=== PATIENT | male | born 1965 | race Caucasian/White ===

== ENCOUNTER 2022-02-26 09:33 | Outpatient (CLI) | payer OTHER, SELFPAY ==
--- NOTE | 2022-02-26 09:52 | CT_ITS ---
WS: [id number] CT ABDOMEN PELVIS TECHNIQUE: Contrast-enhanced CT of the abdomen and pelvis with coronal and sagittal reformatted image s. CLINICAL INFORMATION: STOOL INCONTINENCE COMPARISON: Ultrasound February 17, 2022 DLP: 1433.[address] scans at [facility] use at least one of these dose optimization techniques: automated e xposure control; mA and/or kV adjustment per patient size (includes targeted exams where dose is matc hed to clinical indication); or iterative reconstruction. FINDINGS: Innumerable heterogeneously enhancing liver lesions likely metastasis throughout both hepatic lobes. Hepatomegaly. Lobulated liver metastasis with mild mass effect on the portal veins. Portal veins onesimo in patent. Splenic vein is patent. Largest metastatic lesions measure 7-8 cm. Mass effect on the midd le hepatic vein. IVC is patent. Normal GE junction. Stomach appears normal. Adrenal glands are normal . Normal renal parenchymal enhancement. No hydronephrosis. Periportal lymphadenopathy. Normal caliber abdominal aorta. Celiac and SMA are patent. Additional per iaortic and Prominent aortocaval lymph nodes. Enlarged RIGHT iliac lymph nodes. RIGHT greater than LE FT. Enlarged pelvic sidewall lymph nodes. Prominent LEFT greater than RIGHT inguinal lymph nodes. Not able enlarged presacral lymph node measuring 15 mm Lung bases are well aerated. Mild diffuse bladder wall thickening. Prostate calcification. Slightly p rominent prostate measuring 4.2 CM. Mild rectosigmoid constipation. Mild lumbar curve. Hypertrophic changes lumbar spine. Disc space narrowing L5-S1. CT/CT abdomen pelvis w con* [id number] IMPRESSION: 1. Innumerable lobulated complex masses throughout both hepatic lobes most lik kalli due to metastatic disease. Largest lesions measure 7 to 8 cm. 2. Mass effect with narrowing of the portal veins and middle hepatic vein. 3. Splenic vein is patent. 4. Periportal lymphadenopathy. Enlarged aortocaval and periaortic lymph nodes. Enlarged RIGHT greater than LEFT common iliac lymph nodes. Enlarged RIGHT grea ter than LEFT pelvic sidewall lymph nodes. Prominent LEFT inguinal lymph node. 5. Notable enlarged presacral lymph node measuring 15 mm. 6. Mild prominence of the prostate measuring 4.2 CM. 7. No other remarkable findings.
[2022-02-26] MEDS: iohexol 350 mg/mL 500 mL Btl (per mL) IV (10:00)
[2022-02-26] MEDS: iohexol 350 mg/mL 500 mL Btl (per mL) PO (10:01)
== END 2022-02-26 09:34 | disposition home or self-care (01) ==
PROVIDERS: Visit Provider Family Medicine
DX: R15.9 Full incontinence of feces (principal); N40.0 Benign prostatic hyperplasia without lower urinary tract symptoms; R59.0 Localized enlarged lymph nodes
CPT/HCPCS: 74177; Q9967

== ENCOUNTER 2022-03-20 13:23 | Outpatient (CLI) | payer OTHER, SELFPAY ==
--- NOTE | 2022-03-20 13:39 | CT_ITS ---
WS: [id number] CT HEAD TECHNIQUE: Noncontrast and contrast-enhanced CT of the head. CLINICAL INFORMATION: MALIGNANT NEOPLASM OF LIVER COMPARISON: None. DLP: 3408.[address] scans at [facility] use at least one of these dose optimization techniques: automated e xposure control; mA and/or kV adjustment per patient size (includes targeted exams where dose is matc hed to clinical indication); or iterative reconstruction. FINDINGS: No evidence of intracranial hemorrhage or mass effect. Ventricular system and basal cisterns are benjamin nt. No abnormal intracranial enhancement. No evidence of enhancing intracranial metastatic disease. P aranasal sinuses and mastoid air cells are well aerated. Mild parenchymal volume loss. Mild intracran ial vascular calcification. Normal posterior nasopharynx. No other suspicious findings. CT/CT head wo/w con [id number] IMPRESSION: 1. No evidence of intracranial hemorrhage or mass effect. 2. Mild small vessel changes. Moderate parenchymal volume loss. 3. No abnormal intracranial enhancement. 4. No evidence of enhancing metastatic disease. 5. No other acute findings.
--- NOTE | 2022-03-20 13:39 | CT_ITS ---
WS: [id number] CT CHEST TECHNIQUE: Contrast enhanced CT of the chest with coronal and sagittal reformatted images. CLINICAL INFORMATION: MALIGNANT NEOPLASM OF LIVER COMPARISON: None. DLP: 3408.[address] scans at [facility] use at least one of these dose optimization techniques: automated e xposure control; mA and/or kV adjustment per patient size (includes targeted exams where dose is matc hed to clinical indication); or iterative reconstruction. FINDINGS: Normal variant azygos fissure. No acute pulmonary infiltrates. No focal pneumonia or pleural fluid. N o suspicious pulmonary parenchymal opacities. No evidence of metastatic disease in the chest. Normal caliber thoracic aorta. Normal caliber descending thoracic aorta. Upper abdominal aorta is nor mal. No mediastinal or hilar lymphadenopathy. No axillary lymphadenopathy. Diffuse metastatic disease partially visualized in the liver with hepatomegaly. Hypertrophic changes mid and lower thoracic spine. CT/CT chest w con* [id number] IMPRESSION: 1. No evidence of metastatic disease in the chest. 2. Normal variant azygos fissure. 3. No acute pulmonary infiltrates. 4. Partially visualized diffuse metastatic disease in the liver.
[2022-03-20] MEDS: iohexol 350 mg/mL 500 mL Btl (per mL) IV (13:51)
== END 2022-03-20 13:24 | disposition home or self-care (01) ==
PROVIDERS: Visit Provider Electrodiagnostic Medicine
DX: C22.9 Malignant neoplasm of liver, not specified as primary or secondary (principal)
CPT/HCPCS: 70470; 71260; Q9967

== ENCOUNTER 2022-04-21 18:12 | Inpatient (IN) | payer OTHER, SELFPAY ==
[2022-04-21 18:14] VITALS: BMI 21.2
[2022-04-21 20:00] VITALS: BP 158/95; PULSE 61; RESP 17; TEMP 37.6; O2SAT 98
[2022-04-21 20:11] LABS: Basophils # 0.1 10^3/uL (0.0-0.1); Basophils % 0.4 %; Eosinophils # 0.2 10^3/uL (0.0-0.8); Eosinophils % 1.3 %; Hemoglobin 11.5 g/dL (11.7-16.6); Lymphocytes % 12.9 %; Mean Corpuscular HGB Conc 31.9 g/dL (30.0-36.0); Mean Corpuscular Volume 81.4 fl (80-94); Mean Platelet Volume 11.6 fL (7.4-10.4); Monocytes # 1.3 10^3/uL (0.2-0.9); Monocytes % 8.5 %; Neutrophils # 11.61 10^3/uL (1.8-7.7); Neutrophils % 76.7 %; Nucleated Red Blood Cells % 0 %; Platelet Count 358 10^3/cmm (130-400); Red Blood Count 4.42 10^6/uL (4.1-5.3); Red Cell Distribution Width 18.7 % (12.1-15.1); White Blood Count 15.1 10^3/uL (4.0-10.0)
[2022-04-21 20:27] LABS: INR 0.96 (0.8-1.2)
[2022-04-21 20:54] LABS: Folate Level 13.7 ng/mL (4.5-32.2)
[2022-04-21 20:55] LABS: Thyroid Stimulating Hormone 3.02 uIU/mL (0.27-4.20); Vitamin B12 603 pg/mL (232-1245)
[2022-04-21 21:06] LABS: Alanine Aminotransferase 27 U/L (0-41); Albumin Level 3.5 g/dL (3.5-5.2); Alkaline Phosphatase 439 U/L (40-130); Aspartate Amino Transferase 32 U/L (0-40); Blood Urea Nitrogen 10 mg/dL (6-20); Carbon Dioxide 28 mmol/L (22-29); Chloride 97 mmol/L (98-107); Globulin 3.2 g/dL (1.3-4.6); Glomerular Filtration Rate 171.4 mL/min (90-130); Glucose 80 mg/dL (65-115); Iron 21 ug/dL (59-158); Osmolality Calculated 278 mOsm/kg (285-295); Percent Saturation 8.5 % (20-50); Sodium 135 mmol/L (136-145); Total Bilirubin 0.3 mg/dL (0.15-1.2); Total Iron Binding Capacity 245 mcg/dl; Total Protein 6.7 g/dL (6.6-8.7); Unsaturated Iron Binding 224 ug/dL (112-347)
--- NOTE | 2022-04-21 21:25 | CT_ITS ---
WS: [id number] CT ABDOMEN AND PELVIS WITH CONTRAST HISTORY: rectal cancer with constipation and difficulty to pass urine TECHNIQUE: Imaging performed of the abdomen and pelvis with IV contrast. Single phase imaging of the abdomen. Coronal and sagittal reformats are submitted. All CT scans at [facility] use at [address] one of these dose optimization techniques: automated exposure control; mA and/or kV adjustment per patient size (includes targeted exams where dose is matched to clinical indication); or iterative re construction. IV CONTRAST: Omnipaque 350; 95 mL IV. Oral contrast: Minimal just prior to the scan to distend the stomach. DLP: 422.73 mGy.cm COMPARISON: 02/26/2022 Lower thorax: Lung bases are clear. Heart is normal size. Small hiatal hernia. Liver/biliary system: Enlarged heterogeneous liver with multiple masses scattered throughout the live r. Some of these masses are confluent. Significant involvement of the liver. Largest confluent mass i n the RIGHT lobe measures 12.5 x 9.9 cm. There does appear to been a progression of the metastatic le sions throughout the liver. Encasement of the main portal vein and RIGHT portal vein. No definite occ lusions. Gallbladder: Normal. No gallstones or wall thickening. No pericholecystic fluid. Pancreas: Low-attenuation mass inseparable from the pancreatic neck measures 1.9 x 2.0 cm. May be a l ymph node or lesion associated with the pancreas. No pancreatic duct dilatation. Spleen: Normal size spleen. No mass or infarct. Adrenal glands: Normal. Right kidney: Normal. Left kidney: Normal. Aorta: Mild atherosclerosis with no aneurysm. Lymphadenopathy: Numerous retroperitoneal and mesenteric lymph nodes are identified. Numerous lymph n odes in the region of the monie hepatis and adjacent to the portal vein with the largest measuring 2. 0 x 1.9 cm. This is a lymph node or mass effect is inseparable from the pancreas. Retroperitoneal lym ph nodes with the largest in the LEFT periaortic location measuring 1.0 x 2.3 cm. Additional smaller aortocaval and iliac chain lymph nodes. RIGHT iliac chain lymph node measures 2.4 x 1.1 cm. Small ing uinal lymph nodes. Free fluid: None. GI tract: Minimally distended stomach. No small bowel obstruction. There is extensive fecal retention and air throughout the colon. There are numerous foci of air within the wall of the rectum. These ch anges have progressed since the prior study. This wall thickening and foci of air are greatest along the RIGHT lateral rectum. Possibility of ischemia or perforation should be considered. There are shane ral foci of air that or not definitely contained within the lumen. No soft tissue stranding. Asymmetric thickening and increased soft tissue at the rectum. There are sm all lymph nodes which are enhancing posterior to the rectum. The largest measures 1.9 cm. Abdominal wall: Unremarkable abdominal wall. No hernia. Pelvis: No free fluid. Urinary bladder is well distended. Mild prostate enlargement with central calc ifications. Bones: Unremarkable. CT/CT abdomen pelvis w con* [id number] IMPRESSION: 1. Known hepatic metastatic disease has progressed since 02/26/2022. 2. Mesenteric and retroperitoneal and pelvic lymphadenopathy very similar in a ppearance to 02/26/2022. 3. Marked diffuse constipation and fecal retention with abnormal soft tissue t hickening near the rectum with perirectal soft tissue stranding and a few small lymph nodes. Suspect site of tumor involvement. 4. Several foci of air near the rectum appear within the wall or just external to the lumen. Possibility of perforation or phlegmon should be considered. The re is no focal collection. There has been a significant change in appearance of the rectum since the prior study.
[2022-04-21] MEDS: magnesium hydroxide 30 mL UDC PO (22:26)
[2022-04-21] MEDS: sennosides 8.6 mg Tablet 17.2 MG PO (22:26)
[2022-04-21] MEDS: dextrose 5%-sod chloride 0.45% 1,000 ML 75 ML IV (22:27)
[2022-04-21] MEDS: famotidine 20 mg/2 mL INJ IVP (23:07)
[2022-04-21 23:08] VITALS: RESP 18
[2022-04-21] MEDS: morphine 4 mg/mL SDV 1 mL 2 MG IVP (23:08)
[2022-04-21] MEDS: barium sulfate 450 mL Oral Susp PO (23:32)
[2022-04-22] VITALS (29 sets, daily range): BP systolic 103–163; BP diastolic 61–96; PULSE 58–97; RESP 16–20; TEMP 36.3–38.9; O2SAT 92–100; BMI 21.2
[2022-04-22] MEDS: iohexol 350 mg/mL 500 mL Btl (per mL) IV (00:07)
[2022-04-22] MEDS: morphine 4 mg/mL SDV 1 mL 2 MG IVP ×3 (01:26→08:54)
--- NOTE | 2022-04-22 02:03 | PM.HP ---
Providers/Chief Complaint Admitting Physician: Teodoro Rizo MD Primary Care Provider: Sylvain Tenorio MD Chief Complaint: colorectal cancer History of Present Illness Morgan Cruz is a 56 year old male who was diagnosed to have rectal cancer about 2 months ago. Patient visited with his primary care provider for a routine exam, on abdominal palpation was noted to have a firm liver. Further work-up with an ultrasound revealed metastatic disease to the liver. Colonoscopy was subsequently performed as outpatient by his PCP Dr. Schuster which showed rectal mass, moderately differentiated adenocarcinoma on biopsy. Patient has had constipation, feeling of incomplete evacuation for over 2 months now. He also has complaints of frequent bloating, inability to pass gas satisfactorily, abdominal pain after eating which he attributes to gas pain. He has noticed narrow caliber stools. Reportedly he had a one-time bleeding in his stools which he attributed to excessive ibuprofen use, reports taking up to 10 to 12 pills a day because of abdominal pain. States that the bleeding stopped once he quit taking ibuprofen. Last use was over 2 weeks ago. No nausea vomiting or hematemesis. States that he additionally has difficulty urinating when he gets bloated. Denies any fever or chills. Patient presented to the oncology office today as a new patient to establish care, was noted to be in extreme discomfort [place] was sent over to to the hospital for a direct admit. Labs today are reflective of leukocytosis, mild hyponatremia and elevated alk phos at 439. T. bili AST ALT currently normal. CT of the abdomen and pelvis obtained this evening shows progressed metastatic disease, mesenteric and retroperitoneal lymphadenopathy, marked diffuse constipation and fecal retention with soft tissue thickening near the rectum which is likely the site of his tumor involvement. Additionally noted are several foci of air near the rectum within the wall or just external to the lumen. Possibility of perforation or phlegmon could not be excluded. There was no noted focal collection. There has been a significant change in the appearance of rectum since the last CAT scan in February 2022. Review of Systems General: Reports: 10 or more systems reviewed and unremarkable except in HPI and below Const: Denies: fever(s), chills or body aches Eyes: Denies: change in vision, blurry vision or photophobia ENMT: Reports: hoarseness; Denies: throat pain, enlarged tonsils, odynophagia or nasal congestion Card: Denies: chest pain, palpitations, irregular heart rhythm, edema, swelling of feet/ankles, lightheadedness, pre-syncope, dyspnea on exertion or orthopnea Resp: Denies: dyspnea, productive cough, non-productive cough, wheezing, stridor, pain on inspiration, change in phlegm color, hemoptysis or chest congestion GI: Denies: abdominal pain, nausea, vomiting, hematemesis, coffee ground emesis, dysphagia, heartburn, diarrhea, constipation, GI cramping, change in stool character, hematochezia or melena : Denies: flank pain, dysuria, urinary frequency, urinary urgency, urinary hesitancy or hematuria Musc: Denies: neck pain, back pain, extremity pain, joint swelling, joint warmth or deformity Neuro: Denies: headache(s), numbness in extremities, weakness in extremities, sensory changes, difficulty walking, frequent falls, dizziness, vertigo, behavioral changes, Slurred speech present or seizure-like activity Psych: Denies: anxiety, depression, suicidal ideation or homicidal ideation Endo: Denies: polyuria, polydipsia, tired all the time, cold intolerance or hot flashes Jamar/Lymph: Denies: easy bruising or easy bleeding Medications/Allergies Home Medications Medication Instructions Recorded Confirmed Last Taken Type dicyclomine 20 mg tablet 20 mg PO QID 04/21/22 04/21/22 Unknown History levofloxacin 500 mg tablet 500 mg PO DAILY 04/21/22 04/21/22 Unknown History loperamide 2 mg capsule 4 mg PO .COMPLEX PRN 04/21/22 04/21/22 Unknown History oxycodone-acetaminophen 5 mg-325 1 tab PO Q8H PRN 04/21/22 04/21/22 Unknown History mg tablet Allergies Allergy/AdvReac Type Severity Reaction Status Date / Time No Known Allergies Allergy Verified 04/21/22 15:55 PFSH Acute PFSH: Medical History (Updated 04/22/22 @ 02:12 by Eva Peters MD) Colon cancer Family History (Updated 04/21/22 @ 16:04 by Ema Krueger LPN) Other CAD (coronary artery disease) Hypertension Denies family history of Diabetes Clotting disorder Dementia Hyperlipidemia Psychiatric illness Chronic kidney disease (CKD) Suicide Anesthesia complication Bleeding disorder Lung disease Cancer Stroke Social History (Updated 04/21/22 @ 16:03 by Ema Krueger LPN) Smoking and tobacco status: former smoker Quit status (tobacco): has quit using tobacco Former quit date comment: smoked x 5 years in his twenty's. Alcohol intake: former Vitals/I&O/Wt Last Vital Signs Temp 97.6 F 04/22/22 00:00 Pulse 96 04/22/22 00:00 Resp 20 H 04/22/22 01:26 BP 155/80 04/22/22 00:00 Pulse Ox 95 04/22/22 01:33 O2 Del Method 04/22/22 01:33 Weight last 48 hrs Weight 65.431 kg Physical Exam Narrative: General: Patient is currently in discomfort from being bloated with gas. He is pacing the room trying to find some relief. HEENT: PERRLA, pupils bilaterally equal and reactive, pallors not present Chest: Normal vesicular breath sounds, no added sounds, equal good air entry bilaterally CVS: S1-S2 regular, no murmurs, no tachycardia, no gallops, no rubs Abdomen: Soft, mildly distended no organomegaly, bowel sounds present Neuro: No focal deficits, no facial deformity, AO x3, power 5/5 in all limbs Data 04/21/22 19:50 04/21/22 19:50 Other Labs: Radiology Impressions Abdomen/Pelvis CT 04/21/22 21:25 IMPRESSION: 1. Known hepatic metastatic disease has progressed since 02/26/2022. 2. Mesenteric and retroperitoneal and pelvic lymphadenopathy very similar in appearance to 02/26/2022. 3. Marked diffuse constipation and fecal retention with abnormal soft tissue thickening near the rectum with perirectal soft tissue stranding and a few small lymph nodes. Suspect site of tumor involvement. 4. Several foci of air near the rectum appear within the wall or just external to the lumen. Possibility of perforation or phlegmon should be considered. There is no focal collection. There has been a significant change in appearance of the rectum since the prior study. Laboratory Results WBC 15.1 10^3/uL (4.0-10.0) H 04/21/22 19:50 RBC 4.42 10^6/uL (4.1-5.3) 04/21/22 19:50 Hgb 11.5 g/dL (11.7-16.6) L 04/21/22 19:50 Hct 36.0 % (42.0-52.0) L 04/21/22 19:50 MCV 81.4 fl (80-94) 04/21/22 19:50 MCH 26.0 pg (28.0-34.0) L 04/21/22 19:50 MCHC 31.9 g/dL (30.0-36.0) 04/21/22 19:50 RDW 18.7 % (12.1-15.1) H 04/21/22 19:50 Plt Count 358 10^3/cmm (130-400) 04/21/22 19:50 MPV 11.6 fL (7.4-10.4) H 04/21/22 19:50 Neut % (Auto) 76.7 % 04/21/22 19:50 Lymph % (Auto) 12.9 % 04/21/22 19:50 [place] % (Auto) 8.5 % 04/21/22 19:50 Eos % (Auto) 1.3 % 04/21/22 19:50 Baso % (Auto) 0.4 % 04/21/22 19:50 Neut # (Auto) 11.61 10^3/uL (1.8-7.7) H 04/21/22 19:50 Lymph # (Auto) 2.0 10^3/uL (0.8-4.8) 04/21/22 19:50 [place] # (Auto) 1.3 10^3/uL (0.2-0.9) H 04/21/22 19:50 Eos # (Auto) 0.2 10^3/uL (0.0-0.8) 04/21/22 19:50 Baso # (Auto) 0.1 10^3/uL (0.0-0.1) 04/21/22 19:50 Nucleated RBC % (auto) 0 % 04/21/22 19:50 Nucleated RBCs # 0.0 /100WBC 04/21/22 19:50 PT 13.00 SECONDS (12.1-14.9) 04/21/22 19:50 INR 0.96 (0.8-1.2) 04/21/22 19:50 Sodium 135 mmol/L (136-145) L 04/21/22 19:50 Potassium 4.0 mmol/L (3.5-5.1) 04/21/22 19:50 Chloride 97 mmol/L (98-107) L 04/21/22 19:50 Carbon Dioxide 28 mmol/L (22-29) 04/21/22 19:50 Anion Gap 14.0 (5-19) 04/21/22 19:50 BUN 10 mg/dL (6-20) 04/21/22 19:50 Creatinine 0.5 mg/dL (0.7-1.2) L 04/21/22 19:50 GFR Calculation 171.4 mL/min (90-130) H 04/21/22 19:50 Glucose 80 mg/dL (65-115) 04/21/22 19:50 Calculated Osmolality 278 mOsm/kg (285-295) L 04/21/22 19:50 Lactic Acid 1.0 mmol/L (0.5-2.2) 04/21/22 19:50 Calcium 10.0 mg/dL (8.5-10.5) 04/21/22 19:50 Iron 21 ug/dL (59-158) L 04/21/22 19:50 TIBC 245 mcg/dl 04/21/22 19:50 % Saturation 8.5 % (20-50) L 04/21/22 19:50 Unsat Iron Binding 224 ug/dL (112-347) 04/21/22 19:50 Total Bilirubin 0.3 mg/dL (0.15-1.2) 04/21/22 19:50 AST 32 U/L (0-40) 04/21/22 19:50 ALT 27 U/L (0-41) 04/21/22 19:50 Alkaline Phosphatase 439 U/L (40-130) H 04/21/22 19:50 Total Protein 6.7 g/dL (6.6-8.7) 04/21/22 19:50 Albumin 3.5 g/dL (3.5-5.2) 04/21/22 19:50 Globulin 3.2 g/dL (1.3-4.6) 04/21/22 19:50 Vitamin B12 603 pg/mL (232-1245) 04/21/22 19:50 Folate 13.7 ng/mL (4.5-32.2) 04/21/22 19:50 Procalcitonin 0.20 ng/mL (0-0.5) 04/21/22 19:50 TSH 3.02 uIU/mL (0.27-4.20) 04/21/22 19:50 Micro: Microbiology 04/21/22 19:50 Blood Culture - Preliminary Blood SPECIMEN COLLECTED 04/21/22 19:55 Blood Culture - Preliminary Blood SPECIMEN COLLECTED A&P Assessment and plan (1) Rectal cancer metastasized to liver: (2) Colon perforation: Plan Admitted to [facility]. Patient noted to have metastatic rectal cancer, establish care with oncology today. Currently complaining of abdominal pain, bloating, difficulty passing feces and gas. CT of the abdomen shows progression of the cancer, possible perforation and phlegmonous changes. N.p.o. We will start patient on piperacillin/tazobactam Surgery consult to assess for diverting colostomy As needed morphine for pain control. Inability to pass urine, will bladder scan and Place Baeza catheter, add Flomax when p.o. intake is resumed. IV fluid D5 normal saline at 75 cc an hour Attestations Medical Necessity Statement*: Greater than 2 midnight admission is anticipated for above defined care Coding Level of Care Code Acute Code for Chg Fwd Diagnoses Rectal cancer metastasized to liver C20; C78.7 Colon perforation K63.1
[2022-04-22] MEDS: pantoprazole 40 mg SDV IVP ×2 (02:34→14:59)
[2022-04-22] MEDS: piperacillin-tazobactam 3.375 GM in sodium chloride 0.9% (plus) 50 ML IV ×2 (02:34→10:15)
[2022-04-22 03:37] LABS: Add Urine Microscopic? NO; Charge for UA Resulting for Rev
[2022-04-22 03:51] LABS: Urine Appearance Clear (CLEAR); Urine Color Yellow (Yellow); pH Urine 7 (5-7)
[2022-04-22 03:52] LABS: Bilirubin Urine Neg (Negative); Blood Urine Neg (Negative); Glucose Urine UA Norm (Normal); Ketones Urine Negative (Negative); Leukocyte Esterase Urine Negative (Negative); Nitrate Urine Negative (Negative); Protein Urine Neg (Negative); Urobilinogen Urine Norm (Negative)
[2022-04-22 06:20] LABS: Basophils % 0.2 %; Eosinophils % 0.1 %; Hemoglobin 11.6 g/dL (11.7-16.6); Lymphocytes # 1.1 10^3/uL (0.8-4.8); Mean Corpuscular HGB Conc 32.2 g/dL (30.0-36.0); Mean Corpuscular Hemoglobin 25.5 pg (28.0-34.0); Mean Corpuscular Volume 79.1 fl (80-94); Mean Platelet Volume 11.7 fL (7.4-10.4); Monocytes # 1.8 10^3/uL (0.2-0.9); Monocytes % 9.7 %; Neutrophils # 15.14 10^3/uL (1.8-7.7); Neutrophils % 83.7 %; Nucleated Red Blood Cells % 0 %; Platelet Count 367 10^3/cmm (130-400); Red Blood Count 4.55 10^6/uL (4.1-5.3); Red Cell Distribution Width 18.6 % (12.1-15.1); White Blood Count 18.1 10^3/uL (4.0-10.0)
[2022-04-22 06:32] LABS: Estmated Average Glucose 97
[2022-04-22 06:46] LABS: Alanine Aminotransferase 25 U/L (0-41); Albumin Level 3.7 g/dL (3.5-5.2); Alkaline Phosphatase 399 U/L (40-130); Aspartate Amino Transferase 34 U/L (0-40); Blood Urea Nitrogen 9 mg/dL (6-20); Calcium 9.2 mg/dL (8.5-10.5); Carbon Dioxide 27 mmol/L (22-29); Chloride 100 mmol/L (98-107); Chol HDL Ratio 3.24 mg/dL (1.0-5.00); Cholesterol 178 mg/dL (0-200); Globulin 3.2 g/dL (1.3-4.6); Glomerular Filtration Rate 116.2 mL/min (90-130); Glucose 109 mg/dL (65-115); HDL Cholesterol 55 mg/dL (60-100); LDL Cholesterol Calculated 105 mg/dL (50-129); Magnesium 1.8 mg/dL (1.7-2.3); Osmolality Calculated 287 mOsm/kg (285-295); Phosphorus 3.6 mg/dL (2.5-4.5); Sodium 139 mmol/L (136-145); Total Bilirubin 0.5 mg/dL (0.15-1.2); Total Protein 6.9 g/dL (6.6-8.7); Triglycerides 91 mg/dL (0-150); VLDL Cholestrol Calculation 18 mg/dL (0-30)
[2022-04-22] MEDS: dextrose 5%-sod chloride 0.45% 1,000 ML 75 ML IV (08:35)
[2022-04-22] MEDS: docusate sodium 100 mg Capsule PO (08:36)
[2022-04-22] MEDS: magnesium hydroxide 30 mL UDC PO (08:36)
[2022-04-22] MEDS: iron sucrose 200 MG in sodium chloride 0.9% (100 ml) 100 ML 220 MG IV (11:45)
[2022-04-22] MEDS: HYDROmorphone 1 mg/mL INJ 1 mL 0.5 MG IVP ×2 (14:58→16:55)
--- NOTE | 2022-04-22 15:18 | PM.PN ---
Subjective Subjective: No acute events overnight. Patient has remained hemodynamic stable and afebrile on room air. Complaining of abdominal pain. States morphine is not helping him enough. Did have few bowel movements after bowel regimen yesterday. States he thinks that the Baeza catheter is not working and he is not able to pass urine. We discussed urine S coming from the Baeza catheter and the irritation is likely sensation of the Baeza going in. We discussed the initiation of Flomax. Patient is agreeable. Family at bedside. Plan for OR later in the day today. Discussed CT results in detail. Vitals/I&O/Wt Last Vital Signs Temp 98.2 F 04/22/22 11:52 Pulse 80 04/22/22 11:52 Resp 18 04/22/22 14:58 BP 147/80 04/22/22 11:52 Pulse Ox 95 04/22/22 11:52 O2 Del Method 04/22/22 11:52 04/22/22 04/22/22 04/22/22 06:59 14:59 22:59 Intake Total 50 / 50 920 / 920 Output Total 950 / 950 500 / 500 Balance -900 / -900 420 / 420 Weight last 48 hrs Weight 65.431 kg Weight 65.431 kg Physical Exam Narrative: General: In mild distress because of abdominal pain, AOx3, on room air, cachectic HEENT: PERRLA, pupils bilaterally equal and reactive, pallors not present Chest: Normal vesicular breath sounds, no added sounds, equal good air entry bilaterally CVS: S1-S2 regular, no murmurs, no tachycardia, no gallops, no rubs Abdomen: Soft, mildly distended no organomegaly, bowel sounds present but sluggish Neuro: No focal deficits, no facial deformity, AO x3, power 5/5 in all limbs Urinary Catheter Management: Baeza: Cath Placed During This Visit: yes Reason for Continuing Indwelling Catheter: Acute Urinary Retention or Obstruction Urinary Catheter Date of Insertion: 04/22/22 Urinary Catheter Time of Insertion: 01:50 Data 04/22/22 05:55 04/22/22 05:55 Micro: Microbiology 04/21/22 19:50 Blood Culture - Preliminary Blood SPECIMEN COLLECTED 04/21/22 19:55 Blood Culture - Preliminary Blood SPECIMEN COLLECTED A&P Assessment and plan (1) Colon perforation: Surgery consulted. Continue with empiric Zosyn. Follow-up blood cultures. Plan for the OR today. Continue with aggressive bowel regimen with senna, Colace, milk of magnesium. Continue NPO. Postoperative anticoagulation, diet advancement as per surgical team. Continue with D5 half NS at 75 cc/h. Dilaudid 0.5 every 6 hours as needed for pain. (2) Rectal cancer metastasized to liver: Follows up with Dr. Hughes as an outpatient. Plan for chemotherapy as an outpatient. Plan for port placement during hospitalization. Plan Iron deficiency anemia: Started on IV iron supplementation. Appreciate vitamin B12 folate results. NPO. Protonix for PUD prophylaxis Heparin for DVT prophylaxis Attestations Medical Necessity Statement*: Requires further hospitalization for management of colonic perforation in setting of rectal cancer metastatic to liver Coding Level of Care Code 84639 High MDM includes risk/complexity, reviewing previous or external records, reviewing test results, ordering lab/other test(s), speaking with independent historian (other than patient), independently interpretating test(s) (not separately recorded) and discussion of management or test(s) w/ other healthcare professional and High Time for a total of 50 minutes, includes reviewing past or interval history, examining/interviewing patient, placing orders, counseling patient/family/other support, updating patient/family/other support, discussing plan of care with staff, communicating with other healthcare providers, documenting encounter and coordinating care Diagnoses Colon perforation K63.1 Rectal cancer metastasized to liver C20; C78.7
--- NOTE | 2022-04-22 15:52 | P.ANESASSM_ITS ---
Pre-Anesthetic Assessment Height/Weight: Height 1.75 m Weight 65.431 kg Temp Pulse Resp BP Pulse Ox O2 Del Method 98.2 F 80 18 147/80 95 04/22/22 11:52 04/22/22 11:52 04/22/22 14:58 04/22/22 11:52 04/22/22 11:52 04/22/22 11:52 Operation Date: 04/22/22 17:15 Proposed Procedures p Exploratory Laparotomy(Not Applicable) - Morgan Huston DO s Colostomy(Not Applicable) - Morgan Huston DO Familial anesthetic complications: None Was Beta Javi taken within 24 hours: N/A Was Clonidine taken within 24 hours: N/A Last intake: Intake Last Liquid Date 04/21/22 Last Liquid Time 21:00 Last Solid Date 04/21/22 Last Solid Time 08:00 Social No alcohol and No tobacco former smoker Exam alert, oriented x 3, clear to auscultation bilaterally and regular rate & rhythm Airway Mallampati: Class III Dentition: other (no teeth) GI colon cancer Anesthetic Plan ASA status: 3E Anesthesia: General Risk of > 500 ml blood loss (7ml/kg in children): No Medications/Allergies Home Medications Medication Instructions Recorded Confirmed Last Taken Type dicyclomine 20 mg tablet 20 mg PO QID 04/21/22 04/22/22 Unknown History levofloxacin 500 mg tablet 500 mg PO DAILY 04/21/22 04/22/22 Unknown History loperamide 2 mg capsule 4 mg PO .COMPLEX 04/21/22 04/22/22 Unknown History oxycodone-acetaminophen 10 mg-325 1 tab PO Q8H PRN Pain 04/22/22 04/22/22 Unknown History mg tablet saw palm 160 mg-vit E 100 2 tab PO DAILY 04/22/22 04/22/22 Unknown History unit-selen 100 rlf-vbgd-ehsomz-pygeum tablet (Prostate Health) Allergies Allergy/AdvReac Type Severity Reaction Status Date / Time No Known Allergies Allergy Verified 04/22/22 08:10 Current Medications Generic Name Dose Route Start Last Admin Trade Name Freq PRN Reason Stop Dose Admin Docusate Sodium 100 mg 04/22/22 09:00 04/22/22 08:36 Docusate Sodium 100 Mg Capsule PO 100 mg BID ZEFERINO Administration Hydromorphone HCl 0.5 mg 04/22/22 09:21 04/22/22 14:58 Hydromorphone 1 Mg/Ml Inj 1 Ml IVP 0.5 mg Q6H PRN Administration SEVERE PAIN Dextrose/Sodium Chloride 1,000 mls @ 75 mls/hr 04/21/22 19:15 04/22/22 08:35 Dextrose 5%-Sod Chloride 0.45% IV 75 mls/hr .[id number] ZEFERINO Administration Piperacillin Sod/Tazobactam 50 mls @ 12.5 mls/hr 04/22/22 02:00 04/22/22 14:16 Sod 3.375 gm/ Sodium Chloride IV Infused Q8H ZEFERINO Infusion Protocol Iron Sucrose 200 mg/ Sodium 110 mls @ 220 mls/hr 04/22/22 11:00 04/22/22 12:46 Chloride IV 04/26/22 11:29 Infused Q24H ZEFERINO Infusion Magnesium Hydroxide 30 ml 04/21/22 19:10 04/22/22 08:36 Magnesium Hydroxide 30 Ml Udc PO 30 ml DAILY ZEFERINO Administration Morphine Sulfate 2 mg 04/21/22 19:09 04/22/22 08:54 Morphine 4 Mg/Ml Sdv 1 Ml IVP 2 mg Q4H PRN Administration SEVERE PAIN Pantoprazole Sodium 40 mg 04/22/22 02:15 04/22/22 14:59 Pantoprazole 40 Mg Sdv IVP 40 mg Q12H ZEFERINO Administration Senna 17.2 mg 04/21/22 21:00 04/21/22 22:26 Sennosides 8.6 Mg Tablet PO 17.2 mg BEDTIME ZEFERINO Administration PFSH Anesthesia Medical History (Updated 04/22/22 @ 15:20 by Teodoro Rizo MD) Colon cancer Hypertension Liver mass Family History (Updated 04/21/22 @ 16:04 by Ema Krueger LPN) Other CAD (coronary artery disease) Hypertension Denies family history of Diabetes Clotting disorder Dementia Hyperlipidemia Psychiatric illness Chronic kidney disease (CKD) Suicide Anesthesia complication Bleeding disorder Lung disease Cancer Stroke Social History (Updated 04/21/22 @ 16:03 by Ema Krueger LPN) Smoking and tobacco status: former smoker Quit status (tobacco): has quit using tobacco Former quit date comment: smoked x 5 years in his twenty's. Alcohol intake: former Data Anesthesia 04/22/22 05:55 04/22/22 05:55 Short CBC 04/21/22 04/22/22 Range/Units 19:50 05:55 WBC 15.1 H 18.1 H (4.0-10.0) 10^3/uL Hgb 11.5 L 11.6 L (11.7-16.6) g/dL Hct 36.0 L 36.0 L (42.0-52.0) % MCV 81.4 79.1 L (80-94) fl Plt Count 358 367 (130-400) 10^3/cmm Neut % (Auto) 76.7 83.7 % Neut # (Auto) 11.61 H 15.14 H (1.8-7.7) 10^3/uL BMP 04/21/22 04/22/22 19:50 05:55 Sodium 135 L 139 Potassium 4.0 4.0 Chloride 97 L 100 Carbon Dioxide 28 27 BUN 10 9 Creatinine 0.5 L 0.7 Glucose 80 109 Calcium 10.0 9.2 Liver Function 04/21/22 04/22/22 Range/Units 19:50 05:55 Total Bilirubin 0.3 0.5 (0.15-1.2) mg/dL AST 32 34 (0-40) U/L ALT 27 25 (0-41) U/L Alkaline Phosphatase 439 H 399 H (40-130) U/L Albumin 3.5 3.7 (3.5-5.2) g/dL Urine 04/21/22 Range/Units 03:00 Urine Color Yellow (Yellow) Urine Appearance Clear (CLEAR) Urine pH 7 (5-7) Ur Specific [place] 1.000 L (1.005-1.030) Urine Protein Neg (Negative) Urine Glucose (UA) Norm (Normal) Urine Ketones Negative (Negative) Urine Nitrate Negative (Negative) Urine Bilirubin Neg (Negative) Ur Leukocyte Esterase Negative (Negative) Coags 04/21/22 19:50 PT 13.00 INR 0.96 Microbiology 04/21/22 19:50 Blood Culture - Preliminary Blood SPECIMEN COLLECTED 04/21/22 19:55 Blood Culture - Preliminary Blood SPECIMEN COLLECTED Cardiac Studies: No Data to Display
[2022-04-22] MEDS: sodium chloride 0.9% 1,000 ML 30 ML IV (16:23)
--- NOTE | 2022-04-22 16:35 | SC_ITS ---
WS: [id number] C-ARM RADIOGRAPHS NO ANATOMIC IMAGING SUBMITTED; HISTORY: port COMPARISON: None available. Intraoperative imaging during Port-A-Cath placement. No film was obtained to document this exam. SC/C-arm FL for CVA [id number] IMPRESSION: Intraoperative imaging during Port-A-Cath placement with no imaging documentati on submitted.
--- NOTE | 2022-04-22 16:38 | P.CONIM_ITS ---
Providers/Reason For Consult Consulting Physician/Specialty*: Dr. Morgan Huston, DO/General surgery Reason for Consult*: Stage IV rectal cancer with partial obstruction and likely perforation of the rectum Attending Physician: Teodoro Rizo MD Primary Care Provider: Sylvain Tenorio MD History of Present Illness History of Present Illness Morgan Cruz is a 56 year old male who has advanced rectal cancer metastatic to the liver. He was admitted last night and a CT showed likely perforation of the rectum along with constipation. He denies any abdominal pain. He was given laxatives yesterday and had 2 bowel movements this morning. Oncology asked for me to do a diverting colostomy and Mediport placement. Review of Systems General: Reports: 10 or more systems reviewed and unremarkable except in HPI and below Medications/Allergies Home Medications Medication Instructions Recorded Confirmed Last Taken Type dicyclomine 20 mg tablet 20 mg PO QID 04/21/22 04/22/22 Unknown History levofloxacin 500 mg tablet 500 mg PO DAILY 04/21/22 04/22/22 Unknown History loperamide 2 mg capsule 4 mg PO .COMPLEX 04/21/22 04/22/22 Unknown History oxycodone-acetaminophen 10 mg-325 1 tab PO Q8H PRN Pain 04/22/22 04/22/22 Un known History mg tablet saw palm 160 mg-vit E 100 2 tab PO DAILY 04/22/22 04/22/22 Unknown History unit-selen 100 lcs-evbg-bmcjrv-pygeum tablet (Prostate Health) Allergies Allergy/AdvReac Type Severity Reaction Status Date / Time No Known Allergies Allergy Verified 04/22/22 08:10 Current Medications Generic Name Dose Route Start Last Admin Trade Name Freq PRN Reason Stop Dose Admin Docusate Sodium 100 mg 04/22/22 09:00 04/22/22 08:36 Docusate Sodium 100 Mg Capsule PO 100 mg BID ZEFERINO Administration Hydromorphone HCl 0.5 mg 04/22/22 09:21 04/22/22 14:58 Hydromorphone 1 Mg/Ml Inj 1 Ml IVP 0.5 mg Q6H PRN Administration SEVERE PAIN Dextrose/Sodium Chloride 1,000 mls @ 75 mls/hr 04/21/22 19:15 04/22/22 08:35 Dextrose 5%-Sod Chloride 0.45% IV 75 mls/hr .[id number] ZEFERINO Administration Piperacillin Sod/Tazobactam 50 mls @ 12.5 mls/hr 04/22/22 02:00 04/22/22 14:16 Sod 3.375 gm/ Sodium Chloride IV Infused Q8H ZEFERINO Infusion Protocol Iron Sucrose 200 mg/ Sodium 110 mls @ 220 mls/hr 04/22/22 11:00 04/22/22 12:46 Chloride IV Infused Q24H ZEFERINO Infusion Sodium Chloride 1,000 mls @ 30 mls/hr 04/22/22 16:15 04/22/22 16:23 Sodium Chloride 0.9% IV 04/23/22 16:14 30 mls/hr .Q24H ZEFERINO Administration Magnesium Hydroxide 30 ml 04/21/22 19:10 04/22/22 08:36 Magnesium Hydroxide 30 Ml Udc PO 30 ml DAILY ZEFERINO Administration Morphine Sulfate 2 mg 04/21/22 19:09 04/22/22 08:54 Morphine 4 Mg/Ml Sdv 1 Ml IVP 2 mg Q4H PRN Administration SEVERE PAIN Pantoprazole Sodium 40 mg 04/22/22 02:15 04/22/22 14:59 Pantoprazole 40 Mg Sdv IVP 40 mg Q12H ZEFERINO Administration Senna 17.2 mg 04/21/22 21:00 04/21/22 22:26 Sennosides 8.6 Mg Tablet PO 17.2 mg BEDTIME ZEFERINO Administration PFSH Acute PFSH: Medical History Colon cancer Hypertension Liver mass Family History Other CAD (coronary artery disease) Hypertension Denies family history of Diabetes Clotting disorder Dementia Hyperlipidemia Psychiatric illness Chronic kidney disease (CKD) Suicide Anesthesia complication Bleeding disorder Lung disease Cancer Stroke Social History Smoking and tobacco status: former smoker Quit status (tobacco): has quit using tobacco Former quit date comment: smoked x 5 years in his twenty's. Alcohol intake: former Vitals/I&O/Wt Last Vital Signs Temp 102.1 F H 04/22/22 16:12 Pulse 89 04/22/22 16:12 Resp 16 04/22/22 16:12 BP 149/82 04/22/22 16:12 Pulse Ox 96 04/22/22 16:12 O2 Del Method 04/22/22 16:12 04/22/22 04/22/22 04/22/22 06:59 14:59 22:59 Intake Total 50 / 50 920 / 920 Output Total 950 / 950 500 / 500 Balance -900 / -900 420 / 420 Weight last 48 hrs Weight 144 lb 4 oz Weight 144 lb 4 oz Physical Exam Narrative: General : Patient is well developed , no acute distress, oriented x3 Head : Normal cephalic, a-traumatic. Ears : Pinnae and external canal are normal. Hearing is normal. Eyes : PERRLA, Sclera and injection are normal. No conjunctival discharge. Nose : Mucous membranes are without erythema. Throat : buccal mucosa is normal, gums are without significant recession or hy pertrophy. Lungs : Equal chest rise bilaterally, no use of accessory muscles, trachea is midline. Cor : Rate and rhythm are normal. Abdomen : Soft, ND, NT, no g/r/m Extremities : No edema, no cyanosis or clubbing, dorsalis pedis pulses are present bilaterally, non-tender to palpation of calves. Upper extremities are normal bilaterally. Back : non-tender to palpation, no CVA tenderness. Neuro : CN II - XII intact, Upper and lower extremities have equal and full strength Urinary Catheter Management: Baeza: Cath Placed During This Visit: yes Reason for Continuing Indwelling Catheter: Acute Urinary Retention or Obstruction Urinary Catheter Date of Insertion: 04/22/22 Urinary Catheter Time of Insertion: 01:50 Data 04/22/22 05:55 04/22/22 05:55 Micro: Microbiology 04/21/22 19:50 Blood Culture - Preliminary Blood SPECIMEN COLLECTED 04/21/22 19:55 Blood Culture - Preliminary Blood SPECIMEN COLLECTED A&P Assessment and plan (1) Rectal cancer metastasized to liver: (2) Rectal perforation: Plan Perforation is isolated to the rectum. This is often treated conservatively with antibiotics. I will perform: Exploratory laparotomy with colostomy formation Mediport insertion The risks and benefits of the procedures including but not limited to, bleeding, infection, infection requiring Mediport removal antibiotic therapy and repeat surgery, damage to surrounding structures, scar, numbness, pain, pneumothorax requiring thoracostomy tube, colostomy malfunction, were explained to the pat ient. He/He is understanding of the risks and wishes to proceed. Coding Level of Care Code Acute Code for Chg Fwd Diagnoses Rectal cancer metastasized to liver C20; C78.7 Rectal perforation K63.1
[2022-04-22] MEDS: lidocaine 2% INJ 20 mL INJECTION (17:35)
[2022-04-22] MEDS: heparin, porcine 1,000 unit/mL INJ 10 mL 6000 UNIT IRRIGATION (18:17)
[2022-04-22] MEDS: tranexamic acid 1,000 mg/10mL SDV 1000 MG IV ×2 (18:22→18:57)
--- NOTE | 2022-04-22 18:40 | PC.NURSE ---
spoke with nirmala, patient's and gave update
--- NOTE | 2022-04-22 18:57 | P.OP_ITS ---
Operative Report Date of procedure: April 22, 2022 Pre-op diagnosis: Preop Diagnosis Rectal Cancer Post-op diagnosis: other (Obstructing rectal cancer) Procedure done: Mediport placement Exploratory laparotomy End colostomy formation Implants: 19 [place] Miguel drain perirectally Specimens removed/disposition: None Surgeon: Dr. Morgan Huston DO Anesthesia: General Estimated blood loss (mL): 30 Complications: None apparent Brief History: This is a very pleasant 56-year-old gentleman with rectal cancer. The cancer grew to be obstructing his stool and then perforated his rectal wall. Mediport placement, exploratory laparotomy and end colostomy formation was indicated. The risks and benefits were explained and documented Procedure: The patient was taken to the operating room and placed supine on the operating room table. All bony prominences were padded. She was given IV sedation and monitored throughout the case by the anesthesia personnel. SCDs were placed and turned on. The arms were tucked to the side. Patient received Ancef 2 g preoperatively IV. The bilateral chest wall was prepped and draped in usual sterile fashion using chlorhexidine base prep. Sterile drapes were applied. We did procedure pause prior to beginning. An 18 gauge needle was placed in the right subclavian vein. Dark, nonpulsatile blood was aspirated. A guidewire was placed through the needle centrally toward the atrial/vena caval junction. Fluoroscopy visualized good placement. The needle was removed and the guidewire was clipped to the drape with a hemostat. Further local anesthetic was infiltrated in the soft tissues of the right chest wall and a #15 blade was used to make a horizontal skin incision. A subcutaneous Mediport pocket was created using Bovie cautery, dissecting down through the skin and subcutaneous tissues. Meticulous hemostasis was achieved. The Mediport was sutured in position using 3-0 vicryl suture x2 stitches. A #15 blade was used to make a small skin jimmie around the guidewire insertion area. The Mediport tubing was tunneled through the subcutaneous tissues up to the needle insertion location. A dilator with a peel-away sheath was placed over the guidewire and placed centrally. After measuring the Mediport tubing was cut to length so that the tip would end at the atrial/vena caval junction. The inner cannula and the guidewire were removed, leaving the dilator sheath in place. The Mediport was flushed. The tip of the catheter was inserted through the peel-away sheath and the peel-away sheath removed in the standard fashion. The Mediport was accessed with a straight Snyder needle and dark, nonpulsatile blood was aspirated and flushed using heparinized saline to hep-lock the Mediport. Final fluoroscopy visualization showed no kink in the catheter and the tip of the Mediport tubing near the atrial/vena caval junction. Both skin incisions were thoroughly irrigated and suctioned dry. Meticulous hemostasis noted. The dermis was approximated with 3-0 Vicryl in an interrupted fashion. Skin was closed with Dermabond. Next the drapes were taken down. His abdomen was then inspected prepped and draped in the usual sterile fashion. A 10 blade scalpel was used to make a laparotomy incision from suprapubically to superior to the umbilicus. Bovie cautery was used to dissect down through the fascia. The peritoneum was entered bluntly and Bovie cautery was used to extend the celiotomy caudad and cephalad. Stool was milked from the proximal rectum proximally. A window was made in the mesentery of the rectosigmoid using Bovie cautery. The contour stapler with a blue load was used to transect the sigmoid from the rectum. A Bharathi was used to grasp the planned area for colostomy formation inferior and left of the umbilicus, within the rectus muscle. Bovie cautery was used to carve out a core of skin and subcutaneous tissue. The anterior rectus sheath was opened in a c ruciate fashion with electrocautery. The rectus muscle was split and the posterior rectus sheath was opened linearly. The incisions were dilated until 2 finger breaths width. The sigmoid colon was then brought up through the colostomy site. I digitally probed the mesorectum on the right of the rectus, where CT shows perforation. I had some bleeding in this area. A Surgicel was placed in the area and a lap pad was left for 5 minutes. Lap pad and Surgicel were removed and there is no longer any bleeding. A 19 [place] Miguel drain was then placed perirectally on the right. The drain came out of the right side of the abdomen. The drain was sewn in with 3-0 nylon in interrupted fashion. The laparotomy incision was then closed with #1 PDS in a running fashion x2. Skin was closed with perry. The colostomy was then matured in the typical fashion. Sterile dressings were applied. Colostomy bag was applied. Patient tolerated procedure well.
--- NOTE | 2022-04-22 19:37 | XRR_ITS ---
PROCEDURE INFORMATION: Exam: XR Chest Exam date and time: 04/22/2022 7:41 PM Age: 56 years old Clinical indication: Condition or disease; Other: Portachath placement; Additional info: S/P portacath placement TECHNIQUE: Imaging protocol: Radiologic exam of the chest. Views: 1 view. COMPARISON: CT abdomen pelvis w con* [id number] 04/22/2022 12:06 AM FINDINGS: Tubes, catheters and devices: A left subclavian Port-A-Cath is seen, appearing in good position with tip at the expected level of the cavoatrial junction. 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 No focal infiltrate or consolidation. Pleural spaces: Unremarkable. No pleural effusion. No pneumothorax. Heart/Mediastinum: Unremarkable. No cardiomegaly. Bones/joints: Small linear lucency question small amount of free air below the right diaphragm. XR/XR chest 1V portable [id number] IMPRESSION: 1. Left subclavian Port-A-Cath appears in good position without pneumothorax. 2. Small linear lucency question small amount of free air beneath the right diaphragm. Discussion with Yessi France, TRAINING AND DEVELOPMENT ASSISTANT was performed at 8:50 p.m. central standard time April 22, 2022.. Patient had abdominal surgery with ostomy today. Small amount of free air is attributed to postop change, therefore.
--- NOTE | 2022-04-22 19:50 | ANE.PACU2 ---
Inpatient post-anesthesia follow up: Airway intact: Yes Vital signs: Temperature 98.0 F Pulse Rate 85 Respiratory Rate 17 Blood Pressure 118/80 Pulse Oximetry 98 Oxygen Delivery Me thod Room Air Oxygen Flow Rate 4 Fraction of Inspir ed Oxygen Hydration adequate: Yes Nausea and vomiting: No Pain level: 1 Mental status: Baseline
--- NOTE | 2022-04-22 19:56 | SUR.PHASEI ---
Pt was ready to transfer to [facility], xray wasn't avalible to do the xray before the transport, then there were complications with the xray equipment
[2022-04-22] MEDS: HYDROmorphone 1 mg/mL INJ 1 mL IVP (21:10)
[2022-04-22] MEDS: sodium chloride 0.9% 1,000 ML 125 ML IV (21:37)
[2022-04-23] VITALS (11 sets, daily range): BP systolic 116–145; BP diastolic 72–84; PULSE 70–90; RESP 16–20; TEMP 36.6–36.8; O2SAT 95–98; BMI 21.0
[2022-04-23] MEDS: ondansetron 2 mg/ML SDV 2 mL 4 MG IVP
[2022-04-23] MEDS: piperacillin-tazobactam 3.375 GM in sodium chloride 0.9% (plus) 50 ML IV ×4 (00:07→23:50)
[2022-04-23] MEDS: HYDROmorphone 1 mg/mL INJ 1 mL IVP ×4 (04:31→20:36)
[2022-04-23 05:14] LABS: Basophils % 0.1 %; Hematocrit 32.3 % (42.0-52.0); Hemoglobin 10.2 g/dL (11.7-16.6); Lymphocytes # 0.7 10^3/uL (0.8-4.8); Mean Corpuscular HGB Conc 31.6 g/dL (30.0-36.0); Mean Corpuscular Hemoglobin 25.4 pg (28.0-34.0); Mean Corpuscular Volume 80.5 fl (80-94); Mean Platelet Volume 11.5 fL (7.4-10.4); Monocytes # 0.6 10^3/uL (0.2-0.9); Monocytes % 3.7 %; Neutrophils # 15.11 10^3/uL (1.8-7.7); Nucleated Red Blood Cells % 0 %; Platelet Count 314 10^3/cmm (130-400); Red Blood Count 4.01 10^6/uL (4.1-5.3); Red Cell Distribution Width 19.1 % (12.1-15.1); White Blood Count 16.4 10^3/uL (4.0-10.0)
[2022-04-23 05:35] LABS: Alanine Aminotransferase 18 U/L (0-41); Albumin Level 3.4 g/dL (3.5-5.2); Alkaline Phosphatase 327 U/L (40-130); Aspartate Amino Transferase 28 U/L (0-40); Blood Urea Nitrogen 13 mg/dL (6-20); Calcium 8.6 mg/dL (8.5-10.5); Carbon Dioxide 23 mmol/L (22-29); Chloride 103 mmol/L (98-107); Globulin 2.9 g/dL (1.3-4.6); Glomerular Filtration Rate 116.2 mL/min (90-130); Glucose 114 mg/dL (65-115); Osmolality Calculated 287 mOsm/kg (285-295); Sodium 138 mmol/L (136-145); Total Bilirubin 0.5 mg/dL (0.15-1.2); Total Protein 6.3 g/dL (6.6-8.7)
[2022-04-23] MEDS: tamsulosin 0.4 mg Capsule PO (08:40)
[2022-04-23] MEDS: sodium chloride 0.9% 1,000 ML 125 ML IV (08:41)
[2022-04-23] MEDS: iron sucrose 200 MG in sodium chloride 0.9% (100 ml) 100 ML 220 MG IV (13:24)
[2022-04-23] MEDS: pantoprazole 40 mg SDV IVP (13:48)
--- NOTE | 2022-04-23 14:46 | PM.PN ---
Subjective Subjective: No acute events overnight. Patient underwent exploratory laparotomy, end colostomy formation and port placement yesterday. Patient tolerated the procedure well. Tmax in last 24 hours 102 Fahrenheit. Today morning on examination patient states he is hungry and wants to eat. Passing urine. Passing flatus and bowel movements through ostomy. Denies any nausea, vomiting, headache. States pain is well controlled. Vitals/I&O/Wt Last Vital Signs Temp 98.1 F 04/23/22 08:00 Pulse 87 04/23/22 12:00 Resp 18 04/23/22 13:41 BP 135/81 04/23/22 12:00 Pulse Ox 97 04/23/22 12:00 O2 Del Method 04/23/22 09:22 O2 Flow Rate 4 04/22/22 19:20 04/22/22 04/23/22 04/23/22 22:59 06:59 14:59 Intake Total 550 / 1470 1090 / 2560 2160 / 2160 Output Total 250 / 750 650 / 1400 Balance 300 / 720 440 / 1160 2160 / 2160 Weight last 48 hrs Weight 64.682 kg Weight 64.682 kg Weight 65.431 kg Weight 65.431 kg Physical Exam Narrative: General: In mild distress because of abdominal pain, AOx3, on room air, cachectic HEENT: PERRLA, pupils bilaterally equal and reactive, pallors not present Chest: Normal vesicular breath sounds, no added sounds, equal good air entry bilaterally CVS: S1-S2 regular, no murmurs, no tachycardia, no gallops, no rubs Abdomen: Soft, mildly distended no organomegaly, bowel sounds present but sluggish Neuro: No focal deficits, no facial deformity, AO x3, power 5/5 in all limbs Urinary Catheter Management: Baeza: Cath Placed During This Visit: yes Reason for Continuing Indwelling Catheter: Required Immobilization for Trauma or Surgery or Anesthesia Urinary Catheter Date of Insertion: 04/22/22 Urinary Catheter Time of Insertion: 01:50 Data 04/23/22 04:59 04/23/22 04:59 Micro: Microbiology 04/23/22 05:02 Blood Culture - Preliminary Blood SPECIMEN COLLECTED 04/23/22 04:58 Blood Culture - Preliminary Blood SPECIMEN COLLECTED 04/21/22 19:55 Blood Culture - Preliminary Blood NEGATIVE TO DATE 04/21/22 19:50 Blood Culture - Preliminary Blood NEGATIVE TO DATE A&P Assessment and plan (1) Colon perforation: Postop with expiratory laparotomy and end colostomy formation day 1. Follow-up blood cultures. Continue with empiric Zosyn. Continue D5 half NS at 70 cc/h. Anticoagulation, bowel regimen, diet as per surgical team. (2) Rectal cancer metastasized to liver: Follows up with Dr. Hughes as an outpatient. Plan for chemotherapy as an outpatient. Plan for port placement during hospitalization. (3) Rectal perforation: (4) Fever: (5) Post-operative state: Plan Iron deficiency anemia: Started on IV iron supplementation. Appreciate vitamin B12 folate results. NPO. Protonix for PUD prophylaxis Heparin for DVT prophylaxis Attestations Medical Necessity Statement*: Requires further hospitalization for postoperative care for colostomy formation in a patient with rectal cancer with colon perforation Coding Level of Care Code 22146 Moderate MDM includes risk/complexity, reviewing test results, ordering lab/other test(s), speaking with independent historian (other than patient), independently interpretating test(s) (not separately recorded) and discussion of management or test(s) w/ other healthcare professional and Moderate Time for a total of 40 minutes, includes reviewing past or interval history, examining/interviewing patient, placing orders, counseling patient/family/other support, updating patient/family/other support, discussing plan of care with staff, communicating with other healthcare providers, documenting encounter and coordinating care Diagnoses Colon perforation K63.1 Rectal cancer metastasized to liver C20; C78.7 Rectal perforation K63.1 Fever R50.9 Post-operative state Z98.890
[2022-04-23] MEDS: dextrose 5%-sod chloride 0.9% 1,000 ML 75 ML IV (15:18)
[2022-04-23] MEDS: heparin 5,000 unit/mL INJ 1 mL 5000 UNIT SUBCUT (15:19)
--- NOTE | 2022-04-23 18:02 | P.PN_ITS ---
Subjective Subjective: Patient seen and examined. Denies nausea or emesis. Ostomy is outputting Vitals/I&O/Wt Last Vital Signs Temp 97.9 F 04/23/22 16:00 Pulse 75 04/23/22 16:00 Resp 16 04/23/22 16:00 BP 134/78 04/23/22 16:00 Pulse Ox 96 04/23/22 16:00 O2 Del Method 04/23/22 09:22 O2 Flow Rate 4 04/22/22 19:20 04/23/22 04/23/22 04/23/22 06:59 14:59 22:59 Intake Total 1090 / 2560 2160 / 2160 1000 / 3160 Output Total 650 / 1400 Balance 440 / 1160 2160 / 2160 1000 / 3160 Weight last 48 hrs Weight 142 lb 9.6 oz Weight 142 lb 9.6 oz Weight 144 lb 4 oz Weight 144 lb 4 oz Physical Exam Narrative: General: No acute distress, awake alert and oriented x3 Abdomen: Soft, nondistended, appropriately tender, no guarding or rebound Dressings clean dry and intact Ostomy pink patent and producing Urinary Catheter Management: Baeza: Cath Placed During This Visit: yes Reason for Continuing Indwelling Catheter: Required Immobilization for Trauma or Surgery or Anesthesia Urinary Catheter Date of Insertion: 04/22/22 Urinary Catheter Time of Insertion: 01:50 Data 04/23/22 04:59 04/23/22 04:59 Micro: Microbiology 04/23/22 05:02 Blood Culture - Preliminary Blood SPECIMEN COLLECTED 04/23/22 04:58 Blood Culture - Preliminary Blood SPECIMEN COLLECTED 04/21/22 19:55 Blood Culture - Preliminary Blood NEGATIVE TO DATE 04/21/22 19:50 Blood Culture - Preliminary Blood NEGATIVE TO DATE A&P Assessment and plan (1) Rectal cancer metastasized to liver: (2) Rectal perforation: Plan Postoperative day #1 status post exploratory laparotomy with end colostomy formation and perirectal drain placement and Mediport placement. Drain is not putting out anything purulent. We will manage perforation cons ervatively with antibiotics Clear liquid diet Incentive spirometer Ambulate Medical management per primary Attestations Medical Necessity Statement*: Patient requires multiple more nights in the IV antibiotics for rectal perforation Coding Level of Care Code Acute Code for Chg Fwd Diagnoses Rectal cancer metastasized to liver C20; C78.7 Rectal perforation K63.1
[2022-04-24] VITALS (15 sets, daily range): BP systolic 131–147; BP diastolic 84–93; PULSE 61–107; RESP 16–22; TEMP 36.6–36.9; O2SAT 95–97; BMI 20.6
[2022-04-24] MEDS: pantoprazole 40 mg SDV IVP ×2 (01:37→14:40)
[2022-04-24] MEDS: heparin 5,000 unit/mL INJ 1 mL 5000 UNIT SUBCUT ×2 (04:13→16:27)
[2022-04-24] MEDS: HYDROmorphone 1 mg/mL INJ 1 mL IVP ×4 (04:13→22:47)
[2022-04-24 07:05] LABS: Basophils % 0.2 %; Eosinophils % 0.3 %; Hematocrit 27.4 % (42.0-52.0); Hemoglobin 8.7 g/dL (11.7-16.6); Lymphocytes # 1.4 10^3/uL (0.8-4.8); Lymphocytes % 11.5 %; Mean Corpuscular HGB Conc 31.8 g/dL (30.0-36.0); Mean Corpuscular Hemoglobin 25.5 pg (28.0-34.0); Mean Corpuscular Volume 80.4 fl (80-94); Mean Platelet Volume 12.2 fL (7.4-10.4); Monocytes # 1.4 10^3/uL (0.2-0.9); Monocytes % 12.1 %; Neutrophils # 8.85 10^3/uL (1.8-7.7); Neutrophils % 75.6 %; Nucleated Red Blood Cells % 0 %; Platelet Count 266 10^3/cmm (130-400); Red Blood Count 3.41 10^6/uL (4.1-5.3); Red Cell Distribution Width 19.1 % (12.1-15.1); White Blood Count 11.7 10^3/uL (4.0-10.0)
[2022-04-24 07:24] LABS: Alanine Aminotransferase 15 U/L (0-41); Albumin Level 2.9 g/dL (3.5-5.2); Alkaline Phosphatase 315 U/L (40-130); Anion Gap 11.6 (5-19); Aspartate Amino Transferase 25 U/L (0-40); Blood Urea Nitrogen 14 mg/dL (6-20); Calcium 8.7 mg/dL (8.5-10.5); Carbon Dioxide 26 mmol/L (22-29); Chloride 104 mmol/L (98-107); Globulin 2.5 g/dL (1.3-4.6); Glomerular Filtration Rate 138.9 mL/min (90-130); Glucose 96 mg/dL (65-115); Osmolality Calculated 286 mOsm/kg (285-295); Potassium 3.6 mmol/L (3.5-5.1); Sodium 138 mmol/L (136-145); Total Bilirubin 0.4 mg/dL (0.15-1.2); Total Protein 5.4 g/dL (6.6-8.7)
[2022-04-24] MEDS: tamsulosin 0.4 mg Capsule PO (08:56)
[2022-04-24] MEDS: piperacillin-tazobactam 3.375 GM in sodium chloride 0.9% (plus) 50 ML IV ×2 (08:57→16:28)
[2022-04-24] MEDS: iron sucrose 200 MG in sodium chloride 0.9% (100 ml) 100 ML 220 MG IV (10:49)
--- NOTE | 2022-04-24 13:35 | PM.PN ---
Subjective Subjective: Patient seen and examined. Denies nausea or emesis. Ostomy is outputting. Tolerating clear liquids Vitals/I&O/Wt Last Vital Signs Temp 97.9 F 04/24/22 11:26 Pulse 99 04/24/22 11:26 Resp 18 04/24/22 10:25 BP 144/93 04/24/22 11:26 Pulse Ox 97 04/24/22 11:26 O2 Del Method 04/24/22 08:00 O2 Flow Rate 4 04/22/22 19:20 04/23/22 04/24/22 04/24/22 22:59 06:59 14:59 Intake Total 1250 / 3410 1530 / 4940 560 / 560 Output Total 60 / 60 875 / 935 Balance 1190 / 3350 655 / 4005 560 / 560 Weight last 48 hrs Weight 139 lb 9.6 oz Weight 139 lb 9.6 oz Weight 142 lb 9.6 oz Weight 142 lb 9.6 oz Physical Exam Narrative: General: No acute distress, awake alert and oriented x3 Abdomen: Soft, nondistended, appropriately tender, no guarding or rebound Incision without erythema or exudate Ostomy pink patent and producing Drain mostly sanguinous Urinary Catheter Management: Baeza: Cath Placed During This Visit: yes, but has since been removed by the nurse Reason for Continuing Indwelling Catheter: Other Urinary Catheter Date of Insertion: 04/22/22 Urinary Catheter Time of Insertion: 01:50 Date Urinary Catheter Removed: 04/24/22 Time Urinary Catheter Discontinued: 10:32 Data 04/24/22 05:38 04/24/22 05:38 Micro: Microbiology 04/23/22 05:02 Blood Culture - Preliminary Blood NEGATIVE TO DATE 04/23/22 04:58 Blood Culture - Preliminary Blood NEGATIVE TO DATE A&P Assessment and plan (1) Rectal cancer metastasized to liver: (2) Rectal perforation: Plan Postoperative day #2 status post exploratory laparotomy with end colostomy formation and perirectal drain placement and Mediport placement. Drain is not putting out anything purulent. We will manage perforation conservatively with antibiotics Full liquid diet Incentive spirometer Add lactulose Ambulate Medical management per primary Attestations Medical Necessity Statement*: Patient requires multiple more nights in the IV antibiotics for rectal perforation Coding Level of Care Code Acute Code for Chg Fwd Diagnoses Rectal cancer metastasized to liver C20; C78.7 Rectal perforation K63.1
--- NOTE | 2022-04-24 14:06 | P.PN_ITS ---
Subjective Subjective: Patient denies any nausea, vomiting, headache. States pain is well-controlled. Seen sitting in recliner awake. Rectal drain in place. Started on clear liquid diet as per surgery team. Tolerating well. Otherwise has remained hemodynamically stable and afebrile 24 hours. Continues to remain on room air. Vitals/I&O/Wt Last Vital Signs Temp 97.9 F 04/24/22 11:26 Pulse 83 04/24/22 13:42 Resp 18 04/24/22 13:42 BP 144/93 04/24/22 11:26 Pulse Ox 97 04/24/22 13:42 O2 Del Method 04/24/22 13:42 O2 Flow Rate 4 04/22/22 19:20 04/23/22 04/24/22 04/24/22 22:59 06:59 14:59 Intake Total 1250 / 3410 1530 / 4940 560 / 560 Output Total 60 / 60 875 / 935 Balance 1190 / 3350 655 / 4005 560 / 560 Weight last 48 hrs Weight 63.321 kg Weight 63.321 kg Weight 64.682 kg Weight 64.682 kg Physical Exam Narrative: General: In mild distress because of abdominal pain, AOx3, on room air, cachectic HEENT: PERRLA, pupils bilaterally equal and reactive, pallors not present Chest: Normal vesicular breath sounds, no added sounds, equal good air entry bilaterally CVS: S1-S2 regular, no murmurs, no tachycardia, no gallops, no rubs Abdomen: Soft, mildly distended no organomegaly, bowel sounds present but sluggish Neuro: No focal deficits, no facial deformity, AO x3, power 5/5 in all limbs Urinary Catheter Management: Baeza: Cath Placed During This Visit: yes, but has since been removed by the nurse Reason for Continuing Indwelling Catheter: Other Urinary Catheter Date of Insertion: 04/22/22 Urinary Catheter Time of Insertion: 01:50 Date Urinary Catheter Removed: 04/24/22 Time Urinary Catheter Discontinued: 10:32 Data 04/24/22 05:38 04/24/22 05:38 Micro: Microbiology 04/23/22 05:02 Blood Culture - Preliminary Blood NEGATIVE TO DATE 04/23/22 04:58 Blood Culture - Preliminary Blood NEGATIVE TO DATE A&P Assessment and plan (1) Colon perforation: Postop with expiratory laparotomy and end colostomy formation day 1. Follow-up blood cultures. Continue with empiric Zosyn. Continue D5 half NS at 70 cc/h. Anticoagulation, bowel regimen, diet as per surgical team. (2) Rectal cancer metastasized to liver: Follows up with Dr. Hughes as an outpatient. Plan for chemotherapy as an outpatient. Plan for port placement during hos pitalization. (3) Rectal perforation: (4) Fever: (5) Post-operative state: Plan Iron deficiency anemia: Started on IV iron supplementation. Appreciate vitamin B12 folate results. Plan for today: Stop IV fluids. Rectal drain management as per surgical team. Diet as per surgical team. Out of bed to chair. Incentive spirometry. For now continue with Zosyn. Hemoglobin trending down to 8.7 today. Most likely a combination of hemo di lution and postoperative status. Continue with IV iron. No active bleeding. Monitor hemoglobin daily for now. DC Baeza. Protonix for PUD prophylaxis Heparin for DVT prophylaxis Attestations Medical Necessity Statement*: Requires further hospitalization for management of rectal perforation in setting of rectal cancer metastatic to liver, postoperative status for diverting colostomy while we await colostomy functions. and Moderate Time for a total of 40 minutes, includes reviewing past or interval history, examining/interviewing patient, placing orders, counseling patient/family/other support, updating patient/family/other support, discussing plan of care with staff, communicating with other healthcare providers, documenting encounter and coordinating care Diagnoses Colon perforation K63.1 Rectal cancer metastasized to liver C20; C78.7 Rectal perforation K63.1 Fever R50.9 Post-operative state Z98.890
[2022-04-24] MEDS: lactulose oral liq 20 gm/30 mL UDC 30 GM PO (14:44)
[2022-04-24] MEDS: ondansetron 2 mg/ML SDV 2 mL 4 MG IVP (20:17)
[2022-04-25] VITALS (13 sets, daily range): BP systolic 136–161; BP diastolic 73–88; PULSE 62–90; RESP 16–18; TEMP 36.1–37.1; O2SAT 97–99; BMI 20.5
[2022-04-25] MEDS: piperacillin-tazobactam 3.375 GM in sodium chloride 0.9% (plus) 50 ML IV ×4 (00:23→23:56)
[2022-04-25] MEDS: pantoprazole 40 mg SDV IVP ×2 (03:06→14:40)
[2022-04-25] MEDS: heparin 5,000 unit/mL INJ 1 mL 5000 UNIT SUBCUT ×2 (03:06→16:54)
[2022-04-25] MEDS: HYDROmorphone 1 mg/mL INJ 1 mL IVP ×3 (04:58→23:57)
[2022-04-25 05:17] LABS: Basophils % 0.2 %; Eosinophils % 0.1 %; Hemoglobin 9.1 g/dL (11.7-16.6); Lymphocytes # 1.4 10^3/uL (0.8-4.8); Lymphocytes % 11.4 %; Mean Corpuscular HGB Conc 32.5 g/dL (30.0-36.0); Mean Corpuscular Hemoglobin 25.9 pg (28.0-34.0); Mean Corpuscular Volume 79.8 fl (80-94); Mean Platelet Volume 11.4 fL (7.4-10.4); Monocytes # 1.3 10^3/uL (0.2-0.9); Monocytes % 9.9 %; Neutrophils # 9.81 10^3/uL (1.8-7.7); Neutrophils % 77.9 %; Nucleated Red Blood Cells % 0 %; Platelet Count 292 10^3/cmm (130-400); Red Blood Count 3.51 10^6/uL (4.1-5.3); Red Cell Distribution Width 19.1 % (12.1-15.1); White Blood Count 12.6 10^3/uL (4.0-10.0)
[2022-04-25 05:37] LABS: Alanine Aminotransferase 14 U/L (0-41); Albumin Level 3.1 g/dL (3.5-5.2); Alkaline Phosphatase 383 U/L (40-130); Anion Gap 14.5 (5-19); Aspartate Amino Transferase 28 U/L (0-40); Blood Urea Nitrogen 10 mg/dL (6-20); Calcium 8.6 mg/dL (8.5-10.5); Carbon Dioxide 25 mmol/L (22-29); Chloride 104 mmol/L (98-107); Globulin 2.8 g/dL (1.3-4.6); Glomerular Filtration Rate 138.9 mL/min (90-130); Glucose 118 mg/dL (65-115); Osmolality Calculated 290 mOsm/kg (285-295); Potassium 3.5 mmol/L (3.5-5.1); Sodium 140 mmol/L (136-145); Total Bilirubin 0.3 mg/dL (0.15-1.2); Total Protein 5.9 g/dL (6.6-8.7)
[2022-04-25] MEDS: tamsulosin 0.4 mg Capsule PO (08:50)
--- NOTE | 2022-04-25 09:39 | PM.PN ---
Subjective Subjective: Patient seen and examined. Denies nausea or emesis. Ostomy is outputting. Tolerating full liquids Vitals/I&O/Wt Last Vital Signs Temp 98.1 F 04/25/22 08:00 Pulse 73 04/25/22 08:00 Resp 17 04/25/22 08:00 BP 161/82 04/25/22 08:00 Pulse Ox 99 04/25/22 08:00 O2 Del Method 04/25/22 08:00 O2 Flow Rate 4 04/22/22 19:20 04/24/22 04/25/22 04/25/22 22:59 06:59 14:59 Intake Total 410 / 1270 250 / 1520 Output Total 80 / 80 140 / 220 Balance 330 / 1190 110 / 1300 Weight last 48 hrs Weight 139 lb Weight 139 lb 9.6 oz Weight 139 lb 9.6 oz Weight 142 lb 9.6 oz Physical Exam Narrative: General: No acute distress, awake alert and oriented x3 Abdomen: Soft, nondistended, appropriately tender, no guarding or rebound Incision without erythema or exudate Ostomy pink patent and producing Drain mostly sanguinous Urinary Catheter Management: Baeza: Cath Placed During This Visit: yes, but has since been removed by the nurse Reason for Continuing Indwelling Catheter: Other Urinary Catheter Date of Insertion: 04/22/22 Urinary Catheter Time of Insertion: 01:50 Date Urinary Catheter Removed: 04/24/22 Time Urinary Catheter Discontinued: 10:32 Data 04/25/22 04:38 04/25/22 04:38 Micro: Microbiology 04/23/22 05:02 Blood Culture - Preliminary Blood NEGATIVE TO DATE 04/23/22 04:58 Blood Culture - Preliminary Blood NEGATIVE TO DATE A&P Assessment and plan (1) Rectal cancer metastasized to liver: (2) Rectal perforation: Plan Postoperative day #3 status post exploratory laparotomy with end colostomy formation and perirectal drain placement and Mediport placement. Drain is not putting out anything purulent. We will manage perforation conservatively with antibiotics ID consulted Regular diet Incentive spirometer lactulose Ambulate Medical management per primary Surgically stable for discharge. Please f/u with me in 2 weeks Attestations Medical Necessity Statement*: per primary Coding Level of Care Code Acute Code for Chg Fwd Diagnoses Rectal cancer metastasized to liver C20; C78.7 Rectal perforation K63.1
[2022-04-25] MEDS: lactulose oral liq 20 gm/30 mL UDC PO ×2 (11:08→22:25)
[2022-04-25] MEDS: iron sucrose 200 MG in sodium chloride 0.9% (100 ml) 100 ML 220 MG IV (11:08)
[2022-04-25] MEDS: lidocaine 4% cream 5 gm 1 APPLIC TOPICAL (15:59)
--- NOTE | 2022-04-25 16:05 | P.PN_ITS ---
Subjective Subjective: No acute events overnight. Patient stated yesterday evening after starting on full liquid diet he did have bloating and a lot of flatus through the ostomy associated with abdominal pain which was relieved after walking around. Today morning denies any further complaints. Has been advanced to full liquid diet. Seen with multiple family members at bedside. As per the patient nurse tried to access the port today morning without any success. Otherwise has remained hemodynamically stable and afebrile on room air. Vitals/I&O/Wt Last Vital Signs Temp 97.6 F 04/25/22 12:00 Pulse 83 04/25/22 14:00 Resp 16 04/25/22 12:00 BP 148/83 04/25/22 12:00 Pulse Ox 97 04/25/22 12:00 O2 Del Method 04/25/22 12:00 O2 Flow Rate 4 04/22/22 19:20 04/25/22 04/25/22 04/25/22 06:59 14:59 22:59 Intake Total 250 / 1520 760 / 760 Output Total 140 / 220 Balance 110 / 1300 760 / 760 Weight last 48 hrs Weight 63.049 kg Weight 63.049 kg Weight 63.321 kg Weight 63.321 kg Physical Exam Narrative: General: In mild distress because of abdominal pain, AOx3, on room air, cachectic HEENT: PERRLA, pupils bilaterally equal and reactive, pallors not present Chest: Normal vesicular breath sounds, no added sounds, equal good air entry bilaterally CVS: S1-S2 regular, no murmurs, no tachycardia, no gallops, no rubs Abdomen: Soft, mildly distended no organomegaly, bowel sounds present but sl uggish Neuro: No focal deficits, no facial deformity, AO x3, power 5/5 in all limbs Urinary Catheter Management: Baeza: Cath Placed During This Visit: yes, but has since been removed by the nurse Reason for Continuing Indwelling Catheter: Other Urinary Catheter Date of Insertion: 04/22/22 Urinary Catheter Time of Insertion: 01:50 Date Urinary Catheter Removed: 04/24/22 Time Urinary Catheter Discontinued: 10:32 Data 04/25/22 04:38 04/25/22 04:38 A&P Assessment and plan (1) Colon perforation: Postop with expiratory laparotomy and end colostomy formation day 2. Blood cultures so far negative. Continue with empiric Zosyn. Diet advance as per surgical team. Continue with heparin for DVT prophylaxis Drain management as per surgical team. (2) Rectal cancer metastasized to liver: Follows up with Dr. Hughes as an outpatient. Plan for chemotherapy as an outpatient. Port placed during hospitalization. (3) Rectal perforation: ID consulted by surgical team for further evaluation and management. Most likely follow-up with ID as an outpatient in 2 weeks. Plan to discharge on oral antibiotics Cipro and Flagyl versus daily ertapenem. We will follow further recommendations. (4) Fever: (5) Post-operative state: Plan Iron deficiency anemia: Started on IV iron supplementation. Appreciate vitamin B12 folate results. Protonix for PUD prophylaxis Heparin for DVT prophylaxis Attestations Medical Necessity Statement*: Requires further hospitalization for pos toperative care for the patient with rectal perforation in setting of rectal cancer metastatic to liver and Moderate Time for a total of 35 minutes, includes reviewing past or interval history, examining/interviewing patient, placing orders, counseling patient/family/other support, updating patient/family/other support, discussing plan of care with staff, communicating with other healthcare providers, documenting encounter and coordinating care Diagnoses Colon perforation K63.1 Rectal cancer metastasized to liver C20; C78.7 Rectal perforation K63.1 Fever R50.9 Post-operative state Z98.890
[2022-04-26] VITALS (7 sets, daily range): BP systolic 157–160; BP diastolic 88–98; PULSE 64–78; RESP 15–18; TEMP 36.4; O2SAT 96–100
[2022-04-26] MEDS: pantoprazole 40 mg SDV IVP (03:17)
[2022-04-26] MEDS: heparin 5,000 unit/mL INJ 1 mL 5000 UNIT SUBCUT (03:17)
--- NOTE | 2022-04-26 06:23 | PM.CONSULT ---
Providers/Reason For Consult Consulting Physician/Specialty*: Eva Peters MD/ Infectious Disease Reason for Consult*: rectal perforation with phlegmon/ abscess Requesting Physician: Teodoro Rizo MD Attending Physician: Teodoro Rizo MD Primary Care Provider: Sylvain Tenorio MD History of Present Illness History of Present Illness Morgan Cruz is a 56 year old male who was diagnosed to have rectal cancer about 2 months ago. He is currently admitted to the hospital since April 22, 2022 after being sent over from the oncology office where he presented for a first-time consult. He was noted to have significant constipation, feeling of incomplete evacuation, excessive bloating and inability to pass gas. He was also complaining of abdominal pain. Labs on arrival showed leukocytosis, hyponatremia, elevated alkaline phosphatase. Other liver enzymes were normal. CT of the abdomen and pelvis showed progressive metastatic disease, mesenteric and retroperitoneal lymphadenopathy, marked diffuse constipation, and thickening near the rectum with several foci of air near the rectum within the wall or just external to the lumen. Possibility of perforation or phlegmon could not be excluded radiologically. Patient underwent exploratory laparotomy and end colostomy formation on April 22, 2022. He also underwent Mediport placement on the same day. He is planned to start chemotherapy over the next 6 to 8 weeks. He tolerated the surgery well. Ostomy has output currently. He has both gas and stools from the stoma. He denies any nausea or emesis. He has his appetite currently on a full liquid diet, expected to advance his diet this morning. He is currently receiving antibiotic treatment with piperacillin/tazobactam. He had a fever of 102 Fahrenheit on April 22, 2022, has otherwise remained afebrile. Leukocytosis has trended down from 18-12.6. He states that he still has occasional bleeding, however abdominal pain and discomfort are significantly improved since the day of admission. Review of Systems General: Reports: 10 or more systems reviewed and unremarkable except in HPI and below Const: Denies: fever(s), chills or body aches Eyes: Denies: change in vision, blurry vision or photophobia ENMT: Reports: hoarseness; Denies: throat pain, enlarged tonsils, odynophagia or nasal congestion Card: Denies: chest pain, palpitations, irregular heart rhythm, edema, swelling of feet/ankles, lightheadedness, pre-syncope, dyspnea on exertion or orthopnea Resp: Denies: dyspnea, productive cough, non-productive cough, wheezing, stridor, pain on inspiration, change in phlegm color, hemoptysis or chest congestion GI: Denies: abdominal pain, nausea, vomiting, hematemesis, coffee ground emesis, dysphagia, heartburn, diarrhea, constipation, GI cramping, change in stool character, hematochezia or melena : Denies: flank pain, dysuria, urinary frequency, urinary urgency, urinary hesitancy or hematuria Musc: Denies: neck pain, back pain, extremity pain, joint swelling, joint warmth or deformity Neuro: Denies: headache(s), numbness in extremities, weakness in extremities, sensory changes, difficulty walking, frequent falls, dizziness, vertigo, behavioral changes, Slurred speech present or seizure-like activity Psych: Denies: anxiety, depression, suicidal ideation or homicidal ideation Endo: Denies: polyuria, polydipsia, tired all the time, cold intolerance or hot flashes Jamar/Lymph: Denies: easy bruising or easy bleeding Medications/Allergies Home Medications Medication Instructions Recorded Confirmed Last Taken Type dicyclomine 20 mg tablet 20 mg PO QID 04/21/22 04/22/22 Unknown History loperamide 2 mg capsule 4 mg PO .COMPLEX 04/21/22 04/22/22 Unknown History oxycodone-acetaminophen 10 mg-325 1 tab PO Q8H PRN Pain 04/22/22 04/22/22 Unknown History mg tablet saw palm 160 mg-vit E 100 2 tab PO DAILY 04/22/22 04/22/22 Unknown History unit-selen 100 [id number]-[id number] tablet (Prostate Health) ciprofloxacin HCl 500 mg tablet 500 mg PO Q12H 10 days #20 tabs 04/26/22 Unknown Rx famotidine 20 mg tablet (Acid 20 mg PO BID #60 tabs 04/26/22 Unknown Rx Controller) ferrous gluconate 324 mg (37.5 mg 324 mg PO BID #60 tabs 04/26/22 Unknown Rx iron) tablet lactulose 20 gram/30 mL oral 20 g (30 mL) PO Q12H #300 mL 04/26/22 Unknown Rx solution metronidazole 375 mg capsule 375 mg PO BID 10 days #20 caps 04/26/22 Unknown Rx (Flagyl) tamsulosin 0.4 mg capsule 0.4 mg PO DAILY #30 caps 04/26/22 Unknown Rx Allergies Allergy/AdvReac Type Severity Reaction Status Date / Time No Known Allergies Allergy Verified 04/22/22 08:10 Current Medications Generic Name Dose Route Start Last Admin Trade Name Freq PRN Reason Stop Dose Admin Heparin Sodium (Porcine) 5,000 unit 04/23/22 16:00 04/26/22 03:17 Heparin 5,000 Unit/Ml Inj 1 Ml SUBCUT 5,000 unit Q12H ZEFERINO Administration Hydromorphone HCl 1 mg 04/23/22 14:42 04/25/22 23:57 Hydromorphone 1 Mg/Ml Inj 1 Ml IVP 1 mg Q6H PRN Administration PAIN Iron Sucrose 200 mg/ Sodium 110 mls @ 220 mls/hr 04/22/22 11:00 04/25/22 11:44 Chloride IV 04/26/22 11:29 Infused Q24H ZEFERINO Infusion Piperacillin Sod/Tazobactam 50 mls @ 12.5 mls/hr 04/23/22 00:00 04/26/22 04:19 Sod 3.375 gm/ Sodium Chloride IV Infused Q8H ZEFERINO Infusion Protocol Lactulose 20 gm 04/25/22 10:00 04/25/22 22:25 Lactulose Oral Liq 20 Gm/30 Ml Udc PO 20 gm Q12H ZEFERINO Administration Ondansetron HCl 4 mg 04/21/22 19:09 04/24/22 20:17 Ondansetron 2 Mg/Ml Sdv 2 Ml IVP 4 mg Q8H PRN Administration vomiting, or N/V if npo Pantoprazole Sodium 40 mg 04/22/22 02:15 04/26/22 03:17 Pantoprazole 40 Mg Sdv IVP 40 mg Q12H ZEFERINO Administration Tamsulosin HCl 0.4 mg 04/24/22 09:00 04/25/22 08:50 Tamsulosin 0.4 Mg Capsule PO 0.4 mg DAILY ZEFERINO Administration PFSH Acute PFSH: Medical History Colon cancer Hypertension Liver mass Family History Other CAD (coronary artery disease) Hypertension Denies family history of Diabetes Clotting disorder Dementia Hyperlipidemia Psychiatric illness Chronic kidney disease (CKD) Suicide Anesthesia complication Bleeding disorder Lung disease Cancer Stroke Social History Smoking and tobacco status: former smoker Quit status (tobacco): has quit using tobacco Former quit date comment: smoked x 5 years in his twenty's. Alcohol intake: former Vitals/I&O/Wt Last Vital Signs Temp 97.5 F L 04/26/22 00:00 Pulse 69 04/26/22 00:00 Resp 16 04/26/22 00:00 BP 157/88 04/26/22 00:00 Pulse Ox 96 04/26/22 00:00 O2 Del Method 04/26/22 00:00 O2 Flow Rate 4 04/22/22 19:20 04/25/22 04/25/22 04/26/22 14:59 22:59 06:59 Intake Total 760 / 760 50 / 810 50 / 860 Output Total 380 / 380 60 / 440 Balance 760 / 760 -330 / 430 -10 / 420 Weight last 48 hrs Weight 63.049 kg Weight 63.049 kg Weight 63.321 kg Weight 63.321 kg Physical Exam Narrative: General: No acute distress, AO x3 HEENT: PERRLA, pupils bilaterally equal and reactive, pallors not present Chest: Normal vesicular breath sounds, no added sounds, equal good air entry bilaterally CVS: S1-S2 regular, no murmurs, no tachycardia, no gallops, no rubs Abdomen: Soft, nontender, colostomy noted over left abdomen. Neuro: No focal deficits, no facial deformity, AO x3, power 5/5 in all limbs Urinary Catheter Management: Baeza: Cath Placed During This Visit: yes, but has since been removed by the nurse Reason for Continuing Indwelling Catheter: Other Urinary Catheter Date of Insertion: 04/22/22 Urinary Catheter Time of Insertion: 01:50 Date Urinary Catheter Removed: 04/24/22 Time Urinary Catheter Discontinued: 10:32 Data 04/25/22 04:38 04/25/22 04:38 Other Labs: Radiology Impressions Abdomen/Pelvis CT 04/21/22 21:25 IMPRESSION: 1. Known hepatic metastatic disease has progressed since 02/26/2022. 2. Mesenteric and retroperitoneal and pelvic lymphadenopathy very similar in appearance to 02/26/2022. 3. Marked diffuse constipation and fecal retention with abnormal soft tissue thickening near the rectum with perirectal soft tissue stranding and a few small lymph nodes. Suspect site of tumor involvement. 4. Several foci of air near the rectum appear within the wall or just external to the lumen. Possibility of perforation or phlegmon should be considered. There is no focal collection. There has been a significant change in appearance of the rectum since the prior study. C-Arm Fluoroscopy 04/22/22 16:35 IMPRESSION: Intraoperative imaging during Port-A-Cath placement with no imaging documentation submitted. Chest X-Ray 04/22/22 19:37 IMPRESSION: 1. Left subclavian Port-A-Cath appears in good position without pneumothorax. 2. Small linear lucency question small amount of free air beneath the right diaphragm. Discussion with Yessi France, CUSTOMER CONTACT REPRESENTATIVE was performed at 8:50 p.m. central standard time April 22, 2022.. Patient had abdominal surgery with ostomy today. Small amount of free air is attributed to postop change, therefore. Laboratory Results WBC 12.6 10^3/uL (4.0-10.0) H 04/25/22 04:38 RBC 3.51 10^6/uL (4.1-5.3) L 04/25/22 04:38 Hgb 9.1 g/dL (11.7-16.6) L 04/25/22 04:38 Hct 28.0 % (42.0-52.0) L 04/25/22 04:38 MCV 79.8 fl (80-94) L 04/25/22 04:38 MCH 25.9 pg (28.0-34.0) L 04/25/22 04:38 MCHC 32.5 g/dL (30.0-36.0) 04/25/22 04:38 RDW 19.1 % (12.1-15.1) H 04/25/22 04:38 Plt Count 292 10^3/cmm (130-400) 04/25/22 04:38 MPV 11.4 fL (7.4-10.4) H 04/25/22 04:38 Neut % (Auto) 77.9 % 04/25/22 04:38 Lymph % (Auto) 11.4 % 04/25/22 04:38 [place] % (Auto) 9.9 % 04/25/22 04:38 Eos % (Auto) 0.1 % 04/25/22 04:38 Baso % (Auto) 0.2 % 04/25/22 04:38 Neut # (Auto) 9.81 10^3/uL (1.8-7.7) H 04/25/22 04:38 Lymph # (Auto) 1.4 10^3/uL (0.8-4.8) 04/25/22 04:38 [place] # (Auto) 1.3 10^3/uL (0.2-0.9) H 04/25/22 04:38 Eos # (Auto) 0.0 10^3/uL (0.0-0.8) 04/25/22 04:38 Baso # (Auto) 0.0 10^3/uL (0.0-0.1) 04/25/22 04:38 Nucleated RBC % (auto) 0 % 04/25/22 04:38 Nucleated RBCs # 0.0 /100WBC 04/25/22 04:38 PT 13.00 SECONDS (12.1-14.9) 04/21/22 19:50 INR 0.96 (0.8-1.2) 04/21/22 19:50 Sodium 140 mmol/L (136-145) 04/25/22 04:38 Potassium 3.5 mmol/L (3.5-5.1) 04/25/22 04:38 Chloride 104 mmol/L (98-107) 04/25/22 04:38 Carbon Dioxide 25 mmol/L (22-29) 04/25/22 04:38 Anion Gap 14.5 (5-19) 04/25/22 04:38 BUN 10 mg/dL (6-20) 04/25/22 04:38 Creatinine 0.6 mg/dL (0.7-1.2) L 04/25/22 04:38 GFR Calculation 138.9 mL/min (90-130) H 04/25/22 04:38 Glucose 118 mg/dL (65-115) H 04/25/22 04:38 Estimat Average Glucose 97 04/22/22 05:55 Hemoglobin A1c 5.0 % (4.0-6.0) 04/22/22 05:55 Calculated Osmolality 290 mOsm/kg (285-295) 04/25/22 04:38 Lactic Acid 1.0 mmol/L (0.5-2.2) 04/21/22 19:50 Calcium 8.6 mg/dL (8.5-10.5) 04/25/22 04:38 Phosphorus 3.6 mg/dL (2.5-4.5) 04/22/22 05:55 Magnesium 1.8 mg/dL (1.7-2.3) 04/22/22 05:55 Iron 21 ug/dL (59-158) L 04/21/22 19:50 TIBC 245 mcg/dl 04/21/22 19:50 % Saturation 8.5 % (20-50) L 04/21/22 19:50 Unsat Iron Binding 224 ug/dL (112-347) 04/21/22 19:50 Total Bilirubin 0.3 mg/dL (0.15-1.2) 04/25/22 04:38 AST 28 U/L (0-40) 04/25/22 04:38 ALT 14 U/L (0-41) 04/25/22 04:38 Alkaline Phosphatase 383 U/L (40-130) H 04/25/22 04:38 Total Protein 5.9 g/dL (6.6-8.7) L 04/25/22 04:38 Albumin 3.1 g/dL (3.5-5.2) L 04/25/22 04:38 Globulin 2.8 g/dL (1.3-4.6) 04/25/22 04:38 Triglycerides 91 mg/dL (0-150) 04/22/22 05:55 Cholesterol 178 mg/dL (0-200) 04/22/22 05:55 LDL Cholesterol, Calc 105 mg/dL (50-129) 04/22/22 05:55 Total VLDL Cholesterol 18 mg/dL (0-30) 04/22/22 05:55 HDL Cholesterol 55 mg/dL (60-100) L 04/22/22 05:55 Cholesterol/HDL Ratio 3.24 mg/dL (1.0-5.00) 04/22/22 05:55 Vitamin B12 603 pg/mL (232-1245) 04/21/22 19:50 Folate 13.7 ng/mL (4.5-32.2) 04/21/22 19:50 Procalcitonin 0.20 ng/mL (0-0.5) 04/21/22 19:50 TSH 3.02 uIU/mL (0.27-4.20) 04/21/22 19:50 Urine Color Yellow (Yellow) 04/21/22 03:00 Urine Appearance Clear (CLEAR) 04/21/22 03:00 Urine pH 7 (5-7) 04/21/22 03:00 Ur Specific Ryan 1.000 (1.005-1.030) L 04/21/22 03:00 Urine Protein Neg (Negative) 04/21/22 03:00 Urine Glucose (UA) Norm (Normal) 04/21/22 03:00 Urine Ketones Negative (Negative) 04/21/22 03:00 Urine Blood Neg (Negative) 04/21/22 03:00 Urine Nitrate Negative (Negative) 04/21/22 03:00 Urine Bilirubin Neg (Negative) 04/21/22 03:00 Urine Urobilinogen Norm mg/dL (Negative) 04/21/22 03:00 Ur Leukocyte Esterase Negative (Negative) 04/21/22 03:00 Micro: Blood culture April 21, 2022. No growth to date. Blood culture April 23, 2022. No growth to date A&P Assessment and plan (1) Rectal perforation: (2) Rectal cancer metastasized to liver: Plan Patient admitted to the hospital on April 21, 2021 with a 2-month history of having been diagnosed with rectal cancer. Upon presentation patient had significant abdominal pain, abdominal bloating, fecal impaction, leukocytosis and fever. CT of the abdomen and pelvis showed progression of his known malignancy, however also with new changes of several foci of air near the rectum within the wall and just external to the lumen. Possibility of perforation with phlegmon is changes could not be ruled out. Patient is now status post ex lap and diverting colostomy. He also has a rectal pouch. He is expected to start chemotherapy over the next 6 to 8 weeks. At this present time his abdominal symptoms are improved, leukocytosis is trending down, he has remained afebrile since April 23, 2022. Blood cultures are all negative. He is currently tolerating p.o. intake. Recommend that patient continue on p.o. antibiotics ciprofloxacin 500 mg twice daily and Flagyl 500mg po BID at discharge to complete 2 weeks of treatment (04/22-05/06). Thereafter we will repeat abdominal imaging to ensure no further progression of phlegmonous changes or interval development of any abscesses. Follow-up in ID clinic with repeat imaging to determine further course of treatment. Counseled extensively that should he have any worsening abdominal pain, fever, to return to the emergency room. Consult Attestations Medical Necessity Statement: per admitting note Coding Level of Care Code Acute Code for g Fwd Diagnoses Rectal perforation K63.1 Rectal cancer metastasized to liver C20; C78.7
[2022-04-26] MEDS: piperacillin-tazobactam 3.375 GM in sodium chloride 0.9% (plus) 50 ML IV (08:17)
[2022-04-26] MEDS: tamsulosin 0.4 mg Capsule PO (08:18)
[2022-04-26] MEDS: HYDROmorphone 1 mg/mL INJ 1 mL IVP (08:24)
--- NOTE | 2022-04-26 09:41 | PM.DCS ---
Discharge Providers Date of Admission: 04/21/22 18:12 Date of Discharge: April 26, 2022 Attending Provider at Admission: Teodoro Rizo MD Attending Provider at Discharge: Teodoro Rizo MD Consults: Surgery: Dr. Huston ID: Dr. Peters Primary Care Provider: Sylvain Tenorio MD Diagnoses at Discharge Discharge Diagnosis (1) Colon perforation: Status: Acute (2) Rectal cancer metastasized to liver: Status: Acute (3) Rectal perforation: Status: Acute (4) Fever: Status: Acute (5) Post-operative state: Status: Acute Reason for Visit Reason for Visit: colorectal cancer Hospital Course Hospital Course Morgan Cruz is a 56 year old male who was diagnosed to have rectal cancer about 2 months ago.? Patient visited with his primary care provider for a routine exam, on abdominal palpation was noted to have a firm liver.? Further work-up with an ultrasound revealed metastatic disease to the liver.? Colonoscopy was subsequently performed as outpatient by his PCP Dr. Schuster which showed rectal mass, moderately differentiated adenocarcinoma on biopsy. Patient has had constipation, feeling of incomplete evacuation for over 2 months now.? He also has complaints of frequent bloating, inability to pass gas satisfactorily, abdominal pain after eating which he attributes to gas pain.? He has noticed narrow caliber stools.? Reportedly he had a one-time bleeding in his stools which he attributed to excessive ibuprofen use, reports taking up to 10 to 12 pills a day because of abdominal pain.? States that the bleeding stopped once he quit taking ibuprofen.? Last use was over 2 weeks ago. No nausea vomiting or hematemesis.? States that he additionally has difficulty urinating when he gets bloated. Denies any fever or chills. Patient presented to the oncology office today as a new patient to establish care, was noted to be in extreme discomfort [place] was sent over to to the hospital for a direct admit. Labs today are reflective of leukocytosis, mild hyponatremia and elevated alk phos at 439.? T. bili AST ALT currently normal.? CT of the abdomen and pelvis obtained this evening shows progressed metastatic disease, mesenteric and retroperitoneal lymphadenopathy, marked diffuse constipation and fecal retention with soft tissue thickening near the rectum which is likely the site of his tumor involvement.? Additionally noted are several foci of air near the rectum within the wall or just external to the lumen.? Possibility of perforation or phlegmon could not be excluded.? There was no noted focal collection.? There has been a significant change in the appearance of rectum since the last CAT scan in February 2022. Patient was admitted for further evaluation and management of rectal perforation in setting of rectal cancer. Surgery was consulted and he underwent exploratory laparotomy with end colostomy formation on 04/22. He tolerated procedure well. Perioperatively he did spike high-grade fever. His blood cultures remained stable. Diet was advanced as per surgical team. Given concerns for rectal perforation ID was consulted. He has been discharged hemodynamically stable condition after he has been tolerating oral diet well for the last 24 to 36 hours, has remained afebrile on oral antibiotics for next 10 days with advised to follow-up with ID in 2 weeks, surgery in 2 weeks. He is to have repeat CT abdomen pelvis done in 2 weeks as well. He is to follow with his primary care provider within next 1 week. Physical Exam Narrative: General: In mild distress because of abdominal pain, AOx3, on room air, cachectic HEENT: PERRLA, pupils bilaterally equal and reactive, pallors not present Chest: Normal vesicular breath sounds, no added sounds, equal good air entry bilaterally CVS: S1-S2 regular, no murmurs, no tachycardia, no gallops, no rubs Abdomen: Soft, mildly distended no organomegaly, bowel sounds present but sluggish Neuro: No focal deficits, no facial deformity, AO x3, power 5/5 in all limbs Urinary Catheter Management: Baeza: Cath Placed During This Visit: yes, but has since been removed by the nurse Reason for Continuing Indwelling Catheter: Other Urinary Catheter Date of Insertion: 04/22/22 Urinary Catheter Time of Insertion: 01:50 Date Urinary Catheter Removed: 04/24/22 Time Urinary Catheter Discontinued: 10:32 Discharge Data Studies Completed and Pending Completed Studies During Hospitalization Category Date Time Status CT abdomen pelvis w con* [id number] Urgent Cat Scan 04/21/22 21:25 Completed XR chest 1V portable [id number] Routine Exams 04/22/22 19:37 Completed Pending at discharge Category Date Time Status Blood Culture AM LABS Lab 04/23/22 05:02 Results Blood Culture Stat Lab 04/21/22 19:50 Results Radiology Impressions Abdomen/Pelvis CT 04/21/22 21:25 IMPRESSION: 1. Known hepatic metastatic disease has progressed since 02/26/2022. 2. Mesenteric and retroperitoneal and pelvic lymphadenopathy very similar in appearance to 02/26/2022. 3. Marked diffuse constipation and fecal retention with abnormal soft tissue thickening near the rectum with perirectal soft tissue stranding and a few small lymph nodes. Suspect site of tumor involvement. 4. Several foci of air near the rectum appear within the wall or just external to the lumen. Possibility of perforation or phlegmon should be considered. There is no focal collection. There has been a significant change in appearance of the rectum since the prior study. C-Arm Fluoroscopy 04/22/22 16:35 IMPRESSION: Intraoperative imaging during Port-A-Cath placement with no imaging documentation submitted. Chest X-Ray 04/22/22 19:37 IMPRESSION: 1. Left subclavian Port-A-Cath appears in good position without pneumothorax. 2. Small linear lucency question small amount of free air beneath the right diaphragm. Discussion with Yessi France, [employer] was performed at 8:50 p.m. central standard time April 22, 2022.. Patient had abdominal surgery with ostomy today. Small amount of free air is attributed to postop change, therefore. Laboratory Results WBC 12.6 10^3/uL (4.0-10.0) H 04/25/22 04:38 RBC 3.51 10^6/uL (4.1-5.3) L 04/25/22 04:38 Hgb 9.1 g/dL (11.7-16.6) L 04/25/22 04:38 Hct 28.0 % (42.0-52.0) L 04/25/22 04:38 MCV 79.8 fl (80-94) L 04/25/22 04:38 MCH 25.9 pg (28.0-34.0) L 04/25/22 04:38 MCHC 32.5 g/dL (30.0-36.0) 04/25/22 04:38 RDW 19.1 % (12.1-15.1) H 04/25/22 04:38 Plt Count 292 10^3/cmm (130-400) 04/25/22 04:38 MPV 11.4 fL (7.4-10.4) H 04/25/22 04:38 Neut % (Auto) 77.9 % 04/25/22 04:38 Lymph % (Auto) 11.4 % 04/25/22 04:38 Caldwell % (Auto) 9.9 % 04/25/22 04:38 Eos % (Auto) 0.1 % 04/25/22 04:38 Baso % (Auto) 0.2 % 04/25/22 04:38 Neut # (Auto) 9.81 10^3/uL (1.8-7.7) H 04/25/22 04:38 Lymph # (Auto) 1.4 10^3/uL (0.8-4.8) 04/25/22 04:38 Caldwell # (Auto) 1.3 10^3/uL (0.2-0.9) H 04/25/22 04:38 Eos # (Auto) 0.0 10^3/uL (0.0-0.8) 04/25/22 04:38 Baso # (Auto) 0.0 10^3/uL (0.0-0.1) 04/25/22 04:38 Nucleated RBC % (auto) 0 % 04/25/22 04:38 Nucleated RBCs # 0.0 /100WBC 04/25/22 04:38 PT 13.00 SECONDS (12.1-14.9) 04/21/22 19:50 INR 0.96 (0.8-1.2) 04/21/22 19:50 Sodium 140 mmol/L (136-145) 04/25/22 04:38 Potassium 3.5 mmol/L (3.5-5.1) 04/25/22 04:38 Chloride 104 mmol/L (98-107) 04/25/22 04:38 Carbon Dioxide 25 mmol/L (22-29) 04/25/22 04:38 Anion Gap 14.5 (5-19) 04/25/22 04:38 BUN 10 mg/dL (6-20) 04/25/22 04:38 Creatinine 0.6 mg/dL (0.7-1.2) L 04/25/22 04:38 GFR Calculation 138.9 mL/min (90-130) H 04/25/22 04:38 Glucose 118 mg/dL (65-115) H 04/25/22 04:38 Estimat Average Glucose 97 04/22/22 05:55 Hemoglobin A1c 5.0 % (4.0-6.0) 04/22/22 05:55 Calculated Osmolality 290 mOsm/kg (285-295) 04/25/22 04:38 Lactic Acid 1.0 mmol/L (0.5-2.2) 04/21/22 19:50 Calcium 8.6 mg/dL (8.5-10.5) 04/25/22 04:38 Phosphorus 3.6 mg/dL (2.5-4.5) 04/22/22 05:55 Magnesium 1.8 mg/dL (1.7-2.3) 04/22/22 05:55 Iron 21 ug/dL (59-158) L 04/21/22 19:50 TIBC 245 mcg/dl 04/21/22 19:50 % Saturation 8.5 % (20-50) L 04/21/22 19:50 Unsat Iron Binding 224 ug/dL (112-347) 04/21/22 19:50 Total Bilirubin 0.3 mg/dL (0.15-1.2) 04/25/22 04:38 AST 28 U/L (0-40) 04/25/22 04:38 ALT 14 U/L (0-41) 04/25/22 04:38 Alkaline Phosphatase 383 U/L (40-130) H 04/25/22 04:38 Total Protein 5.9 g/dL (6.6-8.7) L 04/25/22 04:38 Albumin 3.1 g/dL (3.5-5.2) L 04/25/22 04:38 Globulin 2.8 g/dL (1.3-4.6) 04/25/22 04:38 Triglycerides 91 mg/dL (0-150) 04/22/22 05:55 Cholesterol 178 mg/dL (0-200) 04/22/22 05:55 LDL Cholesterol, Calc 105 mg/dL (50-129) 04/22/22 05:55 Total VLDL Cholesterol 18 mg/dL (0-30) 04/22/22 05:55 HDL Cholesterol 55 mg/dL (60-100) L 04/22/22 05:55 Cholesterol/HDL Ratio 3.24 mg/dL (1.0-5.00) 04/22/22 05:55 Vitamin B12 603 pg/mL (232-1245) 04/21/22 19:50 Folate 13.7 ng/mL (4.5-32.2) 04/21/22 19:50 Procalcitonin 0.20 ng/mL (0-0.5) 04/21/22 19:50 TSH 3.02 uIU/mL (0.27-4.20) 04/21/22 19:50 Urine Color Yellow (Yellow) 04/21/22 03:00 Urine Appearance Clear (CLEAR) 04/21/22 03:00 Urine pH 7 (5-7) 04/21/22 03:00 Ur Specific Stickney 1.000 (1.005-1.030) L 04/21/22 03:00 Urine Protein Neg (Negative) 04/21/22 03:00 Urine Glucose (UA) Norm (Normal) 04/21/22 03:00 Urine Ketones Negative (Negative) 04/21/22 03:00 Urine Blood Neg (Negative) 04/21/22 03:00 Urine Nitrate Negative (Negative) 04/21/22 03:00 Urine Bilirubin Neg (Negative) 04/21/22 03:00 Urine Urobilinogen Norm mg/dL (Negative) 04/21/22 03:00 Ur Leukocyte Esterase Negative (Negative) 04/21/22 03:00 Vitals Last Vital Signs Temp 97.5 F L 04/26/22 04:00 Pulse 78 04/26/22 08:00 Resp 18 04/26/22 08:24 BP 160/96 04/26/22 08:00 Pulse Ox 99 04/26/22 08:00 O2 Del Method 04/26/22 07:36 O2 Flow Rate 4 04/22/22 19:20 Discharge Plan Discharge Patient Disposition: Home Condition: Stable Prescriptions: New tamsulosin 0.4 mg Capsule 0.4 mg PO DAILY Qty: 30 0RF lactulose 20 gram/30 mL Solution 20 g PO Q12H Qty: 300 0RF Acid Controller 20 mg tablet 20 mg PO BID Qty: 60 0RF ciprofloxacin HCl 500 mg tablet 500 mg PO Q12H 10 Days Qty: 20 0RF Flagyl 375 mg capsule 375 mg PO BID 10 Days Qty: 20 0RF ferrous gluconate 324 mg (37.5 mg iron) tablet 324 mg PO BID Qty: 60 0RF Continued dicyclomine 20 mg tablet 20 mg PO QID loperamide 2 mg capsule 4 mg PO .COMPLEX Rx Instructions: 4 mg orally Single dose, then take one capsule after each stool, max of 8/day PRN oxycodone-acetaminophen 10-325 mg tablet 1 tab PO Q8H PRN (Reason: Pain) Prostate Health 160-100-100 mg-unit-mcg Tablet 2 tab PO DAILY Discontinued levofloxacin 500 mg tablet 500 mg PO DAILY Rx Instructions: rx filled 03/13/22 28d/s Discharge Orders: Discharge Order (Routine); Ordered 04/26/22 Ordered By: Teodoro Rizo Other Ambulatory Orders: CT abdomen pelvis w con* [id number] (Routine) Timeframe: 2 Weeks Facility: [facility] - Location: [facility] Ordered By: Teodoro Rizo Referrals: Morgan Huston DO [Physician] - 2 weeks Sylvain Tenorio MD [Primary Care Provider] - 7-10 days Eva Peters MD [Hospitalist] - 05/14/22 12:30 pm Discharge Diet: Regular Discharge Activity: Resume usual activity and Increase activity as tolerated Patient Instructions: Ciprofloxacin (By mouth), Famotidine (By mouth), Metronidazole (By mouth), Lactulose (By mouth), Tamsulosin (By mouth), Ascorbic Acid/Cyanocobalamin/Ferrous Fumarate (By mouth), Colostomy Care (DC), Colectomy Diet (DC), Colostomy Creation (DC), Colectomy (DC), Opioid Safety Activity Restrictions/Additional Instructions: Regular high-fiber diet. Please follow-up with ID onset appointment on May 14. Please follow-up with surgery?Dr. Huston in 2 weeks and a primary care provider within next 1 week to 10 days. You will be on 2 antibiotics ciprofloxacin and Flagyl for next 10 days. Continue ostomy care have discussed in detail. Discharge Attestations Time Spent in Discharge Care*: greater than 30 min Specific Discharge Activities: educating patient, educating and/or supporting family/caregiver, discussing with pcp/other providers, discussing with social work case manager/social workers/dc planners, documenting/other paperwork and evaluating patient/reviewing data Status at Discharge: Cognitive status at discharge: cognitively intact, Behavioral status at discharge: cooperative, Functional status at discharge: independent ambulation, Overall status at discharge: patient has a new baseline Quality Metrics Clinical Quality Measures [ No reported AMI, CVA or VTE this stay] Coding Level of Care Code 79235 Total time (in minutes) for Discharge: 50 Diagnoses Colon perforation K63.1 Rectal cancer metastasized to liver C20; C78.7 Rectal perforation K63.1 Fever R50.9 Post-operative state Z98.890
== END 2022-04-26 15:25 | disposition home health service (06) | DRG 329 ==
PROVIDERS: Surgery; Admitting Provider Student in an Organized Health Care Education/Training Program; PCP Family Medicine; Visit Provider Student in an Organized Health Care Education/Training Program
PROC: 02HV33Z Insertion of Infusion Device into Superior Vena Cava, Percutaneous Approach (ICD-10-PCS; CPT 49000; principal; 2022-04-22 17:15)
PROC: 02HV33Z Insertion of Infusion Device into Superior Vena Cava, Percutaneous Approach (ICD-10-PCS; CPT 44320; 2022-04-22 17:15)
PROC: 02HV33Z Insertion of Infusion Device into Superior Vena Cava, Percutaneous Approach (ICD-10-PCS; 2022-04-22 17:15)
DX: C20 Malignant neoplasm of rectum (principal); K63.1 Perforation of intestine (nontraumatic); C78.7 Secondary malignant neoplasm of liver and intrahepatic bile duct; E87.1 Hypo-osmolality and hyponatremia; K59.09 Other constipation; D50.9 Iron deficiency anemia, unspecified; D72.829 Elevated white blood cell count, unspecified; R39.198 Other difficulties with micturition; I10 Essential (primary) hypertension; R59.0 Localized enlarged lymph nodes; Z87.891 Personal history of nicotine dependence; Z79.891 Long term (current) use of opiate analgesic
CPT/HCPCS: 36415; 51702; 71045; 74177; 76000; 77001; 80053; 80061; 81003; 82607; 82746; 83036; 83540; 83550; 83605; 83735; 84100; 84145; 84443; 85025; 85610; 87040; 94664; 96372; C1788; C9113; J0131; J1100; J1170; J1642; J1644; J1756; J2270; J2405; J2543; J2704; J3010; J3490; J7030; J7042; J7799; P9045; Q9967

== ENCOUNTER 2022-05-08 14:25 | Outpatient (CLI) | payer OTHER, SELFPAY ==
--- NOTE | 2022-05-08 15:01 | CTR_ITS ---
PROCEDURE INFORMATION: Exam: CT Abdomen And Pelvis With Contrast Exam date and time: 05/08/2022 4:01 PM Age: 56 years old Clinical indication: Condition or disease; Cancer; Other: Rectal CA; Additional info: History of rectal cancer with rectal perforation TECHNIQUE: Imaging protocol: Computed tomography of the abdomen and pelvis with contrast. Radiation optimization: All CT scans at this facility use at least one of these dose optimization techniques: automated exposure control; mA and/or kV adjustment per patient size (includes targeted exams where dose is matched to clinical indication); or iterative reconstruction. Contrast material: OMNI 350; Contrast volume: 100 ml; Contrast route: INTRAVENOUS (IV); Other contrast: Oral, omni 350, 50ml w/32oz water; REPORTING DATA: Count of CT and Cardiac NM exams in prior 12 months: This patient has received 4 known CTs and 0 known cardiac nuclear medicine studies in the 12 months prior to the current study. COMPARISON: CT abdomen pelvis w con* [id number] 04/22/2022 12:06 AM RADIATION DOSE METRICS: Total DLP (mGy-cm): 440.9 FINDINGS: Lungs: Right lower lobe atelectasis. Liver: Multifocal probable metastatic lesions throughout the liver again seen measuring up to at least 8 cm. Gallbladder and bile ducts: Normal. No calcified stones. No ductal dilation. Pancreas: Normal. No ductal dilation. Spleen: Normal. No splenomegaly. Adrenal glands: Normal. No mass. Kidneys and ureters: Normal. No hydronephrosis. Stomach and bowel: Left-sided ostomy. Diverticulosis without diverticulitis. Appendix: No evidence of appendicitis. Intraperitoneal space: Unremarkable. No free air. No significant fluid collection. Vasculature: Unremarkable. No abdominal aortic aneurysm. Lymph nodes: Scattered periaortic adenopathy with lymph nodes measuring up to 13 mm. Poorly defined suspected rectal mass measuring up to at least 2.6 cm, series 3, image 69 with some surrounding subcentimeter lymph nodes perhaps reflecting metastatic disease. Urinary bladder: Unremarkable as visualized. Reproductive: Unremarkable as visualized. Bones/joints: Unremarkable. No acute fracture. Soft tissues: Unremarkable. CT/CT abdomen pelvis w con* [id number] IMPRESSION: 1. Negative for focal acute inflammatory process in the abdomen or pelvis. 2. Right lower lobe atelectasis. 3. Multifocal probable metastatic lesions throughout the liver again seen measuring up to at least 8 cm. 4. Scattered periaortic adenopathy with lymph nodes measuring up to 13 mm. 5. Left-sided ostomy. 6. Diverticulosis without diverticulitis. 7. Poorly defined suspected rectal mass measuring up to at least 2.6 cm, series 3, image 69 with some surrounding subcentimeter lymph nodes perhaps reflecting metastatic disease.
[2022-05-08] MEDS: iohexol 350 mg/mL 500 mL Btl (per mL) PO (15:53)
[2022-05-08] MEDS: iohexol 350 mg/mL 500 mL Btl (per mL) IV (15:53)
== END 2022-05-08 14:26 | disposition home or self-care (01) ==
LOC: RAD 14:28
PROVIDERS: PCP Family Medicine; Visit Provider Student in an Organized Health Care Education/Training Program
DX: K63.1 Perforation of intestine (nontraumatic) (principal); Z98.890 Other specified postprocedural states; K57.90 Diverticulosis of intestine, part unspecified, without perforation or abscess without bleeding
CPT/HCPCS: 74177; Q9967

== ENCOUNTER 2022-05-11 07:23 | Oncology outpatient (recurring) (ONCR) | payer OTHER, SELFPAY ==
[2022-05-11 07:40] LABS: Basophils # 0.1 10^3/uL (0.0-0.1); Basophils % 0.6 %; Eosinophils # 0.2 10^3/uL (0.0-0.8); Eosinophils % 1.5 %; Hematocrit 36.2 % (42.0-52.0); Hemoglobin 11.7 g/dL (11.7-16.6); Lymphocytes # 1.7 10^3/uL (0.8-4.8); Lymphocytes % 16.1 %; Mean Corpuscular HGB Conc 32.3 g/dL (30.0-36.0); Mean Corpuscular Hemoglobin 27.6 pg (28.0-34.0); Mean Corpuscular Volume 85.4 fl (80-94); Mean Platelet Volume 11.4 fL (7.4-10.4); Monocytes % 9.6 %; Neutrophils # 7.53 10^3/uL (1.8-7.7); Neutrophils % 71.9 %; Nucleated Red Blood Cells % 0 %; Platelet Count 459 10^3/cmm (130-400); Red Blood Count 4.24 10^6/uL (4.1-5.3); Red Cell Distribution Width 22.4 % (12.1-15.1); White Blood Count 10.5 10^3/uL (4.0-10.0)
[2022-05-11 07:57] LABS: Alanine Aminotransferase 78 U/L (0-41); Albumin Level 3.9 g/dL (3.5-5.2); Alkaline Phosphatase 730 U/L (40-130); Aspartate Amino Transferase 64 U/L (0-40); Blood Urea Nitrogen 16 mg/dL (6-20); Calcium 9.8 mg/dL (8.5-10.5); Carbon Dioxide 26 mmol/L (22-29); Chloride 98 mmol/L (98-107); Globulin 3.9 g/dL (1.3-4.6); Glomerular Filtration Rate 138.9 mL/min (90-130); Glucose 116 mg/dL (65-115); Osmolality Calculated 284 mOsm/kg (285-295); Sodium 136 mmol/L (136-145); Total Bilirubin 0.5 mg/dL (0.15-1.2); Total Protein 7.8 g/dL (6.6-8.7)
[2022-05-11 08:01] LABS: Anion Gap 16.6 (5-19); Potassium 4.6 mmol/L (3.5-5.1)
== END 2022-05-12 23:59 | disposition home or self-care (01) ==
PROVIDERS: PCP Family Medicine; Visit Provider Internal Medicine Hematology & Oncology
DX: C20 Malignant neoplasm of rectum (principal); C78.7 Secondary malignant neoplasm of liver and intrahepatic bile duct
CPT/HCPCS: 36415; 80053; 85025

== ENCOUNTER 2022-05-21 08:59 | Outpatient (CLI) | payer OTHER, SELFPAY ==
--- NOTE | 2022-05-21 09:30 | US_ITS ---
WS: [id number] RIGHT UPPER QUADRANT ULTRASOUND HISTORY: Abnormal labs COMPARISON: CT 05/08/2022 and ultrasound 02/17/2022 Liver: 18.7 cm in length. Liver is enlarged. Markedly heterogeneous liver with multiple contiguous di ffuse hyperechoic metastatic lesions. The largest confluent lesion in the RIGHT lobe extends towards the LEFT lobe measures 9.6 x 6.8 x 7.9 cm. There are additional large masses. Bulging of the normal h epatic capsule. As compared to 02/17/2022 there does appear to been a progression of metastatic diseas e. No bile duct dilatation evident. Portal Vein: Normal hepatopetal flow with monophasic waveform. Gallbladder: Well distended gallbladder. Marked diffuse thickening of the gallbladder wall. There are a few small cystic areas with gallbladder wall thickening. No stones. CBD: 0.4 cm Pancreas: Poorly visualized. Right kidney: 10.3 cm in length. Normal size and echogenicity. No hydronephrosis or mass. Aorta and IVC: Negative aorta. IVC not visualized well. No ascites. US/US abdomen limited [id number] IMPRESSION: 1. Diffuse hyperechoic metastatic masses throughout the liver. As compared to 02/17/2022 ultrasound there has been a progression of metastasis. 2. Abnormal gallbladder wall. Diffuse gallbladder wall thickening. In part thi s is due to adjacent metastatic lesions within the liver extending to the gallb ladder. The wall thickening may also be related to hepatocellular disease. No e vidence for acute cholecystitis and no cholelithiasis.
== END 2022-05-21 09:00 | disposition home or self-care (01) ==
PROVIDERS: PCP Family Medicine; Visit Provider Internal Medicine Hematology & Oncology
DX: R79.89 Other specified abnormal findings of blood chemistry (principal)
CPT/HCPCS: 76705

== ENCOUNTER 2022-06-12 11:30 | Oncology outpatient (recurring) (ONCR) | payer OTHER, SELFPAY ==
[2022-05-19 08:48] LABS: Basophils % 0.2 %; Eosinophils % 0.2 %; Hemoglobin 10.9 g/dL (11.7-16.6); Lymphocytes # 1.2 10^3/uL (0.8-4.8); Lymphocytes % 10.5 %; Mean Corpuscular HGB Conc 32.1 g/dL (30.0-36.0); Mean Corpuscular Hemoglobin 27.9 pg (28.0-34.0); Mean Corpuscular Volume 87.2 fl (80-94); Mean Platelet Volume 12.3 fL (7.4-10.4); Monocytes # 1.4 10^3/uL (0.2-0.9); Monocytes % 12.3 %; Neutrophils # 8.43 10^3/uL (1.8-7.7); Neutrophils % 76.5 %; Nucleated Red Blood Cells % 0 %; Platelet Count 278 10^3/cmm (130-400); Red Cell Distribution Width 21.8 % (12.1-15.1)
[2022-05-19 09:05] LABS: Alanine Aminotransferase 94 U/L (0-41); Albumin Level 3.6 g/dL (3.5-5.2); Alkaline Phosphatase 713 U/L (40-130); Aspartate Amino Transferase 72 U/L (0-40); Blood Urea Nitrogen 17 mg/dL (6-20); Calcium 9.8 mg/dL (8.5-10.5); Carbon Dioxide 28 mmol/L (22-29); Globulin 3.5 g/dL (1.3-4.6); Glomerular Filtration Rate 171.4 mL/min (90-130); Glucose 142 mg/dL (65-115); Osmolality Calculated 274 mOsm/kg (285-295); Total Bilirubin 1.5 mg/dL (0.15-1.2); Total Protein 7.1 g/dL (6.6-8.7)
[2022-05-19 09:19] LABS: Chloride 97 mmol/L (98-107); Sodium 134 mmol/L (136-145)
[2022-05-19 09:35] VITALS: BP 120/78; PULSE 92; RESP 16; TEMP 37.2; O2SAT 92
[2022-05-26 08:37] LABS: Basophils # 0.1 10^3/uL (0.0-0.1); Basophils % 0.7 %; Eosinophils # 0.2 10^3/uL (0.0-0.8); Eosinophils % 1.7 %; Hematocrit 36.4 % (42.0-52.0); Hemoglobin 11.6 g/dL (11.7-16.6); Lymphocytes # 2.1 10^3/uL (0.8-4.8); Lymphocytes % 19.5 %; Mean Corpuscular HGB Conc 31.9 g/dL (30.0-36.0); Mean Corpuscular Volume 87.7 fl (80-94); Mean Platelet Volume 11.4 fL (7.4-10.4); Monocytes # 1.3 10^3/uL (0.2-0.9); Monocytes % 12.3 %; Neutrophils # 7.01 10^3/uL (1.8-7.7); Neutrophils % 65.5 %; Nucleated Red Blood Cells % 0 %; Platelet Count 458 10^3/cmm (130-400); Red Blood Count 4.15 10^6/uL (4.1-5.3); Red Cell Distribution Width 20.7 % (12.1-15.1); White Blood Count 10.7 10^3/uL (4.0-10.0)
[2022-05-26 08:53] LABS: Alanine Aminotransferase 93 U/L (0-41); Albumin Level 3.6 g/dL (3.5-5.2); Alkaline Phosphatase 958 U/L (40-130); Anion Gap 15.5 (5-19); Aspartate Amino Transferase 81 U/L (0-40); Blood Urea Nitrogen 9 mg/dL (6-20); Calcium 9.7 mg/dL (8.5-10.5); Carbon Dioxide 28 mmol/L (22-29); Chloride 100 mmol/L (98-107); Globulin 3.8 g/dL (1.3-4.6); Glomerular Filtration Rate 171.4 mL/min (90-130); Glucose 104 mg/dL (65-115); Osmolality Calculated 287 mOsm/kg (285-295); Potassium 4.5 mmol/L (3.5-5.1); Sodium 139 mmol/L (136-145); Total Bilirubin 0.5 mg/dL (0.15-1.2); Total Protein 7.4 g/dL (6.6-8.7)
[2022-05-26] MEDS: palonosetron 0.25 mg/5 mL SDV IVP (09:54)
[2022-05-26] MEDS: dextrose 5% 250 ML 100 ML IV (09:54)
[2022-05-26] MEDS: leucovorin 710 MG in dextrose 5% 250 ML 62.5 MG IV (10:26)
[2022-05-26 13:30] VITALS: BP 134/84; PULSE 72; TEMP 36.6; O2SAT 99
[2022-05-26] MEDS: fluorouraciL 4,250 MG, elastomeric pump 1 PUMP in sodium chloride 0.9% (100 ml) 7 ML IV (13:31)
[2022-05-28 15:13] VITALS: BP 122/77; PULSE 91; TEMP 36.9; O2SAT 99
[2022-06-02 10:11] LABS: Basophils # 0.1 10^3/uL (0.0-0.1); Basophils % 0.4 %; Eosinophils # 0.1 10^3/uL (0.0-0.8); Eosinophils % 0.9 %; Hematocrit 36.4 % (42.0-52.0); Lymphocytes # 1.8 10^3/uL (0.8-4.8); Lymphocytes % 15.5 %; Mean Corpuscular Hemoglobin 28.7 pg (28.0-34.0); Mean Corpuscular Volume 87.1 fl (80-94); Mean Platelet Volume 11.1 fL (7.4-10.4); Monocytes # 1.2 10^3/uL (0.2-0.9); Monocytes % 10.5 %; Neutrophils # 8.18 10^3/uL (1.8-7.7); Neutrophils % 72.4 %; Nucleated Red Blood Cells % 0 %; Platelet Count 390 10^3/cmm (130-400); Red Blood Count 4.18 10^6/uL (4.1-5.3); Red Cell Distribution Width 19.8 % (12.1-15.1); White Blood Count 11.3 10^3/uL (4.0-10.0)
[2022-06-02 10:34] LABS: Alanine Aminotransferase 89 U/L (0-41); Albumin Level 3.9 g/dL (3.5-5.2); Alkaline Phosphatase 785 U/L (40-130); Anion Gap 15.9 (5-19); Aspartate Amino Transferase 76 U/L (0-40); Blood Urea Nitrogen 8 mg/dL (6-20); Calcium 9.2 mg/dL (8.5-10.5); Carbon Dioxide 25 mmol/L (22-29); Chloride 96 mmol/L (98-107); Globulin 3.8 g/dL (1.3-4.6); Glomerular Filtration Rate 138.9 mL/min (90-130); Glucose 100 mg/dL (65-115); Osmolality Calculated 274 mOsm/kg (285-295); Potassium 3.9 mmol/L (3.5-5.1); Sodium 133 mmol/L (136-145); Total Bilirubin 0.7 mg/dL (0.15-1.2); Total Protein 7.7 g/dL (6.6-8.7)
[2022-06-09 08:34] LABS: Basophils % 0.3 %; Eosinophils # 0.2 10^3/uL (0.0-0.8); Eosinophils % 1.7 %; Hematocrit 36.2 % (42.0-52.0); Hemoglobin 11.9 g/dL (11.7-16.6); Lymphocytes # 1.7 10^3/uL (0.8-4.8); Lymphocytes % 14.6 %; Mean Corpuscular HGB Conc 32.9 g/dL (30.0-36.0); Mean Corpuscular Hemoglobin 28.7 pg (28.0-34.0); Mean Corpuscular Volume 87.2 fl (80-94); Mean Platelet Volume 12.4 fL (7.4-10.4); Monocytes # 1.4 10^3/uL (0.2-0.9); Monocytes % 12.4 %; Neutrophils # 8.14 10^3/uL (1.8-7.7); Neutrophils % 70.8 %; Nucleated Red Blood Cells % 0 %; Platelet Count 265 10^3/cmm (130-400); Red Blood Count 4.15 10^6/uL (4.1-5.3); Red Cell Distribution Width 19.2 % (12.1-15.1); White Blood Count 11.5 10^3/uL (4.0-10.0)
[2022-06-09 08:57] LABS: Alanine Aminotransferase 68 U/L (0-41); Albumin Level 3.8 g/dL (3.5-5.2); Alkaline Phosphatase 705 U/L (40-130); Aspartate Amino Transferase 71 U/L (0-40); Blood Urea Nitrogen 11 mg/dL (6-20); Calcium 9.3 mg/dL (8.5-10.5); Carbon Dioxide 26 mmol/L (22-29); Chloride 99 mmol/L (98-107); Globulin 3.3 g/dL (1.3-4.6); Glomerular Filtration Rate 171.4 mL/min (90-130); Glucose 83 mg/dL (65-115); Osmolality Calculated 283 mOsm/kg (285-295); Sodium 137 mmol/L (136-145); Total Bilirubin 0.5 mg/dL (0.15-1.2); Total Protein 7.1 g/dL (6.6-8.7)
[2022-06-10] MEDS: dextrose 5% 250 ML 75 ML IV (10:35)
[2022-06-10] MEDS: palonosetron 0.25 mg/5 mL SDV IVP (11:16)
[2022-06-10] MEDS: leucovorin 710 MG in dextrose 5% 250 ML 62.5 MG IV (11:37)
[2022-06-10] MEDS: fluorouraciL 4,250 MG, elastomeric pump 1 PUMP in sodium chloride 0.9% (100 ml) 7 ML IV (14:07)
[2022-06-10 14:20] VITALS: BP 157/95; PULSE 76; RESP 18; TEMP 37.4; O2SAT 99
[2022-06-12 11:27] VITALS: BP 144/91; PULSE 85; RESP 18; TEMP 37.3; O2SAT 98
== END 2022-06-12 23:59 | disposition home or self-care (01) ==
PROVIDERS: PCP Family Medicine; Visit Provider Internal Medicine Hematology & Oncology
DX: C20 Malignant neoplasm of rectum (principal); C78.7 Secondary malignant neoplasm of liver and intrahepatic bile duct
CPT/HCPCS: 36591; 80053; 85025; 96366; 96367; 96368; 96375; 96413; 96415; 96416; 96417; 96523; J0640; J1100; J2469; J7060; J9190; J9263

== ENCOUNTER 2022-07-10 11:00 | Oncology outpatient (recurring) (ONCR) | payer OTHER, SELFPAY ==
[2022-06-24 08:21] VITALS: BP 157/83; PULSE 68; RESP 18; TEMP 36.3; O2SAT 100
[2022-06-24 08:30] LABS: Basophils % 0.4 %; Eosinophils # 0.2 10^3/uL (0.0-0.8); Eosinophils % 1.4 %; Hematocrit 38.1 % (42.0-52.0); Hemoglobin 12.6 g/dL (11.7-16.6); Lymphocytes # 1.7 10^3/uL (0.8-4.8); Lymphocytes % 16.3 %; Mean Corpuscular HGB Conc 33.1 g/dL (30.0-36.0); Mean Corpuscular Hemoglobin 28.8 pg (28.0-34.0); Mean Corpuscular Volume 87.2 fl (80-94); Mean Platelet Volume 10.8 fL (7.4-10.4); Monocytes # 1.5 10^3/uL (0.2-0.9); Monocytes % 14.1 %; Neutrophils % 67.6 %; Nucleated Red Blood Cells % 0 %; Platelet Count 202 10^3/cmm (130-400); Red Blood Count 4.37 10^6/uL (4.1-5.3); Red Cell Distribution Width 19.3 % (12.1-15.1); White Blood Count 10.4 10^3/uL (4.0-10.0)
[2022-06-24 08:51] LABS: Alanine Aminotransferase 56 U/L (0-41); Albumin Level 3.8 g/dL (3.5-5.2); Alkaline Phosphatase 527 U/L (40-130); Aspartate Amino Transferase 51 U/L (0-40); Blood Urea Nitrogen 10 mg/dL (6-20); Carbon Dioxide 25 mmol/L (22-29); Chloride 99 mmol/L (98-107); Globulin 3.5 g/dL (1.3-4.6); Glomerular Filtration Rate 138.9 mL/min (90-130); Glucose 104 mg/dL (65-115); Osmolality Calculated 281 mOsm/kg (285-295); Sodium 136 mmol/L (136-145); Total Bilirubin 0.6 mg/dL (0.15-1.2); Total Protein 7.3 g/dL (6.6-8.7)
[2022-06-24] MEDS: dextrose 5% 250 ML 75 ML IV (10:47)
[2022-06-24] MEDS: palonosetron 0.25 mg/5 mL SDV IVP (10:48)
[2022-06-24] MEDS: leucovorin 710 MG in dextrose 5% 250 ML 62.5 MG IV (11:26)
[2022-06-24] MEDS: fluorouraciL 4,250 MG, elastomeric pump 1 PUMP in sodium chloride 0.9% (100 ml) 7 ML IV (14:52)
[2022-06-24 14:56] VITALS: BP 143/92; PULSE 73; RESP 18; TEMP 36.4; O2SAT 98
[2022-06-26 10:22] VITALS: BP 139/89; PULSE 72; RESP 18; TEMP 36.3; O2SAT 99
[2022-07-08 08:13] VITALS: BMI 20.4
[2022-07-08 08:25] LABS: Basophils # 0.1 10^3/uL (0.0-0.1); Basophils % 0.5 %; Eosinophils # 0.2 10^3/uL (0.0-0.8); Eosinophils % 2.3 %; Hematocrit 41.3 % (42.0-52.0); Lymphocytes # 1.9 10^3/uL (0.8-4.8); Lymphocytes % 18.8 %; Mean Corpuscular HGB Conc 33.9 g/dL (30.0-36.0); Mean Corpuscular Hemoglobin 29.6 pg (28.0-34.0); Mean Corpuscular Volume 87.3 fl (80-94); Mean Platelet Volume 11.3 fL (7.4-10.4); Monocytes # 1.1 10^3/uL (0.2-0.9); Neutrophils # 6.78 10^3/uL (1.8-7.7); Neutrophils % 67.1 %; Nucleated Red Blood Cells % 0 %; Platelet Count 206 10^3/cmm (130-400); Red Blood Count 4.73 10^6/uL (4.1-5.3); White Blood Count 10.1 10^3/uL (4.0-10.0)
[2022-07-08 08:56] LABS: Alanine Aminotransferase 61 U/L (0-41); Alkaline Phosphatase 443 U/L (40-130); Anion Gap 15.9 (5-19); Aspartate Amino Transferase 61 U/L (0-40); Blood Urea Nitrogen 8 mg/dL (6-20); Carbon Dioxide 26 mmol/L (22-29); Chloride 101 mmol/L (98-107); Globulin 3.4 g/dL (1.3-4.6); Glomerular Filtration Rate 221.7 mL/min (90-130); Glucose 82 mg/dL (65-115); Osmolality Calculated 285 mOsm/kg (285-295); Potassium 3.9 mmol/L (3.5-5.1); Sodium 139 mmol/L (136-145); Total Bilirubin 0.5 mg/dL (0.15-1.2); Total Protein 7.4 g/dL (6.6-8.7)
[2022-07-08 09:13] VITALS: BP 154/95; PULSE 67; RESP 18; TEMP 36.6; O2SAT 99
[2022-07-08 10:59] LABS: Carcinoembryonic Antigen 217.3 ng/mL (0.0-4.7)
[2022-07-08] MEDS: dextrose 5% 250 ML 75 ML IV (11:21)
[2022-07-08] MEDS: palonosetron 0.25 mg/5 mL SDV IVP (11:22)
[2022-07-08] MEDS: oxaliplatin 100 MG, oxaliplatin 34 MG in dextrose 5% 250 ML 69.2 MG IV (11:44)
[2022-07-08] MEDS: leucovorin 710 MG in dextrose 5% 250 ML 62.5 MG IV (11:45)
[2022-07-08] MEDS: fluorouraciL 4,250 MG, elastomeric pump 1 PUMP in sodium chloride 0.9% (100 ml) 7 ML IV (14:48)
[2022-07-08 14:55] VITALS: BP 143/93; PULSE 78; RESP 18; TEMP 36.6; O2SAT 98
== END 2022-07-12 23:59 | disposition home or self-care (01) ==
PROVIDERS: Nurse Practitioner Family; PCP Family Medicine; Visit Provider Internal Medicine Hematology & Oncology
DX: C20 Malignant neoplasm of rectum (principal); C78.7 Secondary malignant neoplasm of liver and intrahepatic bile duct
CPT/HCPCS: 80053; 82378; 85025; 96367; 96368; 96375; 96413; 96415; 96416; 96523; J0640; J1100; J2469; J7060; J9190; J9263

== ENCOUNTER 2022-08-07 11:00 | Oncology outpatient (recurring) (ONCR) | payer OTHER, SELFPAY ==
--- NOTE | 2022-07-14 09:55 | PC.NURSE ---
07/10/22 pump discontinued, infused all medications. Flushed port per protocol. Maida Vang RN
[2022-07-22 08:00] VITALS: BP 134/92; PULSE 102; RESP 18; TEMP 36.9; O2SAT 99
[2022-07-22 08:19] LABS: Basophils % 0.4 %; Eosinophils # 0.1 10^3/uL (0.0-0.8); Eosinophils % 0.6 %; Hematocrit 39.3 % (42.0-52.0); Hemoglobin 13.2 g/dL (11.7-16.6); Lymphocytes # 1.2 10^3/uL (0.8-4.8); Lymphocytes % 12.9 %; Mean Corpuscular HGB Conc 33.6 g/dL (30.0-36.0); Mean Corpuscular Hemoglobin 29.5 pg (28.0-34.0); Mean Corpuscular Volume 87.9 fl (80-94); Mean Platelet Volume 11.3 fL (7.4-10.4); Monocytes # 1.4 10^3/uL (0.2-0.9); Neutrophils # 6.68 10^3/uL (1.8-7.7); Neutrophils % 70.9 %; Nucleated Red Blood Cells % 0 %; Platelet Count 171 10^3/cmm (130-400); Red Blood Count 4.47 10^6/uL (4.1-5.3); Red Cell Distribution Width 17.2 % (12.1-15.1); White Blood Count 9.4 10^3/uL (4.0-10.0)
[2022-07-22 08:44] LABS: Carcinoembryonic Antigen 198.2 ng/mL (0.0-4.7)
[2022-07-22 08:56] LABS: Alanine Aminotransferase 55 U/L (0-41); Albumin Level 3.7 g/dL (3.5-5.2); Alkaline Phosphatase 451 U/L (40-130); Anion Gap 15.9 (5-19); Aspartate Amino Transferase 57 U/L (0-40); Blood Urea Nitrogen 6 mg/dL (6-20); Calcium 9.6 mg/dL (8.5-10.5); Carbon Dioxide 26 mmol/L (22-29); Chloride 96 mmol/L (98-107); Globulin 3.3 g/dL (1.3-4.6); Glomerular Filtration Rate 171.4 mL/min (90-130); Glucose 84 mg/dL (65-115); Osmolality Calculated 275 mOsm/kg (285-295); Potassium 3.9 mmol/L (3.5-5.1); Sodium 134 mmol/L (136-145); Total Bilirubin 0.6 mg/dL (0.15-1.2)
[2022-07-22] MEDS: palonosetron 0.25 mg/5 mL SDV IVP (11:11)
[2022-07-22] MEDS: sodium chloride 0.9% (100 ml) 100 ML 25 ML (11:20)
[2022-07-22] MEDS: BEVACIZUMAB AWWB IV (11:40)
[2022-07-22] MEDS: SODIUM CHLORIDE 0.9% IV (11:40)
[2022-07-22] MEDS: oxaliplatin 100 MG, oxaliplatin 30 MG in dextrose 5% 250 ML 125 MG IV (13:09)
[2022-07-22] MEDS: dextrose 5% 250 ML 75 ML IV (13:10)
[2022-07-22] MEDS: leucovorin 710 MG in dextrose 5% 250 ML 125 MG IV (13:10)
[2022-07-22] MEDS: fluorouraciL 4,250 MG, elastomeric pump 1 PUMP in sodium chloride 0.9% (100 ml) 7 ML IV (15:15)
[2022-07-22 15:24] VITALS: BP 136/88; PULSE 101; RESP 18; TEMP 36.8; O2SAT 99
[2022-07-24 11:19] VITALS: BP 153/100; PULSE 62; O2SAT 99
[2022-08-04 09:54] VITALS: BP 141/95; PULSE 80; RESP 16; TEMP 36.3; O2SAT 99
[2022-08-04 10:13] LABS: Add Urine Microscopic? NO; Charge for UA Resulting for Rev
[2022-08-04 10:22] LABS: Urine Appearance Clear (CLEAR); Urine Color Yellow (Yellow); pH Urine 7 (5-7)
[2022-08-04 10:23] LABS: Bilirubin Urine Neg (Negative); Blood Urine Neg (Negative); Glucose Urine UA Norm (Normal); Ketones Urine Negative (Negative); Leukocyte Esterase Urine Negative (Negative); Nitrate Urine Negative (Negative); Protein Urine Neg (Negative); Urobilinogen Urine Norm (Negative)
[2022-08-04 10:24] LABS: Basophils # 0.1 10^3/uL (0.0-0.1); Basophils % 0.6 %; Eosinophils # 0.1 10^3/uL (0.0-0.8); Hematocrit 39.9 % (42.0-52.0); Hemoglobin 13.4 g/dL (11.7-16.6); Lymphocytes # 1.6 10^3/uL (0.8-4.8); Lymphocytes % 20.4 %; Mean Corpuscular HGB Conc 33.6 g/dL (30.0-36.0); Mean Corpuscular Hemoglobin 29.7 pg (28.0-34.0); Mean Corpuscular Volume 88.5 fl (80-94); Mean Platelet Volume 10.5 fL (7.4-10.4); Monocytes # 1.3 10^3/uL (0.2-0.9); Monocytes % 16.3 %; Neutrophils # 4.86 10^3/uL (1.8-7.7); Neutrophils % 61.4 %; Nucleated Red Blood Cells % 0 %; Platelet Count 181 10^3/cmm (130-400); Red Blood Count 4.51 10^6/uL (4.1-5.3); Red Cell Distribution Width 17.6 % (12.1-15.1); White Blood Count 7.9 10^3/uL (4.0-10.0)
[2022-08-04 10:42] LABS: Alanine Aminotransferase 56 U/L (0-41); Albumin Level 3.9 g/dL (3.5-5.2); Alkaline Phosphatase 421 U/L (40-130); Aspartate Amino Transferase 60 U/L (0-40); Blood Urea Nitrogen 8 mg/dL (6-20); Calcium 9.2 mg/dL (8.5-10.5); Carbon Dioxide 25 mmol/L (22-29); Chloride 101 mmol/L (98-107); Globulin 3.3 g/dL (1.3-4.6); Glomerular Filtration Rate 171.4 mL/min (90-130); Glucose 87 mg/dL (65-115); Osmolality Calculated 282 mOsm/kg (285-295); Sodium 137 mmol/L (136-145); Total Bilirubin 0.3 mg/dL (0.15-1.2); Total Protein 7.2 g/dL (6.6-8.7)
[2022-08-05 08:41] VITALS: BP 128/86; PULSE 84; RESP 16; TEMP 36.5; O2SAT 97
[2022-08-05] MEDS: sodium chloride 0.9% 250 ML 75 ML IV (08:55)
[2022-08-05] MEDS: palonosetron 0.25 mg/5 mL SDV IVP (08:55)
[2022-08-05] MEDS: BEVACIZUMAB AWWB IV (09:33)
[2022-08-05] MEDS: SODIUM CHLORIDE 0.9% IV (09:33)
[2022-08-05] MEDS: oxaliplatin 100 MG, oxaliplatin 30 MG in dextrose 5% 250 ML 69 MG IV (10:10)
[2022-08-05] MEDS: leucovorin 710 MG in dextrose 5% 250 ML 62.5 MG IV (10:11)
[2022-08-05 14:00] VITALS: BP 131/90; PULSE 70; RESP 16; TEMP 36.7; O2SAT 98
[2022-08-05] MEDS: fluorouraciL 4,250 MG, elastomeric pump 1 PUMP in sodium chloride 0.9% (100 ml) 7 ML IV (14:00)
[2022-08-07 11:05] VITALS: BP 139/88; PULSE 70; RESP 16; TEMP 36.6; O2SAT 99
== END 2022-08-12 23:59 | disposition home or self-care (01) ==
PROVIDERS: Nurse Practitioner Family; PCP Family Medicine; Visit Provider Internal Medicine Hematology & Oncology
DX: Z45.1 Encounter for adjustment and management of infusion pump (principal); C20 Malignant neoplasm of rectum
CPT/HCPCS: 80053; 81003; 82378; 85025; 96367; 96368; 96375; 96413; 96415; 96416; 96417; 96523; J0640; J1100; J1642; J2469; J7050; J7060; J9190; J9263; Q5107

== ENCOUNTER 2022-08-22 05:49 | Outpatient (CLI) | payer OTHER, SELFPAY ==
--- NOTE | 2022-08-22 10:30 | PETR_ITS ---
PROCEDURE INFORMATION: Exam: PET/CT Skull Base to Mid-thigh Exam date and time: 08/22/2022 11:48 AM Age: 56 years old Clinical indication: Condition or disease; Primary cancer: Colorectal cancer; Follow-up oncological assessment; Additional info: Restaging, pet prior to 08/19/22 LABS AND CLINICAL REPORTS: Glucose: 110 mg/dl Treatment strategy for malignancy (PET staging): Restaging (PS) TECHNIQUE: Imaging protocol: Following at least four-hour fasting and following the injection of radiopharmaceutical, low dose CT images were obtained. Then, PET images were obtained. Attenuation corrected images were constructed using the CT scan. Fused images of PET and CT were reviewed. The standardized uptake values (SUV) reported below are maximum values within a region of interest, expressed in gm/ml. Exam includes orbital meatal line to mid-thigh. Radiopharmaceutical: 11.77 mCi F-18 FDG (Fluorodeoxyglucose), IV. Time of imaging post radiopharmaceutical administration: 1 hour Injection site: Right antecubital vein COMPARISON: CT abdomen pelvis w con* [id number] 05/08/2022 and 04/22/2022, CT chest 03/20/2022 FINDINGS: Catheters, tubes and devices: Port catheter placed via the left subclavian vein terminates in the superior vena cava. Brain: Visualized brain has normal physiologic uptake. Pharynx: No abnormal uptake. Larynx: No abnormal uptake. Lungs, pleura and trachea: No abnormal uptake. 3 mm subpleural nodule in the right lung on image 60 of series 3 is stable since prior exam and nonspecific. No new or progressive lung nodules. No pleural effusion. Heart: Normal physiologic uptake.There is no cardiomegaly. No coronary artery calcification is visualized. There is no pericardial effusion. Mediastinal space: No abnormal uptake. Liver: Bulky partially calcified bilobar metastasis measure up to 9.9 SUV in the highest peripheral activity with central hypometabolic area suggestive of necrotic changes. Calcifications within metastatic disease are new since prior exams. Gallbladder and bile ducts: No abnormal uptake. No calcified gallstones Pancreas: No abnormal uptake. Spleen: No abnormal uptake. No splenomegaly. Adrenal glands: No abnormal uptake. No nodules. Kidneys and ureters: Normal physiologic uptake. No hydronephrosis. Stomach and bowel: No abnormal uptake. Specifically, there is normal activity in the rectum in the location of previously noted primary tumor documented on 04/22/2022. No abnormal dilatation of the bowel. Status post Ashley pouch surgery with colostomy from descending colon in the left mid abdomen. Diverticulosis in the transverse colon with no signs of acute diverticulitis. Intraperitoneal and retroperitoneal spaces: No abnormal uptake. There is trace amount of free intraperitoneal fluid. Bladder: Normal physiologic uptake. Reproductive: No abnormal uptake. Vasculature: No abnormal uptake. Lymph nodes: No abnormal uptake. No lymphadenopathy in the head, neck, chest, abdomen, pelvis, and extremities. Bones/joints: Increased uptake of 4.6 SUV in the posterior column of the right acetabulum associated with increased sclerosis and linear periosteal reaction is morphologically unchanged since prior exam. Soft tissues: No abnormal uptake in the visualized head, neck, chest, abdomen, pelvis, and extremities. [facility] [id number] IMPRESSION: 1. Bulky bilobar liver metastases with the highest uptake of 9.9 SUV probably with no significant change in size since April 2022 with new amorphous calcifications. 2. Increased uptake of 4.6 SUV within ill-defined sclerotic area in the right posterior acetabulum suspicious for bone metastasis. 3. No abnormal uptake in the rectum in the place of primary known malignancy documented on prior exam on 04/22/2022.
== END 2022-08-22 05:50 | disposition home or self-care (01) ==
LOC: RAD 08-24 05:50
PROVIDERS: PCP Family Medicine; Visit Provider Nurse Practitioner Family
DX: C20 Malignant neoplasm of rectum (principal); C78.7 Secondary malignant neoplasm of liver and intrahepatic bile duct
CPT/HCPCS: 78815; A9552

== ENCOUNTER 2022-09-04 10:30 | Oncology outpatient (recurring) (ONCR) | payer OTHER, SELFPAY ==
[2022-08-18 13:49] VITALS: BP 133/87; PULSE 103; RESP 18; TEMP 36.8; O2SAT 98
[2022-08-18 14:14] LABS: Add Urine Microscopic? NO; Charge for UA Resulting for Rev
[2022-08-18 14:17] LABS: Basophils % 0.3 %; Eosinophils % 0.3 %; Hematocrit 39.6 % (42.0-52.0); Hemoglobin 13.4 g/dL (11.7-16.6); Lymphocytes # 1.6 10^3/uL (0.8-4.8); Lymphocytes % 18.2 %; Mean Corpuscular HGB Conc 33.8 g/dL (30.0-36.0); Mean Corpuscular Hemoglobin 30.1 pg (28.0-34.0); Mean Platelet Volume 10.7 fL (7.4-10.4); Monocytes # 1.5 10^3/uL (0.2-0.9); Monocytes % 17.2 %; Neutrophils # 5.46 10^3/uL (1.8-7.7); Neutrophils % 63.8 %; Nucleated Red Blood Cells % 0 %; Platelet Count 192 10^3/cmm (130-400); Red Blood Count 4.45 10^6/uL (4.1-5.3); White Blood Count 8.6 10^3/uL (4.0-10.0)
[2022-08-18 14:26] LABS: Bilirubin Urine Neg (Negative); Blood Urine Neg (Negative); Glucose Urine UA Norm (Normal); Ketones Urine Negative (Negative); Leukocyte Esterase Urine Negative (Negative); Nitrate Urine Negative (Negative); Protein Urine Neg (Negative); Urine Appearance Clear (CLEAR); Urine Color Yellow (Yellow); Urobilinogen Urine 1 mg/dL (Negative); pH Urine 6 (5-7)
[2022-08-18 14:46] LABS: Alanine Aminotransferase 40 U/L (0-41); Albumin Level 3.7 g/dL (3.5-5.2); Alkaline Phosphatase 355 U/L (40-130); Anion Gap 15.8 (5-19); Aspartate Amino Transferase 52 U/L (0-40); Blood Urea Nitrogen 8 mg/dL (6-20); Calcium 9.1 mg/dL (8.5-10.5); Carbon Dioxide 25 mmol/L (22-29); Chloride 101 mmol/L (98-107); Globulin 3.5 g/dL (1.3-4.6); Glomerular Filtration Rate 171.4 mL/min (90-130); Glucose 111 mg/dL (65-115); Osmolality Calculated 285 mOsm/kg (285-295); Potassium 3.8 mmol/L (3.5-5.1); Sodium 138 mmol/L (136-145); Total Bilirubin 0.4 mg/dL (0.15-1.2); Total Protein 7.2 g/dL (6.6-8.7)
[2022-08-19] MEDS: sodium chloride 0.9% 250 ML 100 ML IV (09:34)
[2022-08-19] MEDS: palonosetron 0.25 mg/5 mL SDV IVP (09:34)
[2022-08-19] MEDS: SODIUM CHLORIDE 0.9% IV (10:08)
[2022-08-19] MEDS: BEVACIZUMAB AWWB IV (10:08)
[2022-08-19] MEDS: leucovorin 710 MG in dextrose 5% 250 ML 62.5 MG IV (10:45)
[2022-08-19] MEDS: dextrose 5% 250 ML 100 ML IV (10:45)
[2022-08-19] MEDS: oxaliplatin 100 MG, oxaliplatin 30 MG in dextrose 5% 250 ML 69 MG IV (10:45)
[2022-08-19 13:20] VITALS: BP 137/88; PULSE 74; TEMP 36.3; O2SAT 98
[2022-08-19] MEDS: fluorouraciL 4,250 MG, elastomeric pump 1 PUMP in sodium chloride 0.9% (100 ml) 7 ML IV (13:28)
[2022-08-21 11:32] VITALS: BP 122/79; PULSE 89; RESP 16; TEMP 36.7; O2SAT 98
[2022-09-01 10:26] VITALS: BP 127/89; PULSE 88; RESP 18; TEMP 36.9; O2SAT 99
[2022-09-01 10:43] LABS: Add Urine Microscopic? NO; Charge for UA Resulting for Rev
[2022-09-01 10:55] LABS: Basophils % 0.4 %; Eosinophils # 0.1 10^3/uL (0.0-0.8); Eosinophils % 0.7 %; Hematocrit 40.7 % (42.0-52.0); Hemoglobin 13.7 g/dL (11.7-16.6); Lymphocytes # 2.1 10^3/uL (0.8-4.8); Lymphocytes % 22.4 %; Mean Corpuscular HGB Conc 33.7 g/dL (30.0-36.0); Mean Corpuscular Hemoglobin 30.3 pg (28.0-34.0); Mean Platelet Volume 10.3 fL (7.4-10.4); Monocytes # 1.9 10^3/uL (0.2-0.9); Monocytes % 20.1 %; Neutrophils # 5.27 10^3/uL (1.8-7.7); Neutrophils % 56.3 %; Nucleated Red Blood Cells % 0 %; Platelet Count 172 10^3/cmm (130-400); Red Blood Count 4.52 10^6/uL (4.1-5.3); Red Cell Distribution Width 17.1 % (12.1-15.1); White Blood Count 9.4 10^3/uL (4.0-10.0)
[2022-09-01 11:07] LABS: Bilirubin Urine Neg (Negative); Blood Urine Neg (Negative); Glucose Urine UA Norm (Normal); Ketones Urine 1+ (Negative); Leukocyte Esterase Urine Negative (Negative); Nitrate Urine Negative (Negative); Protein Urine Neg (Negative); Urine Appearance Clear (CLEAR); Urine Color Yellow (Yellow); Urobilinogen Urine Norm (Negative); pH Urine 6 (5-7)
[2022-09-01 11:11] LABS: Alanine Aminotransferase 53 U/L (0-41); Albumin Level 3.6 g/dL (3.5-5.2); Alkaline Phosphatase 357 U/L (40-130); Anion Gap 16.7 (5-19); Aspartate Amino Transferase 53 U/L (0-40); Blood Urea Nitrogen 5 mg/dL (6-20); Calcium 9.6 mg/dL (8.5-10.5); Carbon Dioxide 27 mmol/L (22-29); Chloride 102 mmol/L (98-107); Globulin 3.6 g/dL (1.3-4.6); Glomerular Filtration Rate 171.4 mL/min (90-130); Glucose 82 mg/dL (65-115); Osmolality Calculated 288 mOsm/kg (285-295); Potassium 4.7 mmol/L (3.5-5.1); Sodium 141 mmol/L (136-145); Total Bilirubin 0.5 mg/dL (0.15-1.2); Total Protein 7.2 g/dL (6.6-8.7)
[2022-09-02 08:50] VITALS: BMI 20.3
[2022-09-02 09:33] VITALS: BP 132/93; PULSE 100; RESP 18; TEMP 37.1; O2SAT 99
[2022-09-02] MEDS: sodium chloride 0.9% 250 ML 100 ML IV (09:54)
[2022-09-02] MEDS: palonosetron 0.25 mg/5 mL SDV IVP (09:57)
[2022-09-02] MEDS: BEVACIZUMAB AWWB IV (10:21)
[2022-09-02] MEDS: SODIUM CHLORIDE 0.9% IV (10:21)
[2022-09-02] MEDS: dextrose 5% 250 ML 100 ML IV (11:05)
[2022-09-02] MEDS: leucovorin 710 MG in dextrose 5% 250 ML 62.5 MG IV (11:07)
[2022-09-02] MEDS: oxaliplatin 100 MG, oxaliplatin 30 MG in dextrose 5% 250 ML 69 MG IV (11:07)
[2022-09-02] MEDS: fluorouraciL 4,250 MG, elastomeric pump 1 PUMP in sodium chloride 0.9% (100 ml) 7 ML IV (13:41)
[2022-09-02 13:45] VITALS: BP 131/81; PULSE 73; TEMP 36.3; O2SAT 98
[2022-09-04 10:42] VITALS: BP 132/84; PULSE 78; RESP 16; TEMP 35.8; O2SAT 99
== END 2022-09-11 23:59 | disposition home or self-care (01) ==
PROVIDERS: Nurse Practitioner Family; PCP Family Medicine; Visit Provider Internal Medicine Hematology & Oncology
DX: Z45.1 Encounter for adjustment and management of infusion pump (principal); Z45.2 Encounter for adjustment and management of vascular access device
CPT/HCPCS: 36591; 80053; 81003; 85025; 96367; 96368; 96375; 96413; 96415; 96416; 96417; 96523; J0640; J1100; J1642; J2469; J7050; J7060; J9190; J9263; Q5107

== ENCOUNTER 2022-10-02 11:30 | Oncology outpatient (recurring) (ONCR) | payer OTHER, SELFPAY ==
[2022-09-14 13:35] VITALS: BP 121/79; PULSE 103; RESP 18; TEMP 37.4; O2SAT 98
[2022-09-14 13:48] LABS: Add Urine Microscopic? NO; Charge for UA Resulting for Rev
[2022-09-14 13:51] LABS: Basophils % 0.1 %; Eosinophils % 0.1 %; Hematocrit 35.9 % (42.0-52.0); Hemoglobin 12.4 g/dL (11.7-16.6); Lymphocytes # 1.2 10^3/uL (0.8-4.8); Lymphocytes % 13.4 %; Mean Corpuscular HGB Conc 34.5 g/dL (30.0-36.0); Mean Corpuscular Volume 89.8 fl (80-94); Mean Platelet Volume 10.1 fL (7.4-10.4); Monocytes # 1.8 10^3/uL (0.2-0.9); Monocytes % 20.6 %; Neutrophils # 5.68 10^3/uL (1.8-7.7); Neutrophils % 65.6 %; Nucleated Red Blood Cells % 0 %; Platelet Count 143 10^3/cmm (130-400); Red Cell Distribution Width 17.2 % (12.1-15.1); White Blood Count 8.7 10^3/uL (4.0-10.0)
[2022-09-14 14:11] LABS: Alanine Aminotransferase 48 U/L (0-41); Albumin Level 3.6 g/dL (3.5-5.2); Alkaline Phosphatase 392 U/L (40-130); Anion Gap 11.8 (5-19); Aspartate Amino Transferase 73 U/L (0-40); Blood Urea Nitrogen 6 mg/dL (6-20); Calcium 9.1 mg/dL (8.5-10.5); Carbon Dioxide 25 mmol/L (22-29); Chloride 100 mmol/L (98-107); Globulin 3.1 g/dL (1.3-4.6); Glomerular Filtration Rate 138.9 mL/min (90-130); Glucose 114 mg/dL (65-115); Osmolality Calculated 274 mOsm/kg (285-295); Potassium 3.8 mmol/L (3.5-5.1); Sodium 133 mmol/L (136-145); Total Bilirubin 0.7 mg/dL (0.15-1.2); Total Protein 6.7 g/dL (6.6-8.7)
[2022-09-14 14:23] LABS: Urine Appearance Clear (CLEAR); Urine Color Yellow (Yellow)
[2022-09-14 14:24] LABS: Bilirubin Urine Neg (Negative); Blood Urine Neg (Negative); Glucose Urine UA Norm (Normal); Ketones Urine Negative (Negative); Leukocyte Esterase Urine Negative (Negative); Nitrate Urine Negative (Negative); Protein Urine Neg (Negative); Urobilinogen Urine Norm (Negative); pH Urine 6 (5-7)
[2022-09-16] MEDS: sodium chloride 0.9% 250 ML 200 ML IV (09:37)
[2022-09-16] MEDS: palonosetron 0.25 mg/5 mL SDV IVP (09:59)
[2022-09-16] MEDS: BEVACIZUMAB AWWB IV (10:06)
[2022-09-16] MEDS: SODIUM CHLORIDE 0.9% IV (10:06)
[2022-09-16] MEDS: leucovorin 710 MG in dextrose 5% 250 ML 62.5 MG IV (10:47)
[2022-09-16] MEDS: dextrose 5% 250 ML 75 ML IV (10:47)
[2022-09-16] MEDS: oxaliplatin 100 MG, oxaliplatin 30 MG in dextrose 5% 250 ML 69 MG IV (10:47)
[2022-09-16 14:12] VITALS: BP 121/89; BP 142/74; PULSE 78; PULSE 82; RESP 18; TEMP 36.6; O2SAT 98
[2022-09-16] MEDS: fluorouraciL 4,250 MG, elastomeric pump 1 PUMP in sodium chloride 0.9% (100 ml) 7 ML IV (14:13)
[2022-09-18 11:03] VITALS: BP 116/76; PULSE 67; RESP 16; TEMP 36.9; O2SAT 97
[2022-09-29 12:46] VITALS: BP 140/91; PULSE 110; RESP 118; TEMP 36.8; O2SAT 99
[2022-09-29 13:16] LABS: Add Urine Microscopic? NO; Charge for UA Resulting for Rev
[2022-09-29 13:24] LABS: Specific Gravity, Urine 1.015 (1.005-1.030); Urine Appearance Clear (CLEAR); Urine Color Yellow (Yellow); pH Urine 7 (5-7)
[2022-09-29 13:25] LABS: Bilirubin Urine Neg (Negative); Blood Urine Neg (Negative); Glucose Urine UA Norm (Normal); Ketones Urine Negative (Negative); Leukocyte Esterase Urine Negative (Negative); Nitrate Urine Negative (Negative); Protein Urine Neg (Negative); Urobilinogen Urine Norm (Negative)
[2022-09-29 13:31] LABS: Basophils % 0.3 %; Eosinophils % 0.4 %; Hematocrit 39.6 % (42.0-52.0); Hemoglobin 13.4 g/dL (11.7-16.6); Lymphocytes # 1.5 10^3/uL (0.8-4.8); Lymphocytes % 19.8 %; Mean Corpuscular HGB Conc 33.8 g/dL (30.0-36.0); Mean Corpuscular Hemoglobin 30.9 pg (28.0-34.0); Mean Corpuscular Volume 91.5 fl (80-94); Mean Platelet Volume 10.8 fL (7.4-10.4); Monocytes # 1.3 10^3/uL (0.2-0.9); Monocytes % 17.5 %; Neutrophils # 4.62 10^3/uL (1.8-7.7); Neutrophils % 61.9 %; Nucleated Red Blood Cells % 0 %; Platelet Count 180 10^3/cmm (130-400); Red Blood Count 4.33 10^6/uL (4.1-5.3); Red Cell Distribution Width 17.2 % (12.1-15.1); White Blood Count 7.5 10^3/uL (4.0-10.0)
[2022-09-29 13:36] LABS: Alanine Aminotransferase 55 U/L (0-41); Alkaline Phosphatase 413 U/L (40-130); Anion Gap 16.3 (5-19); Aspartate Amino Transferase 65 U/L (0-40); Blood Urea Nitrogen 7 mg/dL (6-20); Calcium 9.5 mg/dL (8.5-10.5); Carbon Dioxide 24 mmol/L (22-29); Chloride 103 mmol/L (98-107); Globulin 3.3 g/dL (1.3-4.6); Glomerular Filtration Rate 171.4 mL/min (90-130); Glucose 88 mg/dL (65-115); Osmolality Calculated 285 mOsm/kg (285-295); Potassium 4.3 mmol/L (3.5-5.1); Sodium 139 mmol/L (136-145); Total Bilirubin 0.7 mg/dL (0.15-1.2); Total Protein 7.3 g/dL (6.6-8.7)
[2022-09-30] MEDS: sodium chloride 0.9% 250 ML 75 ML IV (09:06)
[2022-09-30] MEDS: palonosetron 0.25 mg/5 mL SDV IVP (09:07)
[2022-09-30] MEDS: BEVACIZUMAB AWWB IV (09:38)
[2022-09-30] MEDS: SODIUM CHLORIDE 0.9% IV (09:38)
[2022-09-30] MEDS: leucovorin 710 MG in dextrose 5% 250 ML 62.5 MG IV (10:23)
[2022-09-30] MEDS: oxaliplatin 100 MG, oxaliplatin 30 MG in dextrose 5% 250 ML 69 MG IV (10:24)
[2022-09-30] MEDS: dextrose 5% 250 ML 75 ML IV (10:27)
[2022-09-30] MEDS: fluorouraciL 4,250 MG, elastomeric pump 1 PUMP in sodium chloride 0.9% (100 ml) 7 ML IV (13:26)
[2022-09-30 13:30] VITALS: BP 143/88; PULSE 73; TEMP 36.4; O2SAT 97
== END 2022-10-12 23:59 | disposition home or self-care (01) ==
PROVIDERS: PCP Family Medicine; Visit Provider Internal Medicine Hematology & Oncology
DX: Z45.1 Encounter for adjustment and management of infusion pump (principal)
CPT/HCPCS: 36591; 80053; 81003; 85025; 96367; 96368; 96375; 96413; 96415; 96416; 96417; 96523; J0640; J1100; J1642; J2469; J7050; J7060; J9190; J9263; Q5107

== ENCOUNTER 2022-11-10 14:30 | Oncology outpatient (recurring) (ONCR) | payer OTHER, SELFPAY ==
[2022-10-13 13:22] VITALS: BMI 20.8
[2022-10-13 13:23] VITALS: BP 136/89; PULSE 78; RESP 18; TEMP 36.8; O2SAT 100
[2022-10-13 13:42] LABS: Add Urine Microscopic? NO; Charge for UA Resulting for Rev
[2022-10-13 13:45] LABS: Basophils % 0.4 %; Eosinophils # 0.1 10^3/uL (0.0-0.8); Eosinophils % 0.9 %; Hematocrit 38.9 % (42.0-52.0); Hemoglobin 13.2 g/dL (11.7-16.6); Lymphocytes # 1.4 10^3/uL (0.8-4.8); Lymphocytes % 25.3 %; Mean Corpuscular HGB Conc 33.9 g/dL (30.0-36.0); Mean Corpuscular Hemoglobin 31.7 pg (28.0-34.0); Mean Corpuscular Volume 93.3 fl (80-94); Mean Platelet Volume 10.9 fL (7.4-10.4); Monocytes # 1.1 10^3/uL (0.2-0.9); Monocytes % 19.2 %; Neutrophils # 3.01 10^3/uL (1.8-7.7); Nucleated Red Blood Cells % 0 %; Platelet Count 148 10^3/cmm (130-400); Red Blood Count 4.17 10^6/uL (4.1-5.3); Red Cell Distribution Width 16.7 % (12.1-15.1); White Blood Count 5.6 10^3/uL (4.0-10.0)
[2022-10-13 13:49] LABS: Bilirubin Urine Neg (Negative); Blood Urine Neg (Negative); Glucose Urine UA Norm (Normal); Ketones Urine Negative (Negative); Leukocyte Esterase Urine Negative (Negative); Nitrate Urine Negative (Negative); Protein Urine Neg (Negative); Urine Appearance Clear (CLEAR); Urine Color Yellow (Yellow); Urobilinogen Urine Norm (Negative); pH Urine 7 (5-7)
[2022-10-13 14:02] LABS: Alanine Aminotransferase 54 U/L (0-41); Albumin Level 3.9 g/dL (3.5-5.2); Alkaline Phosphatase 345 U/L (40-130); Aspartate Amino Transferase 71 U/L (0-40); Blood Urea Nitrogen 6 mg/dL (6-20); Calcium 9.3 mg/dL (8.5-10.5); Carbon Dioxide 25 mmol/L (22-29); Chloride 103 mmol/L (98-107); Globulin 3.3 g/dL (1.3-4.6); Glomerular Filtration Rate 221.7 mL/min (90-130); Glucose 107 mg/dL (65-115); Osmolality Calculated 286 mOsm/kg (285-295); Sodium 139 mmol/L (136-145); Total Bilirubin 0.5 mg/dL (0.15-1.2); Total Protein 7.2 g/dL (6.6-8.7)
[2022-10-13 14:06] LABS: Anion Gap 14.8 (5-19); Potassium 3.8 mmol/L (3.5-5.1)
[2022-10-14] MEDS: sodium chloride 0.9% 250 ML 100 ML IV (09:12)
[2022-10-14] MEDS: palonosetron 0.25 mg/5 mL SDV IVP (09:13)
[2022-10-14] MEDS: SODIUM CHLORIDE 0.9% IV (09:44)
[2022-10-14] MEDS: BEVACIZUMAB AWWB IV (09:44)
[2022-10-14] MEDS: dextrose 5% 250 ML 75 ML IV (10:24)
[2022-10-14] MEDS: leucovorin 710 MG in dextrose 5% 250 ML 80.25 MG IV (10:26)
[2022-10-14] MEDS: oxaliplatin 100 MG, oxaliplatin 30 MG in dextrose 5% 250 ML 69 MG IV (10:27)
[2022-10-14] MEDS: fluorouraciL 4,250 MG, elastomeric pump 1 PUMP in sodium chloride 0.9% (100 ml) 7 ML IV (13:47)
[2022-10-14 13:49] VITALS: BP 128/86; PULSE 65; RESP 16; TEMP 36.1; O2SAT 64
[2022-10-16 11:20] VITALS: BMI 21.4
[2022-10-16 11:22] VITALS: BP 132/83; PULSE 84; RESP 18; TEMP 36.1; O2SAT 98
[2022-10-27 14:13] VITALS: BMI 21.2
[2022-10-27 14:14] VITALS: BP 136/87; PULSE 75; RESP 18; TEMP 37.4; O2SAT 99
[2022-10-27 14:31] LABS: Add Urine Microscopic? NO; Charge for UA Resulting for Rev
[2022-10-27 14:36] LABS: Basophils % 0.4 %; Eosinophils % 0.4 %; Hematocrit 39.9 % (42.0-52.0); Hemoglobin 13.7 g/dL (11.7-16.6); Lymphocytes # 1.3 10^3/uL (0.8-4.8); Lymphocytes % 17.7 %; Mean Corpuscular HGB Conc 34.3 g/dL (30.0-36.0); Mean Corpuscular Hemoglobin 31.6 pg (28.0-34.0); Mean Corpuscular Volume 91.9 fl (80-94); Mean Platelet Volume 10.9 fL (7.4-10.4); Monocytes # 1.5 10^3/uL (0.2-0.9); Monocytes % 19.9 %; Neutrophils # 4.66 10^3/uL (1.8-7.7); Neutrophils % 61.5 %; Nucleated Red Blood Cells % 0 %; Platelet Count 123 10^3/cmm (130-400); Red Blood Count 4.34 10^6/uL (4.1-5.3); Red Cell Distribution Width 15.8 % (12.1-15.1); White Blood Count 7.6 10^3/uL (4.0-10.0)
[2022-10-27 14:53] LABS: Bilirubin Urine Neg (Negative); Blood Urine Neg (Negative); Glucose Urine UA Norm (Normal); Ketones Urine Negative (Negative); Nitrate Urine Negative (Negative); Protein Urine Neg (Negative); Urine Appearance Clear (CLEAR); Urine Color Dark yellow (Yellow); pH Urine 7 (5-7)
[2022-10-27 14:54] LABS: Leukocyte Esterase Urine Negative (Negative); Urobilinogen Urine 1 mg/dL (Negative)
[2022-10-27 14:57] LABS: Alanine Aminotransferase 49 U/L (0-41); Albumin Level 3.7 g/dL (3.5-5.2); Alkaline Phosphatase 400 U/L (40-130); Anion Gap 14.9 (5-19); Aspartate Amino Transferase 50 U/L (0-40); Blood Urea Nitrogen 5 mg/dL (6-20); Calcium 9.3 mg/dL (8.5-10.5); Carbon Dioxide 25 mmol/L (22-29); Chloride 101 mmol/L (98-107); Globulin 3.7 g/dL (1.3-4.6); Glomerular Filtration Rate 171.4 mL/min (90-130); Glucose 79 mg/dL (65-115); Osmolality Calculated 280 mOsm/kg (285-295); Potassium 3.9 mmol/L (3.5-5.1); Sodium 137 mmol/L (136-145); Total Bilirubin 0.8 mg/dL (0.15-1.2); Total Protein 7.4 g/dL (6.6-8.7)
[2022-10-28] MEDS: sodium chloride 0.9% 250 ML 75 ML IV (09:53)
[2022-10-28] MEDS: palonosetron 0.25 mg/5 mL SDV IVP (09:54)
[2022-10-28] MEDS: BEVACIZUMAB AWWB IV (10:23)
[2022-10-28] MEDS: SODIUM CHLORIDE 0.9% IV (10:23)
[2022-10-28] MEDS: dextrose 5% 250 ML 75 ML IV (11:06)
[2022-10-28] MEDS: leucovorin 710 MG in dextrose 5% 250 ML 62.5 MG IV (11:07)
[2022-10-28] MEDS: oxaliplatin 100 MG, oxaliplatin 30 MG in dextrose 5% 250 ML 69 MG IV (11:07)
[2022-10-28] MEDS: fluorouraciL 4,250 MG, elastomeric pump 1 PUMP in sodium chloride 0.9% (100 ml) 7 ML IV (13:34)
[2022-10-28 13:45] VITALS: BP 133/85; PULSE 67; RESP 16; TEMP 36.4; O2SAT 97
[2022-10-30 11:03] VITALS: BP 141/94; PULSE 85; RESP 16; TEMP 36.7; O2SAT 99
[2022-11-10 14:47] LABS: Add Urine Microscopic? NO; Charge for UA Resulting for Rev
[2022-11-10 14:49] LABS: Basophils % 0.5 %; Eosinophils % 0.9 %; Hematocrit 37.2 % (37-53); Lymphocytes # 1.3 10^3/uL (0.8-4.8); Lymphocytes % 29.1 %; Mean Corpuscular HGB Conc 34.1 g/dL (30-55); Mean Corpuscular Hemoglobin 31.8 pg (27-33); Mean Platelet Volume 10.2 fL (7.4-10.4); Monocytes # 0.8 10^3/uL (0.2-0.9); Monocytes % 17.8 %; Neutrophils # 2.24 10^3/uL (1.8-7.7); Neutrophils % 51.7 %; Nucleated Red Blood Cells % 0 %; Platelet Count 134 10^3/cmm (157-399); Red Cell Distribution Width 15.2 % (12.1-15.1); White Blood Count 4.33 10^3/uL (3.29-11.43)
[2022-11-10 14:53] LABS: Bilirubin Urine Neg (Negative); Blood Urine Neg (Negative); Glucose Urine UA Norm (Normal); Ketones Urine Negative (Negative); Leukocyte Esterase Urine Negative (Negative); Nitrate Urine Negative (Negative); Protein Urine Neg (Negative); Urine Appearance Clear (CLEAR); Urine Color Yellow (Yellow); Urobilinogen Urine Norm (Negative); pH Urine 6 (5-7)
[2022-11-10 15:04] LABS: Alanine Aminotransferase 25 U/L (0-41); Albumin Level 3.6 g/dL (3.5-5.2); Alkaline Phosphatase 323 U/L (40-130); Anion Gap 11.7 (5-19); Aspartate Amino Transferase 33 U/L (0-40); Blood Urea Nitrogen 5 mg/dL (6-20); Carbon Dioxide 27 mmol/L (22-29); Chloride 103 mmol/L (98-107); Globulin 3.5 g/dL (1.3-4.6); Glomerular Filtration Rate 171.4 mL/min (90-130); Glucose 83 mg/dL (65-115); Osmolality Calculated 282 mOsm/kg (285-295); Potassium 3.7 mmol/L (3.5-5.1); Sodium 138 mmol/L (136-145); Total Bilirubin 0.4 mg/dL (0.15-1.2); Total Protein 7.1 g/dL (6.6-8.7)
[2022-11-11 08:33] LABS: Carcinoembryonic Antigen 137.1 ng/mL (0.0-4.7)
== END 2022-11-10 23:59 | disposition home or self-care (01) ==
PROVIDERS: Nurse Practitioner Family; PCP Family Medicine; Visit Provider Internal Medicine Medical Oncology
DX: C20 Malignant neoplasm of rectum (principal); C78.7 Secondary malignant neoplasm of liver and intrahepatic bile duct
CPT/HCPCS: 36591; 80053; 81003; 82378; 85025; 96367; 96368; 96375; 96413; 96415; 96416; 96417; 96523; J0640; J1100; J1642; J2469; J7050; J7060; J9190; J9263; Q5107

== ENCOUNTER 2022-11-11 07:48 | Oncology outpatient (recurring) (ONCR) | payer OTHER, SELFPAY ==
[2022-11-11 08:45] VITALS: BP 130/85; PULSE 68; RESP 16; TEMP 36.9; O2SAT 99; BMI 21.5
[2022-11-11] MEDS: sodium chloride 0.9% 250 ML 75 ML IV (09:14)
[2022-11-11] MEDS: palonosetron 0.25 mg/5 mL SDV IVP (09:18)
[2022-11-11] MEDS: BEVACIZUMAB AWWB IV (09:46)
[2022-11-11] MEDS: SODIUM CHLORIDE 0.9% IV (09:46)
[2022-11-11] MEDS: dextrose 5% 250 ML 75 ML IV (10:43)
[2022-11-11] MEDS: oxaliplatin 100 MG, oxaliplatin 30 MG in dextrose 5% 250 ML 69 MG IV (10:45)
[2022-11-11] MEDS: leucovorin 710 MG in dextrose 5% 250 ML 62.5 MG IV (10:46)
[2022-11-11] MEDS: fluorouraciL 4,250 MG, elastomeric pump 1 PUMP in sodium chloride 0.9% (100 ml) 7 ML IV (13:17)
[2022-11-11 13:30] VITALS: BP 129/84; PULSE 61; RESP 16; TEMP 36.4; O2SAT 98
== END 2022-11-12 23:59 | disposition home or self-care (01) ==
PROVIDERS: PCP Family Medicine; Visit Provider Internal Medicine Medical Oncology
DX: Z51.11 Encounter for antineoplastic chemotherapy; C20 Malignant neoplasm of rectum; C78.7 Secondary malignant neoplasm of liver and intrahepatic bile duct; Z79.899 Other long term (current) drug therapy
CPT/HCPCS: 96367; 96368; 96375; 96413; 96415; 96416; 96417; J0640; J1100; J2469; J7050; J7060; J9190; J9263; Q5107

== ENCOUNTER 2022-12-09 09:00 | Oncology outpatient (recurring) (ONCR) | payer OTHER, SELFPAY ==
[2022-11-13 11:24] VITALS: BP 128/81; PULSE 62; RESP 16; TEMP 36.2; O2SAT 99
[2022-11-24 13:30] VITALS: BMI 20.5
[2022-11-24 13:31] VITALS: BP 131/82; PULSE 90; RESP 18; TEMP 36.3; O2SAT 98
[2022-11-24 13:49] LABS: Add Urine Microscopic? NO; Charge for UA Resulting for Rev
[2022-11-24 13:56] LABS: Basophils % 0.4 %; Bilirubin Urine Neg (Negative); Blood Urine Neg (Negative); Eosinophils # 0.1 10^3/uL (0.0-0.8); Eosinophils % 0.9 %; Glucose Urine UA Norm (Normal); Hematocrit 40.1 % (37-53); Ketones Urine Negative (Negative); Leukocyte Esterase Urine Negative (Negative); Lymphocytes # 1.2 10^3/uL (0.8-4.8); Lymphocytes % 21.5 %; Mean Corpuscular HGB Conc 34.2 g/dL (30-55); Mean Corpuscular Hemoglobin 31.3 pg (27-33); Mean Corpuscular Volume 91.6 fl (82-101); Mean Platelet Volume 10.4 fL (7.4-10.4); Monocytes % 17.5 %; Neutrophils # 3.38 10^3/uL (1.8-7.7); Neutrophils % 59.5 %; Nitrate Urine Negative (Negative); Nucleated Red Blood Cells % 0 %; Platelet Count 101 10^3/cmm (157-399); Protein Urine Neg (Negative); Red Blood Count 4.38 10^6/uL (3.85-5.65); Red Cell Distribution Width 15.2 % (12.1-15.1); Specific Gravity, Urine 1.015 (1.005-1.030); Urine Appearance Clear (CLEAR); Urine Color Yellow (Yellow); Urobilinogen Urine Norm (Negative); White Blood Count 5.67 10^3/uL (3.29-11.43); pH Urine 6 (5-7)
[2022-11-24 14:23] LABS: Alanine Aminotransferase 40 U/L (0-41); Albumin Level 4.3 g/dL (3.5-5.2); Alkaline Phosphatase 358 U/L (40-130); Aspartate Amino Transferase 47 U/L (0-40); Blood Urea Nitrogen 6 mg/dL (6-20); Calcium 9.3 mg/dL (8.5-10.5); Carbon Dioxide 27 mmol/L (22-29); Chloride 103 mmol/L (98-107); Globulin 3.3 g/dL (1.3-4.6); Glomerular Filtration Rate 138.9 mL/min (90-130); Glucose 112 mg/dL (65-115); Osmolality Calculated 286 mOsm/kg (285-295); Sodium 139 mmol/L (136-145); Total Bilirubin 0.6 mg/dL (0.15-1.2); Total Protein 7.6 g/dL (6.6-8.7)
[2022-11-25] MEDS: palonosetron 0.25 mg/5 mL SDV IVP (08:50)
[2022-11-25] MEDS: sodium chloride 0.9% 250 ML 75 ML IV (08:51)
[2022-11-25 09:01] VITALS: BMI 20.5
[2022-11-25] MEDS: BEVACIZUMAB AWWB IV (09:23)
[2022-11-25] MEDS: SODIUM CHLORIDE 0.9% IV (09:23)
[2022-11-25] MEDS: dextrose 5% 250 ML 75 ML IV (10:04)
[2022-11-25] MEDS: leucovorin 710 MG in dextrose 5% 250 ML 62.5 MG IV (10:07)
[2022-11-25] MEDS: fluorouraciL 4,250 MG, elastomeric pump 1 PUMP in sodium chloride 0.9% (100 ml) 7 ML IV (10:51)
[2022-11-25 11:00] VITALS: BP 138/80; PULSE 77; RESP 16; TEMP 35.9; O2SAT 98
[2022-11-27 11:29] VITALS: BP 134/77; PULSE 73; TEMP 36.4; O2SAT 98
[2022-12-08 14:05] VITALS: BP 117/78; PULSE 103; RESP 16; TEMP 36.9; O2SAT 99
[2022-12-08 14:32] LABS: Basophils % 0.2 %; Eosinophils % 0.3 %; Hematocrit 38.4 % (37-53); Lymphocytes % 16.4 %; Mean Corpuscular HGB Conc 34.6 g/dL (30-55); Mean Corpuscular Hemoglobin 31.4 pg (27-33); Mean Corpuscular Volume 90.8 fl (82-101); Mean Platelet Volume 9.9 fL (7.4-10.4); Monocytes # 0.9 10^3/uL (0.2-0.9); Monocytes % 14.2 %; Neutrophils % 68.7 %; Nucleated Red Blood Cells % 0 %; Platelet Count 145 10^3/cmm (157-399); Red Blood Count 4.23 10^6/uL (3.85-5.65); Red Cell Distribution Width 14.7 % (12.1-15.1); White Blood Count 5.97 10^3/uL (3.29-11.43)
[2022-12-08 14:39] LABS: Glucose Urine UA Norm (Normal); Protein Urine Trace (Negative); Urine Color Yellow (Yellow); pH Urine 6 (5-7)
[2022-12-08 14:40] LABS: Add Urine Microscopic? YES; Bacteria Urine TRACE /hpf; Bilirubin Urine 1+ (Negative); Blood Urine Neg (Negative); Ketones Urine 1+ (Negative); Leukocyte Esterase Urine Negative (Negative); Mucus Urine 3+ /hpf; Nitrate Urine Negative (Negative); Squamous Epithelial Cell Urine 0-4 /hpf (0-5); Urine Appearance SL Hazy (CLEAR); Urobilinogen Urine 1 mg/dL (Negative); WBC Urine 0-4 /hpf (0-5)
[2022-12-08 14:41] LABS: Add Urine Culture? No
[2022-12-08 14:58] LABS: Carcinoembryonic Antigen 153.8 ng/mL (0.0-4.7)
[2022-12-08 15:09] LABS: Alanine Aminotransferase 30 U/L (0-41); Albumin Level 3.8 g/dL (3.5-5.2); Alkaline Phosphatase 372 U/L (40-130); Anion Gap 14.4 (5-19); Aspartate Amino Transferase 32 U/L (0-40); Blood Urea Nitrogen 8 mg/dL (6-20); Calcium 9.5 mg/dL (8.5-10.5); Carbon Dioxide 27 mmol/L (22-29); Chloride 101 mmol/L (98-107); Globulin 3.8 g/dL (1.3-4.6); Glomerular Filtration Rate 138.4 mL/min (90-130); Glucose 165 mg/dL (65-115); Osmolality Calculated 290 mOsm/kg (285-295); Potassium 3.4 mmol/L (3.5-5.1); Sodium 139 mmol/L (136-145); Total Bilirubin 0.7 mg/dL (0.15-1.2); Total Protein 7.6 g/dL (6.6-8.7)
== END 2022-12-12 23:59 | disposition home or self-care (01) ==
PROVIDERS: PCP Family Medicine; Visit Provider Internal Medicine Medical Oncology
DX: Z53.9 Procedure and treatment not carried out, unspecified reason
CPT/HCPCS: 36591; 80053; 81001; 81003; 82378; 85025; 96365; 96375; 96413; 96417; 96523; J0640; J1100; J1642; J2469; J7050; J7060; J9190; Q5107

== ENCOUNTER 2022-12-18 14:04 | Outpatient (CLI) | payer OTHER, SELFPAY ==
--- NOTE | 2022-12-18 14:30 | CT_ITS ---
WS: [id number] CT CHEST, ABDOMEN AND PELVIS WITH AND WITHOUT CONTRAST HISTORY: rectal cancer metastasized to liver TECHNIQUE: Contiguous 5 mm axial imaging performed through the chest, abdomen and pelvis with IV cont rast, oral contrast has been provided. Coronal and sagittal reformats chest. Coronal and sagittal ref ormats through the abdomen and pelvis. All CT scans at [facility] use at least one of these d ose optimization techniques: automated exposure control; mA and/or kV adjustment per patient size (in cludes targeted exams where dose is matched to clinical indication); or iterative reconstruction. CONTRAST: Omnipaque 350; 100 mL IV. DLP: 1301.98 mGy.cm COMPARISON: 05/08/2022, chest CT 03/20/[address]: Numerous bilateral, multilobar pulmonary nodules are identified. These nodules are all less than a centimeter. The largest measuring approximately 6 mm. These were not definitely seen on 023. No pericardial or pleural effusions. There has been a very slight increase within the lymph node s in the mediastinum and hilar regions and increased lymphoid type tissue at the tomeka. Largest lymph node is 8 mm at the LEFT hilum. Enlarging RIGHT paraesophageal lymph node near the IVC measures 13 mm . There is also mild circumferential esophageal wall thickening. LEFT subclavian Mediport. Heart is normal size. Mild atherosclerosis aorta. Abdomen CT: Enlarged liver. There is diffuse metastatic disease throughout the liver. Confluent hepat ic masses are identified. Some of these masses contain calcification which may be from prior treatmen t. I do believe there is been greater involvement of the liver with necrotic metastasis since 05/08/19 23. Gallbladder is present. No bile duct dilatation. Spleen is top normal size at 13.1 cm. No splenic mass. Normal pancreas. No pancreatic duct dilatation. No adrenal mass. Normal size kidneys. There ar e few too small to characterize hypodensities within each kidney. No renal obstruction. Mild atherosc lerosis aorta. Small lymph nodes at the region of the GE junction and around the celiac axis. These lymph nodes were not positive on the PET/CT of 08/22/2022. Small retroperitoneal lymph nodes are reidentified. These l ymph nodes are less than a centimeter. There are also aortocaval lymph nodes. These lymph nodes are s imilar size to 05/08/2022 and more negative on the PET/CT. There is a small amount of ascites within the abdomen and pelvis. There is a small amount of fluid ad jacent to the liver. There is also small amount of fluid in the pelvis. The ascites has increased sin ce the prior exam. Stomach is unremarkable. No small bowel obstruction. LEFT lower quadrant colostomy. There is a Hartma n's pouch. There is mild soft tissue thickening involving the hepatic flexure but this could be due t o under distention. Distal colon diverticular disease without acute diverticulitis. There is mild cir cumferential wall thickening of the Diaz's pouch. Pelvic CT: Small amount of free fluid in the pelvis. No enlarging inguinal lymph nodes. No obturator or iliac lymph nodes. Diffuse circumferential wall thickening of the urinary bladder. Prostate gland is enlarged. No definite metastatic changes are noted within the bones. There is very minimal change in architectu re in the posterior RIGHT acetabulum as indicated on the prior PET/CT suspicious for metastatic site. By CT there is no obvious change. There is no sclerosis. IMPRESSION: 1. New, pulmonary nodules. Suspicious for metastatic disease. These nodules are less than a centimete r. 2. Although not enlarged the mediastinal and hilar lymph nodes are more prominent than on prior studi es. Indeterminate but suspicious for metastatic disease. 3. Extensive hepatic metastasis. Some of these metastatic sites contain calcification and are necroti c. Suspect progression of disease. 4. Enlarging RIGHT paraesophageal lymph node adjacent to the IVC at 13 mm. 5. Upper abdomen and retroperitoneal lymph nodes. These lymph nodes appear very similar in size to e prior CT of 05/08/2022 and the PET/CT. These were not positive on the recent PET/CT. 6. Small amount of ascites. New since the prior exam. 7. Status post LEFT lower quadrant colostomy and Diaz pouch. There is mild diffuse thickening of t he Diaz's pouch. No discrete mass. 8. Cannot identify metastatic osseous disease by CT. Very minimal change in trabecular pattern at the RIGHT acetabular. This is the site of possible metastatic bone disease seen by PET/CT. 9. Consider reevaluation by PET/CT imaging.
[2022-12-18] MEDS: iohexol 350 mg/mL 500 mL Btl (per mL) IV (15:17)
[2022-12-18] MEDS: iohexol 350 mg/mL 500 mL Btl (per mL) PO (15:18)
== END 2022-12-18 14:05 | disposition home or self-care (01) ==
LOC: RAD 14:05
PROVIDERS: PCP Family Medicine; Visit Provider Internal Medicine Medical Oncology
DX: C20 Malignant neoplasm of rectum (principal); C78.7 Secondary malignant neoplasm of liver and intrahepatic bile duct; R91.8 Other nonspecific abnormal finding of lung field; I89.0 Lymphedema, not elsewhere classified; R18.8 Other ascites
CPT/HCPCS: 71260; 74178; Q9967

== ENCOUNTER 2023-01-11 13:45 | Oncology outpatient (recurring) (ONCR) | payer OTHER, SELFPAY ==
[2022-12-22 13:28] VITALS: BP 120/77; PULSE 102; RESP 16; TEMP 37.1; O2SAT 97
[2022-12-22 13:46] LABS: Basophils % 0.4 %; Eosinophils # 0.1 10^3/uL (0.0-0.8); Eosinophils % 1.1 %; Hematocrit 38.5 % (37-53); Lymphocytes % 21.2 %; Mean Corpuscular HGB Conc 34.3 g/dL (30-55); Mean Corpuscular Volume 90.4 fl (82-101); Mean Platelet Volume 10.1 fL (7.4-10.4); Monocytes # 0.6 10^3/uL (0.2-0.9); Monocytes % 13.2 %; Neutrophils # 2.99 10^3/uL (1.8-7.7); Neutrophils % 63.9 %; Nucleated Red Blood Cells % 0 %; Platelet Count 145 10^3/cmm (157-399); Red Blood Count 4.26 10^6/uL (3.85-5.65); Red Cell Distribution Width 14.6 % (12.1-15.1); White Blood Count 4.68 10^3/uL (3.29-11.43)
[2022-12-22 14:30] LABS: Carcinoembryonic Antigen 175.2 ng/mL (0.0-4.7)
[2022-12-22 14:41] LABS: Alanine Aminotransferase 43 U/L (0-41); Albumin Level 3.9 g/dL (3.5-5.2); Alkaline Phosphatase 406 U/L (40-130); Anion Gap 12.7 (5-19); Aspartate Amino Transferase 53 U/L (0-40); Blood Urea Nitrogen 6 mg/dL (6-20); Calcium 9.6 mg/dL (8.5-10.5); Carbon Dioxide 28 mmol/L (22-29); Chloride 102 mmol/L (98-107); Globulin 3.6 g/dL (1.3-4.6); Glomerular Filtration Rate 138.4 mL/min (90-130); Glucose 108 mg/dL (65-115); Osmolality Calculated 286 mOsm/kg (285-295); Potassium 3.7 mmol/L (3.5-5.1); Sodium 139 mmol/L (136-145); Total Bilirubin 0.6 mg/dL (0.15-1.2); Total Protein 7.5 g/dL (6.6-8.7)
[2023-01-04 07:30] VITALS: BP 129/77; PULSE 90; RESP 16; TEMP 37; O2SAT 98
[2023-01-04 07:44] LABS: Basophils % 0.3 %; Eosinophils # 0.1 10^3/uL (0.0-0.8); Hematocrit 39.9 % (37-53); Lymphocytes # 1.1 10^3/uL (0.8-4.8); Lymphocytes % 19.1 %; Mean Corpuscular HGB Conc 34.8 g/dL (30-55); Mean Corpuscular Hemoglobin 31.6 pg (27-33); Mean Corpuscular Volume 90.7 fl (82-101); Mean Platelet Volume 10.2 fL (7.4-10.4); Monocytes % 16.7 %; Neutrophils # 3.75 10^3/uL (1.8-7.7); Neutrophils % 62.7 %; Nucleated Red Blood Cells % 0 %; Platelet Count 141 10^3/cmm (157-399); Red Cell Distribution Width 14.4 % (12.1-15.1); White Blood Count 5.98 10^3/uL (3.29-11.43)
[2023-01-04 08:10] LABS: Alanine Aminotransferase 35 U/L (0-41); Albumin Level 3.8 g/dL (3.5-5.2); Alkaline Phosphatase 413 U/L (40-130); Anion Gap 11.2 (5-19); Aspartate Amino Transferase 47 U/L (0-40); Blood Urea Nitrogen 11 mg/dL (6-20); Calcium 9.6 mg/dL (8.5-10.5); Carbon Dioxide 28 mmol/L (22-29); Chloride 100 mmol/L (98-107); Globulin 3.7 g/dL (1.3-4.6); Glomerular Filtration Rate 170.8 mL/min (90-130); Glucose 83 mg/dL (65-115); Osmolality Calculated 279 mOsm/kg (285-295); Potassium 4.2 mmol/L (3.5-5.1); Sodium 135 mmol/L (136-145); Total Bilirubin 0.7 mg/dL (0.15-1.2); Total Protein 7.5 g/dL (6.6-8.7)
[2023-01-04] MEDS: dextrose 5% 250 ML 75 ML IV (10:36)
[2023-01-04] MEDS: palonosetron 0.25 mg/5 mL SDV IVP (10:36)
[2023-01-04] MEDS: sodium chloride 0.9% 250 ML IV (11:26)
[2023-01-04] MEDS: atropine 1 mg/mL SDV 1 mL 0.4 MG IV (12:33)
[2023-01-04] MEDS: irinotecan 300 MG, irinotecan 20 MG in dextrose 5% 250 ML 177.33 MG IV (12:40)
[2023-01-04] MEDS: leucovorin 720 MG in dextrose 5% 250 ML 166.67 MG IV (12:40)
[2023-01-04] MEDS: fluorouraciL 4,300 MG, elastomeric pump 1 PUMP in sodium chloride 0.9% (100 ml) 6 ML IV (14:21)
[2023-01-04] MEDS: fluorouraciL 50 mg/ml MDV 100 mL 716 MG IVP (14:21)
[2023-01-06 12:31] VITALS: BP 106/72; PULSE 84; RESP 16; TEMP 37.2; O2SAT 98
[2023-01-11 13:46] VITALS: BP 117/78; PULSE 91; RESP 17; TEMP 36.6; O2SAT 96
[2023-01-11 14:03] LABS: Basophils % 0.3 %; Eosinophils # 0.1 10^3/uL (0.0-0.8); Eosinophils % 1.7 %; Hematocrit 37.8 % (37-53); Lymphocytes # 0.9 10^3/uL (0.8-4.8); Lymphocytes % 31.2 %; Mean Corpuscular HGB Conc 33.9 g/dL (30-55); Mean Corpuscular Hemoglobin 30.8 pg (27-33); Mean Corpuscular Volume 90.9 fl (82-101); Mean Platelet Volume 9.4 fL (7.4-10.4); Monocytes # 0.3 10^3/uL (0.2-0.9); Monocytes % 8.8 %; Neutrophils % 57.7 %; Nucleated Red Blood Cells % 0 %; Platelet Count 159 10^3/cmm (157-399); Red Blood Count 4.16 10^6/uL (3.85-5.65); Red Cell Distribution Width 13.7 % (12.1-15.1); White Blood Count 2.95 10^3/uL (3.29-11.43)
[2023-01-11 14:23] LABS: Alanine Aminotransferase 45 U/L (0-41); Albumin Level 3.8 g/dL (3.5-5.2); Alkaline Phosphatase 401 U/L (40-130); Aspartate Amino Transferase 57 U/L (0-40); Blood Urea Nitrogen 9 mg/dL (6-20); Calcium 9.8 mg/dL (8.5-10.5); Carbon Dioxide 29 mmol/L (22-29); Chloride 99 mmol/L (98-107); Globulin 3.4 g/dL (1.3-4.6); Glomerular Filtration Rate 170.8 mL/min (90-130); Glucose 129 mg/dL (65-115); Osmolality Calculated 284 mOsm/kg (285-295); Sodium 137 mmol/L (136-145); Total Bilirubin 0.7 mg/dL (0.15-1.2); Total Protein 7.2 g/dL (6.6-8.7)
== END 2023-01-12 23:59 | disposition home or self-care (01) ==
PROVIDERS: Nurse Practitioner Family; PCP Family Medicine; Visit Provider Internal Medicine Medical Oncology
DX: C20 Malignant neoplasm of rectum (principal); C78.7 Secondary malignant neoplasm of liver and intrahepatic bile duct
CPT/HCPCS: 36591; 80053; 82378; 85025; 96367; 96375; 96411; 96413; 96415; 96416; 96417; 96523; J0461; J0640; J1100; J1642; J2469; J7050; J7060; J9190; J9206; Q5107

== ENCOUNTER 2023-01-28 08:48 | Oncology outpatient (recurring) (ONCR) | payer OTHER, SELFPAY ==
[2023-01-18 07:50] VITALS: BP 127/80; PULSE 67; RESP 16; TEMP 36.7; O2SAT 99
[2023-01-18 08:05] LABS: Add Urine Microscopic? NO; Charge for UA Resulting for Rev
[2023-01-18 08:10] LABS: Basophils % 0.3 %; Eosinophils # 0.1 10^3/uL (0.0-0.8); Eosinophils % 1.3 %; Lymphocytes # 1.2 10^3/uL (0.8-4.8); Lymphocytes % 32.9 %; Mean Corpuscular HGB Conc 33.8 g/dL (30-55); Mean Corpuscular Hemoglobin 30.7 pg (27-33); Mean Corpuscular Volume 90.9 fl (82-101); Mean Platelet Volume 9.5 fL (7.4-10.4); Monocytes # 0.5 10^3/uL (0.2-0.9); Monocytes % 14.3 %; Neutrophils # 1.89 10^3/uL (1.8-7.7); Neutrophils % 50.9 %; Nucleated Red Blood Cells % 0 %; Platelet Count 118 10^3/cmm (157-399); Red Blood Count 4.07 10^6/uL (3.85-5.65); Red Cell Distribution Width 14.1 % (12.1-15.1); White Blood Count 3.71 10^3/uL (3.29-11.43)
[2023-01-18 08:26] LABS: Alanine Aminotransferase 48 U/L (0-41); Albumin Level 3.7 g/dL (3.5-5.2); Alkaline Phosphatase 342 U/L (40-130); Anion Gap 13.1 (5-19); Aspartate Amino Transferase 55 U/L (0-40); Blood Urea Nitrogen 8 mg/dL (6-20); Calcium 9.7 mg/dL (8.5-10.5); Carbon Dioxide 28 mmol/L (22-29); Chloride 102 mmol/L (98-107); Globulin 3.3 g/dL (1.3-4.6); Glomerular Filtration Rate 170.8 mL/min (90-130); Glucose 93 mg/dL (65-115); Osmolality Calculated 286 mOsm/kg (285-295); Potassium 4.1 mmol/L (3.5-5.1); Sodium 139 mmol/L (136-145); Total Bilirubin 0.5 mg/dL (0.15-1.2)
[2023-01-18 08:36] LABS: Bilirubin Urine Neg (Negative); Blood Urine Neg (Negative); Glucose Urine UA Norm (Normal); Ketones Urine Negative (Negative); Leukocyte Esterase Urine Negative (Negative); Nitrate Urine Negative (Negative); Protein Urine Neg (Negative); Urine Appearance Clear (CLEAR); Urine Color Yellow (Yellow); Urobilinogen Urine Norm (Negative); pH Urine 7 (5-7)
[2023-01-18] MEDS: sodium chloride 0.9% 250 ML 75 ML IV (09:51)
[2023-01-18] MEDS: palonosetron 0.25 mg/5 mL SDV IVP (09:52)
[2023-01-18] MEDS: atropine 1 mg/mL SDV 1 mL 0.4 MG IV (11:22)
[2023-01-18] MEDS: dextrose 5% 250 ML 75 ML IV (11:22)
[2023-01-18] MEDS: leucovorin 720 MG in dextrose 5% 250 ML 166.67 MG IV (11:23)
[2023-01-18] MEDS: irinotecan 300 MG, irinotecan 20 MG in dextrose 5% 250 ML 177.33 MG IV (11:23)
[2023-01-18] MEDS: fluorouraciL 50 mg/ml MDV 100 mL 716 MG IVP (13:08)
[2023-01-18] MEDS: fluorouraciL 4,300 MG, elastomeric pump 1 PUMP in sodium chloride 0.9% (100 ml) 6 ML IV (13:09)
[2023-01-18 14:16] VITALS: BP 129/82; PULSE 66; TEMP 36.9; O2SAT 99
[2023-01-20 12:58] VITALS: BP 112/73; PULSE 71; TEMP 36.4; O2SAT 99
--- NOTE | 2023-01-21 09:42 | N.ONRAD NP_ITS ---
Radiation Oncology New Patient Visit Patient: Morgan Cruz MR#: [id number] : 1965> Age: 57> Sex: Male> Dictated by: Dr. Maribell Heath Date of Service: 01/21/2023 Referring Physician(s) : Yahaira Bailey Diagnosis: Rectal cancer metastasized to liver C20; C78.7 Radiotherapy to date: Summary > No prior radiation therapy. Chief Complaint / History of Present Illness: Patient is a 57-year-old gentleman who was diagnosed in February 2022 when he presented to the emergency room with uncontrollable diarrhea and progressive lower abdominal pain. In February he had scans done which showed he had liver metastasis. He subsequently underwent a colonoscopy and was found to have a moderately differentiated adenocarcinoma of the rectum with extensive adenopathy and liver metastasis. He began treatment in May 2022 with FOLFOX every 2 weeks. By July Avastin was added to this. He also underwent an emergency colostomy placement when his rectum actually perforated. Scans in August showed he had developed a sclerotic lesion in the right hip posterior to the acetabulum. He has since that time continued on with his FOLFOX chemotherapy. After each treatment he has severe uncontrolled pain in the right hip which extends down his leg. He is here today to discuss radiation to the sclerotic bone mets in his right hip. Current Medications: Adult One Daily Gummies, allergy Relief (Loratadine), anti-Diarrheal, diphenoxylate-Atropine, escitalopram Oxalate, finasteride, lORazepam, oxyCODONE-Acetaminophen, prochlorperazine Maleate, senna, sildenafil Citrate, tamsulosin HCl. Allergies: ragweed pollen Allergy ALGY-Sneezing Medical History: No previous radiation therapy. BPH (benign prostatic hyperplasia), Diverticulosis, Liver mass, Rectal cancer metastasized to liver, Rectal perforation Surgical History: History of ankle surgery, History of colostomy left sided diverting colostomy for metastatic rectal cancer, History of insertion of tunneled central venous catheter (CVC) with port, Status post colostomy Family History: Hypertension Social History: Current Complaints / Review of Systems: . Fatigue, right hip pain Vital Signs: Performed on 01/21/2023 9:09 AM BMI - 20.822 kg/m2, Height - 69 in, Weight - 141.0 lbs, Temperature - 97.1 f, Pulse - 81 /min, Respiration - 16 /min, O2 Sat - 98 %, Pain - 0, Fatigue - 0 and BP - 105/ 74 mm(hg). Physical exam HEENT: Normocephalic atraumatic. Pupils are equal, sclera clear, extraocular muscles intact Respiratory: Respiratory rate is regular nonlabored Cardiovascular: Regular rate and rhythm Abdomen: Flat and nontender Extremities/thorax: He has no palpable areas of tenderness. No obvious lymphedema in the upper or lower extremities Neurological: Alert and oriented x3. Gait speech within normal limits Psychological: Affect is good, patient is positive. 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 Cruz the use of radiation and bony metastasis. We talked about how it is an excellent tool to decrease pain. I reviewed the simulation process, the daily treatment regiment. The risks and side effects both acute and long-term. He verbalized understanding of this. He would like to proceed with treatments. He has agreed to undergo simulation. At this point we will proceed and get him started as soon as possible. He is due for chemotherapy on Wednesday. I reviewed with him if we can start treatments sometime next week perhaps by the next round of chemotherapy he would have some improvement. I reminded him that the skin reaction may develop the week after he has completed his treatments and the effects of the radiation continued continue to work for 1 to 2 months. Signed by: 01/21/2023 9:40:51 AM <<Signature on File>> Time spent with patient:45 CPT Code: CPT Code:
== END 2023-01-28 23:59 | disposition home or self-care (01) ==
PROVIDERS: Nurse Practitioner Family; PCP Family Medicine; Visit Provider Radiology Radiation Oncology
DX: Z45.1 Encounter for adjustment and management of infusion pump (principal); Z51.11 Encounter for antineoplastic chemotherapy; C20 Malignant neoplasm of rectum; C78.7 Secondary malignant neoplasm of liver and intrahepatic bile duct; Z53.9 Procedure and treatment not carried out, unspecified reason
CPT/HCPCS: 77290; 77295; 77300; 77334; 77412; 77417; 77470; 80053; 81003; 85025; 96367; 96368; 96375; 96411; 96413; 96415; 96416; 96417; 96523; J0461; J0640; J1100; J1642; J2469; J7050; J7060; J9190; J9206; Q5107

== ENCOUNTER 2023-02-11 09:00 | Oncology outpatient (recurring) (ONCR) | payer OTHER, SELFPAY ==
[2023-02-01 08:02] VITALS: BP 119/65; PULSE 82; RESP 16; TEMP 36.8; O2SAT 97
[2023-02-01 08:17] LABS: Add Urine Microscopic? NO; Charge for UA Resulting for Rev
[2023-02-01 08:19] LABS: Basophils % 0.3 %; Eosinophils % 1.2 %; Hematocrit 37.3 % (37-53); Lymphocytes % 29.3 %; Mean Corpuscular HGB Conc 33.8 g/dL (30-55); Mean Corpuscular Hemoglobin 30.5 pg (27-33); Mean Corpuscular Volume 90.3 fl (82-101); Mean Platelet Volume 9.1 fL (7.4-10.4); Monocytes # 0.5 10^3/uL (0.2-0.9); Monocytes % 13.8 %; Neutrophils # 1.88 10^3/uL (1.8-7.7); Neutrophils % 55.1 %; Nucleated Red Blood Cells % 0 %; Platelet Count 81 10^3/cmm (157-399); Red Blood Count 4.13 10^6/uL (3.85-5.65); Red Cell Distribution Width 14.7 % (12.1-15.1); White Blood Count 3.41 10^3/uL (3.29-11.43)
[2023-02-01 08:35] LABS: Urine Color Yellow (Yellow)
[2023-02-01 08:36] LABS: Bilirubin Urine Neg (Negative); Blood Urine Neg (Negative); Glucose Urine UA Norm (Normal); Ketones Urine Negative (Negative); Leukocyte Esterase Urine Negative (Negative); Nitrate Urine Negative (Negative); Protein Urine Neg (Negative); Specific Gravity, Urine 1.025 (1.005-1.030); Urine Appearance Clear (CLEAR); Urobilinogen Urine Norm (Negative); pH Urine 6 (5-7)
[2023-02-01 08:36] LABS: Alanine Aminotransferase 37 U/L (0-41); Albumin Level 3.7 g/dL (3.5-5.2); Alkaline Phosphatase 242 U/L (40-130); Aspartate Amino Transferase 42 U/L (0-40); Blood Urea Nitrogen 12 mg/dL (6-20); Calcium 9.3 mg/dL (8.5-10.5); Carbon Dioxide 26 mmol/L (22-29); Chloride 103 mmol/L (98-107); Glomerular Filtration Rate 170.8 mL/min (90-130); Glucose 91 mg/dL (65-115); Osmolality Calculated 285 mOsm/kg (285-295); Sodium 138 mmol/L (136-145); Total Bilirubin 0.4 mg/dL (0.15-1.2); Total Protein 6.7 g/dL (6.6-8.7)
[2023-02-01] MEDS: palonosetron 0.25 mg/5 mL SDV IVP (11:10)
[2023-02-01] MEDS: sodium chloride 0.9% 250 ML 75 ML IV (11:10)
[2023-02-01] MEDS: atropine 1 mg/mL SDV 1 mL 0.4 MG IV (12:05)
[2023-02-01] MEDS: leucovorin 720 MG in dextrose 5% 250 ML 166.67 MG IV (12:06)
[2023-02-01] MEDS: dextrose 5% 250 ML 75 ML IV (12:06)
[2023-02-01] MEDS: irinotecan 300 MG, irinotecan 20 MG in dextrose 5% 250 ML 177.33 MG IV (12:06)
[2023-02-01] MEDS: fluorouraciL 4,300 MG, elastomeric pump 1 PUMP in sodium chloride 0.9% (100 ml) 6 ML IV (13:53)
[2023-02-01 14:05] VITALS: BP 114/78; PULSE 84; RESP 18; TEMP 36.6; O2SAT 98
--- NOTE | 2023-02-02 09:57 | ONCRAD TMN_ITS ---
Radiation Oncology Weekly Treatment Management/ Treatment Summary Patient: Nancy Mora> MR#: [id number] : 1965> Attending Physician: Price Georges Date of Service: 02/02/2023 Referring Physician(s) : Yahaira Bailey Diagnosis: Metastatic rectal cancer Radiotherapy to date: Course: RT Hip 2022, Treatment Site: RT Hip, Ref. ID: [id number], Energy: 15X, Dose/Fx (cGy): 400, #Fx: 5 / 5, Dose Correction (cGy): 0, Total Dose (cGy): 2,000, Start Date: 01/27/2023, End Date: 02/02/2023, Elapsed Days: 6 Reason for visit: The patient is being seen today as part of their regularly scheduled weekly on treatment visits to assess for acute toxicities from radiotherapy. Review of Systems: Mr. Cruz completes treatment today. He received 2000 cGy in 5 fractions utilizing 3D conformal therapy. His pain improved after the first treatment. He seems considerably more comfortable. He has had no side effects from treatment. He questioned delivering treatment to the area without a biopsy. I explained that diagnostic imaging is usually adequate to make a diagnosis of a bone metastasis in a patient who already has metastatic disease. I discussed that a bone biopsy could result in weakening of the bone and increase the risk of a pathologic fracture. He also asked about having his colostomy reversed. He has had a good response in the area of the primary cancer, but I explained that if he were reconnected in the presence of even microscopic disease that he might not have adequate healing, which would possibly result in a prolonged interruption of his systemic therapy. Vital Signs: Performed on 02/02/2023 8:54 AM BMI - 21.826 kg/m2, Height - 69 in, Weight - 147.8 lbs, Temperature - 97.7 f, Pulse - 85 /min, Respiration - 18 /min, O2 Sat - 97 %, Pain - 0, Fatigue - 0 and BP - 135/ 84 mm(hg). Physical Exam: Alert, oriented, no acute distress. He still walks with a slight limp giving to the right. His gait is steady. Imaging: Radiation therapy imaging related to accurate target localization (i.e. KV, MV and CBCT) was reviewed. Appropriate changes, if any, were made to ensure treatment accuracy. Plan: Continue systemic therapy. Return to the radiation center on an as-needed basis. Signed by: Price Georges 02/02/2023 9:56:27 AM
[2023-02-09 13:13] VITALS: BP 100/74; PULSE 87; RESP 16; TEMP 36.9; O2SAT 99
[2023-02-09 13:29] LABS: Eosinophils % 2.1 %; Lymphocytes # 0.9 10^3/uL (0.8-4.8); Lymphocytes % 48.2 %; Mean Corpuscular Hemoglobin 30.7 pg (27-33); Mean Corpuscular Volume 90.2 fl (82-101); Mean Platelet Volume 9.5 fL (7.4-10.4); Monocytes # 0.4 10^3/uL (0.2-0.9); Monocytes % 19.2 %; Neutrophils % 28.5 %; Nucleated Red Blood Cells % 0 %; Platelet Count 99 10^3/cmm (157-399); Red Blood Count 3.88 10^6/uL (3.85-5.65); Red Cell Distribution Width 14.5 % (12.1-15.1); White Blood Count 1.93 10^3/uL (3.29-11.43)
[2023-02-09 14:07] LABS: Alanine Aminotransferase 37 U/L (0-41); Albumin Level 3.6 g/dL (3.5-5.2); Alkaline Phosphatase 214 U/L (40-130); Anion Gap 12.6 (5-19); Aspartate Amino Transferase 38 U/L (0-40); Blood Urea Nitrogen 10 mg/dL (6-20); Calcium 9.5 mg/dL (8.5-10.5); Carbon Dioxide 30 mmol/L (22-29); Chloride 102 mmol/L (98-107); Globulin 2.9 g/dL (1.3-4.6); Glomerular Filtration Rate 170.8 mL/min (90-130); Glucose 115 mg/dL (65-115); Osmolality Calculated 292 mOsm/kg (285-295); Potassium 3.6 mmol/L (3.5-5.1); Sodium 141 mmol/L (136-145); Total Bilirubin 0.4 mg/dL (0.15-1.2); Total Protein 6.5 g/dL (6.6-8.7)
[2023-02-09 14:10] LABS: Neutrophils # 0.55 10^3/uL (1.8-7.7)
[2023-02-10] MEDS: filgrastim-sndz 300 mcg/0.5 mL Syringe SUBCUT (09:13)
[2023-02-10 09:15] VITALS: BP 121/86; PULSE 105; RESP 16; O2SAT 98
[2023-02-11 09:49] VITALS: BP 115/77; PULSE 71; TEMP 37.1; O2SAT 96
[2023-02-11] MEDS: filgrastim-sndz 300 mcg/0.5 mL Syringe SUBCUT (09:50)
== END 2023-02-11 23:59 | disposition home or self-care (01) ==
PROVIDERS: Nurse Practitioner Family; PCP Family Medicine; Visit Provider Radiology Radiation Oncology
DX: D70.1 Agranulocytosis secondary to cancer chemotherapy
CPT/HCPCS: 36591; 77336; 77412; 77417; 80053; 81003; 85025; 96367; 96368; 96372; 96375; 96413; 96415; 96416; 96417; 96523; 99024; J0461; J0640; J1100; J1642; J2469; J7050; J7060; J9190; J9206; Q5101; Q5107

== ENCOUNTER 2023-03-09 08:15 | Oncology outpatient (recurring) (ONCR) | payer OTHER, SELFPAY ==
[2023-02-15 08:26] VITALS: BP 120/80; PULSE 76; RESP 16; TEMP 36.8; O2SAT 99
[2023-02-15 08:40] LABS: Add Urine Microscopic? NO; Charge for UA Resulting for Rev
[2023-02-15 08:43] LABS: Basophils % 0.5 %; Eosinophils # 0.1 10^3/uL (0.0-0.8); Eosinophils % 1.3 %; Hematocrit 36.3 % (37-53); Mean Corpuscular HGB Conc 34.2 g/dL (30-55); Mean Corpuscular Hemoglobin 30.6 pg (27-33); Mean Corpuscular Volume 89.6 fl (82-101); Mean Platelet Volume 9.4 fL (7.4-10.4); Monocytes # 0.8 10^3/uL (0.2-0.9); Monocytes % 20.6 %; Neutrophils # 1.99 10^3/uL (1.8-7.7); Neutrophils % 51.1 %; Nucleated Red Blood Cells % 0 %; Platelet Count 67 10^3/cmm (157-399); Red Blood Count 4.05 10^6/uL (3.85-5.65); Red Cell Distribution Width 15.8 % (12.1-15.1); White Blood Count 3.89 10^3/uL (3.29-11.43)
[2023-02-15 09:02] LABS: Alanine Aminotransferase 27 U/L (0-41); Albumin Level 3.7 g/dL (3.5-5.2); Alkaline Phosphatase 225 U/L (40-130); Anion Gap 11.7 (5-19); Aspartate Amino Transferase 34 U/L (0-40); Blood Urea Nitrogen 9 mg/dL (6-20); Calcium 9.3 mg/dL (8.5-10.5); Carbon Dioxide 27 mmol/L (22-29); Chloride 105 mmol/L (98-107); Globulin 2.9 g/dL (1.3-4.6); Glomerular Filtration Rate 170.8 mL/min (90-130); Glucose 96 mg/dL (65-115); Osmolality Calculated 289 mOsm/kg (285-295); Potassium 3.7 mmol/L (3.5-5.1); Sodium 140 mmol/L (136-145); Total Bilirubin 0.5 mg/dL (0.15-1.2); Total Protein 6.6 g/dL (6.6-8.7)
[2023-02-15 09:09] LABS: Bilirubin Urine Neg (Negative); Blood Urine Neg (Negative); Glucose Urine UA Norm (Normal); Ketones Urine Negative (Negative); Leukocyte Esterase Urine Negative (Negative); Nitrate Urine Negative (Negative); Protein Urine Neg (Negative); Urine Appearance Clear (CLEAR); Urine Color Yellow (Yellow); Urobilinogen Urine Norm (Negative); pH Urine 6.5 (5-7)
[2023-02-15 10:11] LABS: Carcinoembryonic Antigen 142.9 ng/mL (0.0-4.7)
[2023-02-22 07:33] VITALS: BP 118/75; PULSE 80; RESP 16; TEMP 37.2; O2SAT 99
[2023-02-22 07:53] LABS: Basophils % 0.3 %; Eosinophils # 0.1 10^3/uL (0.0-0.8); Eosinophils % 1.7 %; Hematocrit 37.4 % (37-53); Lymphocytes # 1.1 10^3/uL (0.8-4.8); Lymphocytes % 17.3 %; Mean Corpuscular HGB Conc 33.4 g/dL (30-55); Mean Corpuscular Hemoglobin 30.6 pg (27-33); Mean Corpuscular Volume 91.7 fl (82-101); Mean Platelet Volume 9.7 fL (7.4-10.4); Monocytes # 0.7 10^3/uL (0.2-0.9); Monocytes % 10.9 %; Neutrophils # 4.59 10^3/uL (1.8-7.7); Neutrophils % 69.5 %; Nucleated Red Blood Cells % 0 %; Platelet Count 137 10^3/cmm (157-399); Red Blood Count 4.08 10^6/uL (3.85-5.65); Red Cell Distribution Width 16.5 % (12.1-15.1)
[2023-02-22 08:35] LABS: Alanine Aminotransferase 28 U/L (0-41); Albumin Level 3.6 g/dL (3.5-5.2); Alkaline Phosphatase 222 U/L (40-130); Aspartate Amino Transferase 40 U/L (0-40); Blood Urea Nitrogen 9 mg/dL (6-20); Calcium 9.1 mg/dL (8.5-10.5); Carbon Dioxide 28 mmol/L (22-29); Chloride 101 mmol/L (98-107); Globulin 3.2 g/dL (1.3-4.6); Glomerular Filtration Rate 138.4 mL/min (90-130); Glucose 103 mg/dL (65-115); Osmolality Calculated 285 mOsm/kg (285-295); Sodium 138 mmol/L (136-145); Total Bilirubin 0.6 mg/dL (0.15-1.2); Total Protein 6.8 g/dL (6.6-8.7)
[2023-02-22] MEDS: sodium chloride 0.9% (100 ml) 100 ML 50 ML (09:30)
[2023-02-22] MEDS: palonosetron 0.25 mg/5 mL SDV IVP (10:10)
[2023-02-22] MEDS: BEVACIZUMAB AWWB IV (10:38)
[2023-02-22] MEDS: SODIUM CHLORIDE 0.9% IV (10:38)
[2023-02-22] MEDS: atropine 1 mg/mL SDV 1 mL 0.4 MG IV (11:15)
[2023-02-22] MEDS: dextrose 5% 250 ML 75 ML IV (11:20)
[2023-02-22] MEDS: irinotecan 300 MG, irinotecan 30 MG in dextrose 5% 250 ML 177.67 MG IV (11:22)
[2023-02-22] MEDS: leucovorin 740 MG in dextrose 5% 250 ML 166.67 MG IV (11:23)
[2023-02-22] MEDS: diphenhydrAMINE 25 mg Capsule 50 MG PO (13:04)
[2023-02-22 13:07] VITALS: BP 119/78; PULSE 73; RESP 16; O2SAT 98
[2023-02-22] MEDS: fluorouraciL 4,400 MG, elastomeric pump 1 PUMP in sodium chloride 0.9% (100 ml) 4 ML IV (13:09)
[2023-02-24 11:04] VITALS: BP 119/79; PULSE 84; RESP 16; TEMP 36.6; O2SAT 97
[2023-03-09 07:42] VITALS: BP 120/83; PULSE 90; RESP 16; TEMP 37.1; O2SAT 100
[2023-03-09 08:03] LABS: Basophils % 0.4 %; Eosinophils # 0.1 10^3/uL (0.0-0.8); Eosinophils % 1.6 %; Hematocrit 36.2 % (37-53); Lymphocytes # 0.9 10^3/uL (0.8-4.8); Lymphocytes % 15.8 %; Mean Corpuscular HGB Conc 33.7 g/dL (30-55); Mean Corpuscular Hemoglobin 30.9 pg (27-33); Mean Corpuscular Volume 91.6 fl (82-101); Mean Platelet Volume 10.5 fL (7.4-10.4); Monocytes # 0.9 10^3/uL (0.2-0.9); Monocytes % 15.3 %; Neutrophils # 3.75 10^3/uL (1.8-7.7); Neutrophils % 66.7 %; Nucleated Red Blood Cells % 0 %; Platelet Count 100 10^3/cmm (157-399); Red Blood Count 3.95 10^6/uL (3.85-5.65); Red Cell Distribution Width 15.5 % (12.1-15.1); White Blood Count 5.62 10^3/uL (3.29-11.43)
[2023-03-09 08:25] LABS: Carcinoembryonic Antigen 72.2 ng/mL (0.0-4.7)
[2023-03-09 08:36] LABS: Alanine Aminotransferase 22 U/L (0-41); Albumin Level 3.7 g/dL (3.5-5.2); Alkaline Phosphatase 219 U/L (40-130); Anion Gap 12.9 (5-19); Aspartate Amino Transferase 22 U/L (0-40); Blood Urea Nitrogen 8 mg/dL (6-20); Calcium 9.3 mg/dL (8.5-10.5); Carbon Dioxide 27 mmol/L (22-29); Chloride 101 mmol/L (98-107); Globulin 3.2 g/dL (1.3-4.6); Glomerular Filtration Rate 170.8 mL/min (90-130); Glucose 121 mg/dL (65-115); Osmolality Calculated 284 mOsm/kg (285-295); Potassium 3.9 mmol/L (3.5-5.1); Sodium 137 mmol/L (136-145); Total Bilirubin 1.1 mg/dL (0.15-1.2); Total Protein 6.9 g/dL (6.6-8.7)
[2023-03-09] MEDS: palonosetron 0.25 mg/5 mL SDV IVP (10:30)
[2023-03-09] MEDS: dextrose 5% 250 ML 75 ML IV (10:30)
[2023-03-09] MEDS: diphenhydrAMINE 50 mg/mL SDV 1mL 25 MG IVP (10:41)
[2023-03-09] MEDS: irinotecan 300 MG, irinotecan 20 MG in dextrose 5% 250 ML 177.33 MG IV (12:10)
[2023-03-09] MEDS: leucovorin 720 MG in dextrose 5% 250 ML 214.67 MG IV (12:11)
[2023-03-09] MEDS: atropine 1 mg/mL SDV 1 mL 0.4 MG IV (12:14)
[2023-03-09] MEDS: fluorouraciL 4,300 MG, elastomeric pump 1 PUMP in sodium chloride 0.9% (100 ml) 6 ML IV (14:01)
== END 2023-03-09 23:59 | disposition home or self-care (01) ==
PROVIDERS: Internal Medicine; Nurse Practitioner Family; PCP Family Medicine; Visit Provider Specialist
DX: Z53.9 Procedure and treatment not carried out, unspecified reason (principal); Z51.11 Encounter for antineoplastic chemotherapy; C20 Malignant neoplasm of rectum; C78.7 Secondary malignant neoplasm of liver and intrahepatic bile duct; C79.51 Secondary malignant neoplasm of bone
CPT/HCPCS: 80053; 81003; 82378; 85025; 96365; 96367; 96368; 96374; 96375; 96413; 96415; 96416; 96417; 96523; J0461; J0640; J1100; J1200; J1642; J2469; J7060; J9190; J9206; Q5107

== ENCOUNTER 2023-03-11 10:46 | Oncology outpatient (recurring) (ONCR) | payer OTHER, SELFPAY | END 2023-03-14 23:59 | disposition home or self-care (01) | PROVIDERS: PCP Family Medicine; Visit Provider Specialist | DX: Z45.1 Encounter for adjustment and management of infusion pump (principal); Z51.11 Encounter for antineoplastic chemotherapy; C20 Malignant neoplasm of rectum; C78.7 Secondary malignant neoplasm of liver and intrahepatic bile duct; Z53.9 Procedure and treatment not carried out, unspecified reason; C79.51 Secondary malignant neoplasm of bone; Z79.899 Other long term (current) drug therapy; D22.9 Melanocytic nevi, unspecified | CPT/HCPCS: 96523; J1642 ==

== ENCOUNTER 2023-03-19 10:48 | Outpatient (CLI) | payer OTHER, SELFPAY ==
[2023-03-19] MEDS: iohexol 350 mg/mL 500 mL Btl (per mL) PO (12:00)
--- NOTE | 2023-03-19 12:00 | CT_ITS ---
WS: [id number] CT CHEST, ABDOMEN AND PELVIS WITH CONTRAST HISTORY: rectal cancer TECHNIQUE: Contiguous 5 mm axial imaging performed through the chest, abdomen and pelvis with IV cont rast, oral contrast has without been provided. Coronal and sagittal reformats chest. Coronal and sagi ttal reformats through the abdomen and pelvis. All CT scans at [facility] use at least one of these dose optimization techniques: automated exposure control; mA and/or kV adjustment per patient size (includes targeted exams where dose is matched to clinical indication); or iterative reconstruct ion. CONTRAST: Omnipaque 350; 100 mL IV. DLP: 703.64 mGy.cm COMPARISON: 12/18/2022, 04/22/2022, PET/CT 08/22/[address]: There are numerous, bilateral, multilobar noncalcified pulmonary nodules as identified also on the study of 12/18/2022. These nodules have not improved and may be very slightly larger in size a nd number. This is very subjective. The largest is 5 mm at the LEFT lung base. These nodules were not present on that examination of 03/20/2022. No pericardial effusions or pleural effusion. Heart is norm al size. Small mediastinal and hilar lymph nodes have not progressed. The distal RIGHT paraesophageal lymph node is unchanged. There is mild circumferential wall thickening of the distal esophagus. Left -sided Mediport. Abdomen CT: Reidentified is extensive, confluent metastatic disease throughout the liver. There is pa rtial retraction of the liver capsule. There are numerous dystrophic calcifications throughout the li neo which may be secondary to the treatment. The overall tumor burden has not improved. There is no b ile duct dilatation. Main portal vein is well opacified. Normal spleen. Negative gallbladder and adre nal glands. Normal pancreas. No renal obstruction. Minimal atherosclerosis aorta. No central mesenteric or monie hepatis lymph nodes are identified. Normally distended stomach. No small bowel obstruction. LEFT lower quadrant colostomy. There is a Wilfred tman's pouch. The distal colon demonstrates less wall thickening. Pelvic CT: There is a small amount of free fluid along the RIGHT paracolic gutter which was also pres ent on the prior examination. The extent of the fluid has slightly improved. No pelvic adenopathy. No inguinal lymph nodes. Inguinal canals are patent bilaterally containing fat. No osteoblastic or osteolytic bone disease is identified. Very mild sclerosis and thickening of the t rabecular pattern involving the RIGHT acetabulum has been identified by PET/CT imaging is a metastati c site. IMPRESSION: 1. Reidentified are subcentimeter pulmonary nodules also noted on the study of 12/18/2022. Suspect th jose alfredo are very small metastatic nodules that were not positive on the PET/CT. Questionable increase in size and number of the pulmonary nodules. May not be of any significance and due to slice selection. 2. No hilar or mediastinal lymphadenopathy. The lymph node adjacent to the distal RIGHT esophagus is stable. 3. Extensive, confluent hepatic metastatic disease. 4. LEFT lower quadrant colostomy site. No recurrent mass and no obstruction. 5. There is a small amount of ascites along the RIGHT paracolic gutter with slight improvement since 12/18/2022. 6. Thickening of the trabecular pattern in the RIGHT acetabulum corresponds to an osseous metastatic site. No new or additional bone metastasis identified by CT.
[2023-03-19] MEDS: iohexol 350 mg/mL 500 mL Btl (per mL) IV (12:02)
== END 2023-03-19 10:49 | disposition home or self-care (01) ==
LOC: RAD 10:49
PROVIDERS: PCP Family Medicine; Visit Provider Internal Medicine Medical Oncology
DX: C20 Malignant neoplasm of rectum (principal); C79.51 Secondary malignant neoplasm of bone; C78.7 Secondary malignant neoplasm of liver and intrahepatic bile duct; R91.8 Other nonspecific abnormal finding of lung field; R18.8 Other ascites
CPT/HCPCS: 71260; 74177; Q9967

== ENCOUNTER 2023-04-12 08:00 | Oncology outpatient (recurring) (ONCR) | payer OTHER, SELFPAY ==
[2023-03-22 08:20] LABS: Add Urine Microscopic? NO; Charge for UA Resulting for Rev
[2023-03-22 08:35] LABS: Basophils % 0.2 %; Eosinophils % 0.4 %; Hematocrit 32.8 % (37-53); Lymphocytes # 0.7 10^3/uL (0.8-4.8); Lymphocytes % 12.7 %; Mean Corpuscular HGB Conc 34.1 g/dL (30-55); Mean Corpuscular Hemoglobin 30.4 pg (27-33); Mean Corpuscular Volume 88.9 fl (82-101); Mean Platelet Volume 9.8 fL (7.4-10.4); Monocytes # 0.8 10^3/uL (0.2-0.9); Monocytes % 15.4 %; Neutrophils % 70.9 %; Nucleated Red Blood Cells % 0 %; Platelet Count 120 10^3/cmm (157-399); Red Blood Count 3.69 10^6/uL (3.85-5.65); White Blood Count 5.21 10^3/uL (3.29-11.43)
[2023-03-22 09:01] LABS: Urine Appearance Clear (CLEAR); Urine Color Yellow (Yellow)
[2023-03-22 09:02] LABS: Bilirubin Urine Neg (Negative); Blood Urine Neg (Negative); Glucose Urine UA Norm (Normal); Ketones Urine Negative (Negative); Leukocyte Esterase Urine Negative (Negative); Nitrate Urine Negative (Negative); Protein Urine Neg (Negative); Urobilinogen Urine 4 mg/dL (Negative); pH Urine 6 (5-7)
[2023-03-22 09:03] LABS: Carcinoembryonic Antigen 64.3 ng/mL (0.0-4.7)
[2023-03-22 09:14] LABS: Alanine Aminotransferase 18 U/L (0-41); Albumin Level 3.3 g/dL (3.5-5.2); Alkaline Phosphatase 220 U/L (40-130); Anion Gap 12.9 (5-19); Aspartate Amino Transferase 22 U/L (0-40); Blood Urea Nitrogen 9 mg/dL (6-20); Calcium 8.7 mg/dL (8.5-10.5); Carbon Dioxide 27 mmol/L (22-29); Chloride 97 mmol/L (98-107); Globulin 3.2 g/dL (1.3-4.6); Glomerular Filtration Rate 170.8 mL/min (90-130); Glucose 116 mg/dL (65-115); Osmolality Calculated 276 mOsm/kg (285-295); Potassium 3.9 mmol/L (3.5-5.1); Sodium 133 mmol/L (136-145); Total Bilirubin 0.8 mg/dL (0.15-1.2); Total Protein 6.5 g/dL (6.6-8.7)
[2023-03-23] MEDS: dextrose 5% 250 ML 75 ML IV (08:39)
[2023-03-23] MEDS: palonosetron 0.25 mg/5 mL SDV IVP (08:40)
[2023-03-23] MEDS: sodium chloride 0.9% (100 ml) 100 ML 75 ML (09:25)
[2023-03-23] MEDS: atropine 1 mg/mL SDV 1 mL 0.4 MG IV (10:04)
[2023-03-23] MEDS: leucovorin 720 MG in dextrose 5% 250 ML 214.67 MG IV (10:20)
[2023-03-23] MEDS: irinotecan 300 MG, irinotecan 20 MG in dextrose 5% 250 ML 177.33 MG IV (10:20)
[2023-03-23] MEDS: fluorouraciL 4,300 MG, elastomeric pump 1 PUMP in sodium chloride 0.9% (100 ml) 6 ML IV (12:08)
[2023-03-23 12:14] VITALS: BP 105/69; PULSE 82; RESP 17; TEMP 36.2; O2SAT 96
[2023-03-25 14:26] VITALS: BP 123/81; PULSE 71; TEMP 36.7; O2SAT 98
[2023-04-06 08:04] VITALS: BP 106/72; PULSE 67; RESP 16; TEMP 35.6; O2SAT 99
[2023-04-06 08:18] LABS: Basophils % 0.4 %; Eosinophils # 0.1 10^3/uL (0.0-0.8); Eosinophils % 1.8 %; Hematocrit 33.8 % (37-53); Lymphocytes # 1.1 10^3/uL (0.8-4.8); Lymphocytes % 23.5 %; Mean Corpuscular HGB Conc 33.1 g/dL (30-55); Mean Corpuscular Hemoglobin 29.8 pg (27-33); Mean Corpuscular Volume 89.9 fl (82-101); Mean Platelet Volume 9.5 fL (7.4-10.4); Monocytes # 0.9 10^3/uL (0.2-0.9); Monocytes % 20.4 %; Neutrophils # 2.42 10^3/uL (1.8-7.7); Neutrophils % 53.7 %; Nucleated Red Blood Cells % 0 %; Platelet Count 129 10^3/cmm (157-399); Red Blood Count 3.76 10^6/uL (3.85-5.65); Red Cell Distribution Width 15.1 % (12.1-15.1); White Blood Count 4.51 10^3/uL (3.29-11.43)
[2023-04-06 08:44] LABS: Carcinoembryonic Antigen 40.9 ng/mL (0.0-4.7)
[2023-04-06 08:57] LABS: Alanine Aminotransferase 17 U/L (0-41); Albumin Level 3.5 g/dL (3.5-5.2); Alkaline Phosphatase 194 U/L (40-130); Anion Gap 13.1 (5-19); Aspartate Amino Transferase 17 U/L (0-40); Blood Urea Nitrogen 10 mg/dL (6-20); Calcium 9.3 mg/dL (8.5-10.5); Carbon Dioxide 27 mmol/L (22-29); Chloride 99 mmol/L (98-107); Globulin 3.5 g/dL (1.3-4.6); Glomerular Filtration Rate 138.4 mL/min (90-130); Glucose 90 mg/dL (65-115); Osmolality Calculated 279 mOsm/kg (285-295); Potassium 4.1 mmol/L (3.5-5.1); Sodium 135 mmol/L (136-145)
[2023-04-12 08:07] LABS: Eosinophils # 0.1 10^3/uL (0.0-0.8); Eosinophils % 4.1 %; Mean Corpuscular HGB Conc 33.8 g/dL (30-55); Mean Corpuscular Hemoglobin 30.4 pg (27-33); Mean Corpuscular Volume 89.9 fl (82-101); Mean Platelet Volume 9.7 fL (7.4-10.4); Monocytes # 0.6 10^3/uL (0.2-0.9); Neutrophils # 1.13 10^3/uL (1.8-7.7); Neutrophils % 38.9 %; Nucleated Red Blood Cells % 0 %; Platelet Count 151 10^3/cmm (157-399); Red Blood Count 3.78 10^6/uL (3.85-5.65); Red Cell Distribution Width 15.7 % (12.1-15.1); White Blood Count 2.91 10^3/uL (3.29-11.43)
[2023-04-12 08:24] LABS: Alanine Aminotransferase 19 U/L (0-41); Albumin Level 3.5 g/dL (3.5-5.2); Alkaline Phosphatase 203 U/L (40-130); Anion Gap 14.2 (5-19); Aspartate Amino Transferase 33 U/L (0-40); Blood Urea Nitrogen 6 mg/dL (6-20); Calcium 9.8 mg/dL (8.5-10.5); Carbon Dioxide 28 mmol/L (22-29); Chloride 102 mmol/L (98-107); Globulin 3.3 g/dL (1.3-4.6); Glomerular Filtration Rate 170.8 mL/min (90-130); Glucose 109 mg/dL (65-115); Osmolality Calculated 288 mOsm/kg (285-295); Potassium 4.2 mmol/L (3.5-5.1); Sodium 140 mmol/L (136-145); Total Bilirubin 0.3 mg/dL (0.15-1.2); Total Protein 6.8 g/dL (6.6-8.7)
[2023-04-12 08:57] LABS: Add Urine Microscopic? NO; Charge for UA Resulting for Rev
[2023-04-12 09:13] LABS: Bilirubin Urine Neg (Negative); Blood Urine Neg (Negative); Glucose Urine UA Norm (Normal); Ketones Urine Negative (Negative); Leukocyte Esterase Urine Negative (Negative); Nitrate Urine Negative (Negative); Protein Urine Neg (Negative); Urine Appearance Clear (CLEAR); Urine Color Straw (Yellow); Urobilinogen Urine Neg (Negative); pH Urine 7 (5-7)
[2023-04-12 10:30] VITALS: BP 117/75; PULSE 84; RESP 17; TEMP 36.5; O2SAT 98
== END 2023-04-14 23:59 | disposition home or self-care (01) ==
PROVIDERS: Internal Medicine Medical Oncology; Nurse Practitioner Family; PCP Family Medicine; Visit Provider Radiology Radiation Oncology
DX: Z53.9 Procedure and treatment not carried out, unspecified reason (principal); C20 Malignant neoplasm of rectum
CPT/HCPCS: 36591; 80053; 81003; 82378; 85025; 96365; 96366; 96367; 96375; 96413; 96415; 96416; 96417; 96523; J0461; J0640; J1100; J1642; J2469; J7060; J9190; J9206; Q5107

== ENCOUNTER 2023-05-05 13:00 | Oncology outpatient (recurring) (ONCR) | payer OTHER, SELFPAY ==
[2023-04-19 08:02] LABS: Basophils % 0.5 %; Eosinophils # 0.1 10^3/uL (0.0-0.8); Eosinophils % 1.4 %; Hematocrit 39.5 % (37-53); Lymphocytes # 1.5 10^3/uL (0.8-4.8); Lymphocytes % 17.2 %; Mean Corpuscular HGB Conc 33.2 g/dL (30-55); Mean Corpuscular Hemoglobin 29.8 pg (27-33); Mean Platelet Volume 10.3 fL (7.4-10.4); Monocytes # 1.7 10^3/uL (0.2-0.9); Monocytes % 19.7 %; Neutrophils # 5.13 10^3/uL (1.8-7.7); Nucleated Red Blood Cells % 0 %; Platelet Count 133 10^3/cmm (157-399); Red Blood Count 4.39 10^6/uL (3.85-5.65); Red Cell Distribution Width 16.4 % (12.1-15.1); White Blood Count 8.42 10^3/uL (3.29-11.43)
[2023-04-19 08:28] LABS: Carcinoembryonic Antigen 34.4 ng/mL (0.0-4.7)
[2023-04-19 08:39] LABS: Alanine Aminotransferase 17 U/L (0-41); Albumin Level 3.8 g/dL (3.5-5.2); Alkaline Phosphatase 199 U/L (40-130); Anion Gap 15.3 (5-19); Aspartate Amino Transferase 25 U/L (0-40); Blood Urea Nitrogen 6 mg/dL (6-20); Calcium 9.6 mg/dL (8.5-10.5); Carbon Dioxide 26 mmol/L (22-29); Chloride 102 mmol/L (98-107); Globulin 3.4 g/dL (1.3-4.6); Glomerular Filtration Rate 138.4 mL/min (90-130); Glucose 107 mg/dL (65-115); Osmolality Calculated 286 mOsm/kg (285-295); Potassium 4.3 mmol/L (3.5-5.1); Sodium 139 mmol/L (136-145); Total Bilirubin 0.7 mg/dL (0.15-1.2); Total Protein 7.2 g/dL (6.6-8.7)
[2023-04-19] MEDS: sodium chloride 0.9% 250 ML 75 ML IV (09:28)
[2023-04-19] MEDS: palonosetron 0.25 mg/5 mL SDV IVP (09:29)
[2023-04-19] MEDS: SODIUM CHLORIDE 0.9% IV (09:58)
[2023-04-19] MEDS: BEVACIZUMAB AWWB IV (09:58)
[2023-04-19] MEDS: leucovorin 740 MG in dextrose 5% 250 ML 166.669999999999987 MG IV (10:28)
[2023-04-19] MEDS: irinotecan 300 MG, irinotecan 30 MG in dextrose 5% 250 ML 177.669999999999987 MG IV (10:29)
[2023-04-19] MEDS: atropine 1 mg/mL SDV 1 mL 0.400000000000000022 MG IV (10:32)
[2023-04-19 12:25] VITALS: BP 120/80; PULSE 80; RESP 16; TEMP 36.2; O2SAT 98
[2023-04-19] MEDS: fluorouraciL 4,400 MG, elastomeric pump 1 PUMP in sodium chloride 0.9% (100 ml) 4 ML IV (12:25)
[2023-04-21 12:43] VITALS: BP 117/76; PULSE 66; RESP 18; TEMP 36.4; O2SAT 98
[2023-05-03 07:54] LABS: Add Urine Microscopic? NO; Charge for UA Resulting for Rev
[2023-05-03 07:56] LABS: Basophils % 0.2 %; Eosinophils # 0.1 10^3/uL (0.0-0.8); Eosinophils % 1.3 %; Hematocrit 31.4 % (37-53); Lymphocytes # 0.8 10^3/uL (0.8-4.8); Lymphocytes % 15.3 %; Mean Corpuscular HGB Conc 32.8 g/dL (30-55); Mean Corpuscular Hemoglobin 29.2 pg (27-33); Mean Platelet Volume 10.3 fL (7.4-10.4); Monocytes # 0.9 10^3/uL (0.2-0.9); Monocytes % 17.5 %; Neutrophils # 3.47 10^3/uL (1.8-7.7); Neutrophils % 65.5 %; Nucleated Red Blood Cells % 0 %; Platelet Count 169 10^3/cmm (157-399); Red Blood Count 3.53 10^6/uL (3.85-5.65); Red Cell Distribution Width 15.8 % (12.1-15.1)
[2023-05-03 08:19] LABS: Alanine Aminotransferase 12 U/L (0-41); Albumin Level 3.3 g/dL (3.5-5.2); Alkaline Phosphatase 199 U/L (40-130); Anion Gap 14.7 (5-19); Aspartate Amino Transferase 17 U/L (0-40); Blood Urea Nitrogen 7 mg/dL (6-20); Calcium 8.4 mg/dL (8.5-10.5); Carbon Dioxide 26 mmol/L (22-29); Chloride 97 mmol/L (98-107); Creatinine Clr Calc Pharmacy 161.6102; Globulin 3.2 g/dL (1.3-4.6); Glomerular Filtration Rate 170.8 mL/min (90-130); Glucose 111 mg/dL (65-115); Osmolality Calculated 277 mOsm/kg (285-295); Potassium 3.7 mmol/L (3.5-5.1); Sodium 134 mmol/L (136-145); Total Bilirubin 0.6 mg/dL (0.15-1.2); Total Protein 6.5 g/dL (6.6-8.7)
[2023-05-03 08:33] LABS: Bilirubin Urine 1+ (Negative); Blood Urine Neg (Negative); Glucose Urine UA Norm (Normal); Ketones Urine Negative (Negative); Leukocyte Esterase Urine Negative (Negative); Nitrate Urine Negative (Negative); Protein Urine Neg (Negative); Urine Appearance Clear (CLEAR); Urine Color Yellow (Yellow); Urobilinogen Urine 4 mg/dL (Negative); pH Urine 6 (5-7)
[2023-05-03] MEDS: sodium chloride 0.9% 250 ML 75 ML IV (10:16)
[2023-05-03] MEDS: palonosetron 0.25 mg/5 mL SDV IVP (10:19)
[2023-05-03 10:47] LABS: Magnesium 1.8 mg/dL (1.7-2.3)
[2023-05-03] MEDS: SODIUM CHLORIDE 0.9% IV (10:47)
[2023-05-03] MEDS: BEVACIZUMAB AWWB IV (10:47)
[2023-05-03] MEDS: atropine 1 mg/mL SDV 1 mL 0.400000000000000022 MG IV (11:26)
[2023-05-03] MEDS: leucovorin 740 MG in dextrose 5% 250 ML 166.669999999999987 MG IV (11:50)
[2023-05-03] MEDS: irinotecan 300 MG, irinotecan 30 MG in dextrose 5% 250 ML 177.669999999999987 MG IV (11:51)
[2023-05-03] MEDS: fluorouraciL 4,400 MG, elastomeric pump 1 PUMP in sodium chloride 0.9% (100 ml) 4 ML IV (13:47)
[2023-05-03 13:50] VITALS: BP 118/79; PULSE 75; RESP 18; TEMP 35.8; O2SAT 97
[2023-05-05 13:05] VITALS: BP 133/80; PULSE 72; RESP 16; TEMP 36.4; O2SAT 99
== END 2023-05-13 23:59 | disposition home or self-care (01) ==
PROVIDERS: Internal Medicine Medical Oncology; Nurse Practitioner Family; PCP Family Medicine; Visit Provider Radiology Radiation Oncology
DX: Z53.9 Procedure and treatment not carried out, unspecified reason (principal); Z45.1 Encounter for adjustment and management of infusion pump
CPT/HCPCS: 80053; 81003; 82378; 83735; 85025; 96367; 96368; 96375; 96413; 96415; 96416; 96417; 96523; J0461; J0640; J1100; J1642; J2469; J7050; J7060; J9190; J9206; Q5107

== ENCOUNTER 2023-05-24 08:00 | Oncology outpatient (recurring) (ONCR) | payer OTHER, SELFPAY ==
[2023-05-17 08:21] LABS: Basophils % 0.6 %; Eosinophils # 0.1 10^3/uL (0.0-0.8); Hematocrit 34.8 % (37-53); Lymphocytes # 1.4 10^3/uL (0.8-4.8); Lymphocytes % 37.7 %; Mean Corpuscular HGB Conc 32.2 g/dL (30-55); Mean Corpuscular Hemoglobin 28.9 pg (27-33); Mean Corpuscular Volume 89.9 fl (82-101); Mean Platelet Volume 9.4 fL (7.4-10.4); Monocytes # 0.7 10^3/uL (0.2-0.9); Neutrophils # 1.45 10^3/uL (1.8-7.7); Neutrophils % 40.4 %; Nucleated Red Blood Cells % 0 %; Platelet Count 96 10^3/cmm (157-399); Red Blood Count 3.87 10^6/uL (3.85-5.65); Red Cell Distribution Width 16.8 % (12.1-15.1); White Blood Count 3.58 10^3/uL (3.29-11.43)
[2023-05-17 08:50] LABS: Carcinoembryonic Antigen 32.3 ng/mL (0.0-4.7)
[2023-05-17 08:59] LABS: Add Urine Culture? No; Bacteria Urine TRACE /hpf; Bilirubin Urine Neg (Negative); Blood Urine Neg (Negative); Glucose Urine UA Norm (Normal); Ketones Urine Negative (Negative); Leukocyte Esterase Urine Negative (Negative); Nitrate Urine Negative (Negative); Protein Urine Neg (Negative); Specific Gravity, Urine 1.015 (1.005-1.030); Urine Appearance Clear (CLEAR); Urine Color Yellow (Yellow); Urobilinogen Urine Norm (Negative); WBC Urine RARE /hpf (0-5); pH Urine 5 (5-7)
[2023-05-17 09:02] LABS: Alanine Aminotransferase 22 U/L (0-41); Albumin Level 3.5 g/dL (3.5-5.2); Alkaline Phosphatase 186 U/L (40-130); Anion Gap 13.3 (5-19); Aspartate Amino Transferase 29 U/L (0-40); Blood Urea Nitrogen 8 mg/dL (6-20); Calcium 8.5 mg/dL (8.5-10.5); Carbon Dioxide 27 mmol/L (22-29); Chloride 103 mmol/L (98-107); Globulin 2.9 g/dL (1.3-4.6); Glomerular Filtration Rate 138.4 mL/min (90-130); Glucose 80 mg/dL (65-115); Osmolality Calculated 285 mOsm/kg (285-295); Potassium 4.3 mmol/L (3.5-5.1); Sodium 139 mmol/L (136-145); Total Bilirubin 0.3 mg/dL (0.15-1.2); Total Protein 6.4 g/dL (6.6-8.7)
[2023-05-24 08:25] LABS: Basophils % 0.3 %; Eosinophils # 0.1 10^3/uL (0.0-0.8); Eosinophils % 1.2 %; Hematocrit 35.3 % (37-53); Lymphocytes # 0.9 10^3/uL (0.8-4.8); Lymphocytes % 15.2 %; Mean Corpuscular HGB Conc 32.9 g/dL (30-55); Mean Corpuscular Hemoglobin 29.5 pg (27-33); Mean Corpuscular Volume 89.8 fl (82-101); Mean Platelet Volume 9.4 fL (7.4-10.4); Monocytes # 1.5 10^3/uL (0.2-0.9); Monocytes % 23.9 %; Neutrophils % 59.4 %; Nucleated Red Blood Cells % 0 %; Platelet Count 104 10^3/cmm (157-399); Red Blood Count 3.93 10^6/uL (3.85-5.65); Red Cell Distribution Width 17.7 % (12.1-15.1); White Blood Count 6.06 10^3/uL (3.29-11.43)
[2023-05-24 08:45] LABS: Alanine Aminotransferase 13 U/L (0-41); Albumin Level 3.6 g/dL (3.5-5.2); Alkaline Phosphatase 197 U/L (40-130); Aspartate Amino Transferase 19 U/L (0-40); Blood Urea Nitrogen 8 mg/dL (6-20); Calcium 8.9 mg/dL (8.5-10.5); Carbon Dioxide 26 mmol/L (22-29); Chloride 96 mmol/L (98-107); Globulin 3.5 g/dL (1.3-4.6); Glomerular Filtration Rate 138.4 mL/min (90-130); Glucose 113 mg/dL (65-115); Osmolality Calculated 275 mOsm/kg (285-295); Sodium 133 mmol/L (136-145); Total Bilirubin 1.1 mg/dL (0.15-1.2); Total Protein 7.1 g/dL (6.6-8.7)
[2023-05-24] MEDS: dextrose 5% 250 ML 75 ML IV (10:09)
[2023-05-24] MEDS: palonosetron 0.25 mg/5 mL SDV IVP (10:09)
[2023-05-24] MEDS: atropine 1 mg/mL SDV 1 mL 0.400000000000000022 MG IV (10:19)
[2023-05-24] MEDS: bevacizumab-awwb 370 MG in sodium chloride 0.9% (100 ml) 100 ML 260 MG IV (10:59)
[2023-05-24] MEDS: sodium chloride 0.9% (100 ml) 100 ML 75 ML (11:32)
[2023-05-24] MEDS: leucovorin 760 MG in dextrose 5% 250 ML 166.669999999999987 MG IV (11:33)
[2023-05-24] MEDS: irinotecan 300 MG, irinotecan 40 MG in dextrose 5% 250 ML 178 MG IV (11:34)
[2023-05-24] MEDS: fluorouraciL 4,550 MG, elastomeric pump 1 PUMP in sodium chloride 0.9% (100 ml) 1 ML IV (13:21)
[2023-05-24] MEDS: pegfilgrastim 6 mg/0.6 mL Kit (onpro) SUBCUT (13:21)
[2023-05-24 13:35] VITALS: BP 119/78; PULSE 80; RESP 16; O2SAT 98
== END 2023-05-24 23:59 | disposition home or self-care (01) ==
PROVIDERS: Internal Medicine Medical Oncology; Nurse Practitioner Family; PCP Family Medicine; Visit Provider Radiology Radiation Oncology
DX: Z53.9 Procedure and treatment not carried out, unspecified reason; Z51.11 Encounter for antineoplastic chemotherapy; C20 Malignant neoplasm of rectum; C78.7 Secondary malignant neoplasm of liver and intrahepatic bile duct
CPT/HCPCS: 80053; 81001; 82378; 85025; 96367; 96375; 96377; 96413; 96416; 96417; J0461; J0640; J1100; J1642; J2469; J2506; J7060; J9190; J9206; Q5107

== ENCOUNTER 2023-06-09 13:00 | Oncology outpatient (recurring) (ONCR) | payer OTHER, SELFPAY ==
[2023-05-26 11:47] VITALS: BP 120/78; PULSE 62; TEMP 36.2; O2SAT 100
[2023-06-07 07:55] LABS: Add Urine Microscopic? NO; Charge for UA Resulting for Rev
[2023-06-07 08:04] LABS: Basophils % 0.5 %; Eosinophils # 0.1 10^3/uL (0.0-0.8); Eosinophils % 1.4 %; Hematocrit 37.3 % (37-53); Lymphocytes # 1.3 10^3/uL (0.8-4.8); Lymphocytes % 19.6 %; Mean Corpuscular HGB Conc 32.7 g/dL (30-55); Mean Corpuscular Hemoglobin 28.9 pg (27-33); Mean Corpuscular Volume 88.4 fl (82-101); Mean Platelet Volume 9.9 fL (7.4-10.4); Monocytes # 0.7 10^3/uL (0.2-0.9); Monocytes % 10.4 %; Neutrophils # 4.43 10^3/uL (1.8-7.7); Neutrophils % 67.8 %; Nucleated Red Blood Cells % 0 %; Platelet Count 126 10^3/cmm (157-399); Red Blood Count 4.22 10^6/uL (3.85-5.65); Red Cell Distribution Width 18.1 % (12.1-15.1); White Blood Count 6.53 10^3/uL (3.29-11.43)
[2023-06-07 08:14] LABS: Alanine Aminotransferase 14 U/L (0-41); Albumin Level 3.6 g/dL (3.5-5.2); Alkaline Phosphatase 224 U/L (40-130); Anion Gap 13.8 (5-19); Aspartate Amino Transferase 25 U/L (0-40); Blood Urea Nitrogen 7 mg/dL (6-20); Carbon Dioxide 24 mmol/L (22-29); Chloride 105 mmol/L (98-107); Globulin 3.1 g/dL (1.3-4.6); Glomerular Filtration Rate 138.4 mL/min (90-130); Glucose 125 mg/dL (65-115); Osmolality Calculated 287 mOsm/kg (285-295); Potassium 3.8 mmol/L (3.5-5.1); Sodium 139 mmol/L (136-145); Total Bilirubin 0.4 mg/dL (0.15-1.2); Total Protein 6.7 g/dL (6.6-8.7)
[2023-06-07 08:23] LABS: Bilirubin Urine Neg (Negative); Blood Urine Neg (Negative); Glucose Urine UA Norm (Normal); Ketones Urine Negative (Negative); Leukocyte Esterase Urine Negative (Negative); Nitrate Urine Negative (Negative); Protein Urine Neg (Negative); Specific Gravity, Urine 1.015 (1.005-1.030); Urine Appearance Clear (CLEAR); Urine Color Yellow (Yellow); Urobilinogen Urine Neg (Negative); pH Urine 6 (5-7)
[2023-06-07] MEDS: sodium chloride 0.9% (100 ml) 100 ML 50 ML (09:58)
[2023-06-07] MEDS: palonosetron 0.25 mg/5 mL SDV IVP (09:58)
[2023-06-07] MEDS: bevacizumab-awwb 370 MG in sodium chloride 0.9% (100 ml) 100 ML 300 MG IV (10:33)
[2023-06-07] MEDS: dextrose 5% 250 ML 75 ML IV (11:12)
[2023-06-07] MEDS: atropine 1 mg/mL SDV 1 mL 0.400000000000000022 MG IV (11:12)
[2023-06-07] MEDS: leucovorin 760 MG in dextrose 5% 250 ML 166.669999999999987 MG IV (11:27)
[2023-06-07] MEDS: irinotecan 300 MG, irinotecan 40 MG in dextrose 5% 250 ML 178 MG IV (11:27)
[2023-06-07] MEDS: SODIUM CHLORIDE IV (13:26)
[2023-06-07] MEDS: FLUOROURACIL IV (13:26)
[2023-06-07] MEDS: ELASTOMERIC PUMP PUMP IV (13:26)
[2023-06-07 13:33] VITALS: BP 149/96; PULSE 65; RESP 16; TEMP 36.8; O2SAT 98
[2023-06-09 12:30] VITALS: BP 135/85; PULSE 76; RESP 16; TEMP 36.8; O2SAT 96
== END 2023-06-13 23:59 | disposition home or self-care (01) ==
PROVIDERS: Nurse Practitioner Family; PCP Family Medicine; Visit Provider Radiology Radiation Oncology
DX: Z53.9 Procedure and treatment not carried out, unspecified reason (principal); Z45.1 Encounter for adjustment and management of infusion pump
CPT/HCPCS: 80053; 81003; 85025; 96367; 96375; 96413; 96416; 96417; 96523; J0461; J0640; J1100; J1642; J2469; J7060; J9190; J9206; Q5107

== ENCOUNTER 2023-07-12 09:00 | Oncology outpatient (recurring) (ONCR) | payer OTHER, SELFPAY ==
[2023-06-21 08:39] LABS: Basophils % 0.4 %; Eosinophils # 0.1 10^3/uL (0.0-0.8); Eosinophils % 2.3 %; Hematocrit 35.2 % (37-53); Lymphocytes # 0.9 10^3/uL (0.8-4.8); Lymphocytes % 18.9 %; Mean Corpuscular HGB Conc 32.4 g/dL (30-55); Mean Corpuscular Volume 89.6 fl (82-101); Mean Platelet Volume 9.9 fL (7.4-10.4); Monocytes # 0.8 10^3/uL (0.2-0.9); Monocytes % 15.8 %; Neutrophils % 62.2 %; Nucleated Red Blood Cells % 0 %; Platelet Count 111 10^3/cmm (157-399); Red Blood Count 3.93 10^6/uL (3.85-5.65); Red Cell Distribution Width 18.4 % (12.1-15.1); White Blood Count 4.82 10^3/uL (3.29-11.43)
[2023-06-21 08:59] LABS: Carcinoembryonic Antigen 31.7 ng/mL (0.0-4.7)
[2023-06-21 09:10] LABS: Alanine Aminotransferase 16 U/L (0-41); Albumin Level 3.6 g/dL (3.5-5.2); Alkaline Phosphatase 191 U/L (40-130); Anion Gap 12.8 (5-19); Aspartate Amino Transferase 20 U/L (0-40); Blood Urea Nitrogen 7 mg/dL (6-20); Calcium 8.9 mg/dL (8.5-10.5); Carbon Dioxide 24 mmol/L (22-29); Chloride 106 mmol/L (98-107); Globulin 2.8 g/dL (1.3-4.6); Glomerular Filtration Rate 170.8 mL/min (90-130); Glucose 116 mg/dL (65-115); Osmolality Calculated 287 mOsm/kg (285-295); Potassium 3.8 mmol/L (3.5-5.1); Sodium 139 mmol/L (136-145); Total Bilirubin 0.4 mg/dL (0.15-1.2); Total Protein 6.4 g/dL (6.6-8.7)
[2023-06-21] MEDS: sodium chloride 0.9% (100 ml) 100 ML 75 ML (10:47)
[2023-06-21] MEDS: palonosetron 0.25 mg/5 mL SDV IVP (10:47)
[2023-06-21] MEDS: bevacizumab-awwb 370 MG in sodium chloride 0.9% (100 ml) 100 ML 230 MG IV (11:19)
[2023-06-21] MEDS: atropine 1 mg/mL SDV 1 mL 0.400000000000000022 MG IV (11:53)
[2023-06-21] MEDS: dextrose 5% 250 ML 75 ML IV (12:11)
[2023-06-21] MEDS: irinotecan 300 MG, irinotecan 40 MG in dextrose 5% 250 ML 178 MG IV (12:12)
[2023-06-21] MEDS: leucovorin 760 MG in dextrose 5% 250 ML 166.669999999999987 MG IV (12:13)
[2023-06-21] MEDS: fluorouraciL 4,550 MG, elastomeric pump 1 PUMP in sodium chloride 0.9% (100 ml) 1 ML IV (13:51)
[2023-06-23 13:52] VITALS: BP 147/80; PULSE 88; RESP 16; TEMP 36.7; O2SAT 98
[2023-07-05 08:08] LABS: Add Urine Microscopic? NO; Charge for UA Resulting for Rev
[2023-07-05 08:13] LABS: Basophils % 0.4 %; Eosinophils # 0.2 10^3/uL (0.0-0.8); Hematocrit 35.7 % (37-53); Lymphocytes % 11.4 %; Mean Corpuscular HGB Conc 32.8 g/dL (30-55); Mean Corpuscular Hemoglobin 28.4 pg (27-33); Mean Corpuscular Volume 86.7 fl (82-101); Monocytes # 0.9 10^3/uL (0.2-0.9); Monocytes % 11.1 %; Neutrophils # 6.29 10^3/uL (1.8-7.7); Neutrophils % 74.9 %; Nucleated Red Blood Cells % 0 %; Platelet Count 123 10^3/cmm (157-399); Red Blood Count 4.12 10^6/uL (3.85-5.65); Red Cell Distribution Width 17.7 % (12.1-15.1)
[2023-07-05 08:42] LABS: Urine Appearance Clear (CLEAR); Urine Color Dark Yellow (Yellow)
[2023-07-05 08:43] LABS: Bilirubin Urine 1+ (Negative); Blood Urine Neg (Negative); Glucose Urine UA Norm (Normal); Ketones Urine Negative (Negative); Leukocyte Esterase Urine Negative (Negative); Nitrate Urine Negative (Negative); Protein Urine Neg (Negative); Urobilinogen Urine 4+ mg/dL (Negative); pH Urine 5 (5-7)
[2023-07-05 08:49] LABS: Alanine Aminotransferase 19 U/L (0-41); Albumin Level 3.7 g/dL (3.5-5.2); Alkaline Phosphatase 222 U/L (40-130); Anion Gap 14.7 (5-19); Aspartate Amino Transferase 28 U/L (0-40); Blood Urea Nitrogen 10 mg/dL (6-20); Calcium 9.2 mg/dL (8.5-10.5); Carbon Dioxide 27 mmol/L (22-29); Chloride 100 mmol/L (98-107); Creatinine Clr Calc Pharmacy 138.0333; Globulin 3.1 g/dL (1.3-4.6); Glomerular Filtration Rate 138.4 mL/min (90-130); Glucose 126 mg/dL (65-115); Osmolality Calculated 287 mOsm/kg (285-295); Potassium 3.7 mmol/L (3.5-5.1); Sodium 138 mmol/L (136-145); Total Bilirubin 0.6 mg/dL (0.15-1.2); Total Protein 6.8 g/dL (6.6-8.7)
[2023-07-12 09:14] LABS: Basophils # 0.1 10^3/uL (0.0-0.1); Basophils % 0.4 %; Eosinophils # 0.3 10^3/uL (0.0-0.8); Hematocrit 37.4 % (37-53); Lymphocytes # 1.5 10^3/uL (0.8-4.8); Lymphocytes % 13.4 %; Mean Corpuscular HGB Conc 32.9 g/dL (30-55); Mean Corpuscular Hemoglobin 28.4 pg (27-33); Mean Corpuscular Volume 86.4 fl (82-101); Mean Platelet Volume 9.8 fL (7.4-10.4); Monocytes # 1.4 10^3/uL (0.2-0.9); Monocytes % 12.8 %; Nucleated Red Blood Cells % 0 %; Platelet Count 218 10^3/cmm (157-399); Red Blood Count 4.33 10^6/uL (3.85-5.65); Red Cell Distribution Width 17.3 % (12.1-15.1); White Blood Count 11.14 10^3/uL (3.29-11.43)
[2023-07-12 09:37] LABS: Alanine Aminotransferase 10 U/L (0-41); Albumin Level 3.4 g/dL (3.5-5.2); Alkaline Phosphatase 195 U/L (40-130); Anion Gap 13.9 (5-19); Aspartate Amino Transferase 19 U/L (0-40); Blood Urea Nitrogen 8 mg/dL (6-20); Calcium 8.4 mg/dL (8.5-10.5); Carbon Dioxide 25 mmol/L (22-29); Chloride 103 mmol/L (98-107); Creatinine Clr Calc Pharmacy 137.6886; Globulin 3.5 g/dL (1.3-4.6); Glomerular Filtration Rate 138.4 mL/min (90-130); Glucose 104 mg/dL (65-115); Osmolality Calculated 285 mOsm/kg (285-295); Potassium 3.9 mmol/L (3.5-5.1); Sodium 138 mmol/L (136-145); Total Bilirubin 0.4 mg/dL (0.15-1.2); Total Protein 6.9 g/dL (6.6-8.7)
[2023-07-12 11:11] VITALS: BP 103/68; PULSE 78; TEMP 36.7; O2SAT 93
[2023-07-12] MEDS: ipratropium-albuterol 3 mL Neb INHALATION (11:19)
--- NOTE | 2023-07-12 11:44 | XR_ITS ---
WS: [id number] XR chest 2V* [id number] REASON FOR EXAM: shortness of breathe FINDINGS: Chemotherapy infusion port over the left chest with trans left subclavian vein catheter, tip in the s uperior vena cava. Compared to the previous examination of 05/12/2022. Previous infusion port and catheter replaced by e current appliance. There are reticular interstitial lung opacities in both lower lung quick, predominating on the right . Moderate degenerative spondylosis in the thoracic spine. XR/XR chest 2V* [id number] IMPRESSION: Interstitial lung opacities of unknown chronicity. Potentially an acute or suba cute pneumonitis.
== END 2023-07-13 23:59 | disposition home or self-care (01) ==
PROVIDERS: Internal Medicine Medical Oncology; Nurse Practitioner Family; PCP Family Medicine; Visit Provider Radiology Radiation Oncology
DX: C20 Malignant neoplasm of rectum (principal); Z53.9 Procedure and treatment not carried out, unspecified reason; C78.7 Secondary malignant neoplasm of liver and intrahepatic bile duct; D70.1 Agranulocytosis secondary to cancer chemotherapy; R91.8 Other nonspecific abnormal finding of lung field
CPT/HCPCS: 71046; 80053; 81003; 82378; 85025; 96367; 96368; 96375; 96413; 96415; 96416; 96417; 96523; J0461; J0640; J1100; J2469; J7060; J9190; J9206; Q5107

== ENCOUNTER 2023-07-13 10:17 | Outpatient (CLI) | payer OTHER, SELFPAY ==
--- NOTE | 2023-07-13 11:00 | PETR_ITS ---
PROCEDURE INFORMATION: Exam: PET/CT Skull Base to Mid-thigh Exam date and time: 07/13/2023 10:50 AM Age: 57 years old Clinical indication: Condition or disease; Primary cancer: Colon and liver CA, currently on chemo, radiation treatments ended 03/19/23 notes; Follow-up oncological assessment; Condition/disease: Neoplasm rectum; Prior surgery; Surgery date: 6+ months; Surgery type: Colostomy; Additional info: Surveillance LABS AND CLINICAL REPORTS: Glucose: 93 mg/dl Treatment strategy for malignancy (PET staging): Restaging (PS) TECHNIQUE: Imaging protocol: Following at least four-hour fasting and following the injection of radiopharmaceutical, low dose CT images were obtained. Then, PET images were obtained. Attenuation corrected images were constructed using the CT scan. Fused images of PET and CT were reviewed. The standardized uptake values (SUV) reported below are maximum values within a region of interest, expressed in gm/ml. Exam includes orbital meatal line to mid-thigh. Radiopharmaceutical: 12.52 mCi F-18 FDG (Fluorodeoxyglucose), IV. Time of imaging post radiopharmaceutical administration: 1 hour Injection site: Left hand COMPARISON: CT chest, abdomen and pelvis 03/19/2023, PT PET skulltothi SUBSEQ [id number] 08/22/2022 11:48 AM FINDINGS: Tubes, catheters and devices: A left subclavian central venous port catheter terminates in the distal SVC. Brain: Visualized brain has normal physiologic uptake. Pharynx: No abnormal uptake. Larynx: There is physiologic appearing uptake in the region of the larynx. Lungs, pleura and trachea: Small bilateral pleural effusions are present. Regions of ill-defined streaky and patchy density throughout the right hemithorax are new compared with 03/19/2023 with elevated uptake, for example in the medial aspect of the right middle lobe on series 3, image 102 without a well-defined nodule or mass, SUV max 3.6 and in the posteroinferior right lower lobe where there is streaky density extending to the pleural surface, SUV max 3.0 on series 3, image 116. Non radiotracer avid bilateral small solid pulmonary nodules are similar in size and number compared with the CT chest of 03/19/2023 without elevated uptake. The majority of these nodules are new since the prior PET-CT. Examples: Lateral left upper lobe on series 3, image 82 measuring 5 mm. Inferior medial right lower lobe measuring 5 mm on series 3, image 115. Heart: Normal physiologic uptake. Mediastinal space: No abnormal uptake. Liver: Heterogeneous regions of abnormal hypodensity throughout the liver are noted with superimposed regions of hyperdensity. These areas demonstrate heterogeneous elevated uptake with the exception a dominant region of calcified masslike ovoid density in the posterior right lower lobe on series 3, image 136 which is without elevated uptake. Overall uptake within the liver has decreased since the prior PET-CT. For example, the region of greatest uptake is within an area of hypodensity between the right left liver lobes measuring approximately 3.9 cm in diameter on series 3, image 121, SUV max 6.1 (previously 8.4). Gallbladder and bile ducts: No abnormal uptake. Pancreas: No abnormal uptake. Spleen: No abnormal uptake. Adrenal glands: No abnormal uptake. Kidneys and ureters: Normal physiologic uptake. Stomach and bowel: Mild physiologic or inflammatory uptake is noted at the ostomy site in the left lower quadrant, without evidence of a correlating lesion on the CT images. No evidence of abnormal uptake in the region of the sigmoid colonic surgical staple line in the mid pelvis. Vasculature: No abnormal uptake. Lymph nodes: A right paratracheal lymph node measuring 1.2 cm (previously 7 mm on the prior PET-CT) on series 3, image 79 is noted, SUV max 2.7 (previously 1.2). Bones/joints: A focus of ovoid abnormal uptake in the posterior right acetabulum is noted on series 3, image 221, SUV max 3.9 (previously 4.6). The size of the region of abnormal uptake in the acetabulum has decreased although assessment of the margins of the lesion is limited as it is not well delineated on the CT images. Degenerative changes in the spine are present. Soft tissues: No abnormal uptake in the visualized head, neck, chest, abdomen, pelvis, and extremities. METRICS: Mediastinal blood pool: SUV max 2.2 PET/PET skulltothi SUBSEQ [id number] IMPRESSION: 1. Interval decrease in abnormal uptake within liver metastases suggesting a partial response to therapy. 2. Interval decrease in abnormal uptake in geographic distribution of abnormal uptake in the posterior right acetabular metastatic lesion consistent with a partial response to therapy. 3. New areas radiotracer avid hazy and streaky density in the right hemithorax are noted, likely related to post treatment inflammatory changes. 4. Non radiotracer avid small solid bilateral pulmonary nodules appears similar compared with 03/19/2023, increased in size and number compared with the prior PET-CT. Assessment of small nodules can be limited by PET-CT. Metastatic nodules cannot be excluded. 5. A small right paratracheal lymph node is increased in size since the prior PET-CT with low-level uptake which may be inflammatory, infectious or malignant in etiology. 6. Additional nonurgent findings as detailed above.
== END 2023-07-13 10:18 | disposition home or self-care (01) ==
LOC: RAD 10:30
PROVIDERS: PCP Family Medicine; Visit Provider Nurse Practitioner Family
DX: C20 Malignant neoplasm of rectum (principal); C78.7 Secondary malignant neoplasm of liver and intrahepatic bile duct
CPT/HCPCS: 78815; A9552

== ENCOUNTER 2023-08-12 09:11 | Oncology outpatient (recurring) (ONCR) | payer OTHER, SELFPAY ==
[2023-07-19 08:18] LABS: Basophils # 0.1 10^3/uL (0.0-0.1); Basophils % 0.3 %; Eosinophils # 0.3 10^3/uL (0.0-0.8); Lymphocytes # 2.2 10^3/uL (0.8-4.8); Lymphocytes % 8.3 %; Mean Corpuscular HGB Conc 32.3 g/dL (30-55); Mean Corpuscular Hemoglobin 28.2 pg (27-33); Mean Corpuscular Volume 87.5 fl (82-101); Mean Platelet Volume 10.1 fL (7.4-10.4); Monocytes # 1.2 10^3/uL (0.2-0.9); Monocytes % 4.3 %; Neutrophils # 22.66 10^3/uL (1.8-7.7); Neutrophils % 84.9 %; Nucleated Red Blood Cells % 0 %; Platelet Count 217 10^3/cmm (157-399); Red Blood Count 4.57 10^6/uL (3.85-5.65); Red Cell Distribution Width 18.7 % (12.1-15.1)
[2023-07-19 08:26] LABS: Alanine Aminotransferase 27 U/L (0-41); Albumin Level 3.2 g/dL (3.5-5.2); Alkaline Phosphatase 186 U/L (40-130); Anion Gap 15.4 (5-19); Aspartate Amino Transferase 41 U/L (0-40); Blood Urea Nitrogen 10 mg/dL (6-20); Calcium 8.4 mg/dL (8.5-10.5); Carbon Dioxide 27 mmol/L (22-29); Chloride 102 mmol/L (98-107); Globulin 3.4 g/dL (1.3-4.6); Glomerular Filtration Rate 138.4 mL/min (90-130); Glucose 83 mg/dL (65-115); Osmolality Calculated 288 mOsm/kg (285-295); Potassium 4.4 mmol/L (3.5-5.1); Sodium 140 mmol/L (136-145); Total Bilirubin 0.6 mg/dL (0.15-1.2); Total Protein 6.6 g/dL (6.6-8.7)
[2023-07-19] MEDS: ipratropium-albuterol 3 mL Neb INHALATION (09:00)
[2023-07-26 07:58] LABS: Basophils % 0.1 %; Hematocrit 36.2 % (37-53); Lymphocytes # 0.6 10^3/uL (0.8-4.8); Lymphocytes % 6.3 %; Mean Corpuscular HGB Conc 31.8 g/dL (30-55); Mean Corpuscular Hemoglobin 28.5 pg (27-33); Mean Corpuscular Volume 89.6 fl (82-101); Monocytes # 0.3 10^3/uL (0.2-0.9); Monocytes % 3.2 %; Neutrophils # 8.77 10^3/uL (1.8-7.7); Neutrophils % 89.1 %; Nucleated Red Blood Cells % 0 %; Platelet Count 105 10^3/cmm (157-399); Red Blood Count 4.04 10^6/uL (3.85-5.65); Red Cell Distribution Width 20.6 % (12.1-15.1); White Blood Count 9.84 10^3/uL (3.29-11.43)
[2023-07-26 08:17] LABS: Alanine Aminotransferase 34 U/L (0-41); Albumin Level 3.4 g/dL (3.5-5.2); Alkaline Phosphatase 157 U/L (40-130); Anion Gap 12.7 (5-19); Aspartate Amino Transferase 34 U/L (0-40); Blood Urea Nitrogen 11 mg/dL (6-20); Calcium 8.6 mg/dL (8.5-10.5); Carbon Dioxide 29 mmol/L (22-29); Chloride 101 mmol/L (98-107); Creatinine Clr Calc Pharmacy 166.4664; Globulin 3.4 g/dL (1.3-4.6); Glomerular Filtration Rate 170.8 mL/min (90-130); Glucose 126 mg/dL (65-115); Osmolality Calculated 287 mOsm/kg (285-295); Potassium 4.7 mmol/L (3.5-5.1); Sodium 138 mmol/L (136-145); Total Bilirubin 0.5 mg/dL (0.15-1.2); Total Protein 6.8 g/dL (6.6-8.7)
[2023-08-10 07:57] LABS: Basophils % 0.3 %; Eosinophils # 0.2 10^3/uL (0.0-0.8); Eosinophils % 3.3 %; Hematocrit 36.7 % (37-53); Lymphocytes # 1.1 10^3/uL (0.8-4.8); Lymphocytes % 15.9 %; Mean Corpuscular HGB Conc 32.4 g/dL (30-55); Mean Corpuscular Volume 89.5 fl (82-101); Mean Platelet Volume 8.8 fL (7.4-10.4); Monocytes # 0.7 10^3/uL (0.2-0.9); Monocytes % 10.4 %; Neutrophils # 4.82 10^3/uL (1.8-7.7); Nucleated Red Blood Cells % 0 %; Platelet Count 135 10^3/cmm (157-399); Red Cell Distribution Width 19.9 % (12.1-15.1)
[2023-08-10 08:20] LABS: Alanine Aminotransferase 26 U/L (0-41); Albumin Level 3.7 g/dL (3.5-5.2); Alkaline Phosphatase 299 U/L (40-130); Anion Gap 15.3 (5-19); Aspartate Amino Transferase 33 U/L (0-40); Blood Urea Nitrogen 7 mg/dL (6-20); Calcium 9.5 mg/dL (8.5-10.5); Carbon Dioxide 24 mmol/L (22-29); Chloride 103 mmol/L (98-107); Creatinine Clr Calc Pharmacy 167.7064; Globulin 3.9 g/dL (1.3-4.6); Glomerular Filtration Rate 170.8 mL/min (90-130); Glucose 106 mg/dL (65-115); Osmolality Calculated 284 mOsm/kg (285-295); Potassium 4.3 mmol/L (3.5-5.1); Sodium 138 mmol/L (136-145); Total Bilirubin 0.8 mg/dL (0.15-1.2); Total Protein 7.6 g/dL (6.6-8.7)
[2023-08-10] MEDS: dextrose 5% 250 ML 75 ML IV (09:15)
[2023-08-10] MEDS: palonosetron 0.25 mg/5 mL SDV IVP (09:19)
[2023-08-10 09:38] LABS: Add Urine Microscopic? NO; Charge for UA Resulting for Rev
[2023-08-10 09:45] LABS: Bilirubin Urine Neg (Negative); Blood Urine Neg (Negative); Glucose Urine UA Norm (Normal); Ketones Urine Negative (Negative); Leukocyte Esterase Urine Negative (Negative); Nitrate Urine Negative (Negative); Protein Urine Neg (Negative); Urine Appearance Clear (CLEAR); Urine Color Yellow (Yellow); Urobilinogen Urine Norm (Negative); pH Urine 6 (5-7)
[2023-08-10] MEDS: sodium chloride 0.9% 250 ML 75 ML IV (09:45)
[2023-08-10] MEDS: bevacizumab-awwb 370 MG in sodium chloride 0.9% (100 ml) 100 ML 300 MG IV (09:46)
[2023-08-10 10:22] LABS: Carcinoembryonic Antigen 61.3 ng/mL (0.0-4.7)
[2023-08-10] MEDS: atropine 1 mg/mL SDV 1 mL 0.400000000000000022 MG IV (10:30)
[2023-08-10] MEDS: leucovorin 760 MG in dextrose 5% 250 ML 166.669999999999987 MG IV (10:31)
[2023-08-10] MEDS: irinotecan 300 MG, irinotecan 40 MG in dextrose 5% 250 ML 178 MG IV (10:31)
[2023-08-10] MEDS: fluorouraciL 4,550 MG, elastomeric pump 1 PUMP in sodium chloride 0.9% (100 ml) 1 ML IV (12:18)
[2023-08-10 12:23] VITALS: BP 117/70; PULSE 78; RESP 17; TEMP 36.3; O2SAT 97
[2023-08-12 09:24] VITALS: BP 151/75; PULSE 81; RESP 16; TEMP 36.6; O2SAT 99
== END 2023-08-13 23:59 | disposition home or self-care (01) ==
PROVIDERS: Internal Medicine; Nurse Practitioner Family; PCP Family Medicine; Visit Provider Radiology Radiation Oncology
DX: Z53.9 Procedure and treatment not carried out, unspecified reason (principal); Z45.1 Encounter for adjustment and management of infusion pump
CPT/HCPCS: 80053; 81003; 82378; 85025; 96367; 96368; 96375; 96413; 96415; 96416; 96417; 96523; J0461; J0640; J1100; J2469; J7050; J7060; J9190; J9206; Q5107

== ENCOUNTER → 2023-09-01 15:25 | Outpatient (CLI) | payer OTHER, SELFPAY ==
--- NOTE | 2023-09-01 16:30 | CTR_ITS ---
PROCEDURE INFORMATION: Exam: CT Chest With Contrast; Diagnostic Exam date and time: 09/01/2023 4:34 PM Age: 57 years old Clinical indication: Abnormal findings; Abnormal lab test; Elevated cea; Abnormal diagnostic tests; Other: Rising cea; Prior surgery; Surgery date: 6+ months; Surgery type: Colon, port; Patient HX: HX of colorectal, liver cancer TECHNIQUE: Imaging protocol: Diagnostic computed tomography of the chest with contrast. Radiation optimization: All CT scans at this facility use at least one of these dose optimization techniques: automated exposure control; mA and/or kV adjustment per patient size (includes targeted exams where dose is matched to clinical indication); or iterative reconstruction. Contrast material: OMNI 350; Contrast volume: 100 ml; Contrast route: INTRAVENOUS (IV); COMPARISON: PT PET skull to thigh SUBS [id number] 07/13/2023 10:50 AM RADIATION DOSE METRICS: Total DLP (mGy-cm): 777.64 FINDINGS: Tubes, catheters and devices: Intravenous chest port noted overlying the left chest. Lungs: Innumerable small nodules again noted throughout the lungs similar to prior exam. Right upper lobe azygous fissure noted. Pleural spaces: Unremarkable. No pneumothorax. No pleural effusion. Heart: The heart is within normal limits for size. There is no evidence of pericardial abnormality. Esophagus: Circumferential wall thickening of the distal esophagus similar to prior exams could be related to GERD. Lymph nodes: Unremarkable. No enlarged lymph nodes. Vasculature: Unremarkable. Bones/joints: Multilevel degenerative changes in the spine. Soft tissues: Unremarkable. PROCEDURE INFORMATION: Exam: CT Abdomen And Pelvis With Contrast Exam date and time: 09/01/2023 4:34 PM Age: 57 years old Clinical indication: Abnormal findings; Abnormal lab test; Elevated cea; Abnormal diagnostic tests; Other: Rising cea; Prior surgery; Surgery date: 6+ months; Surgery type: Colon, port; Patient HX: HX of colorectal, liver cancer TECHNIQUE: Imaging protocol: Computed tomography of the abdomen and pelvis with contrast. Radiation optimization: All CT scans at this facility use at least one of these dose optimization techniques: automated exposure control; mA and/or kV adjustment per patient size (includes targeted exams where dose is matched to clinical indication); or iterative reconstruction. Contrast material: OMNI 350; Contrast volume: 100 ml; Contrast route: INTRAVENOUS (IV); COMPARISON: PT PET skull to thigh SUBS [id number] 07/13/2023 10:50 AM RADIATION DOSE METRICS: Total DLP (mGy-cm): 777.64 FINDINGS: Liver: Multiple masses in the right and left lobes of the liver again noted similar to prior exams, with overall no significant change. Gallbladder and bile ducts: The gallbladder appears unremarkable. No intra- or extra-hepatic biliary ductal dilatation. Pancreas: The pancreas appears normal. Spleen: The spleen appears normal. Adrenal glands: The adrenals appear normal. Kidneys and ureters: The kidneys enhance symmetrically and empty into non-dilated ureters. Stomach and bowel: The stomach appears unremarkable. The small bowel loops are not abnormally dilated. Postsurgical changes at the rectosigmoid junction. Left lower quadrant colostomy noted. Colonic diverticulosis without signs of acute diverticulitis. Appendix: No signs of appendicitis. Intraperitoneal space: Trace right perihepatic ascites again noted. Trace free fluid in the pelvis. Vasculature: Questionable small paraesophageal varices. Prominent mesenteric vein again noted extending to the colostomy site similar to prior exams. Lymph nodes: There are no enlarged lymph nodes. Urinary bladder: Mild circumferential wall thickening of the urinary bladder which is not well distended, similar to prior exam. Reproductive: Unremarkable as visualized. Bones/joints: Unremarkable. Soft tissues: Unremarkable. CT/CT chest abdpel w/*[id number] IMPRESSION: 1. Innumerable small nodules again noted throughout the lungs similar to prior exam. 2. Circumferential wall thickening of the distal esophagus similar to prior exams could be related to GERD. IMPRESSION: 1. Multiple masses in the liver similar to prior exams. No significant interval change. 2. Trace ascites.
[2023-09-01] MEDS: iohexol 350 mg/mL 500 mL Btl (per mL) PO (16:45)
[2023-09-01] MEDS: iohexol 350 mg/mL 500 mL Btl (per mL) IV (16:45)
== END | disposition home or self-care (01) ==
LOC: RAD 15:27
PROVIDERS: PCP Family Medicine; Visit Provider Nurse Practitioner Family
DX: C20 Malignant neoplasm of rectum (principal); R91.8 Other nonspecific abnormal finding of lung field; K22.89 Other specified disease of esophagus; K76.89 Other specified diseases of liver; Z85.038 Personal history of other malignant neoplasm of large intestine; Z85.05 Personal history of malignant neoplasm of liver; Z93.3 Colostomy status; K57.90 Diverticulosis of intestine, part unspecified, without perforation or abscess without bleeding
CPT/HCPCS: 71260; 74177; Q9967

== ENCOUNTER 2023-09-07 07:40 | Oncology outpatient (recurring) (ONCR) | payer OTHER, SELFPAY ==
[2023-08-24 08:09] LABS: Basophils % 0.4 %; Eosinophils # 0.1 10^3/uL (0.0-0.8); Eosinophils % 1.4 %; Hematocrit 36.3 % (37-53); Lymphocytes # 0.9 10^3/uL (0.8-4.8); Lymphocytes % 19.1 %; Mean Corpuscular HGB Conc 31.7 g/dL (30-55); Mean Corpuscular Hemoglobin 27.7 pg (27-33); Mean Corpuscular Volume 87.5 fl (82-101); Mean Platelet Volume 9.3 fL (7.4-10.4); Monocytes # 0.7 10^3/uL (0.2-0.9); Neutrophils # 3.12 10^3/uL (1.8-7.7); Neutrophils % 63.9 %; Nucleated Red Blood Cells % 0 %; Platelet Count 113 10^3/cmm (157-399); Red Blood Count 4.15 10^6/uL (3.85-5.65); Red Cell Distribution Width 18.3 % (12.1-15.1); White Blood Count 4.88 10^3/uL (3.29-11.43)
[2023-08-24 08:37] LABS: Carcinoembryonic Antigen 83.4 ng/mL (0.0-4.7)
[2023-08-24 08:49] LABS: Alanine Aminotransferase 16 U/L (0-41); Albumin Level 3.6 g/dL (3.5-5.2); Alkaline Phosphatase 207 U/L (40-130); Anion Gap 13.2 (5-19); Aspartate Amino Transferase 24 U/L (0-40); Blood Urea Nitrogen 11 mg/dL (6-20); Calcium 8.7 mg/dL (8.5-10.5); Carbon Dioxide 26 mmol/L (22-29); Chloride 104 mmol/L (98-107); Creatinine Clr Calc Pharmacy 136.3113; Globulin 3.2 g/dL (1.3-4.6); Glomerular Filtration Rate 138.4 mL/min (90-130); Glucose 94 mg/dL (65-115); Osmolality Calculated 287 mOsm/kg (285-295); Potassium 4.2 mmol/L (3.5-5.1); Sodium 139 mmol/L (136-145); Total Bilirubin 0.6 mg/dL (0.15-1.2); Total Protein 6.8 g/dL (6.6-8.7)
[2023-08-24] MEDS: palonosetron 0.25 mg/5 mL SDV IVP (09:21)
[2023-08-24] MEDS: sodium chloride 0.9% 250 ML 75 ML IV (09:21)
[2023-08-24] MEDS: bevacizumab-awwb 370 MG in sodium chloride 0.9% (100 ml) 100 ML 228 MG IV (09:54)
[2023-08-24] MEDS: atropine 1 mg/mL SDV 1 mL 0.400000000000000022 MG IV (10:31)
[2023-08-24] MEDS: leucovorin 760 MG in dextrose 5% 250 ML 166.669999999999987 MG IV (10:52)
[2023-08-24] MEDS: irinotecan 300 MG, irinotecan 40 MG in dextrose 5% 250 ML 178 MG IV (10:53)
[2023-08-24] MEDS: fluorouraciL 4,550 MG in elastomeric pump 1 PUMP 1.97999999999999998 MG IV (13:01)
[2023-08-24 13:07] VITALS: BP 133/84; PULSE 58; RESP 16; O2SAT 96
[2023-08-26 12:00] VITALS: BP 149/96; PULSE 82; RESP 16; TEMP 36.7; O2SAT 96
[2023-09-07 08:16] LABS: Basophils % 0.6 %; Eosinophils # 0.1 10^3/uL (0.0-0.8); Eosinophils % 2.6 %; Hematocrit 34.8 % (37-53); Lymphocytes # 1.2 10^3/uL (0.8-4.8); Lymphocytes % 39.9 %; Mean Corpuscular HGB Conc 31.9 g/dL (30-55); Mean Corpuscular Hemoglobin 27.5 pg (27-33); Mean Corpuscular Volume 86.4 fl (82-101); Mean Platelet Volume 10.3 fL (7.4-10.4); Monocytes # 0.4 10^3/uL (0.2-0.9); Monocytes % 14.3 %; Neutrophils % 42.3 %; Nucleated Red Blood Cells % 0 %; Platelet Count 136 10^3/cmm (157-399); Red Blood Count 4.03 10^6/uL (3.85-5.65); Red Cell Distribution Width 17.5 % (12.1-15.1); White Blood Count 3.08 10^3/uL (3.29-11.43)
[2023-09-07 08:45] LABS: Carcinoembryonic Antigen 80.3 ng/mL (0.0-4.7)
[2023-09-07 08:57] LABS: Alanine Aminotransferase 11 U/L (0-41); Albumin Level 3.5 g/dL (3.5-5.2); Alkaline Phosphatase 176 U/L (40-130); Anion Gap 17.1 (5-19); Aspartate Amino Transferase 25 U/L (0-40); Blood Urea Nitrogen 5 mg/dL (6-20); Calcium 8.9 mg/dL (8.5-10.5); Carbon Dioxide 24 mmol/L (22-29); Chloride 107 mmol/L (98-107); Globulin 2.9 g/dL (1.3-4.6); Glomerular Filtration Rate 138.4 mL/min (90-130); Glucose 120 mg/dL (65-115); Osmolality Calculated 296 mOsm/kg (285-295); Potassium 4.1 mmol/L (3.5-5.1); Sodium 144 mmol/L (136-145); Total Bilirubin 0.3 mg/dL (0.15-1.2); Total Protein 6.4 g/dL (6.6-8.7)
== END 2023-09-12 23:59 | disposition home or self-care (01) ==
PROVIDERS: Nurse Practitioner Family; PCP Family Medicine; Visit Provider Radiology Radiation Oncology
DX: Z53.9 Procedure and treatment not carried out, unspecified reason (principal); C20 Malignant neoplasm of rectum
CPT/HCPCS: 80053; 82378; 85025; 96367; 96375; 96413; 96415; 96416; 96417; 96523; J0461; J0640; J1100; J2469; J7050; J7060; J9190; J9206; Q5107

== ENCOUNTER 2023-10-04 11:00 | Oncology outpatient (recurring) (ONCR) | payer OTHER, SELFPAY ==
--- NOTE | 2023-09-14 12:30 | PETR_ITS ---
PROCEDURE INFORMATION: Exam: PET/CT Skull Base to Mid-thigh Exam date and time: 09/14/2023 12:48 PM Age: 57 years old Clinical indication: Abnormal findings; Significant increase in cea; Prior surgery; Surgery date: 6+ months; Surgery type: Colon port; Patient HX: HX of colorectal and liver cancer. There was a previously provided history of chemotherapy and radiation therapy. LABS AND CLINICAL REPORTS: Glucose: 94 mg/dl Treatment strategy for malignancy (PET staging): Restaging (PS) TECHNIQUE: Imaging protocol: Following at least four-hour fasting and following the injection of radiopharmaceutical, low dose CT images were obtained. Then, PET images were obtained. Attenuation corrected images were constructed using the CT scan. Fused images of PET and CT were reviewed. The standardized uptake values (SUV) reported below are maximum values within a region of interest, expressed in gm/ml. Exam includes orbital meatal line to mid-thigh. Radiopharmaceutical: 12.1 mCi F-18 FDG (Fluorodeoxyglucose), IV. Time of imaging post radiopharmaceutical administration: 1 hour Injection site: Right antecubital COMPARISON: CT chest, abdomen and pelvis 09/01/2023, PT PET skull to thigh SUBS [id number] 07/13/2023 10:50 AM FINDINGS: Tubes, catheters and devices: A left subclavian central venous port catheter terminates in the SVC. Brain: Visualized brain has normal physiologic uptake. Pharynx: No abnormal uptake. Larynx: No abnormal uptake. Lungs, pleura and trachea: No abnormal uptake. Small, left greater than right pleural effusions are noted. Numerous scattered solid noncalcified bilateral pulmonary nodules are identified measuring less than 1 cm. None of these nodules are radiotracer avid. Some of these nodules are new while others appear similar or increased in size since the prior PET-CT. Examples: Lateral right lower lobe measuring 6 mm on series 3, image 95, SUV max 0.7; similar in size in the medial left lower lobe measuring 6 mm on series 3, image 96, SUV max 1.0. Heart: Normal physiologic uptake. Mediastinal space: No abnormal uptake. Liver: Regions heterogeneous abnormal uptake in the liver are noted, SUV max 6.5 (previously 6.1) on series 12, image 118 in the superior left lobe corresponding to partially calcified appearing ill-defined regions of low-density on the CT images. Overall these regions demonstrate similar increased uptake, for example along the anterior left lobe of the liver on series 3, image 130, SUV max 5.8 (previously 4.4) and posterior right liver lobe on series 3, image 123, SUV max 4.5 (previously 3.8). Gallbladder and biliary ducts: No abnormal uptake. Pancreas: No abnormal uptake. Spleen: No abnormal uptake. Adrenal glands: No abnormal uptake. Kidneys and ureters: Normal physiologic uptake. Stomach and bowel: There are scattered colonic diverticula. A colostomy site is present. Uptake in the distal rectum is likely inflammatory or physiologic, SUV max 4.7 (previously 3.3). Assessment of the rectal wall is limited by incomplete distension. Urinary bladder: Mild diffuse thickening of the wall of the urinary bladder is noted with mild surrounding fat stranding. Vasculature: No abnormal uptake. Lymph nodes: No abnormal uptake. No lymphadenopathy in the head, neck, chest, abdomen, pelvis, and extremities. Small calcified non radiotracer avid lymph nodes in the region of the monie , portacaval region, retroperitoneal periaortic space and right iliac chain lymph nodes are similar and remain non radiotracer avid. A previously noted right paratracheal lymph node currently measures 9 mm (previously 1.2 cm on the prior PET-CT) and is no longer radiotracer avid, SUV max 0.8 (previously 2.7). Skeleton: Elevated uptake in the medial right acetabulum is noted, SUV max 6.1 (previously 3.9), with mild ill-defined corresponding sclerosis on series 3, image 221. This uptake is greatest inferiorly at the junction with the right inferior pubic ramus. Uptake in the more superior medial aspect of the right acetabulum has increased without a well-defined lesion on the CT images, for example within SUV max 3.5 (previously 2.7) on series 3, image 214. No additional foci of abnormal uptake in the osseous structures are identified. Degenerative changes in the spine are present. Soft tissues: No abnormal uptake in the visualized head, neck, chest, abdomen, pelvis, and extremities. METRICS: Mediastinal blood pool: SUV max 1.7 PET/PET skull to thigh SUBS [id number] IMPRESSION: 1. There has been an overall increase in abnormal uptake within metastatic lesions in the liver concerning for increased malignant metastatic involvement. 2. Uptake within the right acetabulum has increased concerning for increased malignant involvement. No new osseous radiotracer avid lesions are identified. 3. Numerous small non radiotracer avid pulmonary nodules are noted, some of which appear similar in size while others are new or increased in size compared to the prior PET-CT. Although lack of uptake in these nodules can be associated with a benign etiology, assessment of small nodules is limited and metastases cannot be excluded from this examination. 4. Interval decrease in size of a right paratracheal lymph node compared to the prior PET-CT with interval resolution of elevated uptake in this region. 5. Interval increase in uptake in the region of the distal rectum is noted which is likely physiologic or inflammatory. A malignant etiology is less likely. 6. Small bilateral pleural effusions. 7. Additional nonurgent findings as detailed above.
[2023-10-04 11:41] LABS: Basophils # 0.1 10^3/uL (0.0-0.1); Basophils % 1.2 %; Eosinophils # 0.2 10^3/uL (0.0-0.8); Eosinophils % 3.9 %; Hematocrit 39.4 % (37-53); Lymphocytes # 1.4 10^3/uL (0.8-4.8); Lymphocytes % 24.3 %; Mean Corpuscular Hemoglobin 27.2 pg (27-33); Mean Corpuscular Volume 85.1 fl (82-101); Mean Platelet Volume 10.7 fL (7.4-10.4); Monocytes # 0.8 10^3/uL (0.2-0.9); Monocytes % 13.9 %; Neutrophils % 56.5 %; Nucleated Red Blood Cells % 0 %; Platelet Count 178 10^3/cmm (157-399); Red Blood Count 4.63 10^6/uL (3.85-5.65); Red Cell Distribution Width 16.7 % (12.1-15.1); White Blood Count 5.84 10^3/uL (3.29-11.43)
[2023-10-04 12:00] LABS: Alanine Aminotransferase 30 U/L (0-41); Albumin Level 3.8 g/dL (3.5-5.2); Alkaline Phosphatase 313 U/L (40-130); Anion Gap 17.3 (5-19); Aspartate Amino Transferase 48 U/L (0-40); Blood Urea Nitrogen 5 mg/dL (6-20); Carbon Dioxide 25 mmol/L (22-29); Chloride 104 mmol/L (98-107); Globulin 3.5 g/dL (1.3-4.6); Glomerular Filtration Rate 138.4 mL/min (90-130); Glucose 97 mg/dL (65-115); Osmolality Calculated 291 mOsm/kg (285-295); Potassium 4.3 mmol/L (3.5-5.1); Sodium 142 mmol/L (136-145); Total Bilirubin 0.4 mg/dL (0.15-1.2); Total Protein 7.3 g/dL (6.6-8.7)
[2023-10-04 12:16] VITALS: BP 138/88; PULSE 71; O2SAT 99
[2023-10-04] MEDS: sodium chloride 0.9% 250 ML 75 ML IV (12:28)
[2023-10-04] MEDS: famotidine 20 mg/2 mL INJ IVP (12:29)
[2023-10-04] MEDS: acetaminophen 325 mg Tablet 650 MG PO (12:30)
[2023-10-04] MEDS: diphenhydrAMINE 50 mg/mL SDV 1mL IVP (12:35)
[2023-10-04] MEDS: PANITUMUMAB IV (13:08)
[2023-10-04] MEDS: SODIUM CHLORIDE 0.9% IV (13:08)
[2023-10-04 14:30] VITALS: BP 114/77; PULSE 68; RESP 16; O2SAT 99
== END 2023-10-13 23:59 | disposition home or self-care (01) ==
PROVIDERS: Internal Medicine Medical Oncology; PCP Family Medicine; Visit Provider Radiology Radiation Oncology
DX: Z53.8 Procedure and treatment not carried out for other reasons; C20 Malignant neoplasm of rectum; C78.7 Secondary malignant neoplasm of liver and intrahepatic bile duct; Z51.11 Encounter for antineoplastic chemotherapy; Z79.899 Other long term (current) drug therapy
CPT/HCPCS: 78815; 80053; 85025; 96375; 96413; A4222; A9552; J1200; J3490; J7050; J9303

== ENCOUNTER 2023-11-02 13:05 | Oncology outpatient (recurring) (ONCR) | payer OTHER, SELFPAY ==
[2023-10-18 08:58] LABS: Basophils % 0.5 %; Eosinophils # 0.2 10^3/uL (0.0-0.8); Eosinophils % 2.3 %; Hematocrit 39.5 % (37-53); Lymphocytes # 1.5 10^3/uL (0.8-4.8); Lymphocytes % 22.3 %; Mean Corpuscular HGB Conc 31.9 g/dL (30-55); Mean Corpuscular Volume 84.8 fl (82-101); Mean Platelet Volume 10.6 fL (7.4-10.4); Monocytes # 0.9 10^3/uL (0.2-0.9); Monocytes % 13.7 %; Neutrophils # 3.95 10^3/uL (1.8-7.7); Neutrophils % 60.9 %; Nucleated Red Blood Cells % 0 %; Platelet Count 102 10^3/cmm (157-399); Red Blood Count 4.66 10^6/uL (3.85-5.65); Red Cell Distribution Width 16.3 % (12.1-15.1); White Blood Count 6.49 10^3/uL (3.29-11.43)
[2023-10-18 09:28] LABS: Alanine Aminotransferase 27 U/L (0-41); Alkaline Phosphatase 234 U/L (40-130); Anion Gap 14.8 (5-19); Aspartate Amino Transferase 38 U/L (0-40); Blood Urea Nitrogen 7 mg/dL (6-20); Calcium 8.9 mg/dL (8.5-10.5); Carbon Dioxide 26 mmol/L (22-29); Chloride 101 mmol/L (98-107); Creatinine Clr Calc Pharmacy 162.3336; Globulin 2.9 g/dL (1.3-4.6); Glomerular Filtration Rate 170.8 mL/min (90-130); Glucose 92 mg/dL (65-115); Osmolality Calculated 284 mOsm/kg (285-295); Potassium 3.8 mmol/L (3.5-5.1); Sodium 138 mmol/L (136-145); Total Bilirubin 0.5 mg/dL (0.15-1.2); Total Protein 6.9 g/dL (6.6-8.7)
--- NOTE | 2023-10-18 14:37 | ONCRAD EPV_ITS ---
Radiation Oncology Established Patient Visit Patient: Nancy Mora [id number] : 1965> Age: 57> Sex: Male> Dictated by: Dr. 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 ID: [id number], Energy: 15X, Dose/Fx (cGy): 400, #Fx: 5 / 5, Dose Correction (cGy): 0, Total Dose Delivered (cGy): 2,000, Start Date: 01/27/2023, End Date: 02/02/2023, Elapsed Days: 6 Current History: Current Medications: Adult One Daily Gummies, allergy Relief (Loratadine), anti-Diarrheal, diphenoxylate-Atropine, escitalopram Oxalate, finasteride, lORazepam, oxyCODONE-Acetaminophen, prochlorperazine Maleate, senna, sildenafil Citrate, tamsulosin HCl. Allergies: Current Complaints / Review of Systems: . Patient is seen today as he has had new x-rays and new symptoms that have shown he has had progression of disease in the right hip. His last treatment was in January 2023. He had good response to the pain at that time. He said has been hurting for several weeks now. It does not hurt when he sleeps. It really only bothers him when he walks. Vital Signs: Performed on 10/18/2023 9:43 AM BMI - 20.675 kg/m2, Height - 69 in, Weight - 140 lbs, Temperature - 96.5 f, Pulse - 72 /min, Respiration - 18 /min, O2 Sat - 99 %, Pain - 3, Fatigue - 0 and BP - 146/ 88 mm(hg)(high/). Physical Exam: General: Alert and oriented x 3. No acute distress. HEENT: Normocephalic atraumatic. Pupils are equal round reactive to light. Extraocular muscles intact.. LUNGS: Respiratory is regular nonlabored HEART: Regular rate and rhythm ABDOMEN: Mildly protuberant android pattern EXTREMITIES: No peripheral edema is identified. NEUROLOGIC: Alert and orient x 3. Gait and speech within normal limits. Performance Status: Lab: None pending. Pathology: Adenocarcinoma of the rectum Imaging: See HPI Impression: Stage IV adenocarcinoma of the rectum now with recurrent pain in the right acetabulum Plan: At this time we talked about how we could do an additional 5 treatments on this area to get his pain under control. We reviewed how the last time it lasted about 8 months. We reviewed how at this point it more than likely they would last less time. I reviewed with him whether he had any symptoms last time and he did not. We talked about doing the same area and how the risks and side effects would be similar to what he had previously. He verbalized understanding of this and he will return tomorrow to undergo simulation. He is currently in the midst of a 2-week break from his immunotherapy. Signed by: 10/18/2023 2:35:43 PM <<Signature on File>> Time spent with patient:20 CPT Code: CPT Code:
--- NOTE | 2023-11-02 13:27 | N.ONRD TS_ITS ---
Radiation Oncology Treatment Summary Patient: Morgan Cruz MR#: [id number] : 1965 Age: 57 Sex: Male Dictated by: Dr. Maribell Heath Date of Service: 11/02/2023 Referring Physician(s) : Dr. Brar Diagnosis: C20 - Malignant neoplasm of rectum, Diagnosed 10/18/2023 (Active) C79.51 - Secondary malignant neoplasm of bone, Diagnosed 10/18/2023 (Active) Radiotherapy to Date: Course: RT Hip 2022, Treatment Site: RT Hip, Ref. ID: [id number], Energy: 15X, Dose/Fx (cGy): 400, #Fx: 5 / 5, Dose Correction (cGy): 0, Total Dose Delivered (cGy): 2,000, Start Date: 01/27/2023, End Date: 02/02/2023, Elapsed Days: 6 Course: rt hip 2023, Treatment Site: RT Hip 2023, Ref. ID: [id number], Energy: 15X, Dose/Fx (cGy): 400, #Fx: 5 / 5, Dose Correction (cGy): 0, Total Dose Delivered (cGy): 2,000, Start Date: 10/27/2023, End Date: 11/02/2023, Elapsed Days: 6 Vital Signs: Performed on 11/02/2023 12:40 PM BMI - 25.43 kg/m2 (high), Height - 69 in, Weight - 172.2 lbs, Temperature - 97.7 f, Pulse - 97 /min, Respiration - 16 /min, O2 Sat - 97 %, Pain - 0, Fatigue - 0 and BP - 148/ 88 mm(hg)(high/). Clinical Summary: The patient tolerated RT well. He had no toxicity. By the completion of his treatment he had no pain. He is scheduled to start additional chemotherapy on November 15 Plan: End of treatment today. Continue on the above medication until the skin reaction resolves. Follow up as needed Signed by: Dr. Maribell Heath>11/02/2023 1:25:11 PM <<Signature on File>>
[2023-11-16 08:52] LABS: Basophils % 0.2 %; Eosinophils % 0.2 %; Hematocrit 39.5 % (37-53); Lymphocytes # 1.2 10^3/uL (0.8-4.8); Lymphocytes % 11.3 %; Mean Corpuscular HGB Conc 32.4 g/dL (30-55); Mean Corpuscular Hemoglobin 27.6 pg (27-33); Mean Corpuscular Volume 85.3 fl (82-101); Mean Platelet Volume 9.8 fL (7.4-10.4); Monocytes # 1.2 10^3/uL (0.2-0.9); Monocytes % 10.9 %; Neutrophils # 8.34 10^3/uL (1.8-7.7); Nucleated Red Blood Cells % 0 %; Platelet Count 121 10^3/cmm (157-399); Red Blood Count 4.63 10^6/uL (3.85-5.65); Red Cell Distribution Width 19.9 % (12.1-15.1); White Blood Count 10.82 10^3/uL (3.29-11.43)
[2023-11-16 09:16] LABS: Carcinoembryonic Antigen 138.1 ng/mL (0.0-4.7)
[2023-11-16 09:28] LABS: Alanine Aminotransferase 52 U/L (0-41); Albumin Level 3.9 g/dL (3.5-5.2); Alkaline Phosphatase 273 U/L (40-130); Anion Gap 19.2 (5-19); Aspartate Amino Transferase 63 U/L (0-40); Blood Urea Nitrogen 14 mg/dL (6-20); Calcium 8.9 mg/dL (8.5-10.5); Carbon Dioxide 24 mmol/L (22-29); Chloride 99 mmol/L (98-107); Globulin 3.4 g/dL (1.3-4.6); Glomerular Filtration Rate 138.4 mL/min (90-130); Glucose 99 mg/dL (65-115); Osmolality Calculated 287 mOsm/kg (285-295); Potassium 4.2 mmol/L (3.5-5.1); Sodium 138 mmol/L (136-145); Total Bilirubin 1.3 mg/dL (0.15-1.2); Total Protein 7.3 g/dL (6.6-8.7)
== END 2023-11-13 23:59 | disposition home or self-care (01) ==
PROVIDERS: Internal Medicine Medical Oncology; Nurse Practitioner Family; PCP Family Medicine; Visit Provider Radiology Radiation Oncology
DX: C20 Malignant neoplasm of rectum (principal); Z51.0 Encounter for antineoplastic radiation therapy; C79.51 Secondary malignant neoplasm of bone
CPT/HCPCS: 77290; 77295; 77300; 77334; 77336; 77387; 77412; 77470; 80053; 85025

== ENCOUNTER 2023-12-07 09:30 | Oncology outpatient (recurring) (ONCR) | payer OTHER, SELFPAY ==
[2023-11-16 08:52] LABS: Basophils % 0.2 %; Eosinophils % 0.2 %; Hematocrit 39.5 % (37-53); Lymphocytes # 1.2 10^3/uL (0.8-4.8); Lymphocytes % 11.3 %; Mean Corpuscular HGB Conc 32.4 g/dL (30-55); Mean Corpuscular Hemoglobin 27.6 pg (27-33); Mean Corpuscular Volume 85.3 fl (82-101); Mean Platelet Volume 9.8 fL (7.4-10.4); Monocytes # 1.2 10^3/uL (0.2-0.9); Monocytes % 10.9 %; Neutrophils # 8.34 10^3/uL (1.8-7.7); Nucleated Red Blood Cells % 0 %; Platelet Count 121 10^3/cmm (157-399); Red Blood Count 4.63 10^6/uL (3.85-5.65); Red Cell Distribution Width 19.9 % (12.1-15.1); White Blood Count 10.82 10^3/uL (3.29-11.43)
[2023-11-16 09:16] LABS: Carcinoembryonic Antigen 138.1 ng/mL (0.0-4.7)
[2023-11-16 09:28] LABS: Alanine Aminotransferase 52 U/L (0-41); Albumin Level 3.9 g/dL (3.5-5.2); Alkaline Phosphatase 273 U/L (40-130); Anion Gap 19.2 (5-19); Aspartate Amino Transferase 63 U/L (0-40); Blood Urea Nitrogen 14 mg/dL (6-20); Calcium 8.9 mg/dL (8.5-10.5); Carbon Dioxide 24 mmol/L (22-29); Chloride 99 mmol/L (98-107); Globulin 3.4 g/dL (1.3-4.6); Glomerular Filtration Rate 138.4 mL/min (90-130); Glucose 99 mg/dL (65-115); Osmolality Calculated 287 mOsm/kg (285-295); Potassium 4.2 mmol/L (3.5-5.1); Sodium 138 mmol/L (136-145); Total Bilirubin 1.3 mg/dL (0.15-1.2); Total Protein 7.3 g/dL (6.6-8.7)
[2023-11-16] MEDS: sodium chloride 0.9% 250 ML 75 ML IV (11:18)
[2023-11-16] MEDS: dexamethasone 10 mg/mL INJ 6 MG IVP (11:21)
[2023-11-16] MEDS: acetaminophen 325 mg Tablet 650 MG PO (11:21)
[2023-11-16] MEDS: diphenhydrAMINE 50 mg/mL SDV 1mL IVP (11:26)
[2023-11-16] MEDS: famotidine 20 mg/2 mL INJ IVP (11:30)
[2023-11-16] MEDS: SODIUM CHLORIDE 0.9% IV (11:50)
[2023-11-16] MEDS: PANITUMUMAB IV (11:50)
[2023-11-16 12:50] VITALS: BP 153/90; PULSE 76; RESP 16; TEMP 36.6; O2SAT 98
[2023-11-30 08:48] LABS: Basophils % 0.1 %; Eosinophils % 0.1 %; Hematocrit 42.3 % (37-53); Lymphocytes # 1.2 10^3/uL (0.8-4.8); Lymphocytes % 7.8 %; Mean Corpuscular HGB Conc 32.4 g/dL (30-55); Mean Corpuscular Hemoglobin 28.3 pg (27-33); Mean Corpuscular Volume 87.4 fl (82-101); Mean Platelet Volume 10.3 fL (7.4-10.4); Monocytes # 1.2 10^3/uL (0.2-0.9); Monocytes % 7.8 %; Neutrophils # 12.32 10^3/uL (1.8-7.7); Neutrophils % 83.1 %; Nucleated Red Blood Cells % 0 %; Platelet Count 160 10^3/cmm (157-399); Red Blood Count 4.84 10^6/uL (3.85-5.65); Red Cell Distribution Width 20.7 % (12.1-15.1); White Blood Count 14.84 10^3/uL (3.29-11.43)
[2023-11-30 09:13] LABS: Alanine Aminotransferase 62 U/L (0-41); Albumin Level 4.1 g/dL (3.5-5.2); Alkaline Phosphatase 227 U/L (40-130); Anion Gap 16.3 (5-19); Aspartate Amino Transferase 46 U/L (0-40); Blood Urea Nitrogen 17 mg/dL (6-20); Calcium 9.7 mg/dL (8.5-10.5); Carbon Dioxide 28 mmol/L (22-29); Chloride 100 mmol/L (98-107); Globulin 3.1 g/dL (1.3-4.6); Glomerular Filtration Rate 170.8 mL/min (90-130); Glucose 127 mg/dL (65-115); Osmolality Calculated 293 mOsm/kg (285-295); Potassium 4.3 mmol/L (3.5-5.1); Sodium 140 mmol/L (136-145); Total Bilirubin 0.5 mg/dL (0.15-1.2); Total Protein 7.2 g/dL (6.6-8.7)
[2023-11-30 09:17] LABS: Creatinine Clr Calc Pharmacy 168.1191
[2023-12-07 09:19] LABS: Basophils % 0.4 %; Eosinophils # 0.1 10^3/uL (0.0-0.8); Eosinophils % 1.7 %; Hematocrit 37.4 % (37-53); Lymphocytes # 1.7 10^3/uL (0.8-4.8); Lymphocytes % 22.2 %; Mean Corpuscular HGB Conc 32.6 g/dL (30-55); Mean Corpuscular Hemoglobin 28.4 pg (27-33); Mean Platelet Volume 9.8 fL (7.4-10.4); Monocytes # 0.8 10^3/uL (0.2-0.9); Monocytes % 10.4 %; Neutrophils # 4.97 10^3/uL (1.8-7.7); Neutrophils % 64.9 %; Nucleated Red Blood Cells % 0 %; Platelet Count 98 10^3/cmm (157-399); Red Cell Distribution Width 20.5 % (12.1-15.1); White Blood Count 7.66 10^3/uL (3.29-11.43)
[2023-12-07 09:44] LABS: Carcinoembryonic Antigen 59.2 ng/mL (0.0-4.7)
[2023-12-07 09:55] LABS: Alanine Aminotransferase 52 U/L (0-41); Albumin Level 3.5 g/dL (3.5-5.2); Alkaline Phosphatase 185 U/L (40-130); Anion Gap 12.7 (5-19); Aspartate Amino Transferase 51 U/L (0-40); Blood Urea Nitrogen 13 mg/dL (6-20); Calcium 8.6 mg/dL (8.5-10.5); Carbon Dioxide 27 mmol/L (22-29); Chloride 101 mmol/L (98-107); Creatinine Clr Calc Pharmacy 171.5294; Globulin 2.7 g/dL (1.3-4.6); Glomerular Filtration Rate 170.8 mL/min (90-130); Glucose 82 mg/dL (65-115); Osmolality Calculated 283 mOsm/kg (285-295); Potassium 3.7 mmol/L (3.5-5.1); Sodium 137 mmol/L (136-145); Total Bilirubin 0.4 mg/dL (0.15-1.2); Total Protein 6.2 g/dL (6.6-8.7)
== END 2023-12-07 23:59 | disposition home or self-care (01) ==
PROVIDERS: Internal Medicine Medical Oncology; Nurse Practitioner Family; PCP Family Medicine; Visit Provider Radiology Radiation Oncology
DX: Z53.9 Procedure and treatment not carried out, unspecified reason; C20 Malignant neoplasm of rectum; C79.51 Secondary malignant neoplasm of bone
CPT/HCPCS: 80053; 82378; 85025; 96375; 96413; A4222; J1100; J1200; J3490; J7050; J9303

== ENCOUNTER 2024-01-03 09:30 | Oncology outpatient (recurring) (ONCR) | payer OTHER, SELFPAY ==
[2023-12-14] MEDS: sodium chloride 0.9% 1,000 ML 999 ML IV (14:04)
[2023-12-14 15:08] VITALS: BP 155/94; PULSE 90; TEMP 36.6; O2SAT 100
[2023-12-14 15:14] LABS: Basophils % 0.2 %; Eosinophils # 0.2 10^3/uL (0.0-0.8); Eosinophils % 3.1 %; Hematocrit 35.5 % (37-53); Lymphocytes # 0.9 10^3/uL (0.8-4.8); Lymphocytes % 14.4 %; Mean Corpuscular Hemoglobin 28.7 pg (27-33); Mean Platelet Volume 8.9 fL (7.4-10.4); Monocytes # 1.1 10^3/uL (0.2-0.9); Monocytes % 16.3 %; Neutrophils # 4.28 10^3/uL (1.8-7.7); Neutrophils % 65.5 %; Nucleated Red Blood Cells % 0 %; Platelet Count 121 10^3/cmm (157-399); Red Blood Count 4.08 10^6/uL (3.85-5.65); Red Cell Distribution Width 18.8 % (12.1-15.1); White Blood Count 6.52 10^3/uL (3.29-11.43)
[2023-12-14 15:16] LABS: Bilirubin Urine 2+ (Negative); Blood Urine Negative (Negative); Glucose Urine UA Negative (Normal); Ketones Urine Negative (Negative); Leukocyte Esterase Urine Trace (Negative); Nitrate Urine Positive (Negative); Protein Urine Trace (Negative); Specific Gravity, Urine 1.025 (1.005-1.030); Urine Appearance Clear (CLEAR); pH Urine 5.5 (5-7)
[2023-12-14 15:34] LABS: Urine Color Orange (Yellow)
[2023-12-14 15:36] LABS: Add Urine Culture? No; Add Urine Microscopic? YES; Mucus Urine 3+ /hpf; UA Manual Slide Review YES; UA Slide Review UA Slide Review Perf; WBC Urine 0-4 /hpf (0-5)
[2023-12-14 15:51] LABS: Alanine Aminotransferase 33 U/L (0-41); Albumin Level 3.2 g/dL (3.5-5.2); Alkaline Phosphatase 314 U/L (40-130); Anion Gap 13.4 (5-19); Aspartate Amino Transferase 52 U/L (0-40); Blood Urea Nitrogen 8 mg/dL (6-20); Calcium 8.2 mg/dL (8.5-10.5); Carbon Dioxide 25 mmol/L (22-29); Chloride 103 mmol/L (98-107); Globulin 2.9 g/dL (1.3-4.6); Glomerular Filtration Rate 137.9 mL/min (90-130); Glucose 108 mg/dL (65-115); Osmolality Calculated 285 mOsm/kg (285-295); Potassium 3.4 mmol/L (3.5-5.1); Sodium 138 mmol/L (136-145); Total Bilirubin 1.2 mg/dL (0.15-1.2); Total Protein 6.1 g/dL (6.6-8.7)
--- NOTE | 2023-12-28 15:30 | CT_ITS ---
WS: [id number] CT CHEST, ABDOMEN AND PELVIS WITH CONTRAST HISTORY: restaging, colorectal cancer, liver cancer. TECHNIQUE: Contiguous 5 mm axial imaging performed through the chest, abdomen and pelvis with IV cont rast, oral contrast has been provided. Coronal and sagittal reformats chest. Coronal and sagittal ref ormats through the abdomen and pelvis. All CT scans at [facility] use at least one of these d ose optimization techniques: automated exposure control; mA and/or kV adjustment per patient size (in cludes targeted exams where dose is matched to clinical indication); or iterative reconstruction. CONTRAST: Omnipaque 350; 100 mL IV. DLP: 932.40 mGy.cm COMPARISON: 09/01/2023, 03/19/2023 and 12/18/2022, PET/CT 09/14/[address]: Innumerable pulmonary nodules are reidentified. These nodules are increasing in size and nu mber as compared to the most recent examinations including the PET/CT. Nodules range in size from 2 t o 10 mm. Very mild pleural thickening at the LEFT lung base is reidentified. No axillary adenopathy. Hilar lymph nodes appear slightly decreased in size as compared to the prior exams. No progression in size or number of the mediastinal or hilar adenopathy. Heart is normal size. Circumferential thickening of the distal esophagus. Normal size aorta and pulmonary artery. Abdomen CT: Extensive metastatic lesions throughout the liver. Some of these lesions contain calcific ations. Lesions are confluent and diffuse. I do believe there has been a progression of disease since 09/01/2023. Partial retraction of the liver capsule. Small amount of perihepatic fluid has increased slightly. Main portal vein is patent. Only partial visualization of the RIGHT portal vein which is pr obably occluded by tumor thrombus. Negative gallbladder. Normal size spleen. Mild heterogeneity within the spleen is probably related to the phase of injection. No metastatic lesions have been described within the spleen. No adrenal mass . Negative pancreas. No renal obstruction. Mild atherosclerosis aorta. Stomach is normally distended with contrast. No small bowel obstruction or wall thickening. LEFT lowe r quadrant colostomy. No mass or abnormality at the surgical resection site. There is no thickening a t the rectum identified by CT. There are a few scattered diverticula within the visualized colon. The re is slight wall thickening of the colon which is probably due to under distention. There are small lymph nodes in the upper abdomen at the celiac axis and monie hepatis. These lymph no brent are very small and were negative on the recent PET/CT. Small retroperitoneal lymph nodes. There i s one lymph node with mild enhancement and has slightly increased in size since 09/01/2023. This lymph node is aortocaval measuring 9 mm. Just below the LEFT renal vein. Pelvic CT: Mild circumferential wall thickening of the urinary bladder. Prostate gland is slightly en larged with calcifications. No pelvic lymphadenopathy. No free fluid. Mild osseous changes at the acetabulum are reidentified. There are mild cystic and sclerotic changes. Similar to prior studies. There are a few very tiny sclerotic foci in the antionette which were present in 2021 also. Not likely metastatic sites. CT/CT chest abdpel w/*[id number] IMPRESSION: 1. Innumerable pulmonary nodules ranging in size from 2 to 10 mm. Nodules have increased in size and number since the recent PET/CT of 09/14/[address] 024. 2. Extensive metastatic disease throughout the liver. Mild progression of dise ase. 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 Tumor surrounds the RIGHT portal vein. 3. There are a few small mesenteric and retroperitoneal lymph nodes. There is one aortocaval lymph node now measuring 9 mm which is enhancing and slightly in creased in size. Early metastatic lymph node not excluded. 4. LEFT lower quadrant colostomy. 5. No colon obstruction. No recurrent mass identified. 6. Mediastinal and hilar lymph nodes have decreased in size. 7. RIGHT acetabular cystic and sclerotic changes appear stable. This area was n oted to be positive on the recent PET/CT.
[2023-12-28] MEDS: iohexol 350 mg/mL 500 mL Btl (per mL) PO (16:17)
[2023-12-28] MEDS: iohexol 350 mg/mL 500 mL Btl (per mL) IV (16:33)
[2023-12-29] MEDS: alteplase 1 mg/mL SDV 2 mL 2 MG INTRACATH (08:48)
[2023-12-29 08:53] LABS: Basophils # 0.1 10^3/uL (0.0-0.1); Basophils % 0.7 %; Eosinophils # 0.1 10^3/uL (0.0-0.8); Eosinophils % 0.9 %; Hematocrit 43.7 % (37-53); Lymphocytes # 1.6 10^3/uL (0.8-4.8); Lymphocytes % 18.2 %; Mean Corpuscular HGB Conc 32.3 g/dL (30-55); Mean Corpuscular Volume 86.7 fl (82-101); Mean Platelet Volume 9.9 fL (7.4-10.4); Monocytes # 1.1 10^3/uL (0.2-0.9); Monocytes % 12.2 %; Neutrophils # 5.91 10^3/uL (1.8-7.7); Neutrophils % 67.7 %; Nucleated Red Blood Cells % 0 %; Platelet Count 272 10^3/cmm (157-399); Red Blood Count 5.04 10^6/uL (3.85-5.65); Red Cell Distribution Width 18.5 % (12.1-15.1); White Blood Count 8.74 10^3/uL (3.29-11.43)
[2023-12-29 09:14] LABS: Alanine Aminotransferase 47 U/L (0-41); Albumin Level 3.5 g/dL (3.5-5.2); Alkaline Phosphatase 657 U/L (40-130); Anion Gap 15.2 (5-19); Aspartate Amino Transferase 90 U/L (0-40); Blood Urea Nitrogen 4 mg/dL (6-20); Calcium 8.9 mg/dL (8.5-10.5); Carbon Dioxide 26 mmol/L (22-29); Chloride 104 mmol/L (98-107); Creatinine Clr Calc Pharmacy 118.0376; Globulin 3.2 g/dL (1.3-4.6); Glomerular Filtration Rate 115.4 mL/min (90-130); Glucose 90 mg/dL (65-115); Osmolality Calculated 288 mOsm/kg (285-295); Potassium 4.2 mmol/L (3.5-5.1); Sodium 141 mmol/L (136-145); Total Bilirubin 1.3 mg/dL (0.15-1.2); Total Protein 6.7 g/dL (6.6-8.7)
[2024-01-03 09:23] VITALS: BP 127/88; PULSE 94; RESP 16; TEMP 36.9; O2SAT 92
[2024-01-03] MEDS: sodium chloride 0.9% 500 ML IV (09:46)
[2024-01-03] MEDS: ondansetron 2 mg/ML SDV 2 mL 8 MG IVP (09:48)
[2024-01-03 09:51] LABS: Basophils # 0.1 10^3/uL (0.0-0.1); Basophils % 0.3 %; Hematocrit 47.1 % (37-53); Lymphocytes # 1.8 10^3/uL (0.8-4.8); Mean Corpuscular HGB Conc 32.9 g/dL (30-55); Mean Corpuscular Hemoglobin 27.8 pg (27-33); Mean Corpuscular Volume 84.6 fl (82-101); Monocytes # 2.8 10^3/uL (0.2-0.9); Monocytes % 12.1 %; Neutrophils % 79.2 %; Nucleated Red Blood Cells % 0 %; Platelet Count 209 10^3/cmm (157-399); Red Blood Count 5.57 10^6/uL (3.85-5.65); Red Cell Distribution Width 19.7 % (12.1-15.1); White Blood Count 22.88 10^3/uL (3.29-11.43)
[2024-01-03 10:09] LABS: Alanine Aminotransferase 54 U/L (0-41); Albumin Level 3.4 g/dL (3.5-5.2); Alkaline Phosphatase 650 U/L (40-130); Anion Gap 18.1 (5-19); Aspartate Amino Transferase 134 U/L (0-40); Blood Urea Nitrogen 8 mg/dL (6-20); Calcium 9.1 mg/dL (8.5-10.5); Carbon Dioxide 21 mmol/L (22-29); Chloride 94 mmol/L (98-107); Creatinine Clr Calc Pharmacy 137.7105; Globulin 3.6 g/dL (1.3-4.6); Glomerular Filtration Rate 137.9 mL/min (90-130); Glucose 106 mg/dL (65-115); Osmolality Calculated 267 mOsm/kg (285-295); Potassium 4.1 mmol/L (3.5-5.1); Sodium 129 mmol/L (136-145); Total Bilirubin 4.4 mg/dL (0.15-1.2)
[2024-01-03] MEDS: sodium chloride 0.9% 250 ML 75 ML IV (11:25)
[2024-01-03] MEDS: acetaminophen 325 mg Tablet 650 MG PO (11:25)
[2024-01-03] MEDS: diphenhydrAMINE 50 mg/mL SDV 1mL IVP (11:26)
[2024-01-03] MEDS: famotidine 20 mg/2 mL INJ IVP (11:30)
[2024-01-03] MEDS: PANITUMUMAB IV (11:48)
[2024-01-03] MEDS: SODIUM CHLORIDE 0.9% IV (11:48)
[2024-01-03 13:00] VITALS: BP 119/80; PULSE 99; RESP 18; TEMP 35.9; O2SAT 95
== END 2024-01-03 23:59 | disposition home or self-care (01) ==
PROVIDERS: Internal Medicine Hematology & Oncology; PCP Family Medicine; Visit Provider Nurse Practitioner Family
DX: C20 Malignant neoplasm of rectum (principal); C79.51 Secondary malignant neoplasm of bone; Z79.899 Other long term (current) drug therapy; Z51.11 Encounter for antineoplastic chemotherapy; C78.7 Secondary malignant neoplasm of liver and intrahepatic bile duct; Z53.9 Procedure and treatment not carried out, unspecified reason
CPT/HCPCS: 71260; 74177; 80053; 81001; 82378; 85025; 87086; 96360; 96361; 96375; 96413; A4222; J1200; J2405; J2997; J3490; J7030; J7040; J7050; J9303

== ENCOUNTER 2024-01-31 09:00 | Oncology outpatient (recurring) (ONCR) | payer OTHER, SELFPAY ==
[2024-01-17 09:28] LABS: Basophils # 0.1 10^3/uL (0.0-0.1); Basophils % 0.9 %; Eosinophils # 0.3 10^3/uL (0.0-0.8); Eosinophils % 4.2 %; Hematocrit 41.9 % (37-53); Lymphocytes # 1.4 10^3/uL (0.8-4.8); Lymphocytes % 20.5 %; Mean Corpuscular HGB Conc 31.7 g/dL (30-55); Mean Corpuscular Hemoglobin 27.9 pg (27-33); Mean Corpuscular Volume 87.8 fl (82-101); Mean Platelet Volume 9.9 fL (7.4-10.4); Monocytes # 0.8 10^3/uL (0.2-0.9); Monocytes % 12.4 %; Neutrophils # 4.13 10^3/uL (1.8-7.7); Neutrophils % 61.7 %; Nucleated Red Blood Cells % 0 %; Platelet Count 153 10^3/cmm (157-399); Red Blood Count 4.77 10^6/uL (3.85-5.65); Red Cell Distribution Width 19.1 % (12.1-15.1); White Blood Count 6.69 10^3/uL (3.29-11.43)
[2024-01-17 09:50] LABS: Carcinoembryonic Antigen 105.4 ng/mL (0.0-4.7)
[2024-01-17 10:01] LABS: Alanine Aminotransferase 26 U/L (0-41); Albumin Level 3.5 g/dL (3.5-5.2); Alkaline Phosphatase 438 U/L (40-130); Anion Gap 14.2 (5-19); Aspartate Amino Transferase 50 U/L (0-40); Blood Urea Nitrogen 8 mg/dL (6-20); Calcium 8.7 mg/dL (8.5-10.5); Carbon Dioxide 27 mmol/L (22-29); Chloride 102 mmol/L (98-107); Creatinine Clr Calc Pharmacy 104.3038; Glomerular Filtration Rate 98.9 mL/min (90-130); Glucose 99 mg/dL (65-115); Lactate Dehydrogenase 225 U/L (135-225); Magnesium 1.7 mg/dL (1.7-2.3); Osmolality Calculated 286 mOsm/kg (285-295); Potassium 4.2 mmol/L (3.5-5.1); Sodium 139 mmol/L (136-145); Total Protein 6.5 g/dL (6.6-8.7)
[2024-01-17] MEDS: acetaminophen 325 mg Tablet 650 MG PO (11:04)
[2024-01-17] MEDS: famotidine 20 mg/2 mL INJ IVP (11:06)
[2024-01-17] MEDS: diphenhydrAMINE 50 mg/mL SDV 1mL IVP (11:09)
[2024-01-17] MEDS: SODIUM CHLORIDE 0.9% IV (11:38)
[2024-01-17] MEDS: PANITUMUMAB IV (11:38)
[2024-01-17 12:39] VITALS: BP 124/88; PULSE 72; RESP 16; TEMP 35.7; O2SAT 99
[2024-01-31 09:18] LABS: Basophils # 0.1 10^3/uL (0.0-0.1); Basophils % 1.1 %; Eosinophils # 0.1 10^3/uL (0.0-0.8); Eosinophils % 1.9 %; Hematocrit 40.4 % (37-53); Lymphocytes # 2.4 10^3/uL (0.8-4.8); Lymphocytes % 36.7 %; Mean Corpuscular HGB Conc 32.9 g/dL (30-55); Mean Corpuscular Hemoglobin 28.9 pg (27-33); Mean Corpuscular Volume 87.8 fl (82-101); Monocytes # 0.9 10^3/uL (0.2-0.9); Monocytes % 14.3 %; Neutrophils # 2.94 10^3/uL (1.8-7.7); Neutrophils % 45.7 %; Nucleated Red Blood Cells % 0 %; Platelet Count 151 10^3/cmm (157-399); Red Cell Distribution Width 18.7 % (12.1-15.1); White Blood Count 6.43 10^3/uL (3.29-11.43)
[2024-01-31 09:47] LABS: Carcinoembryonic Antigen 42.4 ng/mL (0.0-4.7)
[2024-01-31 09:58] LABS: Alanine Aminotransferase 29 U/L (0-41); Albumin Level 3.6 g/dL (3.5-5.2); Alkaline Phosphatase 369 U/L (40-130); Anion Gap 13.7 (5-19); Aspartate Amino Transferase 58 U/L (0-40); Blood Urea Nitrogen 8 mg/dL (6-20); Calcium 8.3 mg/dL (8.5-10.5); Carbon Dioxide 28 mmol/L (22-29); Chloride 103 mmol/L (98-107); Creatinine Clr Calc Pharmacy 166.8861; Globulin 2.7 g/dL (1.3-4.6); Glomerular Filtration Rate 170.2 mL/min (90-130); Glucose 108 mg/dL (65-115); Lactate Dehydrogenase 201 U/L (135-225); Magnesium 1.7 mg/dL (1.7-2.3); Osmolality Calculated 291 mOsm/kg (285-295); Potassium 3.7 mmol/L (3.5-5.1); Sodium 141 mmol/L (136-145); Total Protein 6.3 g/dL (6.6-8.7)
[2024-01-31] MEDS: diphenhydrAMINE 50 mg/mL SDV 1mL IVP (10:54)
[2024-01-31] MEDS: sodium chloride 0.9% 250 ML 75 ML IV (10:54)
[2024-01-31] MEDS: acetaminophen 325 mg Tablet 650 MG PO (10:55)
[2024-01-31] MEDS: famotidine 20 mg/2 mL INJ IVP (10:59)
[2024-01-31] MEDS: SODIUM CHLORIDE 0.9% IV (11:17)
[2024-01-31] MEDS: PANITUMUMAB IV (11:17)
[2024-01-31 11:22] VITALS: BP 133/87; PULSE 84; RESP 18; TEMP 35.9; O2SAT 98
== END 2024-01-31 23:59 | disposition home or self-care (01) ==
PROVIDERS: Internal Medicine Hematology & Oncology; PCP Family Medicine; Visit Provider Nurse Practitioner Family
DX: C20 Malignant neoplasm of rectum (principal); C79.51 Secondary malignant neoplasm of bone; Z53.9 Procedure and treatment not carried out, unspecified reason; Z51.11 Encounter for antineoplastic chemotherapy; C78.7 Secondary malignant neoplasm of liver and intrahepatic bile duct; Z79.899 Other long term (current) drug therapy
CPT/HCPCS: 80053; 82378; 83615; 83735; 85025; 96375; 96413; A4222; J1200; J3490; J7050; J9303

== ENCOUNTER 2024-02-29 08:00 | Oncology outpatient (recurring) (ONCR) | payer OTHER, SELFPAY ==
[2024-02-14 09:14] LABS: Basophils % 0.4 %; Eosinophils # 0.1 10^3/uL (0.0-0.8); Eosinophils % 2.7 %; Lymphocytes # 1.6 10^3/uL (0.8-4.8); Lymphocytes % 35.8 %; Mean Corpuscular HGB Conc 32.3 g/dL (30-55); Mean Corpuscular Hemoglobin 28.4 pg (27-33); Mean Corpuscular Volume 88.1 fl (82-101); Monocytes # 0.7 10^3/uL (0.2-0.9); Monocytes % 16.1 %; Neutrophils % 44.8 %; Nucleated Red Blood Cells % 0 %; Platelet Count 151 10^3/cmm (157-399); Red Blood Count 4.54 10^6/uL (3.85-5.65); Red Cell Distribution Width 17.4 % (12.1-15.1); White Blood Count 4.47 10^3/uL (3.29-11.43)
[2024-02-14 09:35] LABS: Alanine Aminotransferase 17 U/L (0-41); Albumin Level 3.7 g/dL (3.5-5.2); Alkaline Phosphatase 333 U/L (40-130); Anion Gap 11.5 (5-19); Aspartate Amino Transferase 35 U/L (0-40); Blood Urea Nitrogen 3 mg/dL (6-20); Calcium 9.1 mg/dL (8.5-10.5); Carbon Dioxide 29 mmol/L (22-29); Chloride 101 mmol/L (98-107); Creatinine Clr Calc Pharmacy 208.6076; Globulin 2.7 g/dL (1.3-4.6); Glomerular Filtration Rate 220.2 mL/min (90-130); Glucose 107 mg/dL (65-115); Lactate Dehydrogenase 191 U/L (135-225); Magnesium 1.7 mg/dL (1.7-2.3); Osmolality Calculated 283 mOsm/kg (285-295); Potassium 3.5 mmol/L (3.5-5.1); Sodium 138 mmol/L (136-145); Total Bilirubin 0.7 mg/dL (0.15-1.2); Total Protein 6.4 g/dL (6.6-8.7)
[2024-02-14 10:34] LABS: Carcinoembryonic Antigen 22.6 ng/mL (0.0-4.7)
[2024-02-14] MEDS: sodium chloride 0.9% 250 ML 75 ML IV (10:54)
[2024-02-14] MEDS: famotidine 20 mg/2 mL INJ IVP (10:56)
[2024-02-14] MEDS: acetaminophen 325 mg Tablet 650 MG PO (10:59)
[2024-02-14] MEDS: diphenhydrAMINE 50 mg/mL SDV 1mL IVP (10:59)
[2024-02-14] MEDS: SODIUM CHLORIDE 0.9% IV (11:38)
[2024-02-14] MEDS: PANITUMUMAB IV (11:38)
[2024-02-14 12:41] VITALS: BP 116/74; PULSE 89; TEMP 36.6; O2SAT 98
[2024-02-28 09:32] LABS: Basophils # 0.1 10^3/uL (0.0-0.1); Eosinophils # 0.2 10^3/uL (0.0-0.8); Eosinophils % 3.4 %; Hematocrit 41.9 % (37-53); Lymphocytes # 1.9 10^3/uL (0.8-4.8); Mean Corpuscular HGB Conc 32.5 g/dL (30-55); Mean Corpuscular Hemoglobin 28.1 pg (27-33); Mean Corpuscular Volume 86.6 fl (82-101); Mean Platelet Volume 10.2 fL (7.4-10.4); Neutrophils # 3.07 10^3/uL (1.8-7.7); Neutrophils % 49.6 %; Nucleated Red Blood Cells % 0 %; Platelet Count 197 10^3/cmm (157-399); Red Blood Count 4.84 10^6/uL (3.85-5.65); Red Cell Distribution Width 15.9 % (12.1-15.1); White Blood Count 6.19 10^3/uL (3.29-11.43)
[2024-02-28 10:50] LABS: Alanine Aminotransferase 16 U/L (0-41); Albumin Level 3.8 g/dL (3.5-5.2); Alkaline Phosphatase 327 U/L (40-130); Anion Gap 14.4 (5-19); Aspartate Amino Transferase 35 U/L (0-40); Blood Urea Nitrogen 7 mg/dL (6-20); Calcium 9.3 mg/dL (8.5-10.5); Carbon Dioxide 25 mmol/L (22-29); Chloride 100 mmol/L (98-107); Creatinine Clr Calc Pharmacy 208.6076; Globulin 2.9 g/dL (1.3-4.6); Glomerular Filtration Rate 220.2 mL/min (90-130); Glucose 102 mg/dL (65-115); Osmolality Calculated 280 mOsm/kg (285-295); Potassium 3.4 mmol/L (3.5-5.1); Sodium 136 mmol/L (136-145); Total Bilirubin 0.8 mg/dL (0.15-1.2); Total Protein 6.7 g/dL (6.6-8.7)
--- NOTE | 2024-02-28 12:43 | PC.NURSE ---
Pt stated he's been waiting a long time after lab draw to be treated. Pt does not have OV today. Informed infusion staff and they said they had been looking for him and he was not in waiting room. Pt left port accessed and will return to clinic for tx in the morning at 0800./sudhakar
[2024-02-29] MEDS: acetaminophen 325 mg Tablet 650 MG PO (08:27)
[2024-02-29] MEDS: sodium chloride 0.9% 250 ML 75 ML IV (08:27)
[2024-02-29] MEDS: diphenhydrAMINE 50 mg/mL SDV 1mL IVP (08:28)
[2024-02-29] MEDS: famotidine 20 mg/2 mL INJ IVP (08:34)
[2024-02-29] MEDS: PANITUMUMAB IV (09:12)
[2024-02-29] MEDS: SODIUM CHLORIDE 0.9% IV (09:12)
[2024-02-29 10:26] VITALS: BP 138/83; PULSE 76; RESP 18; TEMP 36.4; O2SAT 99
== END 2024-02-29 23:59 | disposition home or self-care (01) ==
PROVIDERS: Internal Medicine Hematology & Oncology; PCP Family Medicine; Visit Provider Nurse Practitioner Family
DX: Z51.11 Encounter for antineoplastic chemotherapy (principal); C20 Malignant neoplasm of rectum; C78.7 Secondary malignant neoplasm of liver and intrahepatic bile duct; Z53.9 Procedure and treatment not carried out, unspecified reason; Z79.899 Other long term (current) drug therapy
CPT/HCPCS: 80053; 82378; 83615; 83735; 85025; 96375; 96413; A4222; J1200; J3490; J7050; J9303

== ENCOUNTER 2024-03-13 07:47 | Oncology outpatient (recurring) (ONCR) | payer OTHER, SELFPAY ==
[2024-03-13 08:29] LABS: Basophils # 0.1 10^3/uL (0.0-0.1); Basophils % 1.1 %; Eosinophils # 0.3 10^3/uL (0.0-0.8); Eosinophils % 5.3 %; Hematocrit 39.6 % (37-53); Lymphocytes # 1.6 10^3/uL (0.8-4.8); Lymphocytes % 32.8 %; Mean Corpuscular HGB Conc 32.6 g/dL (30-55); Mean Corpuscular Hemoglobin 27.9 pg (27-33); Mean Corpuscular Volume 85.7 fl (82-101); Mean Platelet Volume 10.2 fL (7.4-10.4); Monocytes # 0.8 10^3/uL (0.2-0.9); Monocytes % 16.1 %; Neutrophils # 2.11 10^3/uL (1.8-7.7); Neutrophils % 44.7 %; Nucleated Red Blood Cells % 0 %; Platelet Count 205 10^3/cmm (157-399); Red Blood Count 4.62 10^6/uL (3.85-5.65); Red Cell Distribution Width 15.9 % (12.1-15.1); White Blood Count 4.72 10^3/uL (3.29-11.43)
[2024-03-13] MEDS: sodium chloride 0.9% 250 ML 75 ML IV (09:55)
[2024-03-13] MEDS: acetaminophen 325 mg Tablet 650 MG PO (09:58)
[2024-03-13] MEDS: famotidine 20 mg/2 mL INJ IVP (09:59)
[2024-03-13] MEDS: diphenhydrAMINE 50 mg/mL SDV 1mL IVP (10:00)
[2024-03-13] MEDS: SODIUM CHLORIDE 0.9% IV (10:54)
[2024-03-13] MEDS: PANITUMUMAB IV (10:54)
[2024-03-13 12:44] LABS: Alanine Aminotransferase 12 U/L (0-41); Albumin Level 3.4 g/dL (3.5-5.2); Alkaline Phosphatase 235 U/L (40-130); Anion Gap 14.2 (5-19); Aspartate Amino Transferase 27 U/L (0-40); Blood Urea Nitrogen 10 mg/dL (6-20); Calcium 8.7 mg/dL (8.5-10.5); Carbon Dioxide 26 mmol/L (22-29); Chloride 101 mmol/L (98-107); Creatinine Clr Calc Pharmacy 168.5187; Globulin 2.3 g/dL (1.3-4.6); Glomerular Filtration Rate 170.2 mL/min (90-130); Glucose 104 mg/dL (65-115); Osmolality Calculated 283 mOsm/kg (285-295); Potassium 4.2 mmol/L (3.5-5.1); Sodium 137 mmol/L (136-145); Total Bilirubin 0.4 mg/dL (0.15-1.2); Total Protein 5.7 g/dL (6.6-8.7)
== END 2024-03-14 23:59 | disposition home or self-care (01) ==
PROVIDERS: Internal Medicine Medical Oncology; PCP Family Medicine; Visit Provider Nurse Practitioner Family
DX: Z51.11 Encounter for antineoplastic chemotherapy (principal); C20 Malignant neoplasm of rectum; C79.51 Secondary malignant neoplasm of bone; R10.9 Unspecified abdominal pain; R91.8 Other nonspecific abnormal finding of lung field; C78.7 Secondary malignant neoplasm of liver and intrahepatic bile duct; Z93.3 Colostomy status; K68.9 Other disorders of retroperitoneum; Z79.899 Other long term (current) drug therapy; Z79.52 Long term (current) use of systemic steroids
CPT/HCPCS: 80053; 85025; 96375; 96413; A4222; J1200; J3490; J7050; J9303

== ENCOUNTER 2024-04-04 07:48 | Oncology outpatient (recurring) (ONCR) | payer OTHER, SELFPAY ==
[2024-04-04 08:23] LABS: Basophils # 0.1 10^3/uL (0.0-0.1); Basophils % 1.1 %; Eosinophils # 0.2 10^3/uL (0.0-0.8); Eosinophils % 4.3 %; Hematocrit 38.8 % (37-53); Lymphocytes # 1.7 10^3/uL (0.8-4.8); Lymphocytes % 30.1 %; Mean Corpuscular HGB Conc 32.2 g/dL (30-55); Mean Corpuscular Hemoglobin 27.2 pg (27-33); Mean Corpuscular Volume 84.3 fl (82-101); Monocytes % 17.7 %; Neutrophils % 46.4 %; Nucleated Red Blood Cells % 0 %; Platelet Count 173 10^3/cmm (157-399); White Blood Count 5.59 10^3/uL (3.29-11.43)
[2024-04-04 09:00] LABS: Alanine Aminotransferase 15 U/L (0-41); Albumin Level 3.7 g/dL (3.5-5.2); Alkaline Phosphatase 246 U/L (40-130); Aspartate Amino Transferase 26 U/L (0-40); Blood Urea Nitrogen 7 mg/dL (6-20); Carbon Dioxide 26 mmol/L (22-29); Chloride 100 mmol/L (98-107); Globulin 2.7 g/dL (1.3-4.6); Glomerular Filtration Rate 170.2 mL/min (90-130); Glucose 99 mg/dL (65-115); Osmolality Calculated 282 mOsm/kg (285-295); Sodium 137 mmol/L (136-145); Total Bilirubin 0.4 mg/dL (0.15-1.2); Total Protein 6.4 g/dL (6.6-8.7)
[2024-04-04] MEDS: sodium chloride 0.9% 250 ML 75 ML IV (10:36)
[2024-04-04] MEDS: acetaminophen 325 mg Tablet 650 MG PO (10:37)
[2024-04-04] MEDS: famotidine 20 mg/2 mL INJ IVP (10:39)
[2024-04-04] MEDS: diphenhydrAMINE 50 mg/mL SDV 1mL IVP (10:41)
[2024-04-04] MEDS: PANITUMUMAB IV (11:43)
[2024-04-04] MEDS: SODIUM CHLORIDE 0.9% IV (11:43)
[2024-04-04 12:54] VITALS: BP 112/78; PULSE 78; RESP 17; TEMP 36.6; O2SAT 96
== END 2024-04-14 23:59 | disposition home or self-care (01) ==
LOC: ONCMED 07:48
PROVIDERS: PCP Family Medicine; Visit Provider Nurse Practitioner Family
DX: Z51.11 Encounter for antineoplastic chemotherapy (principal); C20 Malignant neoplasm of rectum; C78.7 Secondary malignant neoplasm of liver and intrahepatic bile duct; E87.6 Hypokalemia; R21 Rash and other nonspecific skin eruption; Z79.899 Other long term (current) drug therapy; Z87.891 Personal history of nicotine dependence; Z93.2 Ileostomy status
CPT/HCPCS: 80053; 82378; 85025; 96375; 96413; A4222; J1200; J3490; J7050; J9303

== ENCOUNTER 2024-05-08 07:10 | Oncology outpatient (recurring) (ONCR) | payer OTHER, SELFPAY ==
[2024-05-08 07:30] LABS: Basophils # 0.1 10^3/uL (0.0-0.1); Basophils % 0.7 %; Eosinophils # 0.2 10^3/uL (0.0-0.8); Eosinophils % 2.5 %; Hematocrit 38.5 % (37-53); Lymphocytes # 1.6 10^3/uL (0.8-4.8); Lymphocytes % 21.3 %; Mean Corpuscular HGB Conc 32.7 g/dL (30-55); Mean Corpuscular Hemoglobin 26.8 pg (27-33); Mean Corpuscular Volume 81.7 fl (82-101); Mean Platelet Volume 10.3 fL (7.4-10.4); Monocytes # 1.2 10^3/uL (0.2-0.9); Monocytes % 15.8 %; Neutrophils # 4.49 10^3/uL (1.8-7.7); Neutrophils % 59.4 %; Nucleated Red Blood Cells % 0 %; Platelet Count 187 10^3/cmm (157-399); Red Blood Count 4.71 10^6/uL (3.85-5.65); Red Cell Distribution Width 16.9 % (12.1-15.1); White Blood Count 7.55 10^3/uL (3.29-11.43)
[2024-05-08 07:54] LABS: Carcinoembryonic Antigen 28.5 ng/mL (0.0-4.7)
[2024-05-08 08:05] LABS: Alanine Aminotransferase 15 U/L (0-41); Albumin Level 3.5 g/dL (3.5-5.2); Alkaline Phosphatase 371 U/L (40-130); Anion Gap 15.9 (5-19); Aspartate Amino Transferase 30 U/L (0-40); Blood Urea Nitrogen 5 mg/dL (6-20); Calcium 8.7 mg/dL (8.5-10.5); Carbon Dioxide 25 mmol/L (22-29); Chloride 100 mmol/L (98-107); Creatinine Clr Calc Pharmacy 166.8861; Globulin 3.3 g/dL (1.3-4.6); Glomerular Filtration Rate 170.2 mL/min (90-130); Glucose 92 mg/dL (65-115); Osmolality Calculated 281 mOsm/kg (285-295); Potassium 3.9 mmol/L (3.5-5.1); Sodium 137 mmol/L (136-145); Total Bilirubin 0.9 mg/dL (0.15-1.2); Total Protein 6.8 g/dL (6.6-8.7)
[2024-05-08] MEDS: sodium chloride 0.9% 250 ML 75 ML IV (09:25)
[2024-05-08] MEDS: acetaminophen 325 mg Tablet 650 MG PO (09:26)
[2024-05-08] MEDS: famotidine 20 mg/2 mL INJ IVP (09:26)
[2024-05-08] MEDS: diphenhydrAMINE 50 mg/mL SDV 1mL IVP (09:30)
[2024-05-08] MEDS: PANITUMUMAB IV (10:13)
[2024-05-08] MEDS: SODIUM CHLORIDE 0.9% IV (10:13)
== END 2024-05-12 23:59 | disposition home or self-care (01) ==
PROVIDERS: Nurse Practitioner Family; PCP Family Medicine; Visit Provider Radiology Radiation Oncology
DX: Z51.0 Encounter for antineoplastic radiation therapy (principal); C20 Malignant neoplasm of rectum; C78.7 Secondary malignant neoplasm of liver and intrahepatic bile duct
CPT/HCPCS: 80053; 82378; 85025; 96375; 96413; A4222; J1200; J3490; J7050; J9303

== ENCOUNTER 2024-05-18 14:12 | Outpatient (CLI) | payer OTHER, SELFPAY ==
--- NOTE | 2024-05-18 14:16 | CT_ITS ---
WS: [id number] CT chest abdpel w/*[id number] REASON FOR EXAM: Restaging IV CONTRAST ADMINISTERED: 100 mL of Omnipaque 350. TOTAL EXAM DLP: 916.[address] scans at [facility] use at least one of these dose optimization techniques: automated exposure control; mA and/or kV adjustment per patient size (includes targeted exams where dose is matched to clinical indication); or iterative reconstruction. COMPARISON: CT scan of the chest, abdomen, and pelvis 12/28/2023. FINDINGS: CHEST: There has been Complete resolution of a significant number of the previously demonstrated multiple metastatic foci within the lung. Multiple small, sub-3 mm nodules are identified in both lungs residually. In the left lower lung the largest nodule identifiable in either lung measures 3 x 4 mm. No significant mediastinal or hilar adenopathy. Appearance of the esophagus is unchanged compared to the previous examination. The remainder of the chest is unchanged compared to the previous examination. ABDOMEN: There is diffuse tumor infiltration that extends from the hilus of the liver superiorly into the central right and left lobes of the liver. This tumor encases of the right portal vein and the intrahepatic portion of the inferior vena cava with moderate attenuation of the right portal vein and significant attenuation of the vena cava. This aspect of the hepatic metastatic disease appears relatively unchanged. There are multiple metastatic foci within the liver parenchyma. Several of these lesions in the right lobe of the liver appear to have been treated with chemoembolization (correlate with history) and demonstrate calcification and are stable to slightly decreased in size compared to the previous examination. The metastatic disease in the left lobe of the liver has progressed with a more diffuse involvement of the left lobe of the liver compared to the previous examination. Increase in the volume of perihepatic fluid compared to the previous examination. The retroperitoneal adenopathy at the level of the left renal vein has an increased number of lymph nodes involved with increased diameter bilaterally. The largest is a lobulated tenisha mass interposed between the aorta and vena cava posterior to the left renal vein. Which measures 2.6 x 3 cm. Left lower quadrant colostomy without abnormality. The remainder of the abdomen is unchanged compared to the previous examination. PELVIS: Urinary bladder wall is less thickened in appearance compared to the previous examination. The soft tissue pelvis is otherwise unchanged compared to the previous examination. BONE: Sclerosis and cystic in the posterior acetabulum is unchanged compared to the previous examination. Remainder of the bony structures of the chest abdomen and pelvis is unchanged compared to the previous study. CT/CT chest abdpel w/*[id number] IMPRESSION: Significant interval improvement in the pulmonary metastatic disease as above. Progression of the hepatic metastatic disease in the left lobe of the liver as above. Vascular encasement within the liver, stable as above. Increased retroperitoneal adenopathy at the level of the left renal vein as abo ve.
[2024-05-18] MEDS: iohexol 350 mg/mL 500 mL Btl (per mL) PO (15:26)
[2024-05-18] MEDS: iohexol 350 mg/mL 500 mL Btl (per mL) IV (15:44)
== END 2024-05-18 14:13 | disposition home or self-care (01) ==
LOC: RAD 14:14
PROVIDERS: PCP Family Medicine; Visit Provider Nurse Practitioner Family
DX: C20 Malignant neoplasm of rectum (principal); C78.7 Secondary malignant neoplasm of liver and intrahepatic bile duct; C79.51 Secondary malignant neoplasm of bone; R91.8 Other nonspecific abnormal finding of lung field; R93.2 Abnormal findings on diagnostic imaging of liver and biliary tract; R59.0 Localized enlarged lymph nodes; Z98.890 Other specified postprocedural states; R93.49 Abnormal radiologic findings on diagnostic imaging of other urinary organs; R93.5 Abnormal findings on diagnostic imaging of other abdominal regions, including retroperitoneum
CPT/HCPCS: 71260; 74177

== ENCOUNTER 2024-05-30 09:20 | Oncology outpatient (recurring) (ONCR) | payer OTHER, SELFPAY ==
[2024-05-22 07:35] LABS: Basophils # 0.1 10^3/uL (0.0-0.1); Basophils % 0.7 %; Eosinophils # 0.2 10^3/uL (0.0-0.8); Eosinophils % 2.7 %; Hematocrit 40.7 % (37-53); Lymphocytes # 1.5 10^3/uL (0.8-4.8); Lymphocytes % 20.3 %; Mean Corpuscular HGB Conc 31.9 g/dL (30-55); Mean Corpuscular Hemoglobin 26.4 pg (27-33); Mean Corpuscular Volume 82.7 fl (82-101); Monocytes # 1.1 10^3/uL (0.2-0.9); Neutrophils # 4.35 10^3/uL (1.8-7.7); Nucleated Red Blood Cells % 0 %; Platelet Count 165 10^3/cmm (157-399); Red Blood Count 4.92 10^6/uL (3.85-5.65); Red Cell Distribution Width 19.2 % (12.1-15.1); White Blood Count 7.13 10^3/uL (3.29-11.43)
[2024-05-22 08:03] LABS: Carcinoembryonic Antigen 22.3 ng/mL (0.0-4.7)
[2024-05-22 08:15] LABS: Alanine Aminotransferase 34 U/L (0-41); Albumin Level 3.6 g/dL (3.5-5.2); Alkaline Phosphatase 472 U/L (40-130); Anion Gap 14.6 (5-19); Aspartate Amino Transferase 73 U/L (0-40); Blood Urea Nitrogen 5 mg/dL (6-20); Carbon Dioxide 26 mmol/L (22-29); Chloride 100 mmol/L (98-107); Creatinine Clr Calc Pharmacy 166.8861; Globulin 3.1 g/dL (1.3-4.6); Glomerular Filtration Rate 170.2 mL/min (90-130); Glucose 113 mg/dL (65-115); Osmolality Calculated 282 mOsm/kg (285-295); Potassium 3.6 mmol/L (3.5-5.1); Sodium 137 mmol/L (136-145); Total Bilirubin 0.7 mg/dL (0.15-1.2); Total Protein 6.7 g/dL (6.6-8.7)
[2024-05-22] MEDS: sodium chloride 0.9% 250 ML 75 ML IV (10:33)
[2024-05-22] MEDS: acetaminophen 325 mg Tablet 650 MG PO (10:35)
[2024-05-22] MEDS: famotidine 20 mg/2 mL INJ IVP (10:36)
[2024-05-22] MEDS: diphenhydrAMINE 50 mg/mL SDV 1mL IVP (10:38)
[2024-05-22] MEDS: PANITUMUMAB IV (11:05)
[2024-05-22] MEDS: SODIUM CHLORIDE 0.9% IV (11:05)
[2024-05-22 12:13] VITALS: PULSE 73; RESP 18; TEMP 35.9; O2SAT 98
[2024-05-30] MEDS: sodium chloride 0.9% 1,000 ML 999 ML IV (09:57)
[2024-05-30 11:10] VITALS: BP 124/78; PULSE 78; RESP 18; TEMP 36.1; O2SAT 98
== END 2024-05-30 23:59 | disposition home or self-care (01) ==
PROVIDERS: Internal Medicine Medical Oncology; PCP Family Medicine; Visit Provider Radiology Radiation Oncology
DX: Z53.9 Procedure and treatment not carried out, unspecified reason; C20 Malignant neoplasm of rectum; C79.51 Secondary malignant neoplasm of bone; Z79.899 Other long term (current) drug therapy
CPT/HCPCS: 80053; 82378; 85025; 96360; 96375; 96413; A4222; J1200; J3490; J7030; J7050; J9303; J9999

== ENCOUNTER 2024-06-05 10:00 | Oncology outpatient (recurring) (ONCR) | payer OTHER, SELFPAY ==
[2024-05-31] MEDS: sodium chloride 0.9% 1,000 ML 999 ML IV (09:40)
[2024-05-31 10:29] VITALS: BP 121/83; PULSE 101; RESP 17; TEMP 36.1; O2SAT 97
[2024-05-31 11:00] VITALS: BP 124/78; PULSE 100; RESP 18; TEMP 36.1; O2SAT 98
[2024-06-05 10:35] LABS: Basophils % 0.3 %; Eosinophils # 0.1 10^3/uL (0.0-0.8); Eosinophils % 0.6 %; Hematocrit 41.2 % (37-53); Lymphocytes # 1.5 10^3/uL (0.8-4.8); Lymphocytes % 12.1 %; Mean Corpuscular HGB Conc 34.2 g/dL (30-55); Mean Corpuscular Hemoglobin 27.2 pg (27-33); Mean Corpuscular Volume 79.4 fl (82-101); Mean Platelet Volume 10.2 fL (7.4-10.4); Monocytes # 1.5 10^3/uL (0.2-0.9); Monocytes % 12.1 %; Neutrophils % 74.6 %; Nucleated Red Blood Cells % 0 %; Platelet Count 323 10^3/cmm (157-399); Red Blood Count 5.19 10^6/uL (3.85-5.65); Red Cell Distribution Width 20.8 % (12.1-15.1); White Blood Count 11.94 10^3/uL (3.29-11.43)
[2024-06-05 10:49] LABS: Alanine Aminotransferase 50 U/L (0-41); Albumin Level 3.5 g/dL (3.5-5.2); Alkaline Phosphatase 822 U/L (40-130); Anion Gap 17.2 (5-19); Aspartate Amino Transferase 141 U/L (0-40); Blood Urea Nitrogen 7 mg/dL (6-20); Carbon Dioxide 24 mmol/L (22-29); Chloride 100 mmol/L (98-107); Globulin 3.2 g/dL (1.3-4.6); Glomerular Filtration Rate 220.2 mL/min (90-130); Glucose 111 mg/dL (65-115); Osmolality Calculated 285 mOsm/kg (285-295); Potassium 3.2 mmol/L (3.5-5.1); Sodium 138 mmol/L (136-145); Total Bilirubin 2.5 mg/dL (0.15-1.2); Total Protein 6.7 g/dL (6.6-8.7)
[2024-06-05 10:52] LABS: Magnesium 0.8 mg/dL (1.7-2.3)
[2024-06-05] MEDS: sodium chloride 0.9% 250 ML 75 ML IV (12:18)
[2024-06-05] MEDS: acetaminophen 325 mg Tablet 650 MG PO (12:20)
[2024-06-05] MEDS: famotidine 20 mg/2 mL INJ IVP (12:21)
[2024-06-05] MEDS: diphenhydrAMINE 50 mg/mL SDV 1mL IVP (12:21)
[2024-06-05] MEDS: SODIUM CHLORIDE 0.9% IV (12:43)
[2024-06-05] MEDS: PANITUMUMAB IV (12:43)
[2024-06-05] MEDS: sodium chlor 0.9% + KCl 20 mEq 20 MEQ/1,000 ML BAG 500 MEQ IV (13:53)
[2024-06-05] MEDS: magnesium sulfate premix 2 GM/50 ML PIGGYBACK IV (13:53)
[2024-06-05 14:21] VITALS: RESP 16
[2024-06-05] MEDS: oxyCODONE 5 mg IR Tab/Cap 10 MG PO (14:21)
[2024-06-05 15:32] VITALS: BP 145/97; PULSE 98; RESP 16; TEMP 36.5; O2SAT 97
== END 2024-06-05 23:59 | disposition home or self-care (01) ==
PROVIDERS: Nurse Practitioner; PCP Family Medicine; Visit Provider Internal Medicine Medical Oncology
DX: Z53.9 Procedure and treatment not carried out, unspecified reason; Z51.11 Encounter for antineoplastic chemotherapy; C20 Malignant neoplasm of rectum; C78.7 Secondary malignant neoplasm of liver and intrahepatic bile duct; Z79.899 Other long term (current) drug therapy
CPT/HCPCS: 80053; 83735; 85025; 96360; 96367; 96375; 96413; A4222; J1200; J3475; J3480; J3490; J7030; J7050; J9303; J9999

== ENCOUNTER 2024-06-09 07:30 | Oncology outpatient (recurring) (ONCR) | payer OTHER, SELFPAY ==
[2024-06-06] MEDS: sodium chloride 0.9% 1,000 ML 999 ML IV (13:01)
[2024-06-06 14:11] VITALS: BP 145/99; PULSE 95; RESP 17; TEMP 36.9; O2SAT 100
[2024-06-09 07:52] LABS: Basophils % 0.2 %; Eosinophils % 0.1 %; Lymphocytes # 1.4 10^3/uL (0.8-4.8); Mean Corpuscular HGB Conc 34.6 g/dL (30-55); Mean Corpuscular Hemoglobin 27.2 pg (27-33); Mean Corpuscular Volume 78.4 fl (82-101); Mean Platelet Volume 10.9 fL (7.4-10.4); Monocytes # 2.1 10^3/uL (0.2-0.9); Monocytes % 10.8 %; Neutrophils # 16.13 10^3/uL (1.8-7.7); Neutrophils % 81.5 %; Nucleated Red Blood Cells % 0 %; Platelet Count 314 10^3/cmm (157-399); Red Blood Count 5.23 10^6/uL (3.85-5.65); Red Cell Distribution Width 21.8 % (12.1-15.1); White Blood Count 19.78 10^3/uL (3.29-11.43)
[2024-06-09 08:29] LABS: Alanine Aminotransferase 73 U/L (0-41); Albumin Level 3.3 g/dL (3.5-5.2); Alkaline Phosphatase 673 U/L (40-130); Anion Gap 21.7 (5-19); Aspartate Amino Transferase 202 U/L (0-40); Blood Urea Nitrogen 10 mg/dL (6-20); Calcium 8.2 mg/dL (8.5-10.5); Carbon Dioxide 21 mmol/L (22-29); Chloride 97 mmol/L (98-107); Creatinine Clr Calc Pharmacy 203.5046; Globulin 3.3 g/dL (1.3-4.6); Glomerular Filtration Rate 220.2 mL/min (90-130); Glucose 100 mg/dL (65-115); Osmolality Calculated 281 mOsm/kg (285-295); Potassium 3.7 mmol/L (3.5-5.1); Sodium 136 mmol/L (136-145); Total Protein 6.6 g/dL (6.6-8.7)
[2024-06-09 08:31] LABS: Magnesium 0.7 mg/dL (1.7-2.3)
--- NOTE | 2024-06-09 09:13 | PC.PHAR ---
CHERELLE TO MY OFFICE TODAY TO CHAT ABOUT MR LAMAR. SHE STATES HES VERY NAUSEAS AND APPEARS TO HAVE SIGNIFICANT ASCITES. SHE HAD CONVO WITH NELSON IN ER TO DISCUSS POSSIBILTY OF ADMISSION - IT WAS DETERMINED TO OFFER HIM FLUIDS AND NAUSEA SUPPORT IN CTC. YUMIKO RECOMMENDED BENADRYL AND LORAZEPAM FOR HIS NAUSEA. I PLACED THESE ORDERS VERBAL FROM CHERELLE. SHE ALSO WANTS PATIENT TO HAVE 2GM MAG TODAY. ORDER ENTERED.
[2024-06-09 09:28] LABS: Bacteria Urine None Seen /hpf; Hyaline Casts Urine 4.95 /lpf; RBC Urine 0-2 /hpf (0-2); Squamous Epithelial Cell Urine 0-5 /hpf (0-5); WBC Urine 0-5 /hpf (0-5)
[2024-06-09 10:05] LABS: Add Urine Microscopic? YES; Bilirubin Urine 2+ (Negative); Blood Urine Neg (Negative); Glucose Urine UA Norm (Normal); Ketones Urine 2+ (Negative); Leukocyte Esterase Urine Trace (Negative); Nitrate Urine Positive (Negative); Protein Urine 1+ (Negative); Specific Gravity, Urine 1.025 (1.005-1.030); Urine Appearance Turbid (CLEAR); Urine Color Dark Yellow (Yellow); Urobilinogen Urine 4 mg/dL (Negative); pH Urine 5 (5-7)
[2024-06-09 10:07] LABS: Add Urine Culture? Yes; UA Slide Review UA Slide Review Perf
[2024-06-09 13:22] LABS: Amorphous Sediment Urine 2+ /hpf
== END 2024-06-12 23:59 | disposition home or self-care (01) ==
PROVIDERS: Internal Medicine Medical Oncology; Nurse Practitioner Family; PCP Family Medicine; Visit Provider Internal Medicine
DX: Z53.9 Procedure and treatment not carried out, unspecified reason; C20 Malignant neoplasm of rectum; C78.7 Secondary malignant neoplasm of liver and intrahepatic bile duct; Z79.899 Other long term (current) drug therapy; D72.829 Elevated white blood cell count, unspecified
CPT/HCPCS: 80053; 81001; 82378; 83735; 85025; 87086; 96360; J7030

== ENCOUNTER 2024-06-09 09:34 | Inpatient (IN) | payer OTHER, SELFPAY ==
[2024-06-09] VITALS (8 sets, daily range): BP systolic 134–151; BP diastolic 88–104; PULSE 115–135; RESP 16–27; TEMP 36.5–36.9; O2SAT 94–99; BMI 24.3
--- NOTE | 2024-06-09 10:13 | ECG_ITS ---
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 Measurements Intervals [place] Rate: 136 P: 29 WA: 147 QRS: 23 QRSD: 73 T: 34 QT: 289 QTc: 435 Interpretive Statements SINUS TACHYCARDIA LOW QRS VOLTAGE IN PRECORDIAL LEADS [QRS DEFLECTION < 1.0 mV IN CHEST LEADS] ABNORMAL RHYTHM ECG No previous ECG available for comparison Electronically Signed On 06-09-2024 14:20:35 CDT by Uzma Calloway M.D. [email or web address]
--- NOTE | 2024-06-09 11:12 | CT_ITS ---
WS: [id number] CT ABDOMEN PELVIS TECHNIQUE: Contrast-enhanced CT of the abdomen and pelvis with coronal and sagittal reformatted images. CLINICAL INFORMATION: abd pain COMPARISON: CT 05/18/2024 DLP: 731.[address] scans at [facility] use at least one of these dose optimization techniques: automated exposure control; mA and/or kV adjustment per patient size (includes targeted exams where dose is matched to clinical indication); or iterative reconstruction. FINDINGS: Small LEFT and tiny RIGHT pleural effusions. Bibasilar atelectasis. Hepatomegaly with diffuse metastatic disease. This is progressed compared to 05/18/2024 in particular in the LEFT hepatic lobe. Gallbladder is contracted. Gastroesophageal varices. Mild perihepatic abdominal and pelvic ascites. This is slightly increased compared to 05/18/2024. Extensive periaortic aortocaval retroperitoneal and upper abdominal lymphadenopathy. LEFT lower quadrant ostomy appears patent. Trace pericardial fluid. Normal caliber abdominal aorta. Adrenal glands are normal. Normal renal parenchymal enhancement. No hydronephrosis. Fatty atrophy of the pancreas. Stable previously described metastatic bony lesions most prominent in the RIGHT acetabulum. Progressed intrahepatic narrowing of the portal veins and hepatic veins as well as the intrahepatic IVC. Small amount of thrombus in the portal confluence. Marked compression of the SMV and portal confluence due to an enlarging necrotic lymph node. This appears progressed compared to previous. Small metastatic nodules in both lung bases partially visualized. Slight nodularity in the LEFT upper abdominal omentum suspicious for early developing peritoneal carcinomatosis. CT/CT abdomen pelvis w con* [id number] IMPRESSION: 1. Marked progression of the diffuse hepatic metastasis since 05/18/2024 in part icular in the LEFT hepatic lobe 2. Extensive upper abdominal lymphadenopathy with periaortic aortocaval retrop eritoneal lymphadenopathy. 3. New thrombus within the portal confluence with marked narrowing of the intr ahepatic portal veins progressed compared to previous. Diffuse intrahepatic kelsey rowing of the hepatic veins also. 4. Enlarged necrotic lymph node in the monie hepatis with compression of the p ortal confluence and SMV new compared to previous 5. Small LEFT greater than RIGHT pleural effusions. 6. Mild progression of the abdominal and pelvic ascites Notified Jared Lopez DO at 06/09/2024 1:05 PM.
--- NOTE | 2024-06-09 11:31 | ED_ITS ---
HPI - Recheck/Abnormal Lab/Rx 2 General: Chief Complaint: Recheck/Abnormal Lab/Rx Stated Complaint: abnormal labs Time Seen by Provider: 06/09/24 10:45 History of Present Illness: 58-year-old male with a known history of rectal cancer with diffuse metastatic disease prominently to the liver. Presents emergency room after being seen at the oncology clinic today. He has been advised that the extent of disease and the fact that he is incurable at this point he has elected at this point to continue chemotherapy he did have a chemotherapy treatment earlier this week. He has now developed tachycardia with nausea vomiting and worsening abdominal pain and distention. Midlevel at the oncology clinic had called and directed the patient to the emergency room he still wishes to be fully treated. Reviewing his oncology note oncology has advised him of the gravity of his current condition and that his cancer is not something that is likely to respond to treatment. Related Data Previous Rx's ?Medication ?Instructions ?Recorded diphenoxylate-atropine 2.5 2 tab PO QID PRN Diarrhea # 60 tabs 01/04/23 mg-0.025 mg tablet (Lomotil) lidocaine-prilocaine 2.5 %-2.5 % 1 applic topical .Perpetu PLEX #30 grams 05/03/23 topical cream sildenafil 50 mg tablet 50 mg PO DAILY PRN sexual ac tivity 05/17/23 #20 tabs colostomy supplies #1 ea 08/06/23 cetirizine 10 mg capsule (Zyrtec) 10 mg PO DAILY #90 c aps 08/30/23 omeprazole 20 mg capsule,delayed See Rx Instructions . Route 08/30/23 release .COMPLEX #30 caps albuterol sulfate 90 mcg/actuation 2 puff inhalation 6 XD PRN 12/16/23 aerosol inhaler shortness of breath or wheez ing #8.5 grams trazodone 50 mg tablet 50 mg PO .qhs #30 tabs 05/15 oxycodone-acetaminophen 10 mg-325 1 tab PO Q8H 30 days #90 tabs 05/31/24 mg tablet magnesium aspart,citrate,oxide 400 mg PO BID #28 caps 06/05/24 escitalopram oxalate 10 mg tablet See Rx Instructions .Route 06/07/24 .COMPLEX #45 tabs finasteride 5 mg tablet See Rx Instructions .Route 0 06/08/24 .COMPLEX #90 tabs Allergies Allergy/AdvReac Type Severity Reaction Status Date / Time ragweed pollen Allergy Mild ALGY-Sneezi Verified 06/09/24 10:16 ng Review of Systems 2 Const: Denies: fever(s) or chills Card: Denies: chest pain Resp: Denies: dyspnea GI: Reports: abdominal pain and nausea : Denies: dysuria, urinary frequency or urinary urgency Musc: Denies: neck pain or back pain Skin/Breast: Denies: rash PFSH ED 2 PFSH: Medical History Rectal cancer BPH (benign prostatic hyperplasia) Diverticulosis Rectal perforation Liver mass Surgical History History of insertion of tunneled central venous catheter (CVC) with port History of colostomy left sided diverting colostomy for metastatic rectal cancer History of ankle surgery Status post colostomy Family History Other Hypertension Denies family history of Diabetes CAD (coronary artery disease) Clotting disorder Dementia Hyperlipidemia Psychiatric illness Chronic kidney disease (CKD) Suicide Anesthesia complication Bleeding disorder Lung disease Cancer Stroke Social History Smoking and tobacco/nicotine status: never used tobacco/nicotine Quit status (tobacco/nicotine): has quit using Year quit tobacco: Former quit date comment: smoked x 5 years in his twenty's. 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 Special sunil needs: No Agree to transfusion: Yes Physical Exam 2 Const: GENERAL APPEARANCE: cooperative ORIENTATION/CONSCIOUSNESS: Yes awake, Yes oriented to person, Yes oriented to place and Yes oriented to time HENMT: COMMON NORMALS: normocephalic, atraumatic and hearing grossly normal bilaterally HEAD & SCALP: normocephalic and atraumatic Resp: COMMON NORMALS: normal respiratory effort, No retractions, No use of accessory muscles and clear to auscultation bilaterally AUSCULTATION: clear to auscultation bilaterally Cardio: COMMON NORMALS: regular rate, regular rhythm and No murmurs present (Cardio) RATE: regular rate RHYTHM: regular rhythm GI: INSPECTION: Yes abdominal distension AUSCULTATION: Yes Hypoactive bowel sounds present PALPATION: Yes Tenderness to palpation present (GI), No Guarding due to palpation present (GI), No Rigid due to palpation and Yes Hepatomegaly present Extremity: COMMON NORMALS: normal to inspection, capillary refill normal, no clubbing, cyanosis or edema, no calf tenderness and no pedal edema Neuro: SENSORIUM/ORIENTATION: Yes oriented to person, Yes oriented to place and Yes oriented to time Skin: COMMON NORMALS: no rashes or lesions noted GENERAL SKIN EXAM: no rashes or lesions noted Course 2 Vital Signs: Vital signs: Vital Signs Temperature 98.5 F 06/09/24 10:00 Pulse Rate 117 H 06/09/24 15:33 Respiratory Rate 18 06/09/24 15:33 Blood Pressure 137/93 06/09/24 15:33 Pulse Oximetry 99 06/09/24 15:33 Oxygen Delivery Me thod Room Air 06/09/24 15:33 MDM - Recheck/Abnormal Lab/Rx Medical Decision Making Patient is significant worsening of his liver metastasis and is now exerting excellent sternal pressure on the portal vein causing portal vein thrombosis. We asked radiology to do a paracentesis suspect patient may have peritonitis. He has leukocytosis lactic acidosis his INR is elevated. Conversation with the patient about goals of care he wishes to treat fully and will reevaluate if he improves he states. Discussed with hospitalist patient started on Zosyn and vancomycin. Will admit orders written. Fluid analysis shows 543 white blood cells per mL on the peritoneal fluids could be reactive from his tumor may also reflect infection treat his infection for now Lab Data 06/09/24 11:25 06/09/24 11:25 Radiology Impressions Abdomen/Pelvis CT 06/09/24 11:12 IMPRESSION: 1. Marked progression of the diffuse hepatic metastasis since 05/18/2024 in particular in the LEFT hepatic lobe 2. Extensive upper abdominal lymphadenopathy with periaortic aortocaval retroperitoneal lymphadenopathy. 3. New thrombus within the portal confluence with marked narrowing of the intrahepatic portal veins progressed compared to previous. Diffuse intrahepatic narrowing of the hepatic veins also. 4. Enlarged necrotic lymph node in the monie hepatis with compression of the portal confluence and SMV new compared to previous 5. Small LEFT greater than RIGHT pleural effusions. 6. Mild progression of the abdominal and pelvic ascites Notified Jared Lopez DO at 06/09/2024 1:05 PM. Paracentesis Ultrasound 06/09/24 12:44 IMPRESSION: Uncomplicated paracentesis yielding 1800 ml of peritoneal fluid. Laboratory Results WBC 19.74 10^3/uL (3.29-11.43) H 06/09/24 11:25 RBC 4.97 10^6/uL (3.85-5.65) 06/09/24 11:25 Hgb 13.70 g/dL (11.27-16.99) 06/09/24 11:25 Hct 40.2 % (37-53) 06/09/24 11:25 MCV 80.9 fl (82-101) L 06/09/24 11:25 MCH 27.6 pg (27-33) 06/09/24 11:25 MCHC 34.1 g/dL (30-55) 06/09/24 11:25 RDW 22.5 % (12.1-15.1) H 06/09/24 11:25 Plt Count 286 10^3/cmm (157-399) 06/09/24 11:25 MPV 10.4 fL (7.4-10.4) 06/09/24 11:25 Neut % (Auto) 83.2 % 06/09/24 11:25 Lymph % (Auto) 6.4 % 06/09/24 11:25 [place] % (Auto) 9.7 % 06/09/24 11:25 Eos % (Auto) 0.0 % 06/09/24 11:25 Baso % (Auto) 0.2 % 06/09/24 11:25 Neut # (Auto) 16.43 10^3/uL (1.8-7.7) H 06/09/24 11:25 Lymph # (Auto) 1.3 10^3/uL (0.8-4.8) 06/09/24 11:25 [place] # (Auto) 1.9 10^3/uL (0.2-0.9) H 06/09/24 11:25 Eos # (Auto) 0.0 10^3/uL (0.0-0.8) 06/09/24 11:25 Baso # (Auto) 0.0 10^3/uL (0.0-0.1) 06/09/24 11:25 Nucleated RBC % (auto) 0 % 06/09/24 11:25 Nucleated RBCs # 0.0 /100WBC 06/09/24 11:25 PT 19.50 SECONDS (12.1-14.9) H 06/09/24 11:25 INR 1.54 (0.8-1.2) H 06/09/24 11:25 Sodium 136 mmol/L (136-145) 06/09/24 11:25 Potassium 3.6 mmol/L (3.5-5.1) 06/09/24 11:25 Chloride 97 mmol/L (98-107) L 06/09/24 11:25 Carbon Dioxide 20 mmol/L (22-29) L 06/09/24 11:25 Anion Gap 22.6 (5-19) H 06/09/24 11:25 BUN 12 mg/dL (6-20) 06/09/24 11:25 Creatinine 0.4 mg/dL (0.7-1.2) L 06/09/24 11:25 GFR Calculation 220.2 mL/min (90-130) H 06/09/24 11:25 Glucose 114 mg/dL (65-115) 06/09/24 11:25 Calculated Osmolality 283 mOsm/kg (285-295) L 06/09/24 11:25 Lactic Acid 3.5 mmol/L (0.5-2.2) H 06/09/24 11:25 Calcium 7.9 mg/dL (8.5-10.5) L 06/09/24 11:25 Total Bilirubin 4.1 mg/dL (0.15-1.2) H 06/09/24 11:25 AST 191 U/L (0-40) H 06/09/24 11:25 ALT 69 U/L (0-41) H 06/09/24 11:25 Alkaline Phosphatase 628 U/L (40-130) H 06/09/24 11:25 Total Protein 6.4 g/dL (6.6-8.7) L 06/09/24 11:25 Albumin 3.2 g/dL (3.5-5.2) L 06/09/24 11:25 Globulin 3.2 g/dL (1.3-4.6) 06/09/24 11:25 Lipase 46 U/L (13-60) 06/09/24 11:25 Urine Color Yellow (Yellow) 06/09/24 12:55 Urine Appearance Cloudy (CLEAR) A 06/09/24 12:55 Urine pH 5 (5-7) 06/09/24 12:55 Ur Specific [place] 1.025 (1.005-1.030) 06/09/24 12:55 Urine Protein 1+ (Negative) H 06/09/24 12:55 Urine Glucose (UA) Norm (Normal) 06/09/24 12:55 Urine Ketones 2+ (Negative) H 06/09/24 12:55 Urine Blood Neg (Negative) 06/09/24 12:55 Urine Nitrate Positive (Negative) A 06/09/24 12:55 Urine Bilirubin 2+ (Negative) H 06/09/24 12:55 Urine Urobilinogen 4 mg/dL (Negative) H 06/09/24 12:55 Ur Leukocyte Esterase Trace (Negative) H 06/09/24 12:55 Urine RBC 0-2 /hpf (0-2) 06/09/24 12:55 Urine WBC 0-5 /hpf (0-5) 06/09/24 12:55 Ur Squamous Epith Cells 0-5 /hpf (0-5) 06/09/24 12:55 Amorphous Sediment 2+ /hpf 06/09/24 12:55 Urine Bacteria None seen /hpf (NONE) 06/09/24 12:55 Hyaline Casts 7.42 /lpf 06/09/24 12:55 Peritoneal Color Red (Pale Yellow) 06/09/24 13:45 Peritoneal Appearance Turbid (Clear) 06/09/24 13:45 Peritoneal WBC 543 /uL 06/09/24 13:45 Peritoneal RBC 34 10^3/uL 06/09/24 13:45 Periton Mononu # Auto 0.280 10^3/uL 06/09/24 13:45 Mononuclear WBCs % 51.600 % 06/09/24 13:45 Polynuclear WBCs % 48.400 % 06/09/24 13:45 Perit Polynuc WBCs # 0.263 10^3/uL 06/09/24 13:45 Peritoneal Diff Commnt Yes 06/09/24 13:45 Influenza A (PCR) Negative (Negative) 06/09/24 12:55 Influenza Type B (PCR) Negative (Negative) 06/09/24 12:55 RSV (PCR) Negative (Negative) 06/09/24 12:55 SARS-CoV-2 (PCR) Negative (Negative) 06/09/24 12:55 All radiology interpretation(s) finalized by discharge Discharge Plan Discharge Patient Disposition: Admitted As Inpatient Admit Provider: Xochitl Mancuso Clinical Impression: Sepsis, Rectal cancer metastasized to bone, Rectal cancer metastasized to liver, Peritonitis Condition: Stable Coding Level of Care Code ED Warehouse Stock Clerk for Raj Diaz
[2024-06-09 11:43] LABS: Basophils % 0.2 %; Hematocrit 40.2 % (37-53); Lymphocytes # 1.3 10^3/uL (0.8-4.8); Lymphocytes % 6.4 %; Mean Corpuscular HGB Conc 34.1 g/dL (30-55); Mean Corpuscular Hemoglobin 27.6 pg (27-33); Mean Corpuscular Volume 80.9 fl (82-101); Mean Platelet Volume 10.4 fL (7.4-10.4); Monocytes # 1.9 10^3/uL (0.2-0.9); Monocytes % 9.7 %; Neutrophils # 16.43 10^3/uL (1.8-7.7); Neutrophils % 83.2 %; Nucleated Red Blood Cells % 0 %; Platelet Count 286 10^3/cmm (157-399); Red Blood Count 4.97 10^6/uL (3.85-5.65); Red Cell Distribution Width 22.5 % (12.1-15.1); White Blood Count 19.74 10^3/uL (3.29-11.43)
[2024-06-09 12:07] LABS: Lactic Sepsis W/Reflex 3.5 mmol/L (0.5-2.2)
[2024-06-09 12:08] LABS: Alanine Aminotransferase 69 U/L (0-41); Albumin Level 3.2 g/dL (3.5-5.2); Alkaline Phosphatase 628 U/L (40-130); Anion Gap 22.6 (5-19); Aspartate Amino Transferase 191 U/L (0-40); Blood Urea Nitrogen 12 mg/dL (6-20); Calcium 7.9 mg/dL (8.5-10.5); Carbon Dioxide 20 mmol/L (22-29); Chloride 97 mmol/L (98-107); Creatinine Clr Calc Pharmacy 203.5046; Globulin 3.2 g/dL (1.3-4.6); Glomerular Filtration Rate 220.2 mL/min (90-130); Glucose 114 mg/dL (65-115); Lipase 46 U/L (13-60); Osmolality Calculated 283 mOsm/kg (285-295); Potassium 3.6 mmol/L (3.5-5.1); Sodium 136 mmol/L (136-145); Total Bilirubin 4.1 mg/dL (0.15-1.2); Total Protein 6.4 g/dL (6.6-8.7)
[2024-06-09] MEDS: iohexol 350 mg/mL 500 mL Btl (per mL) IV (12:29)
[2024-06-09 12:30] LABS: Reflex Lactate Order REFLEX LACTIC ORDERD
[2024-06-09 12:33] LABS: INR 1.54 (0.8-1.2)
[2024-06-09] MEDS: piperacillin-tazobactam 3.375 GM in sodium chloride 0.9% (plus) 50 ML IV ×2 (12:38→22:03)
[2024-06-09] MEDS: sodium chloride 0.9% 2,245.29 ML 2245.29 ML IV (12:38)
--- NOTE | 2024-06-09 12:44 | US_ITS ---
WS: [id number] ULTRASOUND-GUIDED THERAPEUTIC AND DIAGNOSTIC PARACENTESIS Procedure, risks, and complications have been explained to the patient. Consent is obtained. Utilizing aseptic technique and 1% buffered lidocaine, a small dermatome was made through which a 5 [place] Y[place] catheter was inserted. Approximately 1800 ml of light red peritoneal fluid was obtained without difficulty. No complications encountered. Specimen collected for analysis. US/US paracentesis abd w [id number] IMPRESSION: Uncomplicated paracentesis yielding 1800 ml of peritoneal fluid.
[2024-06-09 13:02] LABS: Add Urine Microscopic? NO
[2024-06-09 13:05] LABS: Bilirubin Urine 2+ (Negative); Blood Urine Neg (Negative); Glucose Urine UA Norm (Normal); Ketones Urine 2+ (Negative); Leukocyte Esterase Urine Trace (Negative); Nitrate Urine Positive (Negative); Protein Urine 1+ (Negative); Specific Gravity, Urine 1.025 (1.005-1.030); Urine Appearance Cloudy (CLEAR); Urine Color Yellow (Yellow); Urobilinogen Urine 4 mg/dL (Negative); pH Urine 5 (5-7)
[2024-06-09 13:06] LABS: Charge for UA Resulting for Rev
[2024-06-09 13:07] LABS: Bacteria Urine None Seen /hpf; Hyaline Casts Urine 7.42 /lpf; RBC Urine 0-2 /hpf (0-2); Squamous Epithelial Cell Urine 0-5 /hpf (0-5); WBC Urine 0-5 /hpf (0-5)
[2024-06-09 13:21] LABS: Amorphous Sediment Urine 2+ /hpf; UA Slide Review UA Slide Review Perf
--- NOTE | 2024-06-09 13:25 | PC.NURSE ---
this nurse assumed pt care from ASHUTOSH Stahl at 1300.
[2024-06-09 13:40] LABS: Influenza A NEGATIVE (Negative); Influenza B NEGATIVE (Negative); Respiratory Syncytial Virus Ce NEGATIVE (Negative); SARS-CoV-2 PCR NEGATIVE (Negative)
[2024-06-09 14:00] LABS: Cyto Order Verification No Order
[2024-06-09 14:01] LABS: Appearance, Peritoneal Fluid Turbid (Clear); Color, Peritoneal Fluid Red (Pale Yellow); Pathology Referral Yes
[2024-06-09] MEDS: VANCOMYCIN ADD-Vantage 1,000 MG in 0.9% NaCl ADD-Vantage 250 ML 250 MG IV ×2 (14:04→20:57)
[2024-06-09 14:06] LABS: Polynuclear # Cells, Perit 0.263 10^3/uL; RBC Pertioneal Fluid 34 10^3/uL; WBC Peritoneal Fluid 543 /uL
--- NOTE | 2024-06-09 15:43 | P.HP_ITS ---
Providers/Chief Complaint 2 Admitting Physician: Xochitl Mancuso Primary Care Provider: Cassie Werner MD Chief Complaint: abnormal labs History of Present Illness 58-year-old male with a past medical history of invasive rectal cancer (moderately differentiated adenocarcinoma) diagnosed in March 2022, status post exploratory laparotomy with left-sided diverting colostomy in April 2022, presents with nausea and vomiting for the past eight days. He reports being unable to keep any food down, tolerating only water for the last couple of days. Associated symptoms include weakness, intermittent fevers (100-101?F), and occasional shortness of breath. He describes coughing fits productive of greenish phlegm, which frequently induce vomiting. Patient also notes a rash all over his body, thought to be secondary to chemotherapy. He reports orange urine and abdominal distension worsening over the past eight days. He denies vomiting blood. He reports a remote history of rectal bleeding prior to diagnosis of her malignancy, but no recent episodes. Patient's cancer history is significant for metastatic disease. In December 2022, imaging revealed a new sub-centimeter pulmonary nodule with prominent mediastinal hilar nodes, liver metastases, and enlarged right paraesophageal, upper abdominal, and retroperitoneal nodes. Chemotherapy was initiated at that time. Treatment was briefly interrupted due to insurance issues, stopping for approximately one month at the beginning of 2024, and resumed after, with the most recent session on 06/06/2024. A CT scan on 05/18/2024 showed improvement in pulmonary metastatic disease but progression of liver metastases and increased retroperitoneal lymphadenopathy. The patient was seen by Dr. Golden (oncologist) on that day, and low magnesium (0.7) was noted. He received IV magnesium on Wednesday and was started on magnesium oxide. His magnesium remains low today. He takes finasteride and tamsulosin (Flomax) for an enlarged prostate, oxycodone/acetaminophen 10/325 mg for pain, and uses topical creams and Benadryl as needed for the rash. He previously took trazodone but stopped due to adverse effects. Medications/Allergies Home Medications ?Medication ?Instructions ?Recorded ?Confirmed ?Last Taken ?Type diphenoxylate-atropine 2.5 2 tab PO QID PRN Diarrhea # 60 tabs 01/04/23 06/09/24 Unknown Rx mg-0.025 mg tablet (Lomotil) lidocaine-prilocaine 2.5 %-2.5 % 1 applic topical .SUPENTA PLEX #30 grams 05/03/23 06/09/24 Unknown Rx topical cream sildenafil 50 mg tablet 50 mg PO DAILY PRN sexual ac tivity 05/17/23 06/09/24 Unknown Rx #20 tabs colostomy supplies #1 ea 08/06/23 06/09/24 Unkn own Rx cetirizine 10 mg capsule (Zyrtec) 10 mg PO DAILY #90 c aps 08/30/23 06/09/24 Unknown Rx omeprazole 20 mg capsule,delayed See Rx Instructions . Route 08/30/23 06/09/24 Unknown Rx release .COMPLEX #30 caps albuterol sulfate 90 mcg/actuation 2 puff inhalation 6 XD PRN 12/16/23 06/09/24 Unknown Rx aerosol inhaler shortness of breath or wheez ing #8.5 grams trazodone 50 mg tablet 50 mg PO .qhs #30 tabs 05/1506/09/24 06/08/24 Rx oxycodone-acetaminophen 10 mg-325 1 tab PO Q8H 30 days #90 tabs 05/31/24 06/09/24 06/07/24 Rx mg tablet magnesium aspart,citrate,oxide 400 mg PO BID #28 caps 06/05/24 06/09/24 Unknown Rx escitalopram oxalate 10 mg tablet See Rx Instructions .Route 06/07/24 06/09/24 06/07/24 Rx .COMPLEX #45 tabs finasteride 5 mg tablet See Rx Instructions .Route 0 06/08/24 06/09/24 06/07/24 Rx .COMPLEX #90 tabs Allergies Allergy/AdvReac Type Severity Reaction Status Date / Time ragweed pollen Allergy Mild ALGY-Sneezi Verified 06/09/24 10:16 ng PFSH Acute 2 PFSH: Medical History Rectal cancer BPH (benign prostatic hyperplasia) Diverticulosis Rectal perforation Liver mass Surgical History History of insertion of tunneled central venous catheter (CVC) with port History of colostomy left sided diverting colostomy for metastatic rectal cancer History of ankle surgery Status post colostomy Family History Other Hypertension Denies family history of Diabetes CAD (coronary artery disease) Clotting disorder Dementia Hyperlipidemia Psychiatric illness Chronic kidney disease (CKD) Suicide Anesthesia complication Bleeding disorder Lung disease Cancer Stroke Social History Smoking and tobacco/nicotine status: never used tobacco/nicotine Quit status (tobacco/nicotine): has quit using Year quit tobacco: Former quit date comment: smoked x 5 years in his twenty's. 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 Ext: No edema Data 06/09/24 11:25 06/09/24 11:25 Micro: Microbiology 06/09/24 11:25 Blood Culture - Preliminary Blood SPECIMEN COLLECTED 06/09/24 11:33 Blood Culture - Preliminary Blood SPECIMEN COLLECTED A&P Assessment and plan (1) Sepsis: (2) Tachycardia: (3) Elevated WBC count: (4) SBP (spontaneous bacterial peritonitis): (5) Portal vein thrombosis: (6) Rectal cancer metastasized to bone: (7) Rectal cancer metastasized to liver: Plan Sepsis due to Spontaneous Bacterial Peritonitis + Possible Pneumonia - Paracentesis performed with 1800 mL fluid removed. Elevated WBC count in ascitic fluid concerning for SBP. Plan: 1. Will broaden antibiotics with vancomycin and zosyn/ 2. Monitor clinical response and repeat paracentesis if symptoms worsen. 3. Follow up on cultures Metastatic Rectal Cancer with Disease Progression - Invasive rectal cancer (moderately differentiated adenocarcinoma) diagnosed in March 2022, now presenting with worsening nausea, vomiting, and abdominal distension for the past eight days. Imaging reveals significant progression of hepatic metastases and lymphadenopathy, particularly in the left hepatic lobe. Extensive upper abdominal lymphadenopathy with periaortic, aortocaval, and retroperitoneal involvement is also noted. Plan:. 1. Discussed prognosis and goals of care with patient and family. Patient to consider hospice 2. Consult oncology for recommendations regarding further treatment options. Portal Vein Thrombosis with hepatic venous outflow obstruction - New finding on CT scan. Patient's bleeding risk is elevated due to advanced liver disease, coagulopathy (INR 1.54), systemic inflammation from extensive malignancy, and significant liver dysfunction. -New thrombosis of portal vein confluence with marked narrowing of intrahepatic portal and hepatic veins, likely contributing to worsening liver function and ascites. Plan: 1. Holding anticoagulation for now given bleeding risk. Discussed risks and benefits of anticoagulation with patient and family. 2. Monitor for signs and symptoms of worsening portal hypertension. Hypomagnesemia - Magnesium level of 0.7 mg/dL. Plan: 1. Replace IV magnesium and monitor levels. Nausea and Vomiting - Likely multifactorial due to disease progression, possible SBP, and recent chemotherapy. - Start ondansetron 4 mg IV q6h PRN. . Chemotherapy-induced Rash - Continue current management with topical creams and oral antihistamines as needed. PDMP PDMP Reviewed: Not Reviewed Attestations 2 Medical Necessity Statement*: Greater than 2 midnight admission is anticipated for above defined care Coding Level of Care Code Acute Code for Chg Fwd Diagnoses Sepsis A41.9 Tachycardia R00.0 Elevated WBC count D72.829 SBP (spontaneous bacterial peritonitis) K65.2 Portal vein thrombosis I81 Rectal cancer metastasized to bone C20; C79.51 Rectal cancer metastasized to liver C20; C78.7
[2024-06-09 15:50] LABS: Lactic Acid level (Lactate) 2.7 mmol/L (0.5-2.2)
[2024-06-09] MEDS: pantoprazole 40 mg SDV IVP (17:13)
[2024-06-09] MEDS: cefTRIAXone 2,000 mg SDV 2000 MG IVP (17:13)
[2024-06-09] MEDS: enoxaparin 40 mg/0.4 mL Syringe SUBCUT (17:13)
[2024-06-09] MEDS: magnesium sulfate premix 2 GM/50 ML PIGGYBACK IV (18:31)
--- NOTE | 2024-06-09 20:23 | PHA.VACGOAL ---
Vancomycin Goal - Goal Vancomycin Goal:: 15-20 mg/L Vancomycin Indication:: Other (SEPSIS) - Therapy Current therapy:: Pip/Tazo Day of therpy:: Day 1 of [] . Actual body weight (kg): 165 lb - Data Labs: WBC 19.74 10^3/uL (3.29-11.43) H 06/09/24 11:25 RBC 4.97 10^6/uL (3.85-5.65) 06/09/24 11:25 Hgb 13.70 g/dL (11.27-16.99) 06/09/24 11:25 Hct 40.2 % (37-53) 06/09/24 11:25 MCV 80.9 fl (82-101) L 06/09/24 11:25 MCH 27.6 pg (27-33) 06/09/24 11:25 MCHC 34.1 g/dL (30-55) 06/09/24 11:25 RDW 22.5 % (12.1-15.1) H 06/09/24 11:25 Sodium 136 mmol/L (136-145) 06/09/24 11:25 Potassium 3.6 mmol/L (3.5-5.1) 06/09/24 11:25 Chloride 97 mmol/L (98-107) L 06/09/24 11:25 Carbon Dioxide 20 mmol/L (22-29) L 06/09/24 11:25 Anion Gap 22.6 (5-19) H 06/09/24 11:25 BUN 12 mg/dL (6-20) 06/09/24 11:25 Creatinine 0.4 mg/dL (0.7-1.2) L 06/09/24 11:25 GFR Calculation 220.2 mL/min (90-130) H 06/09/24 11:25 Last dialysis session:: N/A Treatment plan:: new consult Regimen:: LOADING DOSE OF 1000 MG GIVEN IN ER MAINTENANCE DOSE OF 1000 MG Q8H PER DOSING PROTOCOL Follow up:: WILL CONTINUE TO MONITOR AND FOLLOW UP DAILY
--- NOTE | 2024-06-09 20:41 | PC.NURSE ---
Patient states that the last chemo he received was Wednesday. Patient states he has not been receiving radiation. Patient c/o headache. Dr. Loredo notified and she ordered to give the PRN Morphine that patient has ordered.
[2024-06-09] MEDS: morphine 4 mg/mL SDV 1 mL 2 MG IVP (20:56)
[2024-06-09] MEDS: sodium chloride 0.9% 1,000 ML 75 ML IV (20:57)
[2024-06-10] VITALS (8 sets, daily range): BP systolic 124–145; BP diastolic 73–103; PULSE 99–119; RESP 15–17; TEMP 36.3–36.9; O2SAT 92–100
--- NOTE | 2024-06-10 05:47 | PC.NURSE ---
Patient requesting that port-a-cath be de-accessed for patient to take a shower and re-accessed after shower.
[2024-06-10 05:51] LABS: Basophils % 0.2 %; Eosinophils % 0.1 %; Hematocrit 38.2 % (37-53); Lymphocytes # 1.2 10^3/uL (0.8-4.8); Lymphocytes % 6.8 %; Mean Corpuscular HGB Conc 34.3 g/dL (30-55); Mean Corpuscular Hemoglobin 27.3 pg (27-33); Mean Corpuscular Volume 79.7 fl (82-101); Mean Platelet Volume 10.2 fL (7.4-10.4); Monocytes # 2.3 10^3/uL (0.2-0.9); Monocytes % 12.6 %; Neutrophils # 14.36 10^3/uL (1.8-7.7); Neutrophils % 79.7 %; Nucleated Red Blood Cells % 0 %; Platelet Count 263 10^3/cmm (157-399); Red Blood Count 4.79 10^6/uL (3.85-5.65); Red Cell Distribution Width 22.4 % (12.1-15.1)
[2024-06-10 06:12] LABS: Lactic Sepsis W/Reflex 2.6 mmol/L (0.5-2.2)
[2024-06-10 06:14] LABS: Alanine Aminotransferase 70 U/L (0-41); Alkaline Phosphatase 648 U/L (40-130); Anion Gap 17.4 (5-19); Aspartate Amino Transferase 188 U/L (0-40); Blood Urea Nitrogen 11 mg/dL (6-20); Calcium 7.7 mg/dL (8.5-10.5); Carbon Dioxide 19 mmol/L (22-29); Chloride 101 mmol/L (98-107); Glomerular Filtration Rate 170.2 mL/min (90-130); Glucose 118 mg/dL (65-115); Osmolality Calculated 278 mOsm/kg (285-295); Potassium 3.4 mmol/L (3.5-5.1); Sodium 134 mmol/L (136-145)
[2024-06-10 06:19] LABS: Procalcitonin 0.89 ng/mL (0-0.5)
[2024-06-10] MEDS: morphine 4 mg/mL SDV 1 mL 2 MG IVP ×2 (06:38→10:56)
[2024-06-10] MEDS: VANCOMYCIN ADD-Vantage 1,000 MG in 0.9% NaCl ADD-Vantage 250 ML 250 MG IV ×3 (06:38→22:15)
[2024-06-10 07:36] LABS: Reflex Lactate Order REFLEX LACTIC ORDERD
[2024-06-10] MEDS: piperacillin-tazobactam 3.375 GM in sodium chloride 0.9% (plus) 50 ML IV ×3 (08:32→23:20)
[2024-06-10 09:23] LABS: Lactic Acid level (Lactate) 2.2 mmol/L (0.5-2.2)
[2024-06-10] MEDS: sodium chloride 0.9% 1,000 ML 75 ML IV ×2 (10:55→23:20)
--- NOTE | 2024-06-10 11:47 | PC.CHAP ---
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 [] Patient/Family/Request visit [] Outpatient visit [] Follow-up visit [] Physician referral [] Code/Alert [x] Routine visit [] Staff referral [] Actively dying [x] Patient sleeping [] Family support [] [] Out of room [] Palliative care [] [] Receiving care in room [] Pre-surgical visit [] Trauma [] Long length of stay [] ICU visit [] Other: Relational/Emotional Strength [] Patient feels connected with others/family/visitors/staff [] Distress [] Loneliness/isolation [] Abandonment Spirituality of Patient [] Person of Amita [] Attends Muslim of their Amita [] Believes in Prayer [] Reads Bible or Church materials [] There are Spiritual issues to be addressed Waiter/Waitress Informal Interventions [] Prayer [] Active listening [] Non-anxious presence [] Spiritual/emotional support [] Crisis/trauma care [] Spiritual counseling [] Bereavement support [] Provided bereavement packet [] Provided Bible/devotional materials [] Provided toy/stuffed animal, coloring book to patient or family member [] Provided Communion [] Anointing/[place] [] Salvation [] Completed spiritual assessment [] Other: Impact on Illness or Injury [] Angry [] Fearful [] Anxious [] Often cries [] Exhaustion [] Unable to work [] Unable to attend hindu [] Unable to walk/stand [] Unable to read [] Unable to drive [] Unable to eat/drink [] Unable to sleep [] Unable to be with family [] Patient intubated [] Other: Summary Time spent with patient
--- NOTE | 2024-06-10 14:01 | P.PN_ITS ---
Subjective 2 Subjective: 58-year-old male with a past medical his tory of invasive rectal cancer (moderately differentiated adenocarcinoma) diagnosed in March 2022, status post exploratory laparotomy with left-sided diverting colostomy in April 2022, April 2022, presents with nausea and vomiting for the past eight days. He reports being unable to keep any food down, tolerating only water for the last couple of days. Associated symptoms include weakness, intermittent fevers (100-101?F), and occasional shortness of breath. He describes coughing fits productive of greenish phlegm, which frequently induce vomiting. He reports orange urine and abdominal distension worsening over the past eight days. He denies vomiting blood. Patient was seen earlier today at [facility]. Given his symptoms in concern for infection he was sent to the emergency room for evaluation. Patient wad diagnosed with rectal cancer in December 2022 follow work up for rectal bleeding. On work up this was noted to have matastasied to bone, lung and liver.. Chemotherapy was initiated at that time. Treatment was briefly interrupted due to insurance issues, stopping for approximately one month at the beginning of 2024, and resumed after, with the most recent session on 06/06/2024. A CT scan on 05/18/2024 showed improvement in pulmonary metastatic disease but progression of liver metastases and increased retroperitoneal lymphadenopathy His laboratory workup on arrival showed a WBC of 19, hemoglobin of 13, hematocrit of 40 and a platelet count of 286. INR 1.54, PTT of 19. Sodium of 136, potassium of 3.6, chloride 97, bicarb 20, BUN of 12 and creatinine of 0.4. Glucose of 114. Patient's lactic acid 3.5 which had improved to 2.7 after IV fluids. Magnesium of 0.7. His total bilirubin of 4.1. AST of 191, ALT of 69 and alkaline phosphatase 628. Total protein of 6.4. Albumin of 3.2. Lipase of 46. CEA of 56. Urinalysis showed a specific gravity 1.025, 1+ protein, 2+ ketones positive nitrites, bilirubin, urobilinogen and trace leukocyte esterase. Peritoneal fluid analysis showed a WBC of 543, RBC of 34, polymophonucelar cells 263. Procalcitonin of 0.89. CT Scan of abdomen/pelvis yesterday showed marked progression of diffuse hepatic metastasis since 05/18/2024 particularly in the left hepatic lobe. Extensive upper abdominal lymphadenopathy with Katja aortic, out of stable retroperitoneal lymphadenopathy. Additionally a new thrombus within the portal confluence with marked narrowing of the intrahepatic portal veins and diffuse intrahepatic narrowing of the hepatic weaned as well. An enlarged necrotic lymph node in the monie hepaticus with compression of the portal confluence and SMV was new in addition to small last greater than right pleural effusions. No dedicated pulmonary imaging was done. Patient was started on vancomycin and Zosyn. Urine was sent for culture which is pending. Blood cultures drawn on 06/09 did not show any growth. Ascites fluid culture was also pending. Today patient did not have any significant change in clinical condition. He did not have any fevers overnight. Also did not have any respiratory distress. Stated he was feeling very weak and tired. I was able to talk to Dr. Espino his oncologist who reviewed his chart and stated patient has had significant progression of his disease and at this point did not have any further available options in respect to chemotherapy. Recommended hospice consult. Would be able to see patient on Wednesday when he was back on service. Agreed against anticoagulation for portal vein thrombosis given patient's significantly increased risk of bleeding and progression of his hepatic Mets. Medications: Reviewed: Yes Vitals/I&O/Wt Last Vital Signs Temp 97.3 F L 06/10/24 11:14 Pulse 99 06/10/24 11:14 Resp 16 06/10/24 10:56 BP 145/98 06/10/24 11:14 Pulse Ox 95 06/10/24 11:14 O2 Del Method Room Air 06/10/24 11:14 06/09/24 06/10/24 06/10/24 22:59 06:59 14:59 Intake Total 2795.29 / 2845.29 713.75 / 3559.04 740 / 740 Balance 2795.29 / 2845.29 713.75 / 3559.04 740 / 740 Weight last 48 hrs Weight 81.284 kg Weight 79.832 kg Weight 74.843 kg Physical Exam 2 Narrative: General: Appears weak HEENT: Grossly unremarkable CVS; RRR Chest: Decreased at bases Abdomen: Distended, hard, especially in the RUQ where the liver is palpable and extending. Ext: No edema Data 06/11/24 04:35 06/11/24 04:35 Micro: Microbiology 06/09/24 11:25 Blood Culture - Preliminary Blood NEGATIVE TO DATE 06/09/24 11:33 Blood Culture - Preliminary Blood NEGATIVE TO DATE A&P Assessment and plan (1) Sepsis: (2) Tachycardia: (3) Elevated WBC count: (4) SBP (spontaneous bacterial peritonitis): (5) Portal vein thrombosis: (6) Rectal cancer metastasized to bone: (7) Rectal cancer metastasized to liver: Plan Sepsis due to Spontaneous Bacterial Peritonitis + Possible Pneumonia / UTI - Paracentesis performed with 1800 mL fluid removed. Elevated WBC count in ascitic fluid concerning for SBP. Plan: 1. Continue current antibiotics 2. Follow up on culture Metastatic Rectal Cancer with Disease Progression - Invasive rectal cancer (moderately differentiated adenocarcinoma) diagnosed in March 2022, now presenting with worsening nausea, vomiting, and abdominal distension for the past eight days. Imaging reveals significant progression of hepatic metastases and lymphadenopathy, particularly in the left hepatic lobe. Extensive upper abdominal lymphadenopathy with periaortic, aortocaval, and retroperitoneal involvement is also noted. Plan:. 1. Discussed with oncology - agree no further treatment optiosn 2. Oncology to follow up on wednesday 3. Patient still considering hospice Portal Vein Thrombosis with hepatic venous outflow obstruction - New finding on CT scan. Patient's bleeding risk is elevated due to advanced liver disease, coagulopathy (INR 1.54), systemic inflammation from extensive malignancy, and significant liver dysfunction. -New thrombosis of portal vein confluence with marked narrowing of intrahepatic portal and hepatic veins, likely contributing to worsening liver function and ascites. Plan: 1. Oncology agrees, no benifit from anticoagulation and high risk of bleeding. 2. Monitor for signs and symptoms of worsening portal hypertension. Hypomagnesemia - Magnesium level of 0.7 mg/dL.- > 1.0 Plan: 1. Replace IV magnesium and monitor levels. Nausea and Vomiting - Likely multifactorial due to disease progression, possible SBP, and recent chemotherapy. - Start ondansetron 4 mg IV q6h PRN. . Chemotherapy-induced Rash - Continue current management with topical creams and oral antihistamines as needed. PDMP PDMP Reviewed: Not Reviewed Attestations 2 Medical Necessity Statement*: Greater than 2 midnight admission is anticipated for above defined care Coding Level of Care Code Acute Code for [facility] Diagnoses Sepsis A41.9 Tachycardia R00.0 Elevated WBC count D72.829 SBP (spontaneous bacterial peritonitis) K65.2 Portal vein thrombosis I81 Rectal cancer metastasized to bone C20; C79.51 Rectal cancer metastasized to liver C20; C78.7
[2024-06-10] MEDS: enoxaparin 40 mg/0.4 mL Syringe SUBCUT (16:20)
[2024-06-10] MEDS: pantoprazole 40 mg SDV IVP (16:20)
[2024-06-10 21:51] LABS: Vancomycin Trough 14.6 ug/mL (10-15)
[2024-06-11] VITALS (9 sets, daily range): BP systolic 126–145; BP diastolic 83–98; PULSE 104–134; RESP 16–18; TEMP 36.4–36.8; O2SAT 92–98
[2024-06-11] MEDS: morphine 4 mg/mL SDV 1 mL 2 MG IVP ×2 (00:31→04:27)
[2024-06-11] MEDS: VANCOMYCIN ADD-Vantage 1,000 MG in 0.9% NaCl ADD-Vantage 250 ML 250 MG IV ×3 (05:02→21:48)
[2024-06-11 05:25] LABS: Basophils % 0.2 %; Eosinophils % 0.1 %; Hematocrit 37.1 % (37-53); Lymphocytes # 1.1 10^3/uL (0.8-4.8); Mean Corpuscular HGB Conc 34.8 g/dL (30-55); Mean Corpuscular Hemoglobin 27.9 pg (27-33); Mean Corpuscular Volume 80.3 fl (82-101); Mean Platelet Volume 10.7 fL (7.4-10.4); Monocytes # 2.6 10^3/uL (0.2-0.9); Neutrophils # 14.68 10^3/uL (1.8-7.7); Neutrophils % 79.2 %; Nucleated Red Blood Cells % 0 %; Platelet Count 230 10^3/cmm (157-399); Red Blood Count 4.62 10^6/uL (3.85-5.65); Red Cell Distribution Width 22.9 % (12.1-15.1); White Blood Count 18.56 10^3/uL (3.29-11.43)
[2024-06-11 05:43] LABS: Alanine Aminotransferase 72 U/L (0-41); Albumin Level 2.9 g/dL (3.5-5.2); Alkaline Phosphatase 605 U/L (40-130); Anion Gap 16.7 (5-19); Aspartate Amino Transferase 219 U/L (0-40); Blood Urea Nitrogen 10 mg/dL (6-20); Calcium 7.3 mg/dL (8.5-10.5); Carbon Dioxide 19 mmol/L (22-29); Chloride 101 mmol/L (98-107); Globulin 2.9 g/dL (1.3-4.6); Glomerular Filtration Rate 137.9 mL/min (90-130); Glucose 95 mg/dL (65-115); Osmolality Calculated 275 mOsm/kg (285-295); Potassium 3.7 mmol/L (3.5-5.1); Sodium 133 mmol/L (136-145); Total Protein 5.8 g/dL (6.6-8.7)
[2024-06-11] MEDS: HYDROmorphone 0.5 MG/0.5 ML INJ 1 MG IVP ×2 (05:51→10:09)
[2024-06-11] MEDS: piperacillin-tazobactam 3.375 GM in sodium chloride 0.9% (plus) 50 ML IV ×2 (08:17→16:24)
[2024-06-11] MEDS: magnesium sulfate premix 2 GM/50 ML PIGGYBACK IV (13:48)
[2024-06-11] MEDS: morphine 4 mg/mL SDV 1 mL IVP ×2 (14:19→20:52)
--- NOTE | 2024-06-11 16:07 | P.PN_ITS ---
Subjective 2 Subjective: 58-year-old male with a past medical his tory of invasive rectal cancer (moderately differentiated adenocarcinoma) diagnosed in March 2022, status post exploratory laparotomy with left-sided diverting colostomy in April 2022, April 2022, presents with nausea and vomiting for the past eight days. He reports being unable to keep any food down, tolerating only water for the last couple of days. Associated symptoms include weakness, intermittent fevers (100-101?F), and occasional shortness of breath. He describes coughing fits productive of greenish phlegm, which frequently induce vomiting. He reports orange urine and abdominal distension worsening over the past eight days. He denies vomiting blood. Patient was seen earlier today at [facility]cology Clinic. Given his symptoms in concern for infection he was sent to the emergency room for evaluation. Patient wad diagnosed with rectal cancer in December 2022 follow work up for rectal bleeding. On work up this was noted to have matastasied to bone, lung and liver.. Chemotherapy was initiated at that time. Treatment was briefly interrupted due to insurance issues, stopping for approximately one month at the beginning of 2024, and resumed after, with the most recent session on 06/06/2024. A CT scan on 05/18/2024 showed improvement in pulmonary metastatic disease but progression of liver metastases and increased retroperitoneal lymphadenopathy His laboratory workup on arrival showed a WBC of 19, hemoglobin of 13, hematocrit of 40 and a platelet count of 286. INR 1.54, PTT of 19. Sodium of 136, potassium of 3.6, chloride 97, bicarb 20, BUN of 12 and creatinine of 0.4. Glucose of 114. Patient's lactic acid 3.5 which had improved to 2.7 after IV fluids. Magnesium of 0.7. His total bilirubin of 4.1. AST of 191, ALT of 69 and alkaline phosphatase 628. Total protein of 6.4. Albumin of 3.2. Lipase of 46. CEA of 56. Urinalysis showed a specific gravity 1.025, 1+ protein, 2+ ketones positive nitrites, bilirubin, urobilinogen and trace leukocyte esterase. Peritoneal fluid analysis showed a WBC of 543, RBC of 34, polymophonucelar cells 263. Procalcitonin of 0.89. CT Scan of abdomen/pelvis yesterday showed marked progression of diffuse hepatic metastasis since 05/18/2024 particularly in the left hepatic lobe. Extensive upper abdominal lymphadenopathy with Katja aortic, out of stable retroperitoneal lymphadenopathy. Additionally a new thrombus within the portal confluence with marked narrowing of the intrahepatic portal veins and diffuse intrahepatic narrowing of the hepatic weaned as well. An enlarged necrotic lymph node in the monie hepaticus with compression of the portal confluence and SMV was new in addition to small last greater than right pleural effusions. No dedicated pulmonary imaging was done. Patient was started on vancomycin and Zosyn. Urine was sent for culture which is pending. Blood cultures drawn on 06/09 did not show any growth. Ascites fluid culture was also pending. Today patient did not have any significant change in clinical condition. He did not have any fevers overnight. Also did not have any respiratory distress. Stated he was feeling very weak and tired. I was able to talk to Dr. Espino his oncologist who reviewed his chart and stated patient has had significant progression of his disease and at this point did not have any further available options in respect to chemotherapy. Recommended hospice consult. Would be able to see patient on Wednesday when he was back on service. Agreed against anticoagulation for portal vein thrombosis given patient's significantly increased risk of bleeding and progression of his hepatic Mets. 06/11 Overnight patient with stating he was having increasing pain. He was started on Dilaudid however states this does not work as well as morphine and thus was transitioned back to morphine. I discussed with him my conversation with Dr. Dhillon. He stated that he would like to proceed with hospice. Had a detailed discussion on hospice care. He stated he would like to talk to [facility] and also have a home bed arranged. Has not had any fevers. No nausea or vomiting. Patient's partner was at bedside. All questions were answered. Medications: Reviewed: Yes Vitals/I&O/Wt Last Vital Signs Temp 98.0 F 06/11/24 11:19 Pulse 117 H 06/11/24 11:19 Resp 18 06/11/24 14:19 BP 137/88 06/11/24 11:19 Pulse Ox 92 06/11/24 11:19 O2 Del Method Room Air 06/11/24 11:19 06/11/24 06/11/24 06/11/24 06:59 14:59 22:59 Intake Total 2715.00 / 3995.00 656.25 / 656.25 50 / 706.25 Balance 2715.00 / 3995.00 656.25 / 656.25 50 / 706.25 Weight last 48 hrs Weight 81.012 kg Weight 81.284 kg Weight 79.832 kg Physical Exam 2 Narrative: General: Appears weak HEENT: Grossly unremarkable CVS; RRR Chest: Decreased at bases Abdomen: Distended, hard, especially in the RUQ where the liver is palpable and extending. Ext: No edema Data 06/11/24 04:35 06/11/24 04:35 Micro: Microbiology 06/09/24 13:45 Body Fluid Culture - Preliminary Ascites Fluid 06/09/24 11:25 Blood Culture - Preliminary Blood NEGATIVE TO DATE 06/09/24 11:33 Blood Culture - Preliminary Blood NEGATIVE TO DATE A&P Assessment and plan (1) Sepsis: (2) Tachycardia: (3) Elevated WBC count: (4) SBP (spontaneous bacterial peritonitis): (5) Portal vein thrombosis: (6) Rectal cancer metastasized to bone: (7) Rectal cancer metastasized to liver: Plan Sepsis due to Spontaneous Bacterial Peritonitis + Possible Pneumonia / UTI - Paracentesis performed with 1800 mL fluid removed. Elevated WBC count in ascitic fluid concerning for SBP. Plan: 1. Continue current antibiotics for now 2. Follow up on culture - no ngtd noted. Metastatic Rectal Cancer with Disease Progression - Invasive rectal cancer (moderately differentiated adenocarcinoma) diagnosed in March 2022, now presenting with worsening nausea, vomiting, and abdominal distension for the past eight days. Imaging reveals significant progression of hepatic metastases and lymphadenopathy, particularly in the left hepatic lobe. Extensive upper abdominal lymphadenopathy with periaortic, aortocaval, and retroperitoneal involvement is also noted. Plan:. 1. Discussed with oncology - agree no further treatment optiosn 2. Oncology to follow up on wednesday 3. Patient is agreeable to hospice. Consult was placed. Will likely go with [facility]. Will need home hospital bed arranged Portal Vein Thrombosis with hepatic venous outflow obstruction - New finding on CT scan. Patient's bleeding risk is elevated due to advanced liver disease, coagulopathy (INR 1.54), systemic inflammation from extensive malignancy, and significant liver dysfunction. -New thrombosis of portal vein confluence with marked narrowing of intrahepatic portal and hepatic veins, likely contributing to worsening liver function and ascites. Plan: 1. Oncology agrees, no benefit from anticoagulation and high risk of bleeding. 2. Monitor for signs and symptoms of worsening portal hypertension. Hypomagnesemia - Magnesium level of 0.7 mg/dL.- > 1.0 Plan: 1. Replace IV magnesium and monitor levels. 2. Additional 2 g of mag sulfate was given today. Nausea and Vomiting - Likely multifactorial due to disease progression, possible SBP, and recent chemotherapy. - Start ondansetron 4 mg IV q6h PRN. . Chemotherapy-induced Rash - Continue current management with topical creams and oral antihistamines as needed. PDMP PDMP Reviewed: Not Reviewed Attestations 2 Medical Necessity Statement*: Greater than 2 midnight admission is anticipated for above defined care Coding Level of Care Code Acute Code for [facility] Diagnoses Sepsis A41.9 Tachycardia R00.0 Elevated WBC count D72.829 SBP (spontaneous bacterial peritonitis) K65.2 Portal vein thrombosis I81 Rectal cancer metastasized to bone C20; C79.51 Rectal cancer metastasized to liver C20; C78.7
[2024-06-11] MEDS: pantoprazole 40 mg SDV IVP (16:25)
[2024-06-11] MEDS: enoxaparin 40 mg/0.4 mL Syringe SUBCUT (16:29)
[2024-06-12 00:08] VITALS: BP 144/97; PULSE 107; RESP 18; TEMP 36.3; O2SAT 97
[2024-06-12] MEDS: piperacillin-tazobactam 3.375 GM in sodium chloride 0.9% (plus) 50 ML IV (00:43)
[2024-06-12 04:25] VITALS: BP 143/98; PULSE 112; RESP 16; TEMP 36.4; O2SAT 96
[2024-06-12 05:26] LABS: Basophils # 0.1 10^3/uL (0.0-0.1); Basophils % 0.4 %; Eosinophils # 0.1 10^3/uL (0.0-0.8); Eosinophils % 0.9 %; Hematocrit 34.6 % (37-53); Lymphocytes # 1.3 10^3/uL (0.8-4.8); Lymphocytes % 9.3 %; Mean Corpuscular HGB Conc 34.4 g/dL (30-55); Mean Corpuscular Hemoglobin 27.8 pg (27-33); Mean Corpuscular Volume 80.8 fl (82-101); Mean Platelet Volume 10.8 fL (7.4-10.4); Monocytes # 2.2 10^3/uL (0.2-0.9); Monocytes % 15.4 %; Neutrophils # 10.47 10^3/uL (1.8-7.7); Neutrophils % 73.5 %; Nucleated Red Blood Cells % 0 %; Platelet Count 201 10^3/cmm (157-399); Red Blood Count 4.28 10^6/uL (3.85-5.65); White Blood Count 14.23 10^3/uL (3.29-11.43)
[2024-06-12 05:45] LABS: Magnesium 1.1 mg/dL (1.7-2.3)
[2024-06-12 05:46] LABS: Alanine Aminotransferase 110 U/L (0-41); Albumin Level 2.7 g/dL (3.5-5.2); Alkaline Phosphatase 516 U/L (40-130); Aspartate Amino Transferase 342 U/L (0-40); Blood Urea Nitrogen 13 mg/dL (6-20); Calcium 7.6 mg/dL (8.5-10.5); Carbon Dioxide 19 mmol/L (22-29); Chloride 100 mmol/L (98-107); Globulin 2.7 g/dL (1.3-4.6); Glomerular Filtration Rate 137.9 mL/min (90-130); Glucose 79 mg/dL (65-115); Osmolality Calculated 271 mOsm/kg (285-295); Sodium 131 mmol/L (136-145); Total Bilirubin 5.7 mg/dL (0.15-1.2); Total Protein 5.4 g/dL (6.6-8.7)
[2024-06-12 06:55] LABS: Vancomycin Trough 17.9 ug/mL (10-15)
[2024-06-12] MEDS: VANCOMYCIN ADD-Vantage 1,000 MG in 0.9% NaCl ADD-Vantage 250 ML 250 MG IV (07:14)
[2024-06-12 08:00] VITALS: BP 133/99; PULSE 123; RESP 17; TEMP 36.4; O2SAT 99
[2024-06-12] MEDS: magnesium sulfate premix 2 GM/50 ML PIGGYBACK IV (08:27)
[2024-06-12 12:00] VITALS: BP 143/99; PULSE 122; RESP 17; TEMP 36.3; O2SAT 97
--- NOTE | 2024-06-12 13:03 | US_ITS ---
WS: [id number] ULTRASOUND-GUIDED PARACENTESIS CLINICAL INFORMATION: repeat Paracentesis Procedure Informed consent: The risks, benefits, and alternatives of the procedure were discussed with the patient. Verbal and written consent was obtained. Timeout: A timeout was performed to confirm the correct patient, procedure, and site. Preparation: A suitable skin site was identified. The patient was prepped and draped in usual sterile fashion. Lidocaine 1% was used for local anesthesia. Catheter: 4 Indonesian One-step Yueh catheter. Side: RIGHT lower quadrant. Fluid Volume: 3900 ml Color: Bloody DISPOSITION: Discarded safely. Complications: None. US/US paracentesis abd w [id number] IMPRESSION: Uncomplicated ultrasound-guided paracentesis. Removal of 3900cc
--- NOTE | 2024-06-12 14:10 | PC.NURSE ---
Paracentesis drained 3900 ml
[2024-06-12 16:00] VITALS: BP 123/87; PULSE 118; RESP 16; TEMP 36.3; O2SAT 96
[2024-06-12 19:00] VITALS: BP 123/87; PULSE 118; RESP 16; TEMP 34.8; O2SAT 96
--- NOTE | 2024-06-12 19:04 | PC.NURSE ---
Discussed discharge with patient and spouse. Discussed new medications, stopped medications, follow up appointments and wound care. Both verbalized understanding.
--- NOTE | 2024-06-16 14:17 | P.DS_ITS ---
Discharge Providers Date of Admission: 06/09/24 15:04 Date of Discharge: 06/12/24 Attending Provider at Admission: Xochitl Mancuso Attending Provider at Discharge: Xochitl Mancuso Consults: Hospice. Primary Care Provider: Cassie Werner MD Diagnoses at Discharge Discharge Diagnosis (1) Sepsis: Status: Resolved (2) Tachycardia: Status: Resolved (3) Elevated WBC count: Status: Resolved (4) SBP (spontaneous bacterial peritonitis): Status: Resolved (5) Portal vein thrombosis: Status: Acute (6) Rectal cancer metastasized to bone: Status: Resolved (7) Rectal cancer metastasized to liver: Status: Resolved Reason for Visit 2 Reason for Visit: abnormal labs Hospital Course Hospital Course 58-year-old male with a past medical history of invasive rectal cancer (moderately differentiated adenocarcinoma) diagnosed in March 2022, status post exploratory laparotomy with left-sided diverting colostomy in April 2022, April 2022, presents with nausea and vomiting for the past eight days. He reports being unable to keep any food down, tolerating only water for the last couple of days. Associated symptoms include weakness, intermittent fevers (100-101?F), and occasional shortness of breath. He describes coughing fits productive of greenish phlegm, which frequently induce vomiting. He reports orange urine and abdominal distension worsening over the past eight days. He denies vomiting blood. Patient was seen earlier today at [facility]. Given his symptoms in concern for infection he was sent to the emergency room for evaluation. Patient wad diagnosed with rectal cancer in December 2022 follow work up for rectal bleeding. On work up this was noted to have matastasied to bone, lung and liver.. Chemotherapy was initiated at that time. Treatment was briefly interrupted due to insurance issues, stopping for approximately one month at the beginning of 2024, and resumed after, with the most recent session on 06/06/2024. A CT scan on 05/18/2024 showed improvement in pulmonary metastatic disease but progression of liver metastases and increased retroperitoneal lymphadenopathy His laboratory workup on arrival showed a WBC of 19, hemoglobin of 13, hematocrit of 40 and a platelet count of 286. INR 1.54, PTT of 19. Sodium of 136, potassium of 3.6, chloride 97, bicarb 20, BUN of 12 and creatinine of 0.4. Glucose of 114. Patient's lactic acid 3.5 which had improved to 2.7 after IV fluids. Magnesium of 0.7. His total bilirubin of 4.1. AST of 191, ALT of 69 and alkaline phosphatase 628. Total protein of 6.4. Albumin of 3.2. Lipase of 46. CEA of 56. Urinalysis showed a specific gravity 1.025, 1+ protein, 2+ ketones positive nitrites, bilirubin, urobilinogen and trace leukocyte esterase. Peritoneal fluid analysis showed a WBC of 543, RBC of 34, polymophonucelar cells 263. Procalcitonin of 0.89. CT Scan of abdomen/pelvis yesterday showed marked progression of diffuse hepatic metastasis since 05/18/2024 particularly in the left hepatic lobe. Extensive upper abdominal lymphadenopathy with Katja aortic, out of stable retroperitoneal lymphadenopathy. Additionally a new thrombus within the portal confluence with marked narrowing of the intrahepatic portal veins and diffuse intrahepatic narrowing of the hepatic weaned as well. An enlarged necrotic lymph node in the monie hepaticus with compression of the portal confluence and SMV was new in addition to small last greater than right pleural effusions. No dedicated pulmonary imaging was done. Patient was started on vancomycin and Zosyn. Urine was sent for culture which is pending. Blood cultures drawn on 06/09 did not show any growth. Ascites fluid culture was also pending. 06/10 patient did not have any significant change in clinical condition. He did not have any fevers overnight. Also did not have any respiratory distress. Stated he was feeling very weak and tired. I was able to talk to Dr. Espino his oncologist who reviewed his chart and stated patient has had significant progression of his disease and at this point did not have any further available options in respect to chemotherapy. Recommended hospice consult. Would be able to see patient on Wednesday when he was back on service. Agreed against anticoagulation for portal vein thrombosis given patient's significantly increased risk of bleeding and progression of his hepatic Mets. 06/11 Overnight patient with stating he was having increasing pain. He was started on Dilaudid however states this does not work as well as morphine and thus was transitioned back to morphine. I discussed with him my conversation with Dr. Dhillon. He stated that he would like to proceed with hospice. Had a detailed discussion on hospice care. He stated he would like to talk to [facility] and also have a home bed arranged. Has not had any fevers. No nausea or vomiting. Patient's partner was at bedside. All questions were answered. 06/12 Patient had opted to continue with home with hospice. Requested a hospital bed at home. Given increasing abdominal ascietes patient was taken for a repeat paracentesis during which 3900ml were drained. Discussed again with Dr. Dhillon who agree with plan of care. He was emperically continued on augmentin however i did discuss with him regarding unclear infectious process. Discharge home on hospice. Physical Exam Narrative: General: Appears weak HEENT: Grossly unremarkable CVS; RRR Chest: Decreased at bases Abdomen: Distended, hard, especially in the RUQ where the liver is palpable and extending. Ext: No edema Discharge Data Studies Completed and Pending Completed Studies During Hospitalization Category Date Time Status CT abdomen pelvis w con* [id number] Stat Cat Scan 06/09/24 11:12 Completed US paracentesis abd w [id number] Routine Ultrasound 06/12/24 13:03 Completed US paracentesis abdomen [US paracentesis abd w [id number]] Ultrasound 06/09/24 12:44 Completed Stat Radiology Impressions Abdomen/Pelvis CT 06/09/24 11:12 IMPRESSION: 1. Marked progression of the diffuse hepatic metastasis since 05/18/2024 in par ticular in the LEFT hepatic lobe 2. Extensive upper abdominal lymphadenopathy with periaortic aortocaval retroperitoneal lymphadenopathy. 3. New thrombus within the portal confluence with marked narrowing of the intrahepatic portal veins progressed compared to previous. Diffuse intrahepatic narrowing of the hepatic veins also. 4. Enlarged necrotic lymph node in the monie hepatis with compression of the portal confluence and SMV new compared to previous 5. Small LEFT greater than RIGHT pleural effusions. 6. Mild progression of the abdominal and pelvic ascites Notified Jared Lopez DO at 06/09/2024 1:05 PM. Paracentesis Ultrasound 06/12/24 13:03 IMPRESSION: Uncomplicated ultrasound-guided paracentesis. Removal of 3900cc Laboratory Results WBC 14.23 10^3/uL (3.29-11.43) H 06/12/24 04:55 RBC 4.28 10^6/uL (3.85-5.65) 06/12/24 04:55 Hgb 11.90 g/dL (11.27-16.99) 06/12/24 04:55 Hct 34.6 % (37-53) L 06/12/24 04:55 MCV 80.8 fl (82-101) L 06/12/24 04:55 MCH 27.8 pg (27-33) 06/12/24 04:55 MCHC 34.4 g/dL (30-55) 06/12/24 04:55 RDW 23.0 % (12.1-15.1) H 06/12/24 04:55 Plt Count 201 10^3/cmm (157-399) 06/12/24 04:55 MPV 10.8 fL (7.4-10.4) H 06/12/24 04:55 Neut % (Auto) 73.5 % 06/12/24 04:55 Lymph % (Auto) 9.3 % 06/12/24 04:55 [place] % (Auto) 15.4 % 06/12/24 04:55 Eos % (Auto) 0.9 % 06/12/24 04:55 Baso % (Auto) 0.4 % 06/12/24 04:55 Neut # (Auto) 10.47 10^3/uL (1.8-7.7) H 06/12/24 04:55 Lymph # (Auto) 1.3 10^3/uL (0.8-4.8) 06/12/24 04:55 [place] # (Auto) 2.2 10^3/uL (0.2-0.9) H 06/12/24 04:55 Eos # (Auto) 0.1 10^3/uL (0.0-0.8) 06/12/24 04:55 Baso # (Auto) 0.1 10^3/uL (0.0-0.1) 06/12/24 04:55 Nucleated RBC % (auto) 0 % 06/12/24 04:55 Nucleated RBCs # 0.0 /100WBC 06/12/24 04:55 PT 19.50 SECONDS (12.1-14.9) H 06/09/24 11:25 INR 1.54 (0.8-1.2) H 06/09/24 11:25 Sodium 131 mmol/L (136-145) L 06/12/24 04:55 Potassium 4.0 mmol/L (3.5-5.1) 06/12/24 04:55 Chloride 100 mmol/L (98-107) 06/12/24 04:55 Carbon Dioxide 19 mmol/L (22-29) L 06/12/24 04:55 Anion Gap 16.0 (5-19) 06/12/24 04:55 BUN 13 mg/dL (6-20) 06/12/24 04:55 Creatinine 0.6 mg/dL (0.7-1.2) L 06/12/24 04:55 GFR Calculation 137.9 mL/min (90-130) H 06/12/24 04:55 Glucose 79 mg/dL (65-115) 06/12/24 04:55 Calculated Osmolality 271 mOsm/kg (285-295) L 06/12/24 04:55 Lactic Acid 2.6 mmol/L (0.5-2.2) H 06/10/24 05:48 Lactic Acid (Sepsis) 2.2 mmol/L (0.5-2.2) 06/10/24 08:58 Calcium 7.6 mg/dL (8.5-10.5) L 06/12/24 04:55 Magnesium 1.1 mg/dL (1.7-2.3) L 06/12/24 04:55 Total Bilirubin 5.7 mg/dL (0.15-1.2) H 06/12/24 04:55 AST 342 U/L (0-40) H 06/12/24 04:55 ALT 110 U/L (0-41) H 06/12/24 04:55 Alkaline Phosphatase 516 U/L (40-130) H 06/12/24 04:55 Total Protein 5.4 g/dL (6.6-8.7) L 06/12/24 04:55 Albumin 2.7 g/dL (3.5-5.2) L 06/12/24 04:55 Globulin 2.7 g/dL (1.3-4.6) 06/12/24 04:55 Lipase 46 U/L (13-60) 06/09/24 11:25 Procalcitonin 0.89 ng/mL (0-0.5) H 06/10/24 05:48 Urine Color Yellow (Yellow) 06/09/24 12:55 Urine Appearance Cloudy (CLEAR) A 06/09/24 12:55 Urine pH 5 (5-7) 06/09/24 12:55 Ur Specific [place] 1.025 (1.005-1.030) 06/09/24 12:55 Urine Protein 1+ (Negative) H 06/09/24 12:55 Urine Glucose (UA) Norm (Normal) 06/09/24 12:55 Urine Ketones 2+ (Negative) H 06/09/24 12:55 Urine Blood Neg (Negative) 06/09/24 12:55 Urine Nitrate Positive (Negative) A 06/09/24 12:55 Urine Bilirubin 2+ (Negative) H 06/09/24 12:55 Urine Urobilinogen 4 mg/dL (Negative) H 06/09/24 12:55 Ur Leukocyte Esterase Trace (Negative) H 06/09/24 12:55 Urine RBC 0-2 /hpf (0-2) 06/09/24 12:55 Urine WBC 0-5 /hpf (0-5) 06/09/24 12:55 Ur Squamous Epith Cells 0-5 /hpf (0-5) 06/09/24 12:55 Amorphous Sediment 2+ /hpf 06/09/24 12:55 Urine Bacteria None seen /hpf (NONE) 06/09/24 12:55 Hyaline Casts 7.42 /lpf 06/09/24 12:55 Peritoneal Color Red (Pale Yellow) 06/09/24 13:45 Peritoneal Appearance Turbid (Clear) 06/09/24 13:45 Peritoneal WBC 543 /uL 06/09/24 13:45 Peritoneal RBC 34 10^3/uL 06/09/24 13:45 Periton Mononu # Auto 0.280 10^3/uL 06/09/24 13:45 Mononuclear WBCs % 51.600 % 06/09/24 13:45 Polynuclear WBCs % 48.400 % 06/09/24 13:45 Perit Polynuc WBCs # 0.263 10^3/uL 06/09/24 13:45 Peritoneal Diff Commnt Yes 06/09/24 13:45 Vancomycin Trough 17.9 ug/mL (10-15) H 06/12/24 04:55 Influenza A (PCR) Negative (Negative) 06/09/24 12:55 Influenza Type B (PCR) Negative (Negative) 06/09/24 12:55 RSV (PCR) Negative (Negative) 06/09/24 12:55 SARS-CoV-2 (PCR) Negative (Negative) 06/09/24 12:55 Vitals Last Vital Signs Temp 94.7 F L 06/12/24 19:00 Pulse 118 H 06/12/24 19:00 Resp 16 06/12/24 19:00 BP 123/87 06/12/24 19:00 Pulse Ox 96 06/12/24 19:00 O2 Del Method Room Air 06/12/24 16:00 Discharge Plan Discharge Patient Disposition: Hospice - Home Condition: Stable Prescriptions: New amoxicillin-pot clavulanate 875-125 mg tablet 1 tab PO BID Qty: 10 0RF oxycodone 5 mg Tablet 5 mg PO Q6H PRN (Reason: Moderate Pain) Qty: 20 0RF Continued diphenoxylate-atropine [Lomotil] 2.5-0.025 mg tablet 2 tab PO QID PRN (Reason: Diarrhea) Qty: 60 3RF Rx Instructions: 2 tablets orally 4 times daily until control of diarrhea has been achieved. lidocaine-prilocaine 2.5-2.5 % cream 1 applic topical .COMPLEX Qty: 30 3RF Rx Instructions: Apply quarter size amount 30-45 minutes prior to port access, cover with cellophane (DME) colostomy supplies See Rx Instructions .Route .MEDSUPPLY Qty: 1 11RF Rx Instructions: As directed trazodone 50 mg tablet 50 mg PO .qhs Qty: 30 0RF magnesium aspart,citrate,oxide 400 mg magnesium capsule 400 mg PO BID Qty: 28 0RF Zyrtec 10 mg capsule 10 mg PO DAILY Qty: 90 1RF omeprazole 20 mg capsule,delayed release(DR/EC) See Rx Instructions .ROUTE .COMPLEX Qty: 30 3RF Dose Instruction: TAKE ONE CAPSULE BY MOUTH DAILY Rx Instructions: TAKE ONE CAPSULE BY MOUTH DAILY albuterol sulfate 90 mcg/actuation HFA aerosol inhaler 2 puff inhalation 6XD PRN (Reason: shortness of breath or wheezing) Qty: 8.5 0RF escitalopram oxalate 10 mg tablet See Rx Instructions .ROUTE .COMPLEX Qty: 45 6RF Dose Instruction: TAKE ONE AND ONE-HALF TABLET BY MOUTH EVERY DAY Rx Instructions: TAKE ONE AND ONE-HALF TABLET BY MOUTH EVERY DAY finasteride 5 mg tablet See Rx Instructions .ROUTE .COMPLEX Qty: 90 0RF Dose Instruction: TAKE ONE TABLET BY MOUTH DAILY Rx Instructions: TAKE ONE TABLET BY MOUTH DAILY Discontinued sildenafil 50 mg tablet 50 mg PO DAILY PRN (Reason: sexual activity) Qty: 20 2RF Rx Instructions: administer 30 minutes to 4 hours before activity; take on empty stomach, no nitroglycin oxycodone-acetaminophen 10-325 mg tablet 1 tab PO Q8H 30 Days Qty: 90 0RF Discharge Orders: Discharge Order (Routine); Ordered 06/12/24 Ordered By: Xochitl Mancuso Referrals: [facility] [Outside] Cassie Werner MD [Primary Care Provider] - 06/27/24 11:20 am Discharge Diet: As Directed Discharge Activity: Increase activity as tolerated Patient Instructions: Amoxicillin/Clavulanate Potassium (By mouth), Oxycodone, Slow Release (By mouth), Peritonitis (DC), Opioid Safety Discharge Attestations Time Spent in Discharge Care*: greater than 30 min Status at Discharge: Cognitive status at discharge: cognitively intact , Behavioral status at discharge: cooperative , Functional status at discharge: uses cane/walker , Overall status at discharge: patient is not back to baseline Quality Metrics Clinical Quality Measures [ No reported AMI, CVA or VTE this stay] Coding Level of Care Code Acute Code for Chg Fwd Diagnoses Sepsis A41.9 Tachycardia R00.0 Elevated WBC count D72.829 SBP (spontaneous bacterial peritonitis) K65.2 Portal vein thrombosis I81 Rectal cancer metastasized to bone C20; C79.51 Rectal cancer metastasized to liver C20; C78.7
== END 2024-06-12 19:25 | disposition hospice, home (50) | DRG 871 ==
LOC: ER 14:09 → ER IP 15:05 → MEDSURG 18:01
PROVIDERS: Admitting Provider Hospitalist; Emergency Provider Family Medicine; PCP Family Medicine; Visit Provider Hospitalist
DX: A41.9 Sepsis, unspecified organism (principal); I81 Portal vein thrombosis; K65.2 Spontaneous bacterial peritonitis; C20 Malignant neoplasm of rectum; C78.7 Secondary malignant neoplasm of liver and intrahepatic bile duct; C78.00 Secondary malignant neoplasm of unspecified lung; C77.2 Secondary and unspecified malignant neoplasm of intra-abdominal lymph nodes; C79.51 Secondary malignant neoplasm of bone; N40.0 Benign prostatic hyperplasia without lower urinary tract symptoms; K57.90 Diverticulosis of intestine, part unspecified, without perforation or abscess without bleeding; L27.1 Localized skin eruption due to drugs and medicaments taken internally; T45.1X5A Adverse effect of antineoplastic and immunosuppressive drugs, initial encounter; G89.3 Neoplasm related pain (acute) (chronic); Z79.60 Long term (current) use of unspecified immunomodulators and immunosuppressants; Z79.891 Long term (current) use of opiate analgesic; Z93.3 Colostomy status; Z90.49 Acquired absence of other specified parts of digestive tract; Z95.828 Presence of other vascular implants and grafts; Z87.891 Personal history of nicotine dependence
CPT/HCPCS: 36415; 36591; 49083; 74177; 80053; 80202; 80503; 81003; 83605; 83690; 83735; 84145; 85025; 85610; 87040; 87070; 87075; 87205; 87637; 89050; 93005; 96365; 96367; 96372; 96375; 97161; 99285; J0696; J1171; J1650; J2270; J2470; J2543; J3370; J3475; J7030; J7050